=== PATIENT | female | born 1945 | race African-American/Black ===

== ENCOUNTER 2016-09-30 08:05 | Day surgery (SDC) | payer MEDICARE, OTHER ==
[~2016-09-30 08:05] MED LIST: DIPHENHYDRAMINE HCL 50 MG/ML VIAL ONE; EPINEPHRINE INJ 1 MG/10 ML DISP.SYRIN ONE; FENTANYL CITRATE INJ/PF 100 MCG/2 ML AMPUL ONE; FLUMAZENIL INJ 0.5 MG/5 ML VIAL IV ONE; GLUCAGON,HUMAN RECOMB 1 MG INJ ONE; NALOXONE HCL INJ/PF 0.4 MG/1 ML SDV ONE; ONDANSETRON HCL INJ/PF 4 MG/2 ML SDV ONE; PROMETHAZINE HCL INJ 25 MG/1 ML VIAL ONE
[2016-09-30] MEDS: MIDAZOLAM 2 MG/2 ML INJ ONE ×2 (09:25→09:29)
--- NOTE | 2016-09-30 10:08 | Operative Report ---
Operative Report DATE OF SURGERY: 09/30/16 Operative Report: The risks benefits and alternatives of the procedure explained to the patient in detail and informed consent is obtained that GIF Olympus video scope was inserted into the patient's mouth and hypopharynx the esophagus is identified intubated and insufflated the scope was then advanced through the esophagus stomach and duodenum retroflexion maneuver is done the esophagus stomach and first and second portions of the duodenum examined PREOPERATIVE DIAGNOSIS: Epigastric pain POSTOPERATIVE DIAGNOSIS: Gastritis. Hiatal hernia OPERATION: EGD with biopsy SURGEON: LOLA REYNA ANESTHESIA: Moderate Sedation - 3 mg of Versed, 50 g of fentanyl. TISSUE REMOVED OR ALTERED: Gastric specimens obtained rule out Helicobacter pylori COMPLICATIONS: None. ESTIMATED BLOOD LOSS: none. INTRAOPERATIVE FINDINGS: Normal esophagus. Inflammation of the stomach. First and second portions of the duodenum normal PROCEDURE: Patient tolerated the procedure well. No immediate postprocedure complications are noted. She is discharged in good condition. Date of discharge 09/30/2016. Discharge diet: Regular. Discharge activity: Regular. Patient is instructed to go to emergency room or call the office should there be any further problems or questions. 2-3 week follow-up to discuss findings. Wait on biopsies.
[2016-09-30 11:15] VITALS: BP 128/67
== END 2016-09-30 10:50 | disposition home or self-care (01) ==
LOC: END 08:05
PROVIDERS: ATTEND Internal Medicine Gastroenterology
PROC: 0DB68ZX Excision of Stomach, Via Natural or Artificial Opening Endoscopic, Diagnostic (ICD-10-PCS; principal; 2016-09-30 09:00)
DX: K29.50 Unspecified chronic gastritis without bleeding (principal); K44.9 Diaphragmatic hernia without obstruction or gangrene; J45.909 Unspecified asthma, uncomplicated; E78.5 Hyperlipidemia, unspecified; K21.9 Gastro-esophageal reflux disease without esophagitis; I25.10 Atherosclerotic heart disease of native coronary artery without angina pectoris; J44.9 Chronic obstructive pulmonary disease, unspecified; M19.90 Unspecified osteoarthritis, unspecified site; I12.9 Hypertensive chronic kidney disease with stage 1 through stage 4 chronic kidney disease, or unspecified chronic kidney disease; N18.9 Chronic kidney disease, unspecified; Z79.51 Long term (current) use of inhaled steroids; Z79.899 Other long term (current) drug therapy; Z79.82 Long term (current) use of aspirin; Z88.0 Allergy status to penicillin
CPT/HCPCS: 43239; 88342 ×2; 88305 ×2; J2250; J3010; J0171; J1200; J1610; J2310; J2405; J2550; J3490

== ENCOUNTER 2016-11-07 16:35 | Emergency (ER) | payer MEDICARE, OTHER ==
[2016-11-07] MEDS ORDERED: IPRATROPIUM/ALBUTEROL 0.5-2.5 MG/3 ML AMPUL NEB ONE (16:46)
[2016-11-07] MEDS ORDERED: PREDNISONE 20 MG TABLET PO ONE (16:46)
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
[2016-11-07] MEDS ORDERED: ALBUTEROL SULFATE 0.083% NEB 2.5 MG/3 ML AMPUL NEB ONE (21:07)
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
[2016-11-07] MEDS ORDERED: NAPROXEN 250 MG TABLET PO ONE (21:43)
[2016-11-07 22:01] VITALS: BP 146/72
== END 2016-11-07 22:01 | disposition home or self-care (01) ==
LOC: ER 16:35
DX: T59.811A Toxic effect of smoke, accidental (unintentional), initial encounter (principal); J70.5 Respiratory conditions due to smoke inhalation; R05 Cough; R06.02 Shortness of breath; Y92.009 Unspecified place in unspecified non-institutional (private) residence as the place of occurrence of the external cause; J44.9 Chronic obstructive pulmonary disease, unspecified; F17.210 Nicotine dependence, cigarettes, uncomplicated; I25.10 Atherosclerotic heart disease of native coronary artery without angina pectoris; I25.2 Old myocardial infarction; I10 Essential (primary) hypertension; Z87.01 Personal history of pneumonia (recurrent); Z98.61 Coronary angioplasty status; Z95.810 Presence of automatic (implantable) cardiac defibrillator; Z88.0 Allergy status to penicillin
CPT/HCPCS: 94640 ×2; 99284; 71020; A9270 ×4; J7512; J7620

== ENCOUNTER 2017-02-08 00:51 | Emergency (ER) | payer MEDICARE, OTHER ==
[2017-02-08] MEDS ORDERED: ACETAMINOPHEN 325 MG TABLET PO ONE (01:09)
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
[2017-02-08 04:32] VITALS: BP 194/84
== END 2017-02-08 03:57 | disposition home or self-care (01) ==
LOC: ER 00:51
DX: S09.90XA Unspecified injury of head, initial encounter (principal); M25.551 Pain in right hip; M54.2 Cervicalgia; M54.5 Low back pain; M54.9 Dorsalgia, unspecified; Y09 Assault by unspecified means
CPT/HCPCS: 99284; 73502; 72110; 70450; 72125; A9270

== ENCOUNTER → 2017-02-19 | Outpatient (CLI) | payer MEDICARE, OTHER ==
--- NOTE | 2017-02-19 11:13 | RADIOLOGY REPORT (SQ) ---
EXAM DESCRIPTION: LUMBAR SPINE COMPLETE COMPLETED DATE/TIME: 02/19/2017 10:40 am REASON FOR STUDY: DORSALGIA,UNSPECIFIED M54.9 DORSALGIA, UNSPECIFIED COMPARISON: LUMBAR SPINE FILMS 02/08/2017, 01/21/2015 NUMBER OF VIEWS: Five views including obliques. TECHNIQUE: AP, lateral, oblique, and sacral radiographic images acquired of the lumbar spine. LIMITATIONS: Artifact from electrode leads over the frontal film FINDINGS: MINERALIZATION: Osteopenic SEGMENTATION: Normal. No transitional anatomy. ALIGNMENT: Normal. VERTEBRAE: Maintained height. No fracture or worrisome bone lesion. DISCS: Preserved height. No significant osteophytes or end plate irregularity. POSTERIOR ELEMENTS: Very mild bilateral facet arthropathy at L5-S1 HARDWARE: None in the spine. PARASPINAL SOFT TISSUES: Very heavily calcified abdominal aorta without calcified aortic aneurysm PELVIS: Intact as visualized. No fractures or worrisome bone lesions. SI joints intact. OTHER: No other significant finding. IMPRESSION: Osteopenia. No acute fracture or malalignment Mild bilateral L5-S1 facet arthropathy TECHNICAL DOCUMENTATION: JOB ID: [id number]- All Rights Reserved
== END ==
LOC: OD 10:19
PROVIDERS: ATTEND Family Medicine
DX: M54.9 Dorsalgia, unspecified (principal)
CPT/HCPCS: 72110

== ENCOUNTER → 2017-04-24 | Outpatient (CLI) | payer MEDICARE, OTHER ==
--- NOTE | 2017-04-24 11:57 | RADIOLOGY REPORT (SQ) ---
EXAM DESCRIPTION: CHEST PA/LATERAL COMPLETED DATE/TIME: 04/24/2017 11:50 am REASON FOR STUDY: COUGH COMPARISON: 11/07/2016 EXAM PARAMETERS: NUMBER OF VIEWS: two views TECHNIQUE: Digital Frontal and Lateral radiographic views of the chest acquired. RADIATION DOSE: NA LIMITATIONS: none FINDINGS: LUNGS AND PLEURA: No opacities, masses or pneumothorax. No pleural effusion. MEDIASTINUM AND HILAR STRUCTURES: No masses or contour abnormalities. HEART AND VASCULAR STRUCTURES: Heart normal size. No evidence for failure. BONES: No acute findings. HARDWARE: Pacemaker/defibrillator. OTHER: No other significant finding. IMPRESSION: NO SIGNIFICANT RADIOGRAPHIC FINDING IN THE CHEST. TECHNICAL DOCUMENTATION: JOB ID: [id number] [email or web address]- All Rights Reserved
== END ==
LOC: OD 11:27
PROVIDERS: ATTEND Physician Assistant
DX: R05 Cough (principal)
CPT/HCPCS: 71020

== ENCOUNTER 2017-05-13 10:14 | Emergency (ER) | payer MEDICARE, OTHER ==
--- NOTE | 2017-05-13 10:54 | ER Document Report ---
ED Cardiac - General Stated Complaint: CHEST PAIN Time Seen by Provider: 05/13/17 10:40 Notes: Patient was at a local cat sitter (Dr. Abarca) office this morning undergoing a colonoscopy. She was sedated with etomidate and propofol. When she awakened from the procedure, she was complaining of pain in her upper left breast and shoulder, into her left neck. She says the doctor present gave her 2 sublingual nitroglycerin and they called EMS. She says the nitroglycerin helped some, although she still has some chest pain at this time. Patient also feels a little bit short of breath. Patient has a history of a heart attack in 1990 and received a pacemaker at that time. She still has the pacemaker, the most recently moved about 5 years ago. Denies any recent illness or chest pains. Denies any nausea or vomiting. Denies fever. PMH: Hypertension, coronary artery disease, hysterectomy, smoker. Patient of Dr. Fragoso. TRAVEL OUTSIDE OF THE [place] IN LAST 30 DAYS: No - Related Data Allergies/Adverse Reactions: amoxicillin [Amoxicillin] Allergy (Intermediate, Verified 11/07/16 16:46) Hallucinations Penicillins Allergy (Intermediate, Verified 11/07/16 16:46) Hallucinations Past Medical History - Social History Smoking Status: Current Every Day Smoker Family History: Reviewed & Not Pertinent, Hypertension - Past Medical History Cardiac Medical History: Reports: Hx Congestive Heart Failure, Hx Coronary Artery Disease, Hx Heart Attack - 1990, Hx Hypercholesterolemia, Hx Hypertension - medicated Pulmonary Medical History: Reports: Hx Bronchitis, Hx COPD, Hx Pneumonia Renal/ Medical History: Reports: Hx Renal Insufficiency Malignancy Medical History: Denies: Hx Leukemia, Hx Lung Cancer GI Medical History: Reports: Hx Crohn's Disease, Hx Diverticulitis, Hx Gastroesophageal Reflux Disease Musculoskeltal Medical History: Reports Hx Arthritis Psychiatric Medical History: Reports: Hx Depression Traumatic Medical History: Reports: Hx Fractures - right wrist, left foot Past Surgical History: Reports: Hx Appendectomy, Hx Cardiac Catheterization, Hx Cardiac Surgery - AICD, Hx Section - x4, Hx Coronary Stent, Hx Hysterectomy, Hx Orthopedic Surgery - bilateral knee surgery, Hx Pacemaker, Hx Tonsillectomy - Immunizations Immunizations up to date: Yes Hx Diphtheria, Pertussis, Tetanus Vaccination: Yes Hx Pneumococcal Vaccination: 09/21/09 Review of Systems - Review of Systems Notes: REVIEW OF SYSTEMS: CONSTITUTIONAL : Denies fever. EENT: Denies eye, ear, nose or mouth or throat pain or other symptoms. CARDIOVASCULAR: See HPI. RESPIRATORY: Denies cough, chest congestion, but did feel some shortness of breath. GASTROINTESTINAL: Denies abdominal pain or nausea, vomiting, or diarrhea ( except for the GI prep for the colonoscopy). GENITOURINARY: Denies difficulty or painful urinating, urinary frequency, blood in urine. MUSCULOSKELETAL: Denies back or neck pain. Denies joint pain or swelling. SKIN: Denies rash or skin lesions. NEUROLOGICAL: Denies LOC or altered mental status. Denies headache. Denies sensory loss or motor deficits. ALL OTHER SYSTEMS REVIEWED AND NEGATIVE. Physical Exam - Vital signs Vitals: Resp Pulse Ox 17 97 05/13/17 10:25 05/13/17 10:25 Interpretation: Normal, Hypertensive - 164/70 - Notes Notes: PHYSICAL EXAMINATION: GENERAL: Well-appearing, in no acute distress. Vital signs are normal except for the blood pressure 164/70. HEAD: Atraumatic, normocephalic. NECK: Normal range of motion, supple. LUNGS: Breath sounds clear and equal bilaterally. Pacemaker in upper left chest. Mild tenderness around the pacer. HEART: Regular rate and rhythm without murmurs. ABDOMEN: Soft, nontender. No guarding or rebound. BACK: No tenderness throughout entire back. EXTREMITIES: Normal range of motion without pain. NEUROLOGICAL: Normal speech, normal gait. Normal sensory, motor, and reflex exams. Awake, alert, and oriented x3. Cranial nerves normal. PSYCH: Normal mood, normal affect. SKIN: Warm, dry, no rashes. Course - Re-evaluation Re-evalutation: 05/13/17 13:30 Patient was given a 0.2 mg nitro patch and says it helped her pain and she is down to barely noticeable discomfort now. 05/13/17 13:[address] Fragoso, her primary care physician, and he says this patient has frequent chest pain, that always has a normal workup and no heart injury. He requests a second set of cardiac markers and dispo to follow up with him in the office unless there is a change in her second set of labs. Patient advised. Patient is hungry and we have gotten her lunch and she is eating it now. 05/13/17 17:34 Repeat labs show no change in the patient's CK-MB and troponin levels. She is asymptomatic at this time. I feel she is safe to be discharged home to follow- up with Dr. Fragoso. - Vital Signs Vital signs: Temp Pulse Resp BP Pulse Ox 14 164/70 H 98 05/13/17 11:00 05/13/17 10:26 05/13/17 11:00 - Laboratory Result Diagrams: 05/13/17 11:20 05/13/17 11:20 Laboratory results interpreted by me: 05/13/17 05/13/17 11:20 11:20 Hgb 11.8 L Hct 35.5 L RDW 15.1 H Chloride 108 H BUN 22 H Est GFR (Non-Af Amer) 58 L - Diagnostic Test Radiology results interpreted by me: 05/13/17 13:27 Chest x-ray shows a pacemaker. Otherwise, chest x-ray is essentially normal. - EKG Interpretation by Me EKG shows normal: Sinus rhythm Rate: Normal Rhythm: NSR Additional EKG results interpreted by me: 05/13/17 13:27 EKG shows an abnormal T-wave in what looks like QT prolongation. No acute changes, otherwise. Discharge - Discharge Clinical Impression: Chest pain Qualifiers: Chest pain type: unspecified Qualified Code(s): R07.9 - Chest pain, unspecified Condition: Stable Disposition: HOME, SELF-CARE Additional Instructions: CHEST PAIN OF UNCLEAR CAUSE: The exact cause of your chest pain isn't clear. Fortunately, there is no evidence of a dangerous medical condition. Further testing may be required to find the source of the pain. Most often, we find that this pain is coming from the chest wall -- the muscles or rib joints in the chest. But chest pain can come from the lung and lung lining, the esophagus, the heart valves or heart lining, and even the stomach or gallbladder. Rest. Eat lightly until the pain is gone. We may prescribe medicine for pain and inflammation. You should call the physician immediately if the pain radiates to the shoulder, jaw or arms; if you start to run a fever or develop a cough; or if you develop shortness of breath, or other new or alarming symptoms. NORMAL EXAM AND WORKUP: At this time, your examination and workup show no significant abnormality. No significant abnormal physical findings were noted. All laboratory, EKG, and imaging (x-ray, CT scans, ultrasound) studies that were ordered show no significant abnormality. Although your examination and all studies that were ordered showed no significant abnormal finding, there are no examinations and no studies that are 100% accurate. There is always the possibility that some abnormality could exist and not be detected with physical examination or within the limits and capabilities of laboratory and other studies. You should return or follow up as you were instructed on your visit today for further evaluation if your symptoms do not resolve. FOLLOW-UP CARE: If you have been referred to a physician for follow-up care, call the physician s office for an appointment as you were instructed or within the next two days. If you experience worsening or a significant change in your symptoms, notify the physician immediately or return to the Emergency Department at any time for re-evaluation. Follow-up with Dr. Fragoso in his office tomorrow. Referrals: RADHA FRAGOSO MD [Primary Care Provider] - Follow up as needed
--- NOTE | 2017-05-13 10:57 | RADIOLOGY REPORT (SQ) ---
EXAM DESCRIPTION: CHEST SINGLE VIEW COMPLETED DATE/TIME: 05/13/2017 10:39 am REASON FOR STUDY: bed 16 cp COMPARISON: Two-view chest 04/24/2017, 11/07/2016, 02/09/2016 EXAM PARAMETERS: NUMBER OF VIEWS: One view. TECHNIQUE: Single frontal radiographic view of the chest acquired. RADIATION DOSE: NA LIMITATIONS: Left mid lung obscured by the pacemaker/defibrillator battery pack FINDINGS: LUNGS AND PLEURA: No opacities, masses or pneumothorax. No pleural effusion. MEDIASTINUM AND HILAR STRUCTURES: No masses. Contour normal. HEART AND VASCULAR STRUCTURES: No gross cardiomegaly BONES: No acute findings. HARDWARE: Unchanged left-sided pacemaker/ defibrillator and abandoned leads. LAD coronary stent. OTHER: No other significant finding. IMPRESSION: No acute findings TECHNICAL DOCUMENTATION: JOB ID: [id number]
[2017-05-13] MEDS ORDERED: NITROGLYCERIN 5 MG (0.2 MG/HR) PATCH.TD24 TD ONE (10:58)
[2017-05-13 11:29] LABS: ABSOLUTE LYMPHOCYTES (AUTO) 1.1 10^3/uL (0.5-4.7); ABSOLUTE MONOCYTES (AUTO) 0.2 10^3/uL (0.1-1.4); ABSOLUTE NEUT (AUTO) 4.1 10^3/uL (1.7-8.2); BASOPHILS % (AUTO) 0.7 % (0-2); HEMATOCRIT 35.5 % (36.0-47.0); HEMOGLOBIN 11.8 g/dL (12.0-15.5); HGB HCT DIFFERENCE -0.1; LYMPHOCYTES % (AUTO) 20.3 % (13-45); MEAN CORPUSCULAR HEMOGLOBIN 30.8 pg (27.0-33.4); MEAN CORPUSCULAR HGB CONC 33.2 g/dL (32.0-36.0); MEAN CORPUSCULAR VOLUME 93 fl (80-97); MONOCYTES % (AUTO) 3.5 % (3-13); RED BLOOD COUNT 3.83 10^6/uL (3.72-5.28); RED CELL DISTRIBUTION WIDTH 15.1 % (11.5-14.0); SEGMENTED NEUTROPHILS % (AUTO) 75.5 % (42-78); WHITE BLOOD COUNT 5.5 10^3/uL (4.0-10.5)
[2017-05-13 11:58] LABS: ALANINE AMINOTRANSFERASE 22 U/L (9-52); ALBUMIN 3.8 g/dL (3.5-5.0); ALKALINE PHOSPHATASE 87 U/L (38-126); ANION GAP 10 (5-19); ASPARTATE AMINO TRANSFERASE 15 U/L (14-36); BILIRUBIN,DIRECT 0.3 mg/dL (0.0-0.4); BILIRUBIN,TOTAL 0.6 mg/dL (0.2-1.3); BLOOD UREA NITROGEN 22 mg/dL (7-20); CALCIUM 9.7 mg/dL (8.4-10.2); CARBON DIOXIDE 23 mmol/L (22-30); CHLORIDE 108 mmol/L (98-107); CREATINE KINASE 44 U/L (30-135); CREATININE RESULT 0.94 mg/dL (0.52-1.25); GLUCOSE 103 mg/dL (75-110); POTASSIUM 3.6 mmol/L (3.6-5.0); SODIUM 140.9 mmol/L (137-145); TOTAL PROTEIN 6.4 g/dL (6.3-8.2)
[2017-05-13 12:06] LABS: CREATINE KINASE MB 0.44 ng/mL (<4.55)
[2017-05-13 12:11] LABS: TROPONIN I < 0.012 ng/mL
[2017-05-13 17:07] LABS: CREATINE KINASE MB 0.42 ng/mL (<4.55); TROPONIN I < 0.012 ng/mL
[2017-05-13 17:45] VITALS: BP 136/67
--- NOTE | 2017-05-13 21:41 | EKG REPORT ---
SEVERITY:- ABNORMAL ECG - SINUS RHYTHM ABNORMAL T, CONSIDER ISCHEMIA, ANT-LAT LEADS : Confirmed by: Geni Olguin 13-May-2017 21:40:55
== END 2017-05-13 17:45 | disposition home or self-care (01) ==
LOC: ER 10:14
DX: R07.9 Chest pain, unspecified (principal); R94.31 Abnormal electrocardiogram [ECG] [EKG]; R06.02 Shortness of breath; I25.2 Old myocardial infarction; I25.10 Atherosclerotic heart disease of native coronary artery without angina pectoris; I10 Essential (primary) hypertension; J44.9 Chronic obstructive pulmonary disease, unspecified; F17.200 Nicotine dependence, unspecified, uncomplicated; Z98.890 Other specified postprocedural states; Z95.0 Presence of cardiac pacemaker; Z88.0 Allergy status to penicillin; Z87.01 Personal history of pneumonia (recurrent); Z98.61 Coronary angioplasty status
CPT/HCPCS: 93005; 99285; 36415; 82553; 82550; 85025; 80053; 84484; 71010; 93010; J3490

== ENCOUNTER 2017-06-28 23:55 | Inpatient (IN) | payer MEDICARE, OTHER ==
--- NOTE | 2017-06-29 00:34 | ER Document Report ---
ED GI Bleed / Rectal Pain - General Mode of Arrival: Ambulatory Information source: Patient TRAVEL OUTSIDE OF THE [place] IN LAST 30 DAYS: No - HPI Patient complains to provider of: Dark/tarry stools Onset: Just prior to arrival <RADHA STEVENS - Last Filed: 06/29/17 00:39> <WADE PARKER - Last Filed: 06/29/17 03:38> - General Chief Complaint: Rectal Bleeding Stated Complaint: RECTAL BLEEDING Time Seen by Provider: 06/29/17 00:16 Notes: Patient is a 72 year old female that presents to the emergency department today with complaints of a bloody bowel movement just prior to arrival. Patient states she had abdominal pain prior to this bowel movement today. Patient has a history of multiple GI bleeds and she has been sent to [facility] in the past. Patient states she recently had a colonoscopy by Dr. Norwood which "showed nothing". Patient has had multiple colonoscopies in the past and was seen here on April 28, 2014 with a GI bleed. Patient states the only blood thinning medication she takes is aspirin. Patient also complains of a slight headache. ( RADHA STEVENS) - Related Data Allergies/Adverse Reactions: amoxicillin [Amoxicillin] Allergy (Intermediate, Verified 11/07/16 16:46) Hallucinations Penicillins Allergy (Intermediate, Verified 11/07/16 16:46) Hallucinations Past Medical History - General Information source: Patient, [facility] Records - Social History Smoking Status: Current Every Day Smoker Cigarette use (# per day): Yes Frequency of alcohol use: None Drug Abuse: None Lives with: Family Family History: Reviewed & Not Pertinent, Hypertension - Past Medical History Cardiac Medical History: Reports: Hx Congestive Heart Failure, Hx Coronary Artery Disease, Hx Heart Attack - 1990, Hx Hypercholesterolemia, Hx Hypertension - medicated Pulmonary Medical History: Reports: Hx Bronchitis, Hx COPD, Hx Pneumonia Renal/ Medical History: Reports: Hx Renal Insufficiency GI Medical History: Reports: Hx Crohn's Disease, Hx Diverticulitis, Hx Gastroesophageal Reflux Disease Musculoskeltal Medical History: Reports Hx Arthritis Psychiatric Medical History: Reports: Hx Depression Traumatic Medical History: Reports: Hx Fractures - right wrist, left foot Past Surgical History: Reports: Hx Appendectomy, Hx Cardiac Catheterization, Hx Cardiac Surgery - AICD, Hx Section - x4, Hx Coronary Stent, Hx Hysterectomy, Hx Orthopedic Surgery - bilateral knee surgery, Hx Pacemaker, Hx Tonsillectomy - Immunizations Immunizations up to date: Yes Hx Diphtheria, Pertussis, Tetanus Vaccination: Yes Hx Pneumococcal Vaccination: 09/21/09 <RADHA STEVENS - Last Filed: 06/29/17 00:39> GI Medical History: Reports: Hx Crohn's Disease - Patient has either Crohn's disease or ulcerative colitis Past Surgical History: Reports: Hx Cardiac Surgery - AICD for ventricular fibrillation <WADE PARKER - Last Filed: 06/29/17 03:38> Review of Systems - Review of Systems Constitutional: No symptoms reported EENT: No symptoms reported Cardiovascular: No symptoms reported Respiratory: No symptoms reported Gastrointestinal: See HPI, Abdominal pain, Black stools Genitourinary: No symptoms reported Female Genitourinary: No symptoms reported Musculoskeletal: No symptoms reported Skin: No symptoms reported Hematologic/Lymphatic: No symptoms reported Neurological/Psychological: See HPI, Headaches -: Yes All other systems reviewed and negative <RADHA STEVENS - Last Filed: 06/29/17 00:39> Physical Exam <RADHA STEVENS - Last Filed: 06/29/17 00:39> <WADE PARKER - Last Filed: 06/29/17 03:38> - Vital signs Vitals: Resp Pulse Ox 18 99 06/29/17 00:33 06/29/17 00:33 - Notes Notes: Physical Exam: General: Alert, appears age appropriate. HEENT: Normocephalic. Atraumatic. PERRL. Extraocular movements intact. Oropharynx clear. Neck: Supple. Non-tender. Respiratory: No respiratory distress. Clear and equal breath sounds bilaterally. Cardiovascular: Regular rate and rhythm. Abdominal: Minimal tenderness with palpation over left suprapubic area. Large amount of black liquid stool in bedside toilet. No distension. Normal Bowel Sounds. Back: Non-tender. No deformity or step off. Extremities: Moves all four extremities. Upper extremities: Normal inspection. Normal ROM. Lower extremities: Normal inspection. No edema. Normal ROM. Neurological: Normal cognition. AAOx4. Normal speech. Psychological: Normal affect. Normal Mood. Skin: Warm. Dry. Normal color. (RADHA STEVENS) Course - Laboratory Result Diagrams: 06/29/17 00:10 06/29/17 00:10 - EKG Interpretation by De EKG shows normal: Sinus rhythm, [place], Intervals, QRS Complexes, ST-T Waves - Abnormal anterolateral ST wave Rate: Normal - 64 Rhythm: NSR When compared to previous EKG there are: Changes noted - Consults Dr. Horne Time consulted: 03:35 Consulted provider: will see as inpatient - Admit to telemetry, Dr. Mendoza's service <WADE PARKER - Last Filed: 06/29/17 03:38> - Vital Signs Vital signs: Temp Pulse Resp BP Pulse Ox 97.4 F 75 15 159/73 H 98 06/29/17 00:46 06/29/17 00:46 06/29/17 02:01 06/29/17 02:01 06/29/17 02:01 - Laboratory Laboratory results interpreted by me: 06/29/17 06/29/17 00:10 00:10 WBC 3.2 L Hgb 11.5 L Hct 35.0 L RDW 15.7 H Seg Neutrophils % 35.6 L Lymphocytes % 58.6 H Absolute Neutrophils 1.2 L Sodium 145.4 H Chloride 112 H BUN 21 H Est GFR (Non-Af Amer) 50 L Glucose 125 H AST 55 H Discharge <RADHA STEVENS - Last Filed: 06/29/17 00:39> - Discharge Admitting Provider: Reji - Dr. Horne is covering Unit Admitted: Telemetry <WADE PARKER - Last Filed: 06/29/17 03:38> - Discharge Clinical Impression: Rectal bleeding, AICD (automatic cardioverter/defibrillator) present High blood pressure Qualifiers: Hypertension type: essential hypertension Qualified Code(s): I10 - Essential ( primary) hypertension COPD (chronic obstructive pulmonary disease) Qualifiers: COPD type: unspecified COPD Qualified Code(s): J44.9 - Chronic obstructive pulmonary disease, unspecified Headache Qualifiers: Headache type: unspecified Headache chronicity pattern: unspecified pattern Intractability: not intractable Qualified Code(s): R51 - Headache Condition: Stable Disposition: ADMITTED INPATIENT Referrals: ANA MARIA MENDOZA MD [Primary Care Provider] - Follow up as needed Scribe Attestation: 06/29/17 00:51 I personally performed the services described in the documentation, reviewed and edited the documentation which was dictated to the scribe in my presence, and it accurately records my words and actions. (WADE PARKER) Scribe Documentation - Scribe Written by Casper:: Casper Gilliam, 06/29/2017 0043 acting as scribe for :: Geno <RADHA STEVENS - Last Filed: 06/29/17 00:39>
[2017-06-29] MEDS ORDERED: NORMAL SALINE 1000 ML 1,000 ML IV ONE (00:43)
[2017-06-29 01:14] LABS: ABSOLUTE LYMPHOCYTES (AUTO) 1.9 10^3/uL (0.5-4.7); ABSOLUTE MONOCYTES (AUTO) 0.1 10^3/uL (0.1-1.4); ABSOLUTE NEUT (AUTO) 1.2 10^3/uL (1.7-8.2); BASOPHILS % (AUTO) 0.5 % (0-2); EOSINOPHILS % (AUTO) 1.3 % (0-6); HEMOGLOBIN 11.5 g/dL (12.0-15.5); HGB HCT DIFFERENCE -0.5; LYMPHOCYTES % (AUTO) 58.6 % (13-45); MEAN CORPUSCULAR HEMOGLOBIN 30.8 pg (27.0-33.4); MEAN CORPUSCULAR HGB CONC 32.9 g/dL (32.0-36.0); MEAN CORPUSCULAR VOLUME 94 fl (80-97); RED BLOOD COUNT 3.73 10^6/uL (3.72-5.28); RED CELL DISTRIBUTION WIDTH 15.7 % (11.5-14.0); SEGMENTED NEUTROPHILS % (AUTO) 35.6 % (42-78); WHITE BLOOD COUNT 3.2 10^3/uL (4.0-10.5)
[2017-06-29 01:15] LABS: ALANINE AMINOTRANSFERASE 18 U/L (9-52); ALBUMIN 3.9 g/dL (3.5-5.0); ALKALINE PHOSPHATASE 93 U/L (38-126); ANION GAP 9 (5-19); ASPARTATE AMINO TRANSFERASE 55 U/L (14-36); BILIRUBIN,DIRECT 0.4 mg/dL (0.0-0.4); BILIRUBIN,TOTAL 0.6 mg/dL (0.2-1.3); BLOOD UREA NITROGEN 21 mg/dL (7-20); CALCIUM 9.4 mg/dL (8.4-10.2); CARBON DIOXIDE 24 mmol/L (22-30); CHLORIDE 112 mmol/L (98-107); CREATINE KINASE 83 U/L (30-135); CREATININE RESULT 1.08 mg/dL (0.52-1.25); GLUCOSE 125 mg/dL (75-110); POTASSIUM 3.8 mmol/L (3.6-5.0); SODIUM 145.4 mmol/L (137-145); TOTAL PROTEIN 6.6 g/dL (6.3-8.2)
[2017-06-29] MEDS ORDERED: FENTANYL CITRATE INJ/PF 100 MCG/2 ML AMPUL IV ONE (02:49)
--- NOTE | 2017-06-29 06:22 | EKG REPORT ---
SEVERITY:- ABNORMAL ECG - SINUS RHYTHM ABNORMAL T, CONSIDER ISCHEMIA, ANT-LAT LEADS : Confirmed by: Clarice Turk MD 29-Jun-2017 06:22:13
[2017-06-29] MEDS ORDERED: NORMAL SALINE 1000 ML 1,000 ML IV PRN (06:30)
[2017-06-29 08:25] LABS: PROTHROMBIN TIME 14.2 SEC (11.4-15.4)
[2017-06-29 08:26] LABS: PARTIAL THROMBOPLASTIN TIME 29.9 SEC (23.5-35.8)
[2017-06-29 08:28] LABS: HEMATOCRIT 27.1 % (36.0-47.0); HGB HCT DIFFERENCE -0.1; MEAN CORPUSCULAR HGB CONC 33.1 g/dL (32.0-36.0); MEAN CORPUSCULAR VOLUME 94 fl (80-97); RED BLOOD COUNT 2.89 10^6/uL (3.72-5.28); RED CELL DISTRIBUTION WIDTH 15.7 % (11.5-14.0)
[2017-06-29 08:48] LABS: APPEARANCE,URINE CLEAR; BILIRUBIN,URINE NEGATIVE (NEGATIVE); GLUCOSE, URINE NEGATIVE (NEGATIVE); KETONES,URINE NEGATIVE (NEGATIVE); LEUKOCYTE ESTERASE,URINE NEGATIVE (NEGATIVE); NITRITE,URINE NEGATIVE (NEGATIVE); PROTEIN,URINE NEGATIVE (NEGATIVE); URINE SPECIFIC GRAVITY 1.016; UROBILINOGEN,URINE NEGATIVE mg/dL (<2.0)
[2017-06-29] MEDS ORDERED: PEG 3350/NA SULF,BICARB,CL/KCL 4000 ML PO ONE (10:00)
--- NOTE | 2017-06-29 10:05 | PDOC CONSULTATION ---
Consultation Consult Date: 06/29/17 Consult reason:: Gastrointestinal bleeding History of Present Illness Admission Date/PCP: 06/29/17 07:08 ANA MARIA FRAGOSO MD History of Present Illness: JESSICA VEGA is a 72 year old female presents to the emergency department by ground rescue complaining of abdominal, gastrointestinal bleeding. She was admitted to the internal medicine service for further evaluation. She had no evidence of hemodynamic instability. Bowel movements are described as bloody some clot. Patient has a history of repeated gastrointestinal bleeding. According to records, she underwent upper and lower endoscopy by Dr. Harris 2012 where she was found to have duodenitis, ileocolitis and 2 polyps of the ascending colon. She underwent repeat upper endoscopy by Dr. Martino was found to have gastritis and duodenitis in 2013. Significant source of gastrointestinal bleeding was identified. Last month the patient states she underwent upper and lower endoscopy by Dr. bal, the results of which are unknown. According the patient the only blood thinner she takes his aspirin. Since being admitted to the floor, she has had no further gastrointestinal bleeding. She denies emesis. Past Medical History Cardiac Medical History: Reports: Congestive Heart Failure, Coronary Artery Disease, Myocardial Infarction - 1990, Hyperlipidema, Hypertension - medicated Denies: Atrial Fibrillation, Peripheral Vascular Disease, Pulmonary Embolism , Heart Murmur Pulmonary Medical History: Reports: Bronchitis, Chronic Obstructive Pulmonary Disease (COPD), Pneumonia Denies: Asthma, Respiratory Failure, Sleep Apnea, Tuberculosis Neurological Medical History: Denies: Seizures Endocrine Medical History: Denies: Diabetes Mellitus Type 1, Diabetes Mellitus Type 2 Renal/ Medical History: Denies: End Stage Renal Disease Malignancy Medical History: Denies: Leukemia, Lung Cancer GI Medical History: Reports: Crohn's Disease - Patient has either Crohn's disease or ulcerative colitis, Diverticulitis, Gastroesophageal Reflux Disease Denies: Hepatitis, Hiatal Hernia Musculoskeltal Medical History: Reports: Arthritis Denies: Fibromyalgia Psychiatric Medical History: Reports: Depression Denies: Bipolar Disorder, Post Traumatic Stress Disorder Hematology: Denies: Anemia, Hemophilia, Sickle Cell Disease Infectious Medical History: Denies: HIV Past Surgical History Past Surgical History: Reports: Appendectomy, Cardiac Catheterization, Section - x4, Coronary Stent, Hysterectomy, Orthopedic Surgery - bilateral knee surgery, Pacemaker, Tonsillectomy Denies: Amputation, Cholecystectomy, Colostomy, Coronary Artery Bypass Graft , Gastric Bypass Surgery, Herniorrhaphy, Mastectomy, Tubal Ligation Social History Lives with: Family Smoking Status: Current Some Day Smoker Frequency of Alcohol Use: None Hx Recreational Drug Use: No Hx Prescription Drug Abuse: No - Advance Directive Resuscitation Status: Full Code Family History Family History: Reviewed & Not Pertinent, Hypertension Parental Family History Reviewed: Yes Children Family History Reviewed: Yes Sibling(s) Family History Reviewed.: Yes Medication/Allergy Home Medications: Albuterol Sulfate [Albuterol Sulfate 2.5mg/3 mL] 1 vial IH Q4 PRN 11/17/15 Amlodipine Besylate 5 mg PO BID 11/17/15 Atorvastatin Calcium 40 mg PO DAILY 11/17/15 Carvedilol [Coreg] 25 mg PO BID 11/17/15 Hydralazine HCl 50 mg PO TID 11/17/15 Hydrochlorothiazide 12.5 mg PO DAILY 11/17/15 Trazodone HCl [Desyrel 50 mg Tablet] 50 mg PO QHS 11/17/15 Aspirin [Aspirin EC] 81 mg PO DAILY 09/30/16 Diclofenac Sodium [Voltaren] 100 gm TP QID 09/30/16 Docusate Sodium [Dok] 100 mg PO DAILY PRN 09/30/16 Esomeprazole Magnesium [Nexium 24Hr] 22.3 mg PO DAILY 09/30/16 Fluticasone Propionate 1 spray NS BID 09/30/16 Ibuprofen/Famotidine [Duexis 800-26.6 mg Tablet] 1 each PO DAILY PRN 09/30/16 Isosorbide Mononitrate [Isosorbide Mononitrate ER] 30 mg PO DAILY 09/30/16 Latanoprost [Xalatan 0.005% Oph Soln 2.5 ml] 1 drop OU QHS 09/30/16 Lubiprostone [Amitiza 8 Mcg Capsule] 1 cap PO DAILY 09/30/16 Nitroglycerin 0.4 mg SL ASDIR PRN 09/30/16 Polyethylene Glycol 3350 [Gavilax] 17 gm PO DAILY PRN 09/30/16 Ranitidine HCl [Acid Control] 75 mg PO BID 09/30/16 Docusate Sodium [Colace 100 mg Capsule] 100 mg PO DAILY #30 capsule 02/08/17 Oxycodone HCl/Acetaminophen [Percocet 5-325 mg Tablet] 0.5 - 1 tab PO Q4H PRN # 10 tablet 02/08/17 Allergies/Adverse Reactions: amoxicillin [Amoxicillin] Allergy (Intermediate, Verified 11/07/16 16:46) Hallucinations Penicillins Allergy (Intermediate, Verified 11/07/16 16:46) Hallucinations Physical Exam Vital Signs: Temp Pulse Resp BP Pulse Ox 97.4 F 62 14 151/70 H 97 06/29/17 00:46 06/29/17 05:59 06/29/17 05:59 06/29/17 05:59 06/29/17 05:59 General appearance: PRESENT: no acute distress Eye exam: PRESENT: EOMI Cardiovascular exam: PRESENT: other - And has a left subclavian defibrillator GI/Abdominal exam: PRESENT: other - All scars consistent with previous surgery including section, fibrillator placement and replacement Rectal exam: PRESENT: deferred Results Laboratory Results: 06/29/17 08:05 06/29/17 06/29/17 08:05 08:25 WBC 3.0 L RBC 2.89 L Hgb 9.0 L D Hct 27.1 L MCV 94 MCH 31.0 MCHC 33.1 RDW 15.7 H Plt Count 158 Urine Color YELLOW Urine Appearance CLEAR Urine pH 5.0 Ur Specific [place] 1.016 Urine Protein NEGATIVE Urine Glucose (UA) NEGATIVE Urine Ketones NEGATIVE Urine Blood SMALL H Urine Nitrite NEGATIVE Ur Leukocyte Esterase NEGATIVE Urine WBC (Auto) 1 Urine RBC (Auto) 0 Assessment & Plan - Diagnosis (1) Rectal bleeding Is this a current diagnosis for this admission?: Yes Plan: Current episodes, reviewing medical records, it is difficult to ascertain the etiology of her previous GI bleeds. Plan: We will set patient up for upper and lower endoscopy, 1 hour, [facility]; will initiate bowel prep this morning. Perform the procedure under conscious sedation.
[2017-06-29] MEDS: PANTOPRAZOLE SODIUM 40 MG VIAL IV SCH ×2 (10:16→23:09)
[2017-06-29] MEDS ORDERED: ALPRAZOLAM 0.5 MG TABLET PO PRN (12:08)
[2017-06-29] MEDS ORDERED: KETOROLAC TROMETHAMINE OS PRN (12:08)
[2017-06-29] MEDS ORDERED: GABAPENTIN 300 MG CAPSULE PO PRN (12:08)
[2017-06-29] MEDS ORDERED: NITROGLYCERIN 0.4 MG/TAB 25 TAB/BOTTLE SL PRN (12:08)
[2017-06-29] MEDS ORDERED: IPRATROPIUM/ALBUTEROL 0.5-2.5 MG/3 ML AMPUL NEB PRN (12:09)
[2017-06-29] MEDS ORDERED: ONDANSETRON HCL INJ/PF 4 MG/2 ML SDV IV PRN (12:40)
[2017-06-29] MEDS ORDERED: POTASSIUM CHLORIDE 10 MEQ TABLET.SA PO ONE (13:00)
[2017-06-29] MEDS ORDERED: POTASSIUM CHLORIDE 20 MEQ/50 ML RTU IV SCH (13:30)
[2017-06-29] MEDS: HYDRALAZINE HCL 25 MG TABLET PO SCH ×2 (13:37→23:08)
[2017-06-29] MEDS: BUSPIRONE HCL 10 MG TABLET PO SCH ×2 (13:44→23:08)
--- NOTE | 2017-06-29 14:10 | PDOC H&P ---
History of Present Illness Admission Date/PCP: 06/29/17 07:08 ANA MARIA FRAGOSO MD Patient complains of: Blood in the rectum History of Present Illness: JESSICA VEGA is a 72 year old female presents to the emergency department by ground rescue complaining of abdominal, gastrointestinal bleeding. She was admitted to the internal medicine service for further evaluation. She had no evidence of hemodynamic instability. Bowel movements are described as bloody some clot. Patient has a history of repeated gastrointestinal bleeding. According to records, she underwent upper and lower endoscopy by Dr. Harris 2012 where she was found to have duodenitis, ileocolitis and 2 polyps of the ascending colon. She underwent repeat upper endoscopy by Dr. Martino was found to have gastritis and duodenitis in 2013. Significant source of gastrointestinal bleeding was identified. Last month the patient states she underwent upper and lower endoscopy by Dr. bal, the results of which are unknown. According the patient the only blood thinner she takes his aspirin. Since being admitted to the floor, she has had no further gastrointestinal bleeding. She denies emesis. Patient also have a history of the coronary artery disease status post stent placement and a history of the ventricular tachycardia status post ICD placement and currently see a [facility] and currently all stable Patient's still have a blood in the stools pt was diagnosed one time of the Crohn's disease but the doctor kassandra rogel told the patient patient does not have any Crohn's disease Patient's son is on the bedside and discussed with the . Gareth Was going to perform the endoscopy and colonoscopy today Past Medical History Cardiac Medical History: Reports: Congestive Heart Failure, Coronary Artery Disease, Myocardial Infarction - 1990, Hyperlipidema, Hypertension - medicated Denies: Atrial Fibrillation, Peripheral Vascular Disease, Pulmonary Embolism , Heart Murmur Pulmonary Medical History: Reports: Bronchitis, Chronic Obstructive Pulmonary Disease (COPD), Pneumonia Denies: Asthma, Respiratory Failure, Sleep Apnea, Tuberculosis Neurological Medical History: Denies: Seizures Endocrine Medical History: Denies: Diabetes Mellitus Type 1, Diabetes Mellitus Type 2 Renal/ Medical History: Denies: End Stage Renal Disease Malignancy Medical History: Denies: Leukemia, Lung Cancer GI Medical History: Reports: Crohn's Disease - Patient has either Crohn's disease or ulcerative colitis, Diverticulitis, Gastroesophageal Reflux Disease Denies: Hepatitis, Hiatal Hernia Musculoskeltal Medical History: Reports: Arthritis Denies: Fibromyalgia Psychiatric Medical History: Reports: Depression Denies: Bipolar Disorder, Post Traumatic Stress Disorder Hematology: Denies: Anemia, Hemophilia, Sickle Cell Disease Infectious Medical History: Denies: HIV Past Surgical History Past Surgical History: Reports: Appendectomy, Cardiac Catheterization, Section - x4, Coronary Stent, Hysterectomy, Orthopedic Surgery - bilateral knee surgery, Pacemaker, Tonsillectomy Denies: Amputation, Cholecystectomy, Colostomy, Coronary Artery Bypass Graft , Gastric Bypass Surgery, Herniorrhaphy, Mastectomy, Tubal Ligation Social History Lives with: Family Smoking Status: Current Some Day Smoker Frequency of Alcohol Use: None Hx Recreational Drug Use: No Hx Prescription Drug Abuse: No - Advance Directive Resuscitation Status: Full Code Family History Family History: Reviewed & Not Pertinent, Hypertension Parental Family History Reviewed: Yes Children Family History Reviewed: Yes Sibling(s) Family History Reviewed.: Yes Medication/Allergy Home Medications: Albuterol Sulfate [Albuterol Sulfate 2.5mg/3 mL] 1 vial IH TID 06/29/17 Alprazolam [Xanax 0.5 mg Tablet] 0.5 mg PO BIDP PRN 06/29/17 Amlodipine Besylate [Norvasc 5 mg Tablet] 5 mg PO Q12 06/29/17 Aspirin [Aspirin EC] 81 mg PO DAILY 06/29/17 Atorvastatin Calcium [Lipitor 40 mg Tablet] 40 mg PO QHS 06/29/17 Budesonide/Formoterol Fumarate [Symbicort Hfa 160-4.5 Mcg Inhaler 6 gm] 2 puff IH Q12 06/29/17 Buspirone HCl [Buspar 10 mg Tablet] 10 mg PO Q8 06/29/17 Carvedilol [Coreg 25 mg Tablet] 1 tab PO Q12 06/29/17 Diclofenac Sodium [Voltaren] 100 gm TP QIDP PRN 06/29/17 Escitalopram Oxalate [Lexapro 10 mg Tablet] 10 mg PO DAILY 06/29/17 Fluticasone Propionate [Flonase Nasal [place] 50 Mcg/[place] 16 gm] 1 spray NASL BID 06/29/17 Gabapentin [Neurontin 300 mg Capsule] 300 mg PO BIDP PRN 06/29/17 Hydralazine HCl [Apresoline 25 mg Tablet] 50 mg PO Q8 06/29/17 Hydrochlorothiazide [Hydrodiuril 12.5 mg Capsule] 12.5 mg PO DAILY 10/09/17 Ketorolac Tromethamine [Acular Ls] 1 drop OS TIDP PRN 06/29/17 Latanoprost [Xalatan 0.005% Oph Soln 2.5 ml] 1 drop OD QHS 06/29/17 Nitroglycerin [Nitrostat 0.4 mg (1/150 Gr) Tabs 25/Bottle] 1 tab SL Q5MP PRN 06/07 Omeprazole 40 mg PO QAM 06/29/17 Ranitidine HCl [Zantac 150 mg Tablet] 75 mg PO BID 06/29/17 Ranolazine [Ranexa 500 mg Tab.sr] 500 mg PO Q12 06/29/17 Tiotropium [place] [Spiriva Respimat] 2 puff IH DAILY 06/29/17 Allergies/Adverse Reactions: amoxicillin [Amoxicillin] Allergy (Intermediate, Verified 11/07/16 16:46) Hallucinations Penicillins Allergy (Intermediate, Verified 11/07/16 16:46) Hallucinations Review of Systems Constitutional: ABSENT: chills, fever(s), headache(s), weight gain, weight loss Eyes: ABSENT: visual disturbances Ears: ABSENT: hearing changes Cardiovascular: ABSENT: chest pain, dyspnea on exertion, edema, orthropnea, palpitations Respiratory: ABSENT: cough, hemoptysis Gastrointestinal: PRESENT: bloating, hematochezia. ABSENT: abdominal pain, constipation, diarrhea, hematemesis, nausea, vomiting Genitourinary: ABSENT: dysuria, hematuria Musculoskeletal: ABSENT: joint swelling Integumentary: ABSENT: rash, wounds Neurological: ABSENT: abnormal gait, abnormal speech, confusion, dizziness, focal weakness, syncope Psychiatric: ABSENT: anxiety, depression, homidical ideation, suicidal ideation Endocrine: ABSENT: cold intolerance, heat intolerance, menstrual abnormalities, polydipsia, polyuria Hematologic/Lymphatic: ABSENT: easy bleeding, easy bruising, lymphadenopathy Physical Exam Vital Signs: Temp Pulse Resp BP Pulse Ox 97.4 F 74 17 192/82 H 97 06/29/17 11:00 06/29/17 13:31 06/29/17 11:00 06/29/17 13:31 06/29/17 13:31 General appearance: PRESENT: no acute distress, well-developed, well-nourished Head exam: PRESENT: atraumatic, normocephalic Eye exam: PRESENT: conjunctiva pink, EOMI, PERRLA. ABSENT: scleral icterus Ear exam: PRESENT: normal external ear exam Mouth exam: PRESENT: moist, tongue midline Neck exam: PRESENT: full ROM. ABSENT: carotid bruit, JVD, lymphadenopathy, thyromegaly Respiratory exam: PRESENT: clear to auscultation david Cardiovascular exam: PRESENT: RRR. ABSENT: diastolic murmur, rubs, systolic murmur Pulses: PRESENT: normal dorsalis pedis pul, +2 pedal pulses bilateral Vascular exam: PRESENT: normal capillary refill GI/Abdominal exam: PRESENT: normal bowel sounds, soft. ABSENT: distended, guarding, mass, organolmegaly, rebound, tenderness Rectal exam: PRESENT: deferred Extremities exam: PRESENT: full ROM. ABSENT: pedal edema Musculoskeletal exam: PRESENT: ambulatory Neurological exam: PRESENT: alert, awake, oriented to person, oriented to place , oriented to time, oriented to situation, CN II-XII grossly intact. ABSENT: motor sensory deficit Psychiatric exam: PRESENT: appropriate affect, normal mood. ABSENT: homicidal ideation, suicidal ideation Skin exam: PRESENT: dry, intact, warm. ABSENT: cyanosis, rash Results Laboratory Results: 06/29/17 08:05 06/29/17 06/29/17 08:05 08:25 WBC 3.0 L RBC 2.89 L Hgb 9.0 L D Hct 27.1 L MCV 94 MCH 31.0 MCHC 33.1 RDW 15.7 H Plt Count 158 Urine Color YELLOW Urine Appearance CLEAR Urine pH 5.0 Ur Specific [place] 1.016 Urine Protein NEGATIVE Urine Glucose (UA) NEGATIVE Urine Ketones NEGATIVE Urine Blood SMALL H Urine Nitrite NEGATIVE Ur Leukocyte Esterase NEGATIVE Urine WBC (Auto) 1 Urine RBC (Auto) 0 Assessment & Plan - Diagnosis (1) Rectal bleeding Is this a current diagnosis for this admission?: Yes Plan: Patient is going for the endoscopy and colonoscopy for the general surgery will continues IV fluid hold aspirin and continues to check the H&H every 6 hour (2) AICD (automatic cardioverter/defibrillator) present Is this a current diagnosis for this admission?: Yes Plan: Currently stable (3) COPD (chronic obstructive pulmonary disease) Qualifiers: COPD type: chronic bronchitis Qualified Code(s): J44.9 - Chronic obstructive pulmonary disease, unspecified Is this a current diagnosis for this admission?: Yes Plan: Continues DuoNeb nebulizer (4) HTN (hypertension) Qualifiers: Hypertension type: essential hypertension Qualified Code(s): I10 - Essential (primary) hypertension Is this a current diagnosis for this admission?: Yes Plan: Continues current medications (5) Coronary artery disease Qualifiers: Coronary Disease-Associated Artery/Lesion type: unspecified vessel or lesion type Associated angina: without angina Is this a current diagnosis for this admission?: Yes Plan: Patient usually see a [facility] and recently increased the Ranexa and suggest the medical management and if is persistent any issue with the heart Need to reevaluate the RCA Patient have a cardiac cath done in January 2017 was LAD was all stable with some lesion in the RAD and suggest the medical management (6) GERD (gastroesophageal reflux disease) Qualifiers: Esophagitis presence: without esophagitis Qualified Code(s): K21.9 - Gastro -esophageal reflux disease without esophagitis Is this a current diagnosis for this admission?: Yes Plan: Put the patient on the Protonix (7) HLD (hyperlipidemia) Qualifiers: Hyperlipidemia type: unspecified Qualified Code(s): E78.5 - Hyperlipidemia , unspecified Is this a current diagnosis for this admission?: Yes Plan: Continues to statin (8) Osteoarthritis Qualifiers: Osteoarthritis location: unspecified site Is this a current diagnosis for this admission?: Yes (9) Chronic pain syndrome Is this a current diagnosis for this admission?: Yes Plan: Patient usually see a pain management - Time Time Spent: 50 to 70 Minutes Medications reviewed and adjusted accordingly: Yes Anticipated discharge: Home Within: Other - Inpatient Certification Medical Necessity: Need Close Monitoring Due to Risk of Patient Decompensation, Need For IV Fluids 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 follow with the general surgery for endoscopy and colonoscopy check H&H every 6 hours and discussed with the patient and the son on the bedside and other coordinate care
[2017-06-29] MEDS ORDERED: NALOXONE HCL INJ/PF 0.4 MG/1 ML SDV ONE (16:36)
[2017-06-29] MEDS ORDERED: ONDANSETRON HCL INJ/PF 4 MG/2 ML SDV ONE (16:36)
[2017-06-29] MEDS ORDERED: GLYCOPYRROLATE INJ 0.4 MG/2 ML VIAL ONE (16:36)
[2017-06-29] MEDS ORDERED: GLUCAGON,HUMAN RECOMB 1 MG INJ ONE (16:37)
[2017-06-29] MEDS ORDERED: FLUMAZENIL INJ 0.5 MG/5 ML VIAL ONE (16:37)
[2017-06-29] MEDS ORDERED: EPINEPHRINE INJ 1 MG/10 ML DISP.SYRIN ONE (16:37)
[2017-06-29] MEDS ORDERED: HYDRALAZINE HCL INJ/PF 20 MG/1 ML SDV IV PRN (16:55)
[2017-06-29 17:08] LABS: HEMATOCRIT 24.1 % (36.0-47.0); HEMOGLOBIN 8.1 g/dL (12.0-15.5); HGB HCT DIFFERENCE 0.2; MEAN CORPUSCULAR HEMOGLOBIN 31.6 pg (27.0-33.4); MEAN CORPUSCULAR HGB CONC 33.6 g/dL (32.0-36.0); MEAN CORPUSCULAR VOLUME 94 fl (80-97); RED BLOOD COUNT 2.56 10^6/uL (3.72-5.28); RED CELL DISTRIBUTION WIDTH 15.5 % (11.5-14.0); WHITE BLOOD COUNT 3.7 10^3/uL (4.0-10.5)
[2017-06-29] MEDS: MIDAZOLAM 2 MG/2 ML INJ ONE ×3 (17:21→17:40)
[2017-06-29] MEDS: FENTANYL CITRATE INJ/PF 100 MCG/2 ML AMPUL ONE ×2 (17:23→17:30)
[2017-06-29] MEDS: FLUTICASONE NASAL SPRAY 50 MCG/SPRY 120 SPRAY/16 GM NASL SCH (19:09)
--- NOTE | 2017-06-29 19:12 | Operative Report ---
Operative Report DATE OF SURGERY: 06/29/17 PREOPERATIVE DIAGNOSIS: Acute gastrointestinal hemorrhage POSTOPERATIVE DIAGNOSIS: Same with cecal arteriovenous malformation OPERATION: 1. Esophagogastroduodenoscopy. 2. Total colonoscopy to cecum SURGEON: MT BENITEZ ANESTHESIA: Moderate Sedation TISSUE REMOVED OR ALTERED: None COMPLICATIONS: None ESTIMATED BLOOD LOSS: Minimal INTRAOPERATIVE FINDINGS: See below PROCEDURE: The patient was taken to the fifth floor endoscopy suite were monitoring devices were attached and the patient was placed in the semirecumbent left lateral position mouthpiece inserted an appropriate level of conscious sedation induced. The patient remained hemodynamically stable with good oxygenation. She was not actively bleeding during this procedure Surgical plan surgical timeout were conducted. The flexible adult upper endoscope was advanced to the hypopharynx through the esophagus into the stomach into the first and second portions of the duodenum. There was an excellent study. There was no evidence of gastrointestinal bleeding. The patient did have a moderate sized hiatal hernia. There is no evidence of ulcer or stricture or polyp. No biopsies were obtained. Scope was withdrawn to the patient's oropharynx. She taught procedure well Patient was repositioned instrumentation switched up and procedure for colonoscopy performed. A rectal exam was performed. The patient did evacuate some loose Jaskaran-Aid colored red E fluent. Rectal exam revealed no visible or palpable anorectal pathology The flexible adult colonoscope was advanced to the anorectal canal all the way to the cecum. This was a very good study well-prepped bowel. The only blood encountered was a collection of fresh blood, clot, and artery dilute blood in the cecum and ascending colon. All of this is successfully aspirated until the point of origination of the bleeding ascertained and in fact it was a very small spot AVM with clot on it in the cecum. Photographs were taken. We monitored this area carefully and there was no ongoing bleeding. We left a clot in situ. I attempted to cannulate the terminal ileum but was unsuccessful. We did not see any blood coming from the terminal ileum into the cecum. [place] confident that the source of bleeding was in fact the AVM. We discussed injecting the aurora-AVM tissue with epinephrine but since there was no bleeding we did not perform this procedure. The scope was withdrawn through the length of the colon check and the mucosa carefully ; No significant pathology identified. No further bleeding identified scope was withdrawn to the patient's anus. She tolerated procedure well. Per screening guidelines, should be an appropriate candidate for follow-up colonoscopy in 10 years, or sooner if symptoms develop.
[2017-06-29 19:32] LABS: HEMATOCRIT 24.6 % (36.0-47.0); HEMOGLOBIN 8.1 g/dL (12.0-15.5); HGB HCT DIFFERENCE -0.3; MEAN CORPUSCULAR HEMOGLOBIN 30.8 pg (27.0-33.4); MEAN CORPUSCULAR HGB CONC 32.9 g/dL (32.0-36.0); MEAN CORPUSCULAR VOLUME 94 fl (80-97); RED BLOOD COUNT 2.63 10^6/uL (3.72-5.28); RED CELL DISTRIBUTION WIDTH 15.7 % (11.5-14.0); WHITE BLOOD COUNT 3.6 10^3/uL (4.0-10.5)
[2017-06-29] MEDS ORDERED: FUROSEMIDE INJ/PF 20 MG/2 ML SDV IV PRN (19:47)
[2017-06-29] MEDS ORDERED: (PENDING PHARMACY ID) (Carvedilol [Coreg 25 Mg Tablet] 1 TAB) PO SCH (22:00)
[2017-06-29] MEDS: RANOLAZINE 500 MG TAB.SR.12H PO SCH (23:05)
[2017-06-29] MEDS: BUDESONIDE/FORMOTEROL 160-4.5 MCG 60 PUFF/6 GM MDI IH SCH (23:08)
[2017-06-29] MEDS: ATORVASTATIN CALCIUM 40 MG TABLET PO SCH (23:08)
[2017-06-29] MEDS: AMLODIPINE BESYLATE 5 MG TABLET PO SCH (23:09)
[2017-06-29] MEDS: CARVEDILOL 12.5 MG TABLET PO SCH (23:09)
[2017-06-29] MEDS: LATANOPROST 0.005% OPH SOLN 2.5 ML OD SCH (23:12)
[2017-06-30 01:17] LABS: HEMATOCRIT 21.8 % (36.0-47.0); HGB HCT DIFFERENCE 0.1; MEAN CORPUSCULAR HEMOGLOBIN 31.2 pg (27.0-33.4); MEAN CORPUSCULAR HGB CONC 33.5 g/dL (32.0-36.0); MEAN CORPUSCULAR VOLUME 93 fl (80-97); RED BLOOD COUNT 2.34 10^6/uL (3.72-5.28); RED CELL DISTRIBUTION WIDTH 15.4 % (11.5-14.0)
[2017-06-30 01:18] LABS: HEMOGLOBIN 7.3 g/dL (12.0-15.5)
[2017-06-30] MEDS ORDERED: FUROSEMIDE INJ/PF 20 MG/2 ML SDV IV PRN (03:57)
[2017-06-30] MEDS: BUSPIRONE HCL 10 MG TABLET PO SCH ×3 (07:02→22:02)
[2017-06-30] MEDS: FLUTICASONE NASAL SPRAY 50 MCG/SPRY 120 SPRAY/16 GM NASL SCH ×2 (07:03→18:46)
[2017-06-30] MEDS: HYDRALAZINE HCL 25 MG TABLET PO SCH ×3 (07:03→22:02)
[2017-06-30] MEDS ORDERED: (PENDING PHARMACY ID) (Tiotropium Bromide [Spiriva Respimat] 2 PUFF) IH SCH (10:00)
[2017-06-30] MEDS: RANOLAZINE 500 MG TAB.SR.12H PO SCH ×2 (13:19→22:02)
[2017-06-30] MEDS: CARVEDILOL 12.5 MG TABLET PO SCH (13:20)
[2017-06-30] MEDS: AMLODIPINE BESYLATE 5 MG TABLET PO SCH ×2 (13:21→22:02)
[2017-06-30] MEDS: ESCITALOPRAM OXALATE 10 MG TABLET PO SCH (13:22)
[2017-06-30] MEDS: BUDESONIDE/FORMOTEROL 160-4.5 MCG 60 PUFF/6 GM MDI IH SCH ×2 (13:22→22:02)
[2017-06-30] MEDS: PANTOPRAZOLE SODIUM 40 MG VIAL IV SCH ×2 (13:23→22:02)
--- NOTE | 2017-06-30 13:52 | PDOC PROGRESS REPORT ---
Subjective Progress Note for:: 06/30/17 Subjective:: Patient is currently doing much better patient underwent for the ablation of the AVM and currently denied any blood in the stool Patient is currently receiving the second unit of the blood Patient's denied any chest pain without any shortness of the breath Physical Exam Vital Signs: Temp Pulse Resp BP Pulse Ox 97.4 F 72 16 122/64 94 06/30/17 06:00 06/30/17 08:00 06/30/17 08:00 06/30/17 06:00 06/30/17 08:00 Intake & Output 06/29/17 06/30/17 07/01/17 06:59 06:59 06:59 Intake Total 3110 320 Output Total 2970 Balance 140 320 General appearance: PRESENT: no acute distress, well-developed, well-nourished Head exam: PRESENT: atraumatic, normocephalic Eye exam: PRESENT: conjunctiva pink, EOMI, PERRLA. ABSENT: scleral icterus Ear exam: PRESENT: normal external ear exam Mouth exam: PRESENT: moist, tongue midline Neck exam: PRESENT: full ROM. ABSENT: carotid bruit, JVD, lymphadenopathy, thyromegaly Respiratory exam: PRESENT: clear to auscultation david Cardiovascular exam: PRESENT: RRR. ABSENT: diastolic murmur, rubs, systolic murmur Pulses: PRESENT: normal dorsalis pedis pul, +2 pedal pulses bilateral Vascular exam: PRESENT: normal capillary refill GI/Abdominal exam: PRESENT: normal bowel sounds, soft. ABSENT: distended, guarding, mass, organolmegaly, rebound, tenderness Rectal exam: PRESENT: deferred Extremities exam: ABSENT: pedal edema Musculoskeletal exam: PRESENT: ambulatory Neurological exam: PRESENT: alert, awake, oriented to person, oriented to place , oriented to time, oriented to situation, CN II-XII grossly intact. ABSENT: motor sensory deficit Psychiatric exam: PRESENT: appropriate affect, normal mood. ABSENT: homicidal ideation, suicidal ideation Skin exam: PRESENT: dry, intact, warm. ABSENT: cyanosis, rash Results Laboratory Results: 06/30/17 01:01 06/29/17 06/29/17 06/29/17 15:20 17:00 19:08 WBC Cancelled 3.7 L 3.6 L RBC Cancelled 2.56 L 2.63 L Hgb Cancelled 8.1 L 8.1 L Hct Cancelled 24.1 L 24.6 L MCV Cancelled 94 94 MCH Cancelled 31.6 30.8 MCHC Cancelled 33.6 32.9 RDW Cancelled 15.5 H 15.7 H Plt Count Cancelled 148 L 151 06/30/17 01:01 WBC 3.0 L RBC 2.34 L Hgb 7.3 L Hct 21.8 L MCV 93 MCH 31.2 MCHC 33.5 RDW 15.4 H Plt Count 136 L Assessment & Plan - Diagnosis (1) Rectal bleeding Is this a current diagnosis for this admission?: Yes Plan: Due to the AVM status post ablation (2) AICD (automatic cardioverter/defibrillator) present Is this a current diagnosis for this admission?: Yes Plan: Currently stable (3) COPD (chronic obstructive pulmonary disease) Qualifiers: COPD type: chronic bronchitis Qualified Code(s): J44.9 - Chronic obstructive pulmonary disease, unspecified Is this a current diagnosis for this admission?: Yes Plan: Continues DuoNeb nebulizer (4) HTN (hypertension) Qualifiers: Hypertension type: essential hypertension Qualified Code(s): I10 - Essential (primary) hypertension Is this a current diagnosis for this admission?: Yes Plan: Continues current medications (5) Coronary artery disease Qualifiers: Coronary Disease-Associated Artery/Lesion type: unspecified vessel or lesion type Associated angina: without angina Is this a current diagnosis for this admission?: Yes Plan: Patient usually see a [place] [facility] cardiology and recently increased the Ranexa and suggest the medical management and if is persistent any issue with the heart Need to reevaluate the RCA Patient have a cardiac cath done in January 2017 was LAD was all stable with some lesion in the RAD and suggest the medical management (6) GERD (gastroesophageal reflux disease) Qualifiers: Esophagitis presence: without esophagitis Qualified Code(s): K21.9 - Gastro -esophageal reflux disease without esophagitis Is this a current diagnosis for this admission?: Yes Plan: Put the patient on the Protonix (7) HLD (hyperlipidemia) Qualifiers: Hyperlipidemia type: unspecified Qualified Code(s): E78.5 - Hyperlipidemia , unspecified Is this a current diagnosis for this admission?: Yes Plan: Continues to statin (8) Osteoarthritis Qualifiers: Osteoarthritis location: unspecified site Is this a current diagnosis for this admission?: Yes (9) Chronic pain syndrome Is this a current diagnosis for this admission?: Yes Plan: Patient usually see a pain management - Time Time Spent with patient: 15-24 minutes Medications reviewed and adjusted accordingly: Yes Anticipated discharge: Home Within: within 24 hours - Inpatient Certification Medical Necessity: Need Close Monitoring Due to Risk of Patient Decompensation 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
[2017-06-30 15:16] LABS: HEMATOCRIT 31.9 % (36.0-47.0); HGB HCT DIFFERENCE 0.8; MEAN CORPUSCULAR HEMOGLOBIN 31.2 pg (27.0-33.4); MEAN CORPUSCULAR VOLUME 92 fl (80-97); RED BLOOD COUNT 3.48 10^6/uL (3.72-5.28); RED CELL DISTRIBUTION WIDTH 15.5 % (11.5-14.0); WHITE BLOOD COUNT 4.5 10^3/uL (4.0-10.5)
[2017-06-30 15:22] LABS: HEMOGLOBIN 10.9 g/dL (12.0-15.5)
[2017-06-30 15:30] LABS: ANION GAP 9 (5-19); BLOOD UREA NITROGEN 15 mg/dL (7-20); CALCIUM 8.8 mg/dL (8.4-10.2); CARBON DIOXIDE 21 mmol/L (22-30); CHLORIDE 112 mmol/L (98-107); GLUCOSE 118 mg/dL (75-110); POTASSIUM 4.1 mmol/L (3.6-5.0); SODIUM 142.2 mmol/L (137-145)
[2017-06-30] MEDS ORDERED: ACETAMINOPHEN 325 MG TABLET PO PRN (18:39)
--- NOTE | 2017-06-30 20:03 | RADIOLOGY REPORT (SQ) ---
EXAM DESCRIPTION: CT HEAD WITHOUT COMPLETED DATE/TIME: 06/30/2017 7:16 pm REASON FOR STUDY: Headache COMPARISON: 02/08/2017 TECHNIQUE: Axial images acquired through the brain without intravenous contrast. Images reviewed wi th bone, brain and subdural windows. Images stored on PACS. All CT scanners at this facility use dose modulation, iterative reconstruction, and/or weight based d osing when appropriate to reduce radiation dose to as low as reasonably achievable (ALARA). [facility]: Dose Right [facility]: CareDose [facility]: Dose Right [facility]: Teradose 4D [facility]: [employer] RADIATION DOSE: Up-to-date CT equipment and radiation dose reduction techniques were employed. CTDIv ol: 64.6 mGy. DLP: 1163 mGy-cm. mGy. LIMITATIONS: None. FINDINGS: VENTRICLES: Age-appropriate. CEREBRUM: No masses. No hemorrhage. No midline shift. Few Areas of low density in the white matter most likely due to chronic micro-vascular ischemic change. No evidence for acute infarction. CEREBELLUM: No masses. No hemorrhage. Few Areas of low density in the white matter most likely due to chronic micro-vascular ischemic change.. No evidence for acute infarction. EXTRAAXIAL SPACES: Mild age-related involutional change. No fluid collections. No masses. ORBITS AND GLOBE: No intra- or extraconal masses. Normal contour of globe without masses. CALVARIUM: No fracture. PARANASAL SINUSES: No fluid or mucosal thickening. SOFT TISSUES: No mass or hematoma. OTHER: No other significant finding. IMPRESSION: No acute intracranial findings. EVIDENCE OF ACUTE STROKE: NO. TECHNICAL DOCUMENTATION: JOB ID: [id number] Quality ID # [id number]: Final reports with documentation of one or more dose reduction techniques (e.g., Au tomated exposure control, adjustment of the mA and/or kV according to patient size, use of iterative reconstruction technique) 2010 [employer]- All Rights Reserved
[2017-06-30] MEDS: ATORVASTATIN CALCIUM 40 MG TABLET PO SCH (22:02)
[2017-06-30] MEDS: LATANOPROST 0.005% OPH SOLN 2.5 ML OD SCH (22:02)
[2017-07-01] MEDS: CARVEDILOL 12.5 MG TABLET PO SCH ×2 (00:49→11:34)
[2017-07-01] MEDS: HYDRALAZINE HCL 25 MG TABLET PO SCH (06:31)
[2017-07-01] MEDS: BUSPIRONE HCL 10 MG TABLET PO SCH (06:31)
[2017-07-01] MEDS: FLUTICASONE NASAL SPRAY 50 MCG/SPRY 120 SPRAY/16 GM NASL SCH (06:31)
[2017-07-01 06:49] LABS: ANION GAP 9 (5-19); BLOOD UREA NITROGEN 19 mg/dL (7-20); CARBON DIOXIDE 23 mmol/L (22-30); CHLORIDE 110 mmol/L (98-107); CREATININE RESULT 1.38 mg/dL (0.52-1.25); GLUCOSE 90 mg/dL (75-110); SODIUM 141.9 mmol/L (137-145)
[2017-07-01 09:03] LABS: ABSOLUTE LYMPHOCYTES (AUTO) 1.5 10^3/uL (0.5-4.7); ABSOLUTE MONOCYTES (AUTO) 0.2 10^3/uL (0.1-1.4); ABSOLUTE NEUT (AUTO) 2.5 10^3/uL (1.7-8.2); BASOPHILS % (AUTO) 0.4 % (0-2); EOSINOPHILS % (AUTO) 0.3 % (0-6); HEMATOCRIT 29.5 % (36.0-47.0); HEMOGLOBIN 10.1 g/dL (12.0-15.5); HGB HCT DIFFERENCE 0.8; LYMPHOCYTES % (AUTO) 36.2 % (13-45); MEAN CORPUSCULAR HEMOGLOBIN 31.3 pg (27.0-33.4); MEAN CORPUSCULAR HGB CONC 34.2 g/dL (32.0-36.0); MEAN CORPUSCULAR VOLUME 91 fl (80-97); RED BLOOD COUNT 3.23 10^6/uL (3.72-5.28); RED CELL DISTRIBUTION WIDTH 15.2 % (11.5-14.0); SEGMENTED NEUTROPHILS % (AUTO) 59.1 % (42-78); WHITE BLOOD COUNT 4.3 10^3/uL (4.0-10.5)
[2017-07-01] MEDS: ESCITALOPRAM OXALATE 10 MG TABLET PO SCH (11:27)
[2017-07-01] MEDS: RANOLAZINE 500 MG TAB.SR.12H PO SCH (11:28)
[2017-07-01] MEDS: PANTOPRAZOLE SODIUM 40 MG VIAL IV SCH (11:29)
[2017-07-01] MEDS: BUDESONIDE/FORMOTEROL 160-4.5 MCG 60 PUFF/6 GM MDI IH SCH (11:31)
[2017-07-01] MEDS: AMLODIPINE BESYLATE 5 MG TABLET PO SCH (11:33)
--- NOTE | 2017-07-01 12:50 | PDOC DISCHARGE SUMMARY ---
General - Admit/Disc Date/PCP Admission Date/Primary Care Provider: 06/29/17 07:08 ANA MARIA FRAGOSO MD Discharge Date: 07/01/17 - Discharge Diagnosis (1) Rectal bleeding Is this a current diagnosis for this admission?: Yes Summary: Status post endoscopy and colonoscopy and ablation of the AVMStatus post blood transfusions last hemoglobin was 10.3 (2) AICD (automatic cardioverter/defibrillator) present Is this a current diagnosis for this admission?: Yes Summary: Currently all stableFollow with a [facility] (3) COPD (chronic obstructive pulmonary disease) Is this a current diagnosis for this admission?: Yes Summary: Discussed with the patient about smoking cessation (4) HTN (hypertension) Is this a current diagnosis for this admission?: Yes Summary: Continues current medication (5) Coronary artery disease Is this a current diagnosis for this admission?: Yes Summary: Patient is recently have all the workup done at [facility] currently all stable (6) GERD (gastroesophageal reflux disease) Is this a current diagnosis for this admission?: Yes Summary: Continues to omeprazole (7) HLD (hyperlipidemia) Is this a current diagnosis for this admission?: Yes Summary: Continues a statin (8) Osteoarthritis Is this a current diagnosis for this admission?: Yes (9) Chronic pain syndrome Is this a current diagnosis for this admission?: Yes Summary: Since follow-up outpatients pain management - Additional Information Resuscitation Status: Full Code Discharge Activity: Activity As Tolerated Home Medications: Albuterol Sulfate [Albuterol Sulfate 2.5mg/3 mL] 1 vial IH TID 06/29/17 Alprazolam [Xanax 0.5 mg Tablet] 0.5 mg PO BIDP PRN 06/29/17 Amlodipine Besylate [Norvasc 5 mg Tablet] 5 mg PO Q12 06/29/17 Atorvastatin Calcium [Lipitor 40 mg Tablet] 40 mg PO QHS 06/29/17 Budesonide/Formoterol Fumarate [Symbicort HFA 160-4.5 mcg Inhaler 6 gm] 2 puff IH Q12 06/29/17 Buspirone HCl [Buspar 10 mg Tablet] 10 mg PO Q8 06/29/17 Carvedilol [Coreg 25 mg Tablet] 1 tab PO Q12 06/29/17 Diclofenac Sodium [Voltaren] 100 gm TP QIDP PRN 06/29/17 Escitalopram Oxalate [Lexapro 10 mg Tablet] 10 mg PO DAILY 06/29/17 Fluticasone Propionate [Flonase Nasal [place] 50 Mcg/[place] 16 gm] 1 spray NASL BID 06/29/17 Gabapentin [Neurontin 300 mg Capsule] 300 mg PO BIDP PRN 06/29/17 Hydralazine HCl [Apresoline 25 mg Tablet] 50 mg PO Q8 06/29/17 Hydrochlorothiazide [Hydrodiuril 12.5 mg Capsule] 12.5 mg PO DAILY 06/29/17 Ketorolac Tromethamine [Acular Ls] 1 drop OS TIDP PRN 06/29/17 Latanoprost [Xalatan 0.005% Oph Soln 2.5 ml] 1 drop OD QHS 06/29/17 Nitroglycerin [Nitrostat 0.4 mg (1/150 Gr) Tabs 25/Bottle] 1 tab SL Q5MP PRN 06/07 Omeprazole 40 mg PO QAM 06/29/17 Ranolazine [Ranexa 500 mg Tab.sr] 500 mg PO Q12 06/29/17 Tiotropium [place] [Spiriva Respimat] 2 puff IH DAILY 06/29/17 Azithromycin [Zithromax] 250 mg PO DAILY #5 tablet 07/01/17 History of Present Illness History of Present Illness: JESSICA VEGA is a 72 year old female presents to the emergency department by ground rescue complaining of abdominal, gastrointestinal bleeding. She was admitted to the internal medicine service for further evaluation. She had no evidence of hemodynamic instability. Bowel movements are described as bloody some clot. Patient has a history of repeated gastrointestinal bleeding. According to records, she underwent upper and lower endoscopy by Dr. Harris 2012 where she was found to have duodenitis, ileocolitis and 2 polyps of the ascending colon. She underwent repeat upper endoscopy by Dr. Martino was found to have gastritis and duodenitis in 2013. Significant source of gastrointestinal bleeding was identified. Last month the patient states she underwent upper and lower endoscopy by Dr. bal, the results of which are unknown. According the patient the only blood thinner she takes his aspirin. Since being admitted to the floor, she has had no further gastrointestinal bleeding. She denies emesis. Patient also have a history of the coronary artery disease status post stent placement and a history of the ventricular tachycardia status post ICD placement and currently see a [place] [facility] and currently all stable Patient's still have a blood in the stools pt was diagnosed one time of the Crohn's disease but the doctor kassandra rogel told the patient patient does not have any Crohn's disease Patient's son is on the bedside and discussed with the Dr. Servin Was going to perform the endoscopy and colonoscopy today Hospital Course Hospital Course: This is a 72-year-old female she presented in the emergency department for the rectal bleeding and the patient was admitting in the hospitals patient underwent for the endoscopy and colonoscopy and found the AVM and ablation was doneAnd stopped all the bleedingPatient's otherwise transfuse her 2 L of the blood Patient hemoglobin stable for the last 48 hours and no episode of the any bleeding She was complaining some headache and a CT of the head was done was negative most likely related to the allergies Patient have a mild sore throat after the endoscopyAnd a strep culture was done [facility] otherwise remained stable patients walk in the hallway without any problem patient's other medical problem was also stable Patient is discharged home with the stable condition and following a one-week and currently hold aspirin and repeat the blood work again and if it remains stable restart the aspirin Physical Exam Vital Signs: Temp Pulse Resp BP Pulse Ox 99.1 F 64 16 128/51 H 96 07/01/17 07:23 07/01/17 11:50 07/01/17 11:50 07/01/17 07:23 07/01/17 12:02 Intake & Output 06/30/17 07/01/17 07/02/17 06:59 06:59 06:59 Intake Total 3110 1280 Output Total 2970 1000 Balance 140 280 General appearance: PRESENT: no acute distress, well-developed, well-nourished Head exam: PRESENT: atraumatic, normocephalic Eye exam: PRESENT: conjunctiva pink, EOMI, PERRLA. ABSENT: scleral icterus Ear exam: PRESENT: normal external ear exam Mouth exam: PRESENT: moist, tongue midline Neck exam: PRESENT: full ROM. ABSENT: carotid bruit, JVD, lymphadenopathy, thyromegaly Respiratory exam: PRESENT: clear to auscultation david Cardiovascular exam: PRESENT: RRR. ABSENT: diastolic murmur, rubs, systolic murmur Pulses: PRESENT: normal dorsalis pedis pul, +2 pedal pulses bilateral Vascular exam: PRESENT: normal capillary refill GI/Abdominal exam: PRESENT: normal bowel sounds, soft. ABSENT: distended, guarding, mass, organolmegaly, rebound, tenderness Rectal exam: PRESENT: deferred Extremities exam: ABSENT: pedal edema Musculoskeletal exam: PRESENT: ambulatory Neurological exam: PRESENT: alert, awake, oriented to person, oriented to place , oriented to time, oriented to situation, CN II-XII grossly intact. ABSENT: motor sensory deficit Psychiatric exam: PRESENT: appropriate affect, normal mood. ABSENT: homicidal ideation, suicidal ideation Skin exam: PRESENT: dry, intact, warm. ABSENT: cyanosis, rash Results Laboratory Results: 07/01/17 08:55 07/01/17 05:28 06/30/17 06/30/17 07/01/17 02:42 14:42 05:28 WBC 4.5 RBC 3.48 L Hgb 10.9 L D Hct 31.9 L MCV 92 MCH 31.2 MCHC 34.0 RDW 15.5 H Plt Count 137 L Seg Neutrophils % Lymphocytes % Monocytes % Eosinophils % Basophils % Absolute Neutrophils Absolute Lymphocytes Absolute Monocytes Absolute Eosinophils Absolute Basophils Sodium 142.2 141.9 Potassium 4.1 4.0 Chloride 112 H 110 H Carbon Dioxide 21 L 23 Anion Gap 9 9 BUN 15 19 Creatinine 1.20 1.38 H Est GFR ( Amer) 53 L 45 L Est GFR (Non-Af Amer) 44 L 37 L Glucose 118 H 90 Calcium 8.8 9.0 07/01/17 08:55 WBC 4.3 RBC 3.23 L Hgb 10.1 L Hct 29.5 L MCV 91 MCH 31.3 MCHC 34.2 RDW 15.2 H Plt Count 140 L Seg Neutrophils % 59.1 Lymphocytes % 36.2 Monocytes % 4.0 Eosinophils % 0.3 Basophils % 0.4 Absolute Neutrophils 2.5 Absolute Lymphocytes 1.5 Absolute Monocytes 0.2 Absolute Eosinophils 0.0 Absolute Basophils 0.0 Sodium Potassium Chloride Carbon Dioxide Anion Gap BUN Creatinine Est GFR ( Amer) Est GFR (Non-Af Amer) Glucose Calcium Impressions: Head CT 06/30/17 00:00 IMPRESSION: No acute intracranial findings. EVIDENCE OF ACUTE STROKE: NO. Plan Time Spent: Greater than 30 Minutes - Patient's discharge home with the stable conditions all blood work is stable. Patient's repeat the CBC and Chem-7 in 1 week and hold aspirin
[2017-07-01 15:05] VITALS: BP 128/50
[2017-07-02] MEDS ORDERED: LANSOPRAZOLE 30 MG TAB.RAP.DR PO SCH (08:00)
--- NOTE | 2017-07-23 13:06 | PDOC PROGRESS REPORT ---
Subjective Progress Note for:: 07/23/17 Physical Exam Vital Signs: Temp Pulse Resp BP Pulse Ox 99.1 F 64 16 128/50 H 96 07/01/17 15:02 07/01/17 15:02 07/01/17 15:02 07/01/17 15:02 07/01/17 15:02 Results Laboratory Results: 07/01/17 08:55 07/01/17 05:28 Impressions: Head CT 06/30/17 00:00 IMPRESSION: No acute intracranial findings. EVIDENCE OF ACUTE STROKE: NO. Assessment & Plan - Diagnosis (1) Rectal bleeding Is this a current diagnosis for this admission?: Yes (2) AICD (automatic cardioverter/defibrillator) present Is this a current diagnosis for this admission?: Yes (3) COPD (chronic obstructive pulmonary disease) Qualifiers: COPD type: chronic bronchitis Qualified Code(s): J44.9 - Chronic obstructive pulmonary disease, unspecified Is this a current diagnosis for this admission?: Yes (4) HTN (hypertension) Qualifiers: Hypertension type: essential hypertension Qualified Code(s): I10 - Essential (primary) hypertension Is this a current diagnosis for this admission?: Yes (5) Coronary artery disease Qualifiers: Coronary Disease-Associated Artery/Lesion type: unspecified vessel or lesion type Associated angina: without angina Is this a current diagnosis for this admission?: Yes (6) GERD (gastroesophageal reflux disease) Qualifiers: Esophagitis presence: without esophagitis Qualified Code(s): K21.9 - Gastro -esophageal reflux disease without esophagitis Is this a current diagnosis for this admission?: Yes (7) HLD (hyperlipidemia) Qualifiers: Hyperlipidemia type: unspecified Qualified Code(s): E78.5 - Hyperlipidemia , unspecified Is this a current diagnosis for this admission?: Yes (8) Osteoarthritis Qualifiers: Osteoarthritis location: unspecified site Is this a current diagnosis for this admission?: Yes (9) Chronic pain syndrome Is this a current diagnosis for this admission?: Yes - Plan Summary Plan Summary: In my discharge summary already discuss the diagnosis that the patient have an ablation of the AVM was done which means patient have a blood loss from the AVM
== END 2017-07-01 15:30 | disposition home or self-care (01) | DRG 378 ==
LOC: ER 23:55 → UNDOADMIN 06-29 03:59 → EH 06-29 03:59 → 4N 06-29 06:30 → EH 06-29 06:30 → 4N 06-29 07:08
PROVIDERS: ADMIT Family Medicine; ATTEND Family Medicine
PROC: 0DJ08ZZ Inspection of Upper Intestinal Tract, Via Natural or Artificial Opening Endoscopic (ICD-10-PCS; principal; 2017-06-29 14:00)
PROC: 0DJD8ZZ Inspection of Lower Intestinal Tract, Via Natural or Artificial Opening Endoscopic (ICD-10-PCS; 2017-06-29 14:00)
PROC: 30233N1 Transfusion of Nonautologous Red Blood Cells into Peripheral Vein, Percutaneous Approach (ICD-10-PCS; 2017-06-30)
DX: K55.21 Angiodysplasia of colon with hemorrhage (principal); D62 Acute posthemorrhagic anemia; I50.9 Heart failure, unspecified; I11.0 Hypertensive heart disease with heart failure; I25.10 Atherosclerotic heart disease of native coronary artery without angina pectoris; E78.5 Hyperlipidemia, unspecified; J44.9 Chronic obstructive pulmonary disease, unspecified; K21.9 Gastro-esophageal reflux disease without esophagitis; M19.90 Unspecified osteoarthritis, unspecified site; R51 Headache; G89.4 Chronic pain syndrome; F17.210 Nicotine dependence, cigarettes, uncomplicated; I25.2 Old myocardial infarction; Z79.82 Long term (current) use of aspirin; Z79.51 Long term (current) use of inhaled steroids; Z79.899 Other long term (current) drug therapy; Z95.810 Presence of automatic (implantable) cardiac defibrillator; Z88.1 Allergy status to other antibiotic agents; Z88.0 Allergy status to penicillin
CPT/HCPCS: 36415; 36430; 43235; 45378; 70450; 80048; 80053; 81001; 82550; 84484; 85025; 85027; 85610; 85730; 86850; 86900; 86901; 86920; 87070; 87880; 93005; 93010; 94640; 99285; J0171; J1610; J1940; J2250; J2310; J2405; J3010; J3490; J7030; J7620; P9016; S0164

== ENCOUNTER → 2017-07-30 | Outpatient (CLI) | payer MEDICARE, OTHER ==
--- NOTE | 2017-07-30 12:35 | RADIOLOGY REPORT (SQ) ---
EXAM DESCRIPTION: KUB COMPLETED DATE/TIME: 07/30/2017 11:38 am REASON FOR STUDY: CONSTIPATION, UNSPECIFIED K59.00 CONSTIPATION, UNSPECIFIED COMPARISON: None. NUMBER OF VIEWS: One view. TECHNIQUE: Supine radiographic image of the abdomen acquired. LIMITATIONS: None. FINDINGS: BOWEL GAS PATTERN: Normal bowel gas pattern. No dilated loops. CONSTIPATION: [id number] CALCIFICATIONS: No suspicious calcifications. SOFT TISSUES: No gross mass or suggestion of organomegaly. HARDWARE: None in the abdomen. BONES: No acute fracture. No worrisome bone lesions. OTHER: No other significant finding. IMPRESSION: NO RADIOGRAPHIC EVIDENCE FOR ACUTE ABDOMINAL DISEASE. Mild to moderate constipation. TECHNICAL DOCUMENTATION: JOB ID: [id number] [employer]- All Rights Reserved
== END ==
LOC: OD 11:13
PROVIDERS: ATTEND Physician Assistant
DX: K59.00 Constipation, unspecified (principal)
CPT/HCPCS: 74000

== ENCOUNTER → 2017-10-06 | Outpatient (CLI) | payer MEDICARE, OTHER ==
--- NOTE | 2017-10-07 14:38 | WOMENS IMAGING REPORT ---
EXAM DESCRIPTION: 3D SCREENING MAMMO BILAT COMPLETED DATE/TIME: 10/06/2017 12:00 pm REASON FOR STUDY: SCREENING MAMMO Z12.31 ENCNTR SCREEN MAMMOGRAM FOR MALIGNANT NEOPLASM OF JADIEL COMPARISON: 2009 to 2015 TECHNIQUE: Standard craniocaudal and mediolateral oblique views of each breast recorded using digita l acquisition and breast tomosynthesis. LIMITATIONS: Left pacemaker battery. FINDINGS: No masses, calcifications or architectural distortion. No areas of suspicion. Read with the assistance of CAD. .[facility] - R2 Cen[employer] Version 1.3 .[facility] - R2 Cenova Version 1.3 .[facility] - R2 Cenova Version 2.4 .[facility] - R2 Cenova Version 2.4 .[facility] - R2 [employer] Agent Version 9.2 IMPRESSION: NORMAL MAMMOGRAM. BIRADS 1. BREAST DENSITY: b. There are scattered areas of fibroglandular density. BIRAD: 1 NEGATIVE RECOMMENDATION: ROUTINE SCREENING COMMENT: The patient has been notified of the results by letter per SA requirements. Additional no tification policies are in place for contacting patient with suspicious or incomplete findings. Quality ID #[id number]: The [employer] recommends an annual screening mammogram for women aged 40 years or over. This facility utilizes a reminder system to ensure that all patients receive reminder letters, and/or direct phone calls for appointments. This includes reminders for routine scr eening mammograms, diagnostic mammograms, or other Breast Imaging Interventions when appropriate. Th is patient will be placed in the appropriate reminder system. The [employer] (ACR) has developed recommendations for screening MRI of the breast s in certain patient populations, to be used in conjunction with mammography. Breast MRI surveillanc e may be appropriate for women with more than 20% lifetime risk of developing breast cancer as deter mined by genetic testing, significant family history of the disease, or history of mantle radiation f or Hodgkins Disease. ACR Practice Guidelines 2008. DBT Technology DBT is a type of tomographic mammography. With conventional mammography, overlapping breast tissue ma y make lesions difficult to detect, even with good compression. DBT uses an x-ray tube that rotates a round the breast, taking images at different angles. These images are then combined to create thin sl ices of the breast that the radiologist can view as a 3D reconstruction. The [employer] unit can perform full-field digital mammograms (2D imaging); or DBT (3D imaging); or both, in a combination mode that quickly performs both the mammogram and the tomosynthesis scan while the breast is still compressed. PQRS 6045F: Fluoroscopic imaging is not utilized for breast tomosynthesis. TECHNICAL DOCUMENTATION: FINDING NUMBER: (1) ASSESSMENT: (1) JOB ID: [id number] [employer]- All Rights Reserved
== END ==
LOC: WI 10:48
PROVIDERS: ATTEND Physician Assistant
DX: Z12.31 Encounter for screening mammogram for malignant neoplasm of breast (principal)
CPT/HCPCS: 77063; 77067

== ENCOUNTER 2017-10-09 10:25 | Inpatient (IN) | payer MEDICARE, OTHER ==
--- NOTE | 2017-10-09 11:51 | RADIOLOGY REPORT (SQ) ---
EXAM DESCRIPTION: CHEST PA/LAT COMPLETED DATE/TIME: 10/09/2017 11:25 am REASON FOR STUDY: weakness COMPARISON: Two-view chest 11/07/2016, 04/24/2017 AP chest 05/13/2017 EXAM PARAMETERS: NUMBER OF VIEWS: two views TECHNIQUE: Digital Frontal and Lateral radiographic views of the chest acquired. RADIATION DOSE: NA LIMITATIONS: none FINDINGS: LUNGS AND PLEURA: No opacities, masses or pneumothorax. No pleural effusion. MEDIASTINUM AND HILAR STRUCTURES: No masses or contour abnormalities. HEART AND VASCULAR STRUCTURES: Stable moderate to marked cardiomegaly BONES: No acute findings. HARDWARE: Left-sided pacemaker/ defibrillator with abandoned leads, temporary pacemaker leads, radiop aque coronary stents OTHER: No other significant finding. IMPRESSION: No acute findings. Cardiomegaly with pacemaker and other cardiac support hardware TECHNICAL DOCUMENTATION: JOB ID: [id number] [employer]- All Rights Reserved
[2017-10-09 11:58] LABS: ABSOLUTE EOSINOPHILS # (AUTO) 0.1 10^3/uL (0.0-0.6); ABSOLUTE LYMPHOCYTES (AUTO) 1.3 10^3/uL (0.5-4.7); ABSOLUTE MONOCYTES (AUTO) 0.2 10^3/uL (0.1-1.4); ABSOLUTE NEUT (AUTO) 1.9 10^3/uL (1.7-8.2); BASOPHILS % (AUTO) 0.5 % (0-2); EOSINOPHILS % (AUTO) 1.5 % (0-6); HEMATOCRIT 34.3 % (36.0-47.0); HEMOGLOBIN 11.3 g/dL (12.0-15.5); LYMPHOCYTES % (AUTO) 37.8 % (13-45); MEAN CORPUSCULAR HEMOGLOBIN 30.1 pg (27.0-33.4); MEAN CORPUSCULAR HGB CONC 33.1 g/dL (32.0-36.0); MEAN CORPUSCULAR VOLUME 91 fl (80-97); MONOCYTES % (AUTO) 5.2 % (3-13); PLATELET COUNT 197 10^3/uL (150-450); RED BLOOD COUNT 3.76 10^6/uL (3.72-5.28); RED CELL DISTRIBUTION WIDTH 16.1 % (11.5-14.0); TOTAL CELLS COUNTED % (AUTO) 100 %; WHITE BLOOD COUNT 3.4 10^3/uL (4.0-10.5)
[2017-10-09 12:22] LABS: ALANINE AMINOTRANSFERASE 18 U/L (9-52); ALBUMIN 4.3 g/dL (3.5-5.0); ALKALINE PHOSPHATASE 83 U/L (38-126); ANION GAP 12 (5-19); ASPARTATE AMINO TRANSFERASE 17 U/L (14-36); BILIRUBIN,DIRECT 0.3 mg/dL (0.0-0.4); BILIRUBIN,TOTAL 0.4 mg/dL (0.2-1.3); BLOOD UREA NITROGEN 25 mg/dL (7-20); CALCIUM 9.7 mg/dL (8.4-10.2); CARBON DIOXIDE 25 mmol/L (22-30); CHLORIDE 109 mmol/L (98-107); GLUCOSE 102 mg/dL (75-110); POTASSIUM 4.2 mmol/L (3.6-5.0); SODIUM 146.3 mmol/L (137-145); TOTAL PROTEIN 6.7 g/dL (6.3-8.2)
[2017-10-09 12:48] LABS: APPEARANCE,URINE CLEAR; BILIRUBIN,URINE NEGATIVE (NEGATIVE); COLOR,URINE YELLOW; GLUCOSE, URINE NEGATIVE (NEGATIVE); KETONES,URINE NEGATIVE (NEGATIVE); LEUKOCYTE ESTERASE,URINE NEGATIVE (NEGATIVE); NITRITE,URINE NEGATIVE (NEGATIVE); PROTEIN,URINE NEGATIVE (NEGATIVE); URINE SPECIFIC GRAVITY 1.018; UROBILINOGEN,URINE NEGATIVE mg/dL (<2.0)
--- NOTE | 2017-10-09 12:59 | RADIOLOGY REPORT (SQ) ---
EXAM DESCRIPTION: CT HEAD WITHOUT COMPLETED DATE/TIME: 10/09/2017 12:37 pm REASON FOR STUDY: ataxia COMPARISON: [address] brain exams since 2006, most recently 06/30/2017 TECHNIQUE: Axial images acquired through the brain without intravenous contrast. Images reviewed wi th bone, brain and subdural windows. Images stored on PACS. All CT scanners at this facility use dose modulation, iterative reconstruction, and/or weight based d osing when appropriate to reduce radiation dose to as low as reasonably achievable (ALARA). [facility]: Dose Right [facility]: CareDose [facility]: Dose Right [facility]: Teradose 4D [facility]: Smart Anywhere.FM RADIATION DOSE: CT Rad equipment meets quality standard of care and radiation dose reduction techniq ues were employed. CTDIvol: 64.6 mGy. DLP: 1163 mGy-cm. mGy. LIMITATIONS: None. FINDINGS: VENTRICLES: Normal size and contour. CEREBRUM: No masses. No hemorrhage. No midline shift. No evidence for acute infarction. Normal gra y/white matter differentiation. No areas of low density in the white matter. Stable punctate calcifi cation right posterior frontal subcortical white matter of doubtful clinical significance, unchanged since 2006. CEREBELLUM: 5 mm focus of low attenuation right upper cerebellar hemisphere axial image 14, slightly smaller than on 02/08/2017 likely a small chronic lacunar infarct. No posterior fossa acute ischemic change, hemorrhage, or shift. Heavily calcified distal intracranial vertebral arteries right greater than left EXTRAAXIAL SPACES: No fluid collections. No masses. ORBITS AND GLOBE: No intra- or extraconal masses. Normal contour of globe without masses. Post bila teral cataract surgery CALVARIUM: No fracture. PARANASAL SINUSES: No fluid or mucosal thickening. SOFT TISSUES: No mass or hematoma. OTHER: No other significant finding. IMPRESSION: No acute findings. Punctate chronic lacunar infarct right cerebellar hemisphere EVIDENCE OF ACUTE STROKE: NO. COMMENT: Quality ID # [id number]: Final reports with documentation of one or more dose reduction techniques (e.g., Automated exposure control, adjustment of the mA and/or kV according to patient size, use of iterative reconstruction technique) TECHNICAL DOCUMENTATION: JOB ID: [id number] [employer]- All Rights Reserved
--- NOTE | 2017-10-09 13:04 | ER Document Report ---
ED General - General Chief Complaint: General Weakness Stated Complaint: WEAKNESS Time Seen by Provider: 10/09/17 10:53 Information source: Patient TRAVEL OUTSIDE OF THE [place] IN LAST 30 DAYS: No - HPI Patient complains to provider of: I am having difficulty walking Onset: Last week Onset/Duration: Gradual Quality of pain: No pain Associated symptoms: Chest pain Exacerbated by: Walking Relieved by: Denies Similar symptoms previously: No Recently seen / treated by doctor: No Notes: Patient states that lately when she ambulates she is dizzy and feels like she may fall backwards. She has fallen but denies hitting her head or loss of consciousness. She also complains of this centralized chest pressure that is intermittent in nature and not radiating. She denies aggravating or alleviating factors for her pain. She states that her recently had surgery and she has been helping him. - Related Data Allergies/Adverse Reactions: amoxicillin [Amoxicillin] Allergy (Intermediate, Verified 11/07/16 16:46) Hallucinations Penicillins Allergy (Intermediate, Verified 11/07/16 16:46) Hallucinations Past Medical History - General Information source: Patient - Social History Smoking Status: Current Every Day Smoker Chew tobacco use (# tins/day): No Frequency of alcohol use: None Drug Abuse: None Lives with: Family Family History: Reviewed & Not Pertinent, Hypertension Patient has suicidal ideation: No Patient has homicidal ideation: No - Past Medical History Cardiac Medical History: Reports: Hx Congestive Heart Failure, Hx Coronary Artery Disease, Hx Heart Attack - 1990, Hx Hypercholesterolemia, Hx Hypertension Denies: Hx Atrial Fibrillation, Hx Peripheral Vascular Disease, Hx Pulmonary Embolism, Hx Heart Murmur Pulmonary Medical History: Reports: Hx Bronchitis, Hx COPD, Hx Pneumonia Denies: Hx Asthma, Hx Respiratory Failure, Hx Sleep Apnea, Hx Tuberculosis Neurological Medical History: Reports: None. Denies: Hx Cerebrovascular Accident, Hx Seizures Endocrine Medical History: Denies: Hx Diabetes Mellitus Type 1, Hx Diabetes Mellitus Type 2 Renal/ Medical History: Reports: Hx Renal Insufficiency. Denies: Hx End Stage Renal Disease, Hx Kidney Stones, Hx Peritoneal Dialysis Malignancy Medical History: Denies: Hx Leukemia, Hx Lung Cancer GI Medical History: Reports: Hx Crohn's Disease - Patient has either Crohn's disease or ulcerative colitis, Hx Diverticulitis, Hx Gastroesophageal Reflux Disease. Denies: Hx Hepatitis, Hx Hiatal Hernia, Hx Irritable Bowel, Hx Liver Failure, Hx Pancreatitis, Hx Ulcer Musculoskeltal Medical History: Reports Hx Arthritis, Denies Hx Fibromyalgia, Denies Hx Muscular Dystrophy Psychiatric Medical History: Reports: Hx Depression Denies: Hx Bipolar Disorder, Hx Post Traumatic Stress Disorder, Hx Schizophrenia Traumatic Medical History: Reports: Hx Fractures - right wrist, left foot Infectious Medical History: Denies: Hx Hepatitis, Hx HIV Past Surgical History: Reports: Hx Appendectomy, Hx Cardiac Catheterization, Hx Cardiac Surgery - AICD for ventricular fibrillation, Hx Section - x4, Hx Coronary Stent, Hx Hysterectomy, Hx Orthopedic Surgery - bilateral knee surgery, Hx Pacemaker, Hx Tonsillectomy. Denies: Hx Bowel Surgery, Hx Cholecystectomy, Hx Colostomy, Hx Coronary Artery Bypass Graft, Hx Gastric Bypass Surgery, Hx Herniorrhaphy, Hx Mastectomy, Hx Open Heart Surgery, Hx Tubal Ligation - Immunizations Immunizations up to date: Yes Hx Diphtheria, Pertussis, Tetanus Vaccination: Yes Hx Pneumococcal Vaccination: 09/21/09 Review of Systems - Review of Systems Constitutional: No symptoms reported EENT: No symptoms reported Cardiovascular: See HPI, Chest pain Respiratory: No symptoms reported Gastrointestinal: No symptoms reported Genitourinary: No symptoms reported Female Genitourinary: No symptoms reported Musculoskeletal: No symptoms reported Skin: No symptoms reported Hematologic/Lymphatic: No symptoms reported Neurological/Psychological: Gait changes Physical Exam - Vital signs Vitals: Temp Pulse Resp BP Pulse Ox 97.8 F 57 L 18 149/70 H 97 10/09/17 10:43 10/09/17 10:43 10/09/17 10:43 10/09/17 10:43 10/09/17 10:43 - Notes Notes: PHYSICAL EXAMINATION: GENERAL: Well-appearing, well-nourished and in no acute distress. HEAD: Atraumatic, normocephalic. EYES: Pupils equal round and reactive to light, extraocular movements intact, conjunctiva are normal. No nystagmus. ENT: Nares patent, oropharynx clear without exudates. Moist mucous membranes. NECK: Normal range of motion, supple without lymphadenopathy LUNGS: Breath sounds clear to auscultation bilaterally and equal. No wheezes rales or rhonchi. HEART: Regular rate and rhythm without murmurs. AICD left anterior chest wall no signs or symptoms of infection ABDOMEN: Soft, nontender, nondistended abdomen. No guarding, no rebound. No masses appreciated. Female : deferred Musculoskeletal: Normal range of motion, no pitting or edema. No cyanosis. NEUROLOGICAL: Cranial nerves grossly intact. Normal speech. Upon standing the patient up in trying to ambulate her she does get off balance and feels like she is going to fall backwards. Finger to nose is mildly off in the left. She has no pronator drift. I was unable to test heel to sweeney due to her being off balance. Normal sensory, motor exams PSYCH: Normal mood, normal affect. SKIN: Warm, Dry, normal turgor, no rashes or lesions noted. Course - Re-evaluation Re-evalutation: 10/09/17 16:46 CTA head no acute old cerebellar infarct 10/09/17 16:52 10/09/17 17:12 [address] did talk to Dr[address] garrison. He stated to call Dr. Jimenez-I did and he accepted patient. - Vital Signs Vital signs: Temp Pulse Resp BP Pulse Ox 97.8 F 57 L 16 152/75 H 96 10/09/17 10:43 10/09/17 10:43 10/09/17 15:00 10/09/17 14:01 10/09/17 15:00 - Laboratory Result Diagrams: 10/09/17 11:37 10/09/17 11:37 Laboratory results interpreted by me: 10/09/17 10/09/17 11:37 11:37 WBC 3.4 L Hgb 11.3 L Hct 34.3 L RDW 16.1 H Sodium 146.3 H Chloride 109 H BUN 25 H Est GFR ( Amer) 54 L Est GFR (Non-Af Amer) 45 L - Diagnostic Test Radiology reviewed: Image reviewed, Reports reviewed Radiology results interpreted by me: 10/09/17 16:47 no acute on CXR - EKG Interpretation by Wi EKG shows normal: Sinus rhythm Rate: Bradycardia - 53 When compared to previous EKG there are: No significant change Additional EKG results interpreted by me: 10/09/17 13:05 Patient does have T-wave inversions anterior laterally there is no acute change when compared with EKG on 06/29/2007. Discharge - Discharge Clinical Impression: Ataxia, CVA (cerebral vascular accident) Condition: Good Disposition: ADMITTED INPATIENT Admitting Provider: [facility] Admitted: Telemetry Referrals: ANA MARIA FRAGOSO MD [Primary Care Provider] - Follow up as needed
--- NOTE | 2017-10-09 16:24 | RADIOLOGY REPORT (SQ) ---
EXAM DESCRIPTION: CT HEAD WITH COMPLETED DATE/TIME: 10/09/2017 4:13 pm REASON FOR STUDY: ataxia COMPARISON: CT brain without contrast earlier today CT brain 06/30/2017, 02/08/2017, 01/03/2016 TECHNIQUE: Axial images acquired through the brain with intravenous contrast. Images reviewed with b one, brain and subdural windows. Images stored on PACS. All CT scanners at this facility use dose modulation, iterative reconstruction, and/or weight based d osing when appropriate to reduce radiation dose to as low as reasonably achievable (ALARA). [facility]: Dose Right [facility]: CareDose [facility]: Dose Right [facility]: Teradose 4D [facility]: Koinify CONTRAST TYPE AND DOSE: contrast/concentration: Isovue 370.00 mg/ml; Total Contrast Delivered: 50.0 ml; Total Saline Delivered: 50.0 ml RENAL FUNCTION: Creatinine 1.2 RADIATION DOSE: CT Rad equipment meets quality standard of care and radiation dose reduction techniq ues were employed. CTDIvol: 64.6 mGy. DLP: 1163 mGy-cm.. LIMITATIONS: None. FINDINGS: VENTRICLES: Normal size and contour. CEREBRUM: No masses. No hemorrhage. No midline shift. Normal doyle/white matter differentiation. No ev idence for acute infarction. No enhancing lesions. CEREBELLUM: No masses. No hemorrhage. No evidence for acute infarction. No enhancing lesions. Old l acunar infarct in the right upper cerebellar hemisphere unchanged. EXTRA-AXIAL SPACES: No fluid collections. No enhancing lesions. ORBITS AND GLOBE: No intra- or extraconal masses. Normal contour of globe without masses. CALVARIUM: No fracture. PARANASAL SINUSES: No fluid or mucosal thickening. SOFT TISSUES: No mass or hematoma. OTHER: Heavily calcified [place] vessels. There is contrast enhancement in the vertebral arter ies and basilar artery IMPRESSION: No CT evidence of acute findings. Right superior cerebellar hemisphere lacunar infarct, chronic EVIDENCE OF ACUTE STROKE: NO. TECHNICAL DOCUMENTATION: JOB ID: [id number] Quality ID # [id number]: Final reports with documentation of one or more dose reduction techniques (e.g., Au tomated exposure control, adjustment of the mA and/or kV according to patient size, use of iterative reconstruction technique) 2010 [employer]- All Rights Reserved
--- NOTE | 2017-10-09 19:10 | PDOC H&P ---
History of Present Illness Admission Date/PCP: 10/09/17 17:42 ANGELICA FRAGOSO MD History of Present Illness: JESSICA VEGA is a 72 year old female patient of Dr Angelica Fragoso who presented to the ED with complain of generalized weakness and feeling like she was going to fall backward. Patient reported to me that since 09/16/2017 she has been more involved in caring for her due to his functional limitation. She claimed that she most have overworked herself and caused her weakness. She claimed that she was Dr. Fragoso about 2 months ago due to issue of loss of balance and she was prescribed a cane for ambulatory assistance. She reported associated dizziness, intermittent vertigo and recurrent falls without any trauma since 09/16/2017. She reported sternal region chest pressure like discomfort without radiation, associated palpitation, radiation, or diaphoresis. She denied any loss of consciousness, headache, nausea, vomiting, abdominal pain, or diarrhea. She admitted to history of hypertension but denied any history of stroke, seizure disorder, or focal weakness. She claimed compliance with her medication and medical care follow up with Dr. Fragoso. Upon arrival in the ED her initial evaluation was significant for slightly elevated blood pressure and physical examination suggestive of left sided drift, unsteadiness in balance and difficulty with ambulation. Her initial radiology evaluation with head CT scan was unrevealing of any significant acute pathologic process. She was not able to get brain MRI evaluation due to AICD implant device. Her morbidities include HTN, CAD s/p CABG, chronic CHF, old CA, Htyperlipidemia, COPD, GERD, and Depression. She was advised hospitalization for further evaluation and management. Past Medical History Cardiac Medical History: Reports: Congestive Heart Failure, Coronary Artery Disease, Myocardial Infarction - 1990, Hyperlipidema, Hypertension Denies: Atrial Fibrillation, Peripheral Vascular Disease, Pulmonary Embolism , Heart Murmur Pulmonary Medical History: Reports: Bronchitis, Chronic Obstructive Pulmonary Disease (COPD), Pneumonia Denies: Asthma, Respiratory Failure, Sleep Apnea, Tuberculosis Neurological Medical History: Reports: None Denies: Seizures Endocrine Medical History: Denies: Diabetes Mellitus Type 1, Diabetes Mellitus Type 2 Renal/ Medical History: Denies: End Stage Renal Disease Malignancy Medical History: Denies: Leukemia, Lung Cancer GI Medical History: Reports: Crohn's Disease - Patient has either Crohn's disease or ulcerative colitis, Diverticulitis, Gastroesophageal Reflux Disease Denies: Hepatitis, Hiatal Hernia Musculoskeltal Medical History: Reports: Arthritis Denies: Fibromyalgia Psychiatric Medical History: Reports: Depression Denies: Bipolar Disorder, Post Traumatic Stress Disorder Hematology: Denies: Anemia, Hemophilia, Sickle Cell Disease Infectious Medical History: Denies: HIV Past Surgical History Past Surgical History: Reports: Appendectomy, Cardiac Catheterization, Section - x4, Coronary Stent, Hysterectomy, Orthopedic Surgery - bilateral knee surgery, Pacemaker, Tonsillectomy Denies: Amputation, Cholecystectomy, Colostomy, Coronary Artery Bypass Graft , Gastric Bypass Surgery, Herniorrhaphy, Mastectomy, Tubal Ligation Social History Lives with: Family Smoking Status: Current Every Day Smoker Frequency of Alcohol Use: None Hx Recreational Drug Use: No Drugs: None Hx Prescription Drug Abuse: No Family History Family History: Reviewed & Not Pertinent, Hypertension Parental Family History Reviewed: Yes Children Family History Reviewed: Yes Sibling(s) Family History Reviewed.: Yes Medication/Allergy Allergies/Adverse Reactions: amoxicillin [Amoxicillin] Allergy (Intermediate, Verified 11/07/16 16:46) Hallucinations Penicillins Allergy (Intermediate, Verified 11/07/16 16:46) Hallucinations Review of Systems All systems: reviewed and no additional remarkable complaints except as stated Physical Exam Vital Signs: Temp Pulse Resp BP Pulse Ox 97.8 F 57 L 16 152/75 H 96 10/09/17 10:43 10/09/17 10:43 10/09/17 15:00 10/09/17 14:01 10/09/17 15:00 General appearance: PRESENT: no acute distress, well-developed, well-nourished Head exam: PRESENT: atraumatic, normocephalic Eye exam: PRESENT: conjunctiva pink, EOMI, PERRLA. ABSENT: scleral icterus Ear exam: PRESENT: normal external ear exam Mouth exam: PRESENT: moist, tongue midline Neck exam: PRESENT: full ROM. ABSENT: carotid bruit, JVD, lymphadenopathy, thyromegaly Respiratory exam: PRESENT: clear to auscultation david, other - AICD implant device subcutenously over left anterior chest wall. Cardiovascular exam: PRESENT: RRR. ABSENT: diastolic murmur, rubs, systolic murmur Pulses: PRESENT: normal dorsalis pedis pul, +2 pedal pulses bilateral Vascular exam: PRESENT: normal capillary refill. ABSENT: pallor GI/Abdominal exam: PRESENT: normal bowel sounds, soft. ABSENT: distended, guarding, mass, organolmegaly, rebound, tenderness Rectal exam: PRESENT: deferred Extremities exam: ABSENT: pedal edema Musculoskeletal exam: PRESENT: normal inspection. ABSENT: ambulatory - limited due to reported loss of balance with attempted effort at ambulating patient in the ED. Neurological exam: PRESENT: alert, awake, oriented to person, oriented to place , oriented to time, oriented to situation, CN II-XII grossly intact. ABSENT: motor sensory deficit Psychiatric exam: PRESENT: appropriate affect, normal mood. ABSENT: homicidal ideation, suicidal ideation Skin exam: PRESENT: dry, intact, warm. ABSENT: cyanosis, rash Results Laboratory Results: I reviewed her lab results on [place] and form significant part of my decision making on this case. Impressions: Chest X-Ray 10/09/17 10:54 IMPRESSION: No acute findings. Cardiomegaly with pacemaker and other cardiac support hardware Head CT 10/09/17 14:05 IMPRESSION: No CT evidence of acute findings. Right superior cerebellar hemisphere lacunar infarct, chronic EVIDENCE OF ACUTE STROKE: NO. Assessment & Plan - Diagnosis (1) Ataxia Is this a current diagnosis for this admission?: Yes Plan: Probably related to her old lacuna infarct. (2) Old lacunar stroke without late effect Is this a current diagnosis for this admission?: Yes Plan: See admitting attending orders. (3) HTN (hypertension) Qualifiers: Hypertension type: essential hypertension Qualified Code(s): I10 - Essential (primary) hypertension Is this a current diagnosis for this admission?: Yes Plan: See admitting attending orders. (4) Coronary artery disease Qualifiers: Coronary Disease-Associated Artery/Lesion type: unspecified vessel or lesion type Associated angina: without angina Is this a current diagnosis for this admission?: Yes Plan: See admitting attending orders. (5) Old CA (myocardial infarction) Is this a current diagnosis for this admission?: Yes Plan: See admitting attending orders. (6) AICD (automatic cardioverter/defibrillator) present Is this a current diagnosis for this admission?: Yes Plan: See admitting attending orders. (7) HLD (hyperlipidemia) Qualifiers: Hyperlipidemia type: unspecified Qualified Code(s): E78.5 - Hyperlipidemia , unspecified Is this a current diagnosis for this admission?: Yes Plan: See admitting attending orders. (8) COPD (chronic obstructive pulmonary disease) Qualifiers: COPD type: chronic bronchitis Qualified Code(s): J44.9 - Chronic obstructive pulmonary disease, unspecified Is this a current diagnosis for this admission?: Yes Plan: See admitting attending orders. (9) GERD (gastroesophageal reflux disease) Qualifiers: Esophagitis presence: without esophagitis Qualified Code(s): K21.9 - Gastro -esophageal reflux disease without esophagitis Is this a current diagnosis for this admission?: Yes Plan: See admitting attending orders. - Time Time Spent: 50 to 70 Minutes Medications reviewed and adjusted accordingly: Yes Anticipated discharge: Home with Homehealth Within: Other - Inpatient Certification Based on my medical assessment, after consideration of the patient's comorbidities, presenting symptoms, or acuity I expect that the services needed warrant INPATIENT care.: Yes I certify that my determination is in accordance with my understanding of Medicare's requirements for reasonable and necessary INPATIENT services [42 CFR 412.3e].: Yes Medical Necessity: Need Close Monitoring Due to Risk of Patient Decompensation, Need For Continuous Telemetry Monitoring, Risk of Complication if Not Cared For in Hospital 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
[2017-10-09] MEDS ORDERED: ENOXAPARIN SODIUM INJ 40 MG/0.4 ML DISP.SYRIN SUBCUT ONE (20:00)
[2017-10-09 21:26] LABS: INTERNATIONAL RATION (INR) 0.99; PROTHROMBIN TIME 13.8 SEC (11.4-15.4)
[2017-10-09 21:27] LABS: PARTIAL THROMBOPLASTIN TIME 28.4 SEC (23.5-35.8)
[2017-10-09 21:35] LABS: CREATINE KINASE MB 0.35 ng/mL (<4.55)
[2017-10-09 21:45] LABS: TROPONIN I < 0.012 ng/mL
[2017-10-09] MEDS ORDERED: RANITIDINE HCL 75 MG PO SCH (22:00)
[2017-10-09] MEDS ORDERED: HYDRALAZINE HCL 25 MG TABLET PO SCH (22:00)
[2017-10-09] MEDS ORDERED: (PENDING PHARMACY ID) (Ranolazine [Ranexa] 1,000 MG) PO SCH (22:00)
[2017-10-09] MEDS: RANOLAZINE 500 MG TAB.SR.12H PO SCH (22:55)
[2017-10-09] MEDS: AMLODIPINE BESYLATE 5 MG TABLET PO SCH (22:56)
[2017-10-09] MEDS: HYDRALAZINE HCL 50 MG TABLET PO SCH (22:56)
[2017-10-09] MEDS: FAMOTIDINE 20 MG TABLET PO SCH (22:56)
[2017-10-09] MEDS: CARVEDILOL 12.5 MG TABLET PO SCH (22:57)
[2017-10-09] MEDS: ATORVASTATIN CALCIUM 40 MG TABLET PO SCH (22:57)
[2017-10-10 03:12] LABS: CREATINE KINASE MB 0.3 ng/mL (<4.55); TROPONIN I 0.021 ng/mL
[2017-10-10] MEDS: LANSOPRAZOLE 30 MG TAB.RAP.DR PO SCH (06:14)
[2017-10-10] MEDS: HYDRALAZINE HCL 50 MG TABLET PO SCH ×3 (06:14→22:13)
[2017-10-10 07:56] LABS: ABSOLUTE LYMPHOCYTES (AUTO) 1.2 10^3/uL (0.5-4.7); ABSOLUTE MONOCYTES (AUTO) 0.2 10^3/uL (0.1-1.4); ABSOLUTE NEUT (AUTO) 1.7 10^3/uL (1.7-8.2); BASOPHILS % (AUTO) 0.1 % (0-2); HEMATOCRIT 33.5 % (36.0-47.0); HEMOGLOBIN 11.2 g/dL (12.0-15.5); LYMPHOCYTES % (AUTO) 37.7 % (13-45); MEAN CORPUSCULAR HEMOGLOBIN 30.4 pg (27.0-33.4); MEAN CORPUSCULAR HGB CONC 33.5 g/dL (32.0-36.0); MEAN CORPUSCULAR VOLUME 91 fl (80-97); MONOCYTES % (AUTO) 5.5 % (3-13); PLATELET COUNT 189 10^3/uL (150-450); RED BLOOD COUNT 3.68 10^6/uL (3.72-5.28); SEGMENTED NEUTROPHILS % (AUTO) 55.7 % (42-78); TOTAL CELLS COUNTED % (AUTO) 100 %; WHITE BLOOD COUNT 3.1 10^3/uL (4.0-10.5)
[2017-10-10] MEDS: ISOSORBIDE MONONITRATE 60 MG TAB.ER.24H PO SCH (08:09)
[2017-10-10 08:20] LABS: ALANINE AMINOTRANSFERASE 20 U/L (9-52); ALBUMIN 3.6 g/dL (3.5-5.0); ALKALINE PHOSPHATASE 68 U/L (38-126); ANION GAP 7 (5-19); ASPARTATE AMINO TRANSFERASE 14 U/L (14-36); BILIRUBIN,DIRECT 0.2 mg/dL (0.0-0.4); BILIRUBIN,TOTAL 0.5 mg/dL (0.2-1.3); BLOOD UREA NITROGEN 22 mg/dL (7-20); CALCIUM 9.8 mg/dL (8.4-10.2); CARBON DIOXIDE 28 mmol/L (22-30); CHLORIDE 106 mmol/L (98-107); CHOLESTEROL 133.31 mg/dL (0-200); GLUCOSE 80 mg/dL (75-110); SODIUM 141.4 mmol/L (137-145); TOTAL PROTEIN 5.8 g/dL (6.3-8.2); TRIGLYCERIDES 44 mg/dL (<150)
[2017-10-10 08:31] LABS: DIRECT LDL 65 mg/dL (<100)
[2017-10-10] MEDS: CARVEDILOL 12.5 MG TABLET PO SCH ×2 (09:15→22:14)
[2017-10-10] MEDS: FAMOTIDINE 20 MG TABLET PO SCH ×2 (09:15→22:04)
[2017-10-10] MEDS: RANOLAZINE 500 MG TAB.SR.12H PO SCH ×2 (09:16→22:03)
[2017-10-10] MEDS: AMLODIPINE BESYLATE 5 MG TABLET PO SCH ×2 (09:16→22:14)
[2017-10-10] MEDS: ASPIRIN 81 MG TABLET, ENT COATED PO SCH (09:16)
[2017-10-10] MEDS: ESCITALOPRAM OXALATE 10 MG TABLET PO SCH (09:16)
[2017-10-10] MEDS: ENOXAPARIN SODIUM INJ 40 MG/0.4 ML DISP.SYRIN SUBCUT SCH (09:17)
[2017-10-10] MEDS: HYDROCHLOROTHIAZIDE 12.5 MG CAPSULE PO SCH (09:17)
[2017-10-10] MEDS ORDERED: ASPIRIN 81 MG TABLET, ENT COATED PO SCH (10:00)
--- NOTE | 2017-10-10 10:17 | EKG REPORT ---
SEVERITY:- ABNORMAL ECG - SINUS RHYTHM NONSPECIFIC T ABNORMALITIES, ANT-LAT LEADS : Confirmed by: Geni Olguin 10-Oct-2017 10:17:07
[2017-10-10 10:38] LABS: TROPONIN I 0.013 ng/mL
[2017-10-10 10:41] LABS: CREATINE KINASE MB < 0.22 ng/mL (<4.55)
[2017-10-10] MEDS: ONDANSETRON HCL INJ/PF 4 MG/2 ML SDV IV PRN ×2 (14:10→22:03)
--- NOTE | 2017-10-10 17:57 | PDOC PROGRESS REPORT ---
Subjective Progress Note for:: 10/10/17 Subjective:: Patient reported persistent dizziness although participated in physical therapy session earlier today with walker assistance. There is nausea but no vomiting. Tolerating oral feeding. No chest pain or shortness of breath. Blood pressure is better controlled. Reason For Visit: ATAXIA;OLD LACUNA INFARCT;HYPERTENSION Physical Exam Vital Signs: Temp Pulse Resp BP Pulse Ox 97.6 F 67 18 116/55 L 94 10/10/17 16:21 10/10/17 16:21 10/10/17 16:21 10/10/17 16:21 10/10/17 16:21 Intake & Output 10/09/17 10/10/17 10/11/17 06:59 06:59 06:59 Intake Total 5 277 Output Total 250 Balance 5 27 Weight 60.4 kg General appearance: PRESENT: no acute distress, well-developed, well-nourished Head exam: PRESENT: atraumatic, normocephalic Mouth exam: PRESENT: moist Respiratory exam: PRESENT: clear to auscultation david Cardiovascular exam: PRESENT: RRR. ABSENT: diastolic murmur, rubs, systolic murmur Vascular exam: PRESENT: normal capillary refill. ABSENT: pallor GI/Abdominal exam: PRESENT: normal bowel sounds, soft. ABSENT: distended, guarding, mass, organolmegaly, rebound, tenderness Extremities exam: ABSENT: pedal edema Musculoskeletal exam: PRESENT: normal inspection Neurological exam: PRESENT: alert, awake, oriented to person, oriented to place , oriented to time, oriented to situation, CN II-XII grossly intact. ABSENT: motor sensory deficit Psychiatric exam: PRESENT: appropriate affect, normal mood. ABSENT: homicidal ideation, suicidal ideation Skin exam: PRESENT: dry, intact, warm. ABSENT: cyanosis, rash Results Laboratory Results: 10/10/17 07:20 10/10/17 07:20 10/10/17 10/10/17 07:20 07:20 WBC 3.1 L RBC 3.68 L Hgb 11.2 L Hct 33.5 L MCV 91 MCH 30.4 MCHC 33.5 RDW 16.0 H Plt Count 189 Seg Neutrophils % 55.7 Lymphocytes % 37.7 Monocytes % 5.5 Eosinophils % 1.0 Basophils % 0.1 Absolute Neutrophils 1.7 Absolute Lymphocytes 1.2 Absolute Monocytes 0.2 Absolute Eosinophils 0.0 Absolute Basophils 0.0 Sodium 141.4 Potassium 4.0 Chloride 106 Carbon Dioxide 28 Anion Gap 7 BUN 22 H Creatinine 1.42 H Est GFR ( Amer) 44 L Est GFR (Non-Af Amer) 36 L Glucose 80 Calcium 9.8 Total Bilirubin 0.5 AST 14 ALT 20 Alkaline Phosphatase 68 Total Protein 5.8 L Albumin 3.6 Triglycerides 44 Cholesterol 133.31 LDL Cholesterol Direct 65 VLDL Cholesterol 9.0 L HDL Cholesterol 51 10/09/17 10/09/17 10/10/17 20:49 20:49 02:30 Creatine Kinase 44 47 CK-MB (CK-2) 0.35 Troponin I < 0.012 10/10/17 10/10/17 10/10/17 02:30 09:32 09:32 Creatine Kinase 45 CK-MB (CK-2) 0.30 < 0.22 Troponin I 0.021 0.013 Impressions: Chest X-Ray 10/09/17 10:54 IMPRESSION: No acute findings. Cardiomegaly with pacemaker and other cardiac support hardware Head CT 10/09/17 14:05 IMPRESSION: No CT evidence of acute findings. Right superior cerebellar hemisphere lacunar infarct, chronic EVIDENCE OF ACUTE STROKE: NO. Assessment & Plan - Diagnosis (1) Ataxia Is this a current diagnosis for this admission?: Yes (2) Old lacunar stroke without late effect Is this a current diagnosis for this admission?: Yes (3) HTN (hypertension) Qualifiers: Hypertension type: essential hypertension Qualified Code(s): I10 - Essential (primary) hypertension Is this a current diagnosis for this admission?: Yes (4) Coronary artery disease Qualifiers: Coronary Disease-Associated Artery/Lesion type: unspecified vessel or lesion type Associated angina: without angina Is this a current diagnosis for this admission?: Yes (5) Old [place] (myocardial infarction) Is this a current diagnosis for this admission?: Yes (6) AICD (automatic cardioverter/defibrillator) present Is this a current diagnosis for this admission?: Yes (7) HLD (hyperlipidemia) Qualifiers: Hyperlipidemia type: unspecified Qualified Code(s): E78.5 - Hyperlipidemia , unspecified Is this a current diagnosis for this admission?: Yes (8) COPD (chronic obstructive pulmonary disease) Qualifiers: COPD type: chronic bronchitis Qualified Code(s): J44.9 - Chronic obstructive pulmonary disease, unspecified Is this a current diagnosis for this admission?: Yes (9) GERD (gastroesophageal reflux disease) Qualifiers: Esophagitis presence: without esophagitis Qualified Code(s): K21.9 - Gastro -esophageal reflux disease without esophagitis Is this a current diagnosis for this admission?: Yes - Time Time Spent with patient: 25-34 minutes Medications reviewed and adjusted accordingly: Yes Anticipated discharge: Home with Homehealth Within: Other - Inpatient Certification Based on my medical assessment, after consideration of the patient's comorbidities, presenting symptoms, or acuity I expect that the services needed warrant INPATIENT care.: Yes I certify that my determination is in accordance with my understanding of Medicare's requirements for reasonable and necessary INPATIENT services [42 CFR 412.3e].: Yes Medical Necessity: Need Close Monitoring Due to Risk of Patient Decompensation, Need For Continuous Telemetry Monitoring, Risk of Complication if Not Cared For in Hospital Post Hospital Care: D/C Financial Services Intern Documentation - Plan Summary Plan Summary: See attending physician orders.
[2017-10-10] MEDS: ATORVASTATIN CALCIUM 40 MG TABLET PO SCH (22:05)
[2017-10-11] MEDS: LANSOPRAZOLE 30 MG TAB.RAP.DR PO SCH (05:25)
[2017-10-11] MEDS: HYDRALAZINE HCL 50 MG TABLET PO SCH (05:25)
[2017-10-11 07:08] LABS: ANION GAP 9 (5-19); BLOOD UREA NITROGEN 33 mg/dL (7-20); CALCIUM 9.6 mg/dL (8.4-10.2); CARBON DIOXIDE 26 mmol/L (22-30); CHLORIDE 104 mmol/L (98-107); GLUCOSE 97 mg/dL (75-110); POTASSIUM 3.5 mmol/L (3.6-5.0); SODIUM 139.3 mmol/L (137-145)
[2017-10-11] MEDS: ENOXAPARIN SODIUM INJ 40 MG/0.4 ML DISP.SYRIN SUBCUT SCH (10:16)
[2017-10-11] MEDS: FAMOTIDINE 20 MG TABLET PO SCH ×2 (10:16→22:49)
[2017-10-11] MEDS: RANOLAZINE 500 MG TAB.SR.12H PO SCH ×2 (10:16→22:50)
[2017-10-11] MEDS: ESCITALOPRAM OXALATE 10 MG TABLET PO SCH (10:16)
[2017-10-11] MEDS: ASPIRIN 81 MG TABLET, ENT COATED PO SCH (10:16)
[2017-10-11] MEDS: ISOSORBIDE MONONITRATE 60 MG TAB.ER.24H PO SCH (12:34)
[2017-10-11] MEDS: CARVEDILOL 12.5 MG TABLET PO SCH ×2 (12:34→22:49)
[2017-10-11] MEDS: HYDROCHLOROTHIAZIDE 12.5 MG CAPSULE PO SCH (12:35)
[2017-10-11] MEDS: AMLODIPINE BESYLATE 5 MG TABLET PO SCH ×2 (12:35→22:49)
--- NOTE | 2017-10-11 13:37 | PDOC PROGRESS REPORT ---
Subjective Progress Note for:: 10/11/17 Subjective:: No chest pain or shortness of breath. Blood pressure is low so far today. Patient reported dizziness with postural change. There is nausea but no vomiting or abdominal pain. Tolerating oral feeding. Reason For Visit: ATAXIA;OLD LACUNA INFARCT;HYPERTENSION Physical Exam Vital Signs: Temp Pulse Resp BP Pulse Ox 98.7 F 55 L 18 115/56 L 94 10/11/17 11:13 10/11/17 11:13 10/11/17 11:13 10/11/17 11:13 10/11/17 11:13 Intake & Output 10/10/17 10/11/17 10/12/17 06:59 06:59 06:59 Intake Total 5 1599 472 Output Total 550 0 Balance 5 1049 472 Weight 60.4 kg 59.8 kg Physical Exam: General appearance: PRESENT: no acute distress, well-developed, well-nourished Head exam: PRESENT: atraumatic, normocephalic Mouth exam: PRESENT: moist Respiratory exam: PRESENT: clear to auscultation david Cardiovascular exam: PRESENT: RRR. ABSENT: diastolic murmur, rubs, systolic murmur Vascular exam: PRESENT: normal capillary refill. ABSENT: pallor GI/Abdominal exam: PRESENT: normal bowel sounds, soft. ABSENT: distended, guarding, mass, organomegaly, rebound, tenderness Extremities exam: ABSENT: pedal edema Musculoskeletal exam: PRESENT: normal inspection Neurological exam: PRESENT: alert, awake, oriented to person, oriented to place , oriented to time, oriented to situation, CN II-XII grossly intact. ABSENT: motor sensory deficit Psychiatric exam: PRESENT: appropriate affect, normal mood. ABSENT: homicidal ideation, suicidal ideation Skin exam: PRESENT: dry, intact, warm. ABSENT: cyanosis, rash Results Laboratory Results: 10/10/17 07:20 10/11/17 06:09 10/11/17 06:09 Sodium 139.3 Potassium 3.5 L Chloride 104 Carbon Dioxide 26 Anion Gap 9 BUN 33 H Creatinine 1.69 H Est GFR ( Amer) 36 L Est GFR (Non-Af Amer) 30 L Glucose 97 Calcium 9.6 10/09/17 10/09/17 10/10/17 20:49 20:49 02:30 Creatine Kinase 44 47 CK-MB (CK-2) 0.35 Troponin I < 0.012 10/10/17 10/10/17 10/10/17 02:30 09:32 09:32 Creatine Kinase 45 CK-MB (CK-2) 0.30 < 0.22 Troponin I 0.021 0.013 Impressions: Chest X-Ray 10/09/17 10:54 IMPRESSION: No acute findings. Cardiomegaly with pacemaker and other cardiac support hardware Head CT 10/09/17 14:05 IMPRESSION: No CT evidence of acute findings. Right superior cerebellar hemisphere lacunar infarct, chronic EVIDENCE OF ACUTE STROKE: NO. Assessment & Plan - Diagnosis (1) Ataxia Is this a current diagnosis for this admission?: Yes (2) Old lacunar stroke without late effect Is this a current diagnosis for this admission?: Yes (3) HTN (hypertension) Qualifiers: Hypertension type: essential hypertension Qualified Code(s): I10 - Essential (primary) hypertension Is this a current diagnosis for this admission?: Yes (4) Coronary artery disease Qualifiers: Coronary Disease-Associated Artery/Lesion type: unspecified vessel or lesion type Associated angina: without angina Is this a current diagnosis for this admission?: Yes (5) Old MS (myocardial infarction) Is this a current diagnosis for this admission?: Yes (6) AICD (automatic cardioverter/defibrillator) present Is this a current diagnosis for this admission?: Yes (7) HLD (hyperlipidemia) Qualifiers: Hyperlipidemia type: unspecified Qualified Code(s): E78.5 - Hyperlipidemia , unspecified Is this a current diagnosis for this admission?: Yes (8) COPD (chronic obstructive pulmonary disease) Qualifiers: COPD type: chronic bronchitis Qualified Code(s): J44.9 - Chronic obstructive pulmonary disease, unspecified Is this a current diagnosis for this admission?: Yes (9) GERD (gastroesophageal reflux disease) Qualifiers: Esophagitis presence: without esophagitis Qualified Code(s): K21.9 - Gastro -esophageal reflux disease without esophagitis Is this a current diagnosis for this admission?: Yes - Time Time Spent with patient: 25-34 minutes Medications reviewed and adjusted accordingly: Yes Anticipated discharge: Home with Homehealth Within: Other - Inpatient Certification Based on my medical assessment, after consideration of the patient's comorbidities, presenting symptoms, or acuity I expect that the services needed warrant INPATIENT care.: Yes I certify that my determination is in accordance with my understanding of Medicare's requirements for reasonable and necessary INPATIENT services [42 CFR 412.3e].: Yes Medical Necessity: Need Close Monitoring Due to Risk of Patient Decompensation, Need For Continuous Telemetry Monitoring, Risk of Complication if Not Cared For in Hospital Post Hospital Care: D/C Food Products Sales Representative Documentation - Plan Summary Plan Summary: See covering attending physician order
[2017-10-11] MEDS ORDERED: POTASSIUM CHLORIDE 10 MEQ TABLET.SA PO SCH (14:00)
[2017-10-11] MEDS: ATORVASTATIN CALCIUM 40 MG TABLET PO SCH (22:49)
[2017-10-12] MEDS: LANSOPRAZOLE 30 MG TAB.RAP.DR PO SCH (05:51)
[2017-10-12] MEDS: ISOSORBIDE MONONITRATE 60 MG TAB.ER.24H PO SCH (08:26)
[2017-10-12] MEDS: AMLODIPINE BESYLATE 5 MG TABLET PO SCH ×2 (09:34→21:07)
[2017-10-12] MEDS: ASPIRIN 81 MG TABLET, ENT COATED PO SCH (09:34)
[2017-10-12] MEDS: ESCITALOPRAM OXALATE 10 MG TABLET PO SCH (09:34)
[2017-10-12] MEDS: FAMOTIDINE 20 MG TABLET PO SCH ×2 (09:34→21:07)
[2017-10-12] MEDS: ENOXAPARIN SODIUM INJ 40 MG/0.4 ML DISP.SYRIN SUBCUT SCH (09:35)
[2017-10-12] MEDS: RANOLAZINE 500 MG TAB.SR.12H PO SCH ×2 (09:35→21:06)
[2017-10-12] MEDS: CARVEDILOL 12.5 MG TABLET PO SCH ×2 (09:35→21:07)
--- NOTE | 2017-10-12 11:00 | PDOC PROGRESS REPORT ---
Subjective Progress Note for:: 10/12/17 Subjective:: OOB in chair. Denied any chest pain or shortness of breath. Denied any significant dizziness so far today but less ambulatory. No abdominal pain, nausea, or vomiting or abdominal pain. Tolerating oral feeding. Reason For Visit: ATAXIA;OLD LACUNA INFARCT;HYPERTENSION Physical Exam Vital Signs: Temp Pulse Resp BP Pulse Ox 98.5 F 56 L 19 136/58 H 98 10/12/17 08:02 10/12/17 08:02 10/12/17 08:02 10/12/17 08:02 10/12/17 08:02 Intake & Output 10/11/17 10/12/17 10/13/17 06:59 06:59 06:59 Intake Total 1599 1213 Output Total 550 1 Balance 1049 1212 Weight 59.8 kg Physical Exam: General appearance: PRESENT: no acute distress, well-developed, well-nourished Head exam: PRESENT: atraumatic, normocephalic Mouth exam: PRESENT: moist Respiratory exam: PRESENT: clear to auscultation david Cardiovascular exam: PRESENT: RRR. ABSENT: diastolic murmur, rubs, systolic murmur Vascular exam: PRESENT: normal capillary refill. ABSENT: pallor GI/Abdominal exam: PRESENT: normal bowel sounds, soft. ABSENT: distended, guarding, mass, organomegaly, rebound, tenderness Extremities exam: ABSENT: pedal edema Musculoskeletal exam: PRESENT: normal inspection Neurological exam: PRESENT: alert, awake, oriented to person, oriented to place , oriented to time, oriented to situation, CN II-XII grossly intact. ABSENT: motor sensory deficit Psychiatric exam: PRESENT: appropriate affect, normal mood. ABSENT: homicidal ideation, suicidal ideation Skin exam: PRESENT: dry, intact, warm. ABSENT: cyanosis, rash Results Laboratory Results: 10/10/17 07:20 10/11/17 06:09 10/11/17 06:09 Magnesium 1.7 10/09/17 10/09/17 10/10/17 20:49 20:49 02:30 Creatine Kinase 44 47 CK-MB (CK-2) 0.35 Troponin I < 0.012 10/10/17 10/10/17 10/10/17 02:30 09:32 09:32 Creatine Kinase 45 CK-MB (CK-2) 0.30 < 0.22 Troponin I 0.021 0.013 Impressions: Chest X-Ray 10/09/17 10:54 IMPRESSION: No acute findings. Cardiomegaly with pacemaker and other cardiac support hardware Head CT 10/09/17 14:05 IMPRESSION: No CT evidence of acute findings. Right superior cerebellar hemisphere lacunar infarct, chronic EVIDENCE OF ACUTE STROKE: NO. Assessment & Plan - Diagnosis (1) Ataxia Is this a current diagnosis for this admission?: Yes (2) Old lacunar stroke without late effect Is this a current diagnosis for this admission?: Yes (3) HTN (hypertension) Qualifiers: Hypertension type: essential hypertension Qualified Code(s): I10 - Essential (primary) hypertension Is this a current diagnosis for this admission?: Yes (4) Coronary artery disease Qualifiers: Coronary Disease-Associated Artery/Lesion type: unspecified vessel or lesion type Associated angina: without angina Is this a current diagnosis for this admission?: Yes (5) Old [place] (myocardial infarction) Is this a current diagnosis for this admission?: Yes (6) AICD (automatic cardioverter/defibrillator) present Is this a current diagnosis for this admission?: Yes (7) HLD (hyperlipidemia) Qualifiers: Hyperlipidemia type: unspecified Qualified Code(s): E78.5 - Hyperlipidemia , unspecified Is this a current diagnosis for this admission?: Yes (8) COPD (chronic obstructive pulmonary disease) Qualifiers: COPD type: chronic bronchitis Qualified Code(s): J44.9 - Chronic obstructive pulmonary disease, unspecified Is this a current diagnosis for this admission?: Yes (9) GERD (gastroesophageal reflux disease) Qualifiers: Esophagitis presence: without esophagitis Qualified Code(s): K21.9 - Gastro -esophageal reflux disease without esophagitis Is this a current diagnosis for this admission?: Yes - Time Time Spent with patient: 25-34 minutes Medications reviewed and adjusted accordingly: Yes Anticipated discharge: Home with Homehealth Within: Other - Inpatient Certification Based on my medical assessment, after consideration of the patient's comorbidities, presenting symptoms, or acuity I expect that the services needed warrant INPATIENT care.: Yes I certify that my determination is in accordance with my understanding of Medicare's requirements for reasonable and necessary INPATIENT services [42 CFR 412.3e].: Yes Medical Necessity: Need Close Monitoring Due to Risk of Patient Decompensation, Need For Continuous Telemetry Monitoring, Risk of Complication if Not Cared For in Hospital Post Hospital Care: D/C Collet Maker Documentation - Plan Summary Plan Summary: Continue to hold Hydralazine and HCTZ from her anti HTN medication. Obtain BMP. If her renal indices improve and blood pressure remain satisfactory, she is agreeable to discharge tomorrow.
[2017-10-12 12:12] LABS: ANION GAP 10 (5-19); BLOOD UREA NITROGEN 28 mg/dL (7-20); CARBON DIOXIDE 24 mmol/L (22-30); CHLORIDE 105 mmol/L (98-107); GLUCOSE 133 mg/dL (75-110); POTASSIUM 4.5 mmol/L (3.6-5.0); SODIUM 138.5 mmol/L (137-145)
[2017-10-12] MEDS: ATORVASTATIN CALCIUM 40 MG TABLET PO SCH (21:06)
[2017-10-13] MEDS: LANSOPRAZOLE 30 MG TAB.RAP.DR PO SCH (05:06)
[2017-10-13] MEDS: ISOSORBIDE MONONITRATE 60 MG TAB.ER.24H PO SCH (08:32)
[2017-10-13] MEDS: ENOXAPARIN SODIUM INJ 40 MG/0.4 ML DISP.SYRIN SUBCUT SCH (10:23)
[2017-10-13] MEDS: RANOLAZINE 500 MG TAB.SR.12H PO SCH ×2 (10:23→22:07)
[2017-10-13] MEDS: FAMOTIDINE 20 MG TABLET PO SCH ×2 (10:25→22:07)
[2017-10-13] MEDS: AMLODIPINE BESYLATE 5 MG TABLET PO SCH ×2 (10:25→22:06)
[2017-10-13] MEDS: ESCITALOPRAM OXALATE 10 MG TABLET PO SCH (10:25)
[2017-10-13] MEDS: ASPIRIN 81 MG TABLET, ENT COATED PO SCH (10:25)
[2017-10-13] MEDS: CARVEDILOL 12.5 MG TABLET PO SCH ×2 (10:25→22:06)
--- NOTE | 2017-10-13 20:33 | PDOC PROGRESS REPORT ---
Subjective Progress Note for:: 10/13/17 Subjective:: No chest pain or shortness of breath. No abdominal pain, nausea, or vomiting or abdominal pain. Tolerating oral feeding. Ambulatory in her room today without any significant dizziness or vertigo. Her blood pressure remain in acceptable range. Reason For Visit: ATAXIA;OLD LACUNA INFARCT;HYPERTENSION Physical Exam Vital Signs: Temp Pulse Resp BP Pulse Ox 97.8 F 66 20 150/70 H 95 10/13/17 19:11 10/13/17 19:11 10/13/17 19:11 10/13/17 19:11 10/13/17 19:11 Intake & Output 10/12/17 10/13/17 10/14/17 06:59 06:59 06:59 Intake Total 1213 1281 877 Output Total 1 Balance 1212 1281 877 Physical Exam: General appearance: PRESENT: no acute distress, well-developed, well-nourished Head exam: PRESENT: atraumatic, normocephalic Mouth exam: PRESENT: moist Respiratory exam: PRESENT: clear to auscultation david Cardiovascular exam: PRESENT: RRR. ABSENT: diastolic murmur, rubs, systolic murmur Vascular exam: PRESENT: normal capillary refill. ABSENT: pallor GI/Abdominal exam: PRESENT: normal bowel sounds, soft. ABSENT: distended, guarding, mass, organomegaly, rebound, tenderness Extremities exam: ABSENT: pedal edema Musculoskeletal exam: PRESENT: normal inspection Neurological exam: PRESENT: alert, awake, oriented to person, oriented to place , oriented to time, oriented to situation, CN II-XII grossly intact. ABSENT: motor sensory deficit Psychiatric exam: PRESENT: appropriate affect, normal mood. ABSENT: homicidal ideation, suicidal ideation Skin exam: PRESENT: dry, intact, warm. ABSENT: cyanosis, rash Results Laboratory Results: 10/10/17 07:20 10/12/17 11:23 10/09/17 10/09/17 10/10/17 20:49 20:49 02:30 Creatine Kinase 44 47 CK-MB (CK-2) 0.35 Troponin I < 0.012 10/10/17 10/10/17 10/10/17 02:30 09:32 09:32 Creatine Kinase 45 CK-MB (CK-2) 0.30 < 0.22 Troponin I 0.021 0.013 Impressions: Chest X-Ray 10/09/17 10:54 IMPRESSION: No acute findings. Cardiomegaly with pacemaker and other cardiac support hardware Head CT 10/09/17 14:05 IMPRESSION: No CT evidence of acute findings. Right superior cerebellar hemisphere lacunar infarct, chronic EVIDENCE OF ACUTE STROKE: NO. Assessment & Plan - Diagnosis (1) Ataxia Is this a current diagnosis for this admission?: Yes (2) Old lacunar stroke without late effect Is this a current diagnosis for this admission?: Yes (3) HTN (hypertension) Qualifiers: Hypertension type: essential hypertension Qualified Code(s): I10 - Essential (primary) hypertension Is this a current diagnosis for this admission?: Yes (4) Coronary artery disease Qualifiers: Coronary Disease-Associated Artery/Lesion type: unspecified vessel or lesion type Associated angina: without angina Is this a current diagnosis for this admission?: Yes (5) Old [place] (myocardial infarction) Is this a current diagnosis for this admission?: Yes (6) AICD (automatic cardioverter/defibrillator) present Is this a current diagnosis for this admission?: Yes (7) HLD (hyperlipidemia) Qualifiers: Hyperlipidemia type: unspecified Qualified Code(s): E78.5 - Hyperlipidemia , unspecified Is this a current diagnosis for this admission?: Yes (8) COPD (chronic obstructive pulmonary disease) Qualifiers: COPD type: chronic bronchitis Qualified Code(s): J44.9 - Chronic obstructive pulmonary disease, unspecified Is this a current diagnosis for this admission?: Yes (9) GERD (gastroesophageal reflux disease) Qualifiers: Esophagitis presence: without esophagitis Qualified Code(s): K21.9 - Gastro -esophageal reflux disease without esophagitis Is this a current diagnosis for this admission?: Yes - Time Time Spent with patient: 25-34 minutes Medications reviewed and adjusted accordingly: Yes Anticipated discharge: Home Within: within 24 hours - Inpatient Certification Based on my medical assessment, after consideration of the patient's comorbidities, presenting symptoms, or acuity I expect that the services needed warrant INPATIENT care.: Yes I certify that my determination is in accordance with my understanding of Medicare's requirements for reasonable and necessary INPATIENT services [42 CFR 412.3e].: Yes Medical Necessity: Need Close Monitoring Due to Risk of Patient Decompensation, Need For Continuous Telemetry Monitoring, Risk of Complication if Not Cared For in Hospital Post Hospital Care: D/C Air Conditioning Manager Documentation - Plan Summary Plan Summary: Continue current medication management. Patient is agreeable to discharge home tomorrow. Her renal indices are imprving.
[2017-10-13] MEDS: ATORVASTATIN CALCIUM 40 MG TABLET PO SCH (22:07)
[2017-10-14] MEDS: LANSOPRAZOLE 30 MG TAB.RAP.DR PO SCH (05:34)
--- NOTE | 2017-10-14 07:06 | PDOC DISCHARGE SUMMARY ---
General - Admit/Disc Date/PCP Admission Date/Primary Care Provider: 10/09/17 17:42 ANGELICA FRAGOSO MD Discharge Date: 10/14/17 - Discharge Diagnosis (1) Ataxia Is this a current diagnosis for this admission?: Yes (2) Old lacunar stroke without late effect Is this a current diagnosis for this admission?: Yes (3) HTN (hypertension) Is this a current diagnosis for this admission?: Yes (4) Coronary artery disease Is this a current diagnosis for this admission?: Yes (5) Old AL (myocardial infarction) Is this a current diagnosis for this admission?: Yes (6) AICD (automatic cardioverter/defibrillator) present Is this a current diagnosis for this admission?: Yes (7) HLD (hyperlipidemia) Is this a current diagnosis for this admission?: Yes (8) COPD (chronic obstructive pulmonary disease) Is this a current diagnosis for this admission?: Yes (9) GERD (gastroesophageal reflux disease) Is this a current diagnosis for this admission?: Yes - Additional Information Discharge Activity: Activity As Tolerated Home Medications: Amlodipine Besylate [Norvasc 5 mg Tablet] 5 mg PO Q12 10/09/17 Aspirin [Aspirin EC] 81 mg PO DAILY 10/09/17 Atorvastatin Calcium [Lipitor 40 mg Tablet] 40 mg PO QHS 10/09/17 Carvedilol [Coreg 25 mg Tablet] 25 mg PO Q12 10/09/17 Escitalopram Oxalate [Lexapro 10 mg Tablet] 10 mg PO DAILY 10/09/17 Isosorbide Mononitrate [Imdur 60 mg Tablet.er] 60 mg PO QAM 10/09/17 Omeprazole 40 mg PO DAILY 10/09/17 Ranitidine HCl [Zantac 150 mg Tablet] 75 mg PO Q12 10/09/17 Ranolazine [Ranexa] 1,000 mg PO Q12 10/09/17 History of Present Illness History of Present Illness: JESSICA VEGA is a 72 year old female patient of Dr Angelica Fragoso who presented to the ED with complain of generalized weakness and feeling like she was going to fall backward. Patient reported to me that since 09/16/2017 she has been more involved in caring for her due to his functional limitation. She claimed that she most have overworked herself and caused her weakness. She claimed that she was Dr. Fragoso about 2 months ago due to issue of loss of balance and she was prescribed a cane for ambulatory assistance. She reported associated dizziness, intermittent vertigo and recurrent falls without any trauma since 09/16/2017. She reported sternal region chest pressure like discomfort without radiation, associated palpitation, radiation, or diaphoresis. She denied any loss of consciousness, headache, nausea, vomiting, abdominal pain, or diarrhea. She admitted to history of hypertension but denied any history of stroke, seizure disorder, or focal weakness. She claimed compliance with her medication and medical care follow up with Dr. Fragoso. Upon arrival in the ED her initial evaluation was significant for slightly elevated blood pressure and physical examination suggestive of left sided drift, unsteadiness in balance and difficulty with ambulation. Her initial radiology evaluation with head CT scan was unrevealing of any significant acute pathologic process. She was not able to get brain MRI evaluation due to AICD implant device. Her morbidities include HTN, CAD s/p CABG, chronic CHF, old AL, Hyperlipidemia, COPD, GERD, and Depression. She was advised hospitalization for further evaluation and management. Hospital Course Hospital Course: Patient did respond to treatment and eventual resolution of her presenting symptoms with adjustment in her medications. Her Gabapentin and Trazodone were discontinued due to possible contribution to her presenting symptom of Ataxia. Her Hydralazine and Hydrochlorothiazide were discontinued. Her blood pressure remain stable and symptoms of dizziness and vertigo resoled. She was able to ambulate without any problem. She will be discharged home today. She will follow up with Dr. Fragoso as instructed upon discharge. Physical Exam Vital Signs: Temp Pulse Resp BP Pulse Ox 99.4 F 61 16 128/62 H 94 10/14/17 03:08 10/14/17 03:08 10/14/17 03:08 10/14/17 03:08 10/14/17 03:08 Intake & Output 10/12/17 10/13/17 10/14/17 06:59 06:59 06:59 Intake Total 1213 1281 1697 Output Total 1 Balance 1212 1281 1697 Physical Exam: General appearance: PRESENT: no acute distress, well-developed, well-nourished Head exam: PRESENT: atraumatic, normocephalic Mouth exam: PRESENT: moist Respiratory exam: PRESENT: clear to auscultation david Cardiovascular exam: PRESENT: RRR. ABSENT: diastolic murmur, rubs, systolic murmur Vascular exam: PRESENT: normal capillary refill. ABSENT: pallor GI/Abdominal exam: PRESENT: normal bowel sounds, soft. ABSENT: distended, guarding, mass, organomegaly, rebound, tenderness Extremities exam: ABSENT: pedal edema Musculoskeletal exam: PRESENT: normal inspection Neurological exam: PRESENT: alert, awake, oriented to person, oriented to place , oriented to time, oriented to situation, CN II-XII grossly intact. ABSENT: motor sensory deficit Psychiatric exam: PRESENT: appropriate affect, normal mood. ABSENT: homicidal ideation, suicidal ideation Skin exam: PRESENT: dry, intact, warm. ABSENT: cyanosis, rash Results Laboratory Results: 10/10/17 07:20 10/12/17 11:23 10/09/17 10/09/17 10/10/17 20:49 20:49 02:30 Creatine Kinase 44 47 CK-MB (CK-2) 0.35 Troponin I < 0.012 10/10/17 10/10/17 10/10/17 02:30 09:32 09:32 Creatine Kinase 45 CK-MB (CK-2) 0.30 < 0.22 Troponin I 0.021 0.013 Impressions: Chest X-Ray 10/09/17 10:54 IMPRESSION: No acute findings. Cardiomegaly with pacemaker and other cardiac support hardware Head CT 10/09/17 14:05 IMPRESSION: No CT evidence of acute findings. Right superior cerebellar hemisphere lacunar infarct, chronic EVIDENCE OF ACUTE STROKE: NO. Qualifiers PATEINT BEING DISCHARGED WITH ANY OF THE FOLLOWING DIAGNOSIS?: No Plan Discharge Plan: Discharge home today. Follow up with Dr Fragoso as instructed upon discharge.
[2017-10-14] MEDS: ESCITALOPRAM OXALATE 10 MG TABLET PO SCH (08:49)
[2017-10-14] MEDS: ISOSORBIDE MONONITRATE 60 MG TAB.ER.24H PO SCH (08:50)
[2017-10-14] MEDS: AMLODIPINE BESYLATE 5 MG TABLET PO SCH (08:50)
[2017-10-14] MEDS: RANOLAZINE 500 MG TAB.SR.12H PO SCH (08:50)
[2017-10-14] MEDS: ASPIRIN 81 MG TABLET, ENT COATED PO SCH (08:51)
[2017-10-14] MEDS: CARVEDILOL 12.5 MG TABLET PO SCH (08:52)
[2017-10-14] MEDS: FAMOTIDINE 20 MG TABLET PO SCH (08:52)
[2017-10-14] MEDS: ENOXAPARIN SODIUM INJ 40 MG/0.4 ML DISP.SYRIN SUBCUT SCH (08:53)
[2017-10-14 09:27] VITALS: BP 141/67
== END 2017-10-14 09:16 | disposition home or self-care (01) | DRG 93 ==
LOC: ER 10:25 → EH 17:42 → 3W 10-10 00:27
PROVIDERS: ADMIT Internal Medicine Geriatric Medicine; ATTEND Internal Medicine Geriatric Medicine
DX: R27.0 Ataxia, unspecified (principal); I25.10 Atherosclerotic heart disease of native coronary artery without angina pectoris; E78.5 Hyperlipidemia, unspecified; K21.9 Gastro-esophageal reflux disease without esophagitis; R29.6 Repeated falls; T42.6X5A Adverse effect of other antiepileptic and sedative-hypnotic drugs, initial encounter; T43.215A Adverse effect of selective serotonin and norepinephrine reuptake inhibitors, initial encounter; T46.5X5A Adverse effect of other antihypertensive drugs, initial encounter; T50.2X5A Adverse effect of carbonic-anhydrase inhibitors, benzothiadiazides and other diuretics, initial encounter; R42 Dizziness and giddiness; I11.0 Hypertensive heart disease with heart failure; I50.9 Heart failure, unspecified; J44.9 Chronic obstructive pulmonary disease, unspecified; F32.9 Major depressive disorder, single episode, unspecified; Z86.73 Personal history of transient ischemic attack (TIA), and cerebral infarction without residual deficits; Z95.1 Presence of aortocoronary bypass graft; I25.2 Old myocardial infarction; Z95.810 Presence of automatic (implantable) cardiac defibrillator; Z90.49 Acquired absence of other specified parts of digestive tract; Z88.0 Allergy status to penicillin
CPT/HCPCS: 36415; 70450; 70460; 71046; 80048; 80053; 80061; 81001; 82550; 82553; 83735; 84484; 85025; 85610; 85730; 93005; 93010; 99285; G8978-GP; G8979-GP; J1650; J2405; J3490

== ENCOUNTER 2017-10-15 22:42 | Emergency (ER) | payer MEDICARE, OTHER ==
--- NOTE | 2017-10-16 01:54 | RADIOLOGY REPORT (SQ) ---
EXAM DESCRIPTION: CHEST SINGLE VIEW CLINICAL HISTORY: cp COMPARISON: 10/09/2017 FINDINGS: Single frontal view of the chest. Atherosclerotic calcification and tortuosity of thoracic aorta. Cardiomegaly. Left-sided pacemaker as well as other pacing leads identified and unchanged. Coronary artery stent identified. No consolidation, pneumothorax, or pleural effusion. No displaced rib fractures identified. Upper abdominal soft tissues are unremarkable. IMPRESSION: 1. No acute pulmonary process identified. Cardiomegaly.
[2017-10-16 02:19] LABS: RED CELL DISTRIBUTION WIDTH 15.8 % (11.5-14.0)
[2017-10-16 02:25] LABS: HEMATOCRIT 35.9 % (36.0-47.0); MEAN CORPUSCULAR HEMOGLOBIN 30.5 pg (27.0-33.4); MEAN CORPUSCULAR HGB CONC 33.5 g/dL (32.0-36.0); MEAN CORPUSCULAR VOLUME 91 fl (80-97); PLATELET COUNT 201 10^3/uL (150-450); RED BLOOD COUNT 3.95 10^6/uL (3.72-5.28)
[2017-10-16 02:41] LABS: ALANINE AMINOTRANSFERASE 34 U/L (9-52); ALBUMIN 4.5 g/dL (3.5-5.0); ALKALINE PHOSPHATASE 92 U/L (38-126); ANION GAP 11 (5-19); ASPARTATE AMINO TRANSFERASE 24 U/L (14-36); BILIRUBIN,DIRECT 0.2 mg/dL (0.0-0.4); BILIRUBIN,TOTAL 0.5 mg/dL (0.2-1.3); BLOOD UREA NITROGEN 34 mg/dL (7-20); CALCIUM 10.2 mg/dL (8.4-10.2); CARBON DIOXIDE 25 mmol/L (22-30); CHLORIDE 107 mmol/L (98-107); CREATINE KINASE 81 U/L (30-135); GLUCOSE 129 mg/dL (75-110); POTASSIUM 4.5 mmol/L (3.6-5.0); SODIUM 143.4 mmol/L (137-145); TOTAL PROTEIN 6.9 g/dL (6.3-8.2)
[2017-10-16 02:49] LABS: ABSOLUTE LYMPHOCYTES# (MANUAL) 3.4 10^3/uL (0.5-4.7); ABSOLUTE MONOCYTES # (MANUAL) 0.2 10^3/uL (0.1-1.4); ABSOLUTE NEUTROPHILS# (MANUAL) 5.4 10^3/uL (1.7-8.2); BASOPHILS % (MANUAL) 0 % (0-2); EOSINOPHILS % (MANUAL) 0 % (0-6); LYMPHOCYTES % (MANUAL) 38 % (13-45); MONOCYTES % (MANUAL) 2 % (3-13); SEGMENTED NEUTROPHILS % (MAN) 60 % (42-78); TOTAL CELLS COUNTED 100
[2017-10-16 02:53] LABS: CREATINE KINASE MB 0.37 ng/mL (<4.55); TROPONIN I 0.015 ng/mL
[2017-10-16] MEDS ORDERED: ACETAMINOPHEN 325 MG TABLET PO ONE (02:54)
[2017-10-16 02:55] LABS: ANISOCYTOSIS SLIGHT; BURR CELLS 2+; OVALOCYTES 1+; PLATELET COMMENT ADEQUATE; POIKILOCYTOSIS 1+; SCHISTOCYTES 2+; TEAR DROP CELLS 1+; TOXIC GRANULATION 1+
[2017-10-16 02:56] LABS: PLATELET LARGE PRESENT
[2017-10-16] MEDS ORDERED: NORMAL SALINE 500 ML IV ONE (04:01)
--- NOTE | 2017-10-16 05:25 | ER Document Report ---
ED General - General Chief Complaint: Dizziness Stated Complaint: CHEST PAINS Time Seen by Provider: 10/16/17 02:41 Notes: Patient is a 72-year-old female presents with complaint of dizziness that occur with some chest tightness. She says this happened several times in the past. She was actually seen admitted and had a strokelike workup for this. Workup was negative. She also had serial cardiac enzymes which remained stable. She does have history of cardiac disease. She does have a defibrillator. She denies being shocked by defibrillator in the last couple months. She denies any fevers. No infections. She says she currently is chest pain-free and feels well and has no further complaints at this time. She denies any syncopal episodes. TRAVEL OUTSIDE OF THE [place] IN LAST 30 DAYS: No - Related Data Allergies/Adverse Reactions: amoxicillin [Amoxicillin] Allergy (Intermediate, Verified 11/07/16 16:46) Hallucinations Penicillins Allergy (Intermediate, Verified 11/07/16 16:46) Hallucinations Past Medical History - Social History Smoking Status: Unknown if Ever Smoked Chew tobacco use (# tins/day): No Frequency of alcohol use: None Drug Abuse: None Family History: Reviewed & Not Pertinent, Hypertension Patient has suicidal ideation: No Patient has homicidal ideation: No - Past Medical History Cardiac Medical History: Reports: Hx Congestive Heart Failure, Hx Coronary Artery Disease, Hx Heart Attack - 1990, Hx Hypercholesterolemia, Hx Hypertension Denies: Hx Atrial Fibrillation, Hx Peripheral Vascular Disease, Hx Pulmonary Embolism, Hx Heart Murmur Pulmonary Medical History: Reports: Hx Bronchitis, Hx COPD, Hx Pneumonia Denies: Hx Asthma, Hx Respiratory Failure, Hx Sleep Apnea, Hx Tuberculosis Neurological Medical History: Denies: Hx Cerebrovascular Accident, Hx Seizures Endocrine Medical History: Denies: Hx Diabetes Mellitus Type 1, Hx Diabetes Mellitus Type 2 Renal/ Medical History: Reports: Hx Renal Insufficiency. Denies: Hx End Stage Renal Disease, Hx Kidney Stones, Hx Peritoneal Dialysis Malignancy Medical History: Denies: Hx Leukemia, Hx Lung Cancer GI Medical History: Reports: Hx Crohn's Disease - Patient has either Crohn's disease or ulcerative colitis, Hx Diverticulitis, Hx Gastroesophageal Reflux Disease. Denies: Hx Hepatitis, Hx Hiatal Hernia, Hx Irritable Bowel, Hx Liver Failure, Hx Pancreatitis, Hx Ulcer Musculoskeltal Medical History: Reports Hx Arthritis, Denies Hx Fibromyalgia, Denies Hx Muscular Dystrophy Psychiatric Medical History: Reports: Hx Depression Denies: Hx Bipolar Disorder, Hx Post Traumatic Stress Disorder, Hx Schizophrenia Traumatic Medical History: Reports: Hx Fractures - right wrist, left foot Infectious Medical History: Denies: Hx Hepatitis, Hx HIV Past Surgical History: Reports: Hx Appendectomy, Hx Cardiac Catheterization, Hx Cardiac Surgery - AICD for ventricular fibrillation, Hx Section - x4, Hx Coronary Stent, Hx Hysterectomy, Hx Orthopedic Surgery - bilateral knee surgery, Hx Pacemaker, Hx Tonsillectomy. Denies: Hx Bowel Surgery, Hx Cholecystectomy, Hx Colostomy, Hx Coronary Artery Bypass Graft, Hx Gastric Bypass Surgery, Hx Herniorrhaphy, Hx Mastectomy, Hx Open Heart Surgery, Hx Tubal Ligation - Immunizations Immunizations up to date: Yes Hx Diphtheria, Pertussis, Tetanus Vaccination: Yes Hx Pneumococcal Vaccination: 09/21/09 Review of Systems - Review of Systems Notes: My Normal Review Basic REVIEW OF SYSTEMS: CONSTITUTIONAL : Denies fever, chills, or sweats. Denies recent illness. EENT: Denies eye, ear, throat, or mouth pain or symptoms. Denies nasal or sinus congestion. CARDIOVASCULAR: Episode of chest tightness. RESPIRATORY: Denies cough, cold, or chest congestion. Denies shortness of breath, difficulty breathing, or wheezing. GASTROINTESTINAL: Denies abdominal pain. Denies nausea, vomiting, or diarrhea. GENITOURINARY: Denies difficulty urinating, painful urination, burning, frequency, or blood in urine. MUSCULOSKELETAL: Denies neck or back pain or joint pain or swelling. SKIN: Denies rash or skin lesions. NEUROLOGICAL: Denies altered mental status or loss of consciousness. Denies headache. Denies weakness or paralysis or loss of use of either side. Denies sensory or motor loss. ALL OTHER SYSTEMS REVIEWED AND NEGATIVE. Physical Exam - Notes Notes: General Appearance: Well nourished, alert, cooperative, no acute distress, no obvious discomfort. Well-appearing. Vitals: reviewed, See vital signs table. Head: no swelling or tenderness to the head Eyes: PERRL, EOMI, Conjuctiva clear Mouth: No decreasd moisture Lungs: No wheezing, No rales, No rhonci, No accessory muscle use, good air exchange bilaterally. Heart: Normal rate, Regular rythm, No murmur, no rub Abdomen: Normal BS, soft, No rigidity, No abdominal tenderness, No guarding, no rebound, no abdominal masses, no organomegaly Extremities: strength 5/5 in all extremities, good pulses in all extremities, no swelling or tenderness in the extremities, no edema. Skin: warm, dry, appropriate color, no rash Neuro: speech clear, oriented x 3, normal affect, responds appropriately to questions. Cranial nerves II through XII are intact. Distal sensation intact. Patient moves all extremities without difficulty. Course - Re-evaluation Re-evalutation: 10/16/17 05:24 We did review the patient's records. She had a stress test back in 2014. When she was admitted last week she had serial cardiac enzymes which remained the same. Her troponin today is 0.014 which is consistent with what her troponin chronically is. I did call and speak with Dr. Fragoso. I informed him that the dizziness seems more chronic and that she has some chest tightness associated with it when she has it. Informs me that this is chronic and says been ongoing for a long time. He says that he prefers to see the patient has office today as opposed to admitting her. Patient currently is chest pain-free and is actually requesting to go home. Feels therefore appropriate to discharge her since she does have close follow-up today with Dr. Fragoso. I informed her return to ER if she has recurrent chest pain or feels unwell. Patient agrees with plan and will be discharged home. Her EKG when she first arrived had a heart rate of 51. Her heart rate now is in the 60s. Reviewing her vital signs from her recent admission her heart rate usually does run in the 50s and 60s. Blood pressure has been normal. Dictation of this chart was performed using voice recognition software; therefore, there may be some unintended grammatical errors. 10/16/17 05:26 - Laboratory Result Diagrams: 10/16/17 02:00 10/16/17 02:00 Laboratory results interpreted by me: 10/16/17 10/16/17 02:00 02:00 Hct 35.9 L RDW 15.8 H Monocytes % (Manual) 2 L BUN 34 H Creatinine 1.40 H Est GFR ( Amer) 44 L Est GFR (Non-Af Amer) 37 L Glucose 129 H - EKG Interpretation by Me Additional EKG results interpreted by me: 10/16/17 05:23 EKG is reviewed and interpreted by me. EKG shows sinus pericardial with rate [address] segment elevation or depression. Her EKG does show some T-wave inversions in her lateral precordial leads and lateral leads which are unchanged comparison to her old EKG from October 09, 2017. NC interval slightly prolonged. QRS duration QTc intervals are within normal range. Discharge - Discharge Clinical Impression: Dizziness Chest pain Qualifiers: Chest pain type: unspecified Qualified Code(s): R07.9 - Chest pain, unspecified Condition: Good Disposition: HOME, SELF-CARE Additional Instructions: Please call Dr. Fragoso's office this morning for a close follow up appointment. He expects to see you today in his office. Please return to the ER immediately if you have recurrent chest pain, difficulty breathing, worsening dizziness, or feel unwell. Referrals: ANA MARIA FRAGOSO MD [Primary Care Provider] - 10/16/17
[2017-10-16 05:43] VITALS: BP 137/68
--- NOTE | 2017-10-16 07:38 | EKG REPORT ---
SEVERITY:- ABNORMAL ECG - SINUS RHYTHM ABNORMAL T, CONSIDER ISCHEMIA, LATERAL LEADS : Confirmed by: Clarice Turk MD 16-Oct-2017 07:37:34
--- NOTE | 2017-10-16 07:38 | EKG REPORT ---
SEVERITY:- ABNORMAL ECG - SINUS BRADYCARDIA ABNORMAL T, CONSIDER ISCHEMIA, LATERAL LEADS : Confirmed by: Clarice Turk MD 16-Oct-2017 07:37:39
== END 2017-10-16 05:51 | disposition home or self-care (01) ==
LOC: ER 22:42
DX: R07.9 Chest pain, unspecified (principal); R42 Dizziness and giddiness; I25.10 Atherosclerotic heart disease of native coronary artery without angina pectoris
CPT/HCPCS: 93005 ×2; 99285; 96360; 36415; 82553; 82550; 85025; 80053; 84484; 71045; 93010 ×2; A9270; J7040

== ENCOUNTER → 2017-11-23 | Outpatient (CLI) | payer MEDICARE, OTHER ==
--- NOTE | 2017-11-23 10:54 | WOMENS IMAGING REPORT ---
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 TECHNIQUE: Dual-Energy X-ray Absorptiometry (DEXA) of the AP left forearm and Hip. LIMITATIONS: None. FINDINGS: Left forearm: The bone mineral density (BMD) the of the left forearm in the AP projection correlates with a T-score of -4.6, which is osteoporosis as defined by the World Health Organization. HIP: The bone mineral density (BMD) measured in the left hip correlates with a T-score of -4.1, which is o steoporosis as defined by the World Health Organization. IMPRESSION: 1. Forearm: Osteoporosis 2. HIP: Osteoporosis COMMENT: The World Health Organization defines low BMD as follows: T-score: Normal: Greater than -1.0 Osteopenia: Between -1.0 and -2.5 Osteoporosis: Less than -2.5 without fractures Established osteoporosis: Less than -2.5 with fractures In general, you may wish to consider: Diagnosis Treatment Follow-up DEXA Normal BMD Prevention 2-3 years Osteopenia Prevention/Therapy 1-2 years Osteoporosis Therapy Yearly TECHNICAL DOCUMENTATION: JOB ID: [id number] [employer]- All Rights Reserved Reading location - IP/workstation name: [email or web address]
== END ==
LOC: WI 08:55
PROVIDERS: ATTEND Physician Assistant
DX: M81.0 Age-related osteoporosis without current pathological fracture (principal)
CPT/HCPCS: 77080

== ENCOUNTER → 2018-03-29 | Outpatient (CLI) | payer MEDICARE, OTHER ==
--- NOTE | 2018-03-29 16:05 | RADIOLOGY REPORT (SQ) ---
EXAM DESCRIPTION: CHEST PA/LATERAL COMPLETED DATE/TIME: 03/29/2018 3:51 pm REASON FOR STUDY: COPD COMPARISON: 10/16/2017 10/09/2017 EXAM PARAMETERS: NUMBER OF VIEWS: two views TECHNIQUE: Digital Frontal and Lateral radiographic views of the chest acquired. RADIATION DOSE: NA LIMITATIONS: none FINDINGS: LUNGS AND PLEURA: Slight chronic tenting left hemidiaphragm and left base scar are atelec tasis. No acute pulmonary findings. No pneumothorax or pleural effusion. MEDIASTINUM AND HILAR STRUCTURES: No masses or contour abnormalities. HEART AND VASCULAR STRUCTURES: Cardiomegaly, stable finding. Cardiac stent, unchanged finding. No e vidence for failure. BONES: No acute findings. HARDWARE: Cardiac pacemaker, unchanged finding. OTHER: No other significant finding. IMPRESSION: 1 No significant interval changes since the prior examinations dated 10/16/2017 and 2017. Cardiomegaly, stable fnding. TECHNICAL DOCUMENTATION: JOB ID: [id number]- All Rights Reserved Reading location - IP/workstation name: [email or web address]
== END ==
LOC: OD 15:37
PROVIDERS: ATTEND Family Medicine
DX: J44.9 Chronic obstructive pulmonary disease, unspecified (principal)
CPT/HCPCS: 71046

== ENCOUNTER 2018-04-09 18:32 | Emergency (ER) | payer MEDICARE, OTHER ==
--- NOTE | 2018-04-09 19:49 | ER Document Report ---
ED Medical Screen (RME) - General Chief Complaint: Rib Pain Stated Complaint: RIGHT ABDOMEN PAIN Time Seen by Provider: 04/09/18 19:37 Mode of Arrival: Ambulatory Information source: Patient Notes: 73-year-old female presented to ED for complaint of right side of ribs and abdominal pain since Thursday when she fell at home. She states the pain is getting worse every day and she has not been seen by a doctor since it occurred. She is extremely tender to the touch on the right ribs and abdomen. Patient has a history of high blood pressure COPD heart attack and implanted defibrillator cardiac stents and she is on aspirin. I have greeted and performed a rapid initial assessment of this patient. A comprehensive ED assessment and evaluation of the patient, analysis of test results and completion of medical decision making process will be conducted by an additional ED providers. TRAVEL OUTSIDE OF THE [place] IN LAST 30 DAYS: No - Related Data Allergies/Adverse Reactions: amoxicillin [Amoxicillin] Allergy (Intermediate, Verified 04/09/18 18:34) Hallucinations Penicillins Allergy (Intermediate, Verified 04/09/18 18:34) Hallucinations Past Medical History - Social History Chew tobacco use (# tins/day): No Frequency of alcohol use: None Drug Abuse: None - Past Medical History Cardiac Medical History: Reports: Hx Congestive Heart Failure, Hx Coronary Artery Disease, Hx Heart Attack - 1990, Hx Hypercholesterolemia, Hx Hypertension Denies: Hx Atrial Fibrillation, Hx Peripheral Vascular Disease, Hx Pulmonary Embolism, Hx Heart Murmur Pulmonary Medical History: Reports: Hx Bronchitis, Hx COPD, Hx Pneumonia Denies: Hx Asthma, Hx Respiratory Failure, Hx Sleep Apnea, Hx Tuberculosis Neurological Medical History: Denies: Hx Cerebrovascular Accident, Hx Seizures Endocrine Medical History: Denies: Hx Diabetes Mellitus Type 1, Hx Diabetes Mellitus Type 2 Renal/ Medical History: Reports: Hx Renal Insufficiency. Denies: Hx End Stage Renal Disease, Hx Kidney Stones, Hx Peritoneal Dialysis Malignancy Medical History: Denies: Hx Leukemia, Hx Lung Cancer GI Medical History: Reports: Hx Crohn's Disease - Patient has either Crohn's disease or ulcerative colitis, Hx Diverticulitis, Hx Gastroesophageal Reflux Disease. Denies: Hx Hepatitis, Hx Hiatal Hernia, Hx Irritable Bowel, Hx Liver Failure, Hx Pancreatitis, Hx Ulcer Musculoskeltal Medical History: Reports Hx Arthritis, Denies Hx Fibromyalgia, Denies Hx Muscular Dystrophy Psychiatric Medical History: Reports: Hx Depression Denies: Hx Bipolar Disorder, Hx Post Traumatic Stress Disorder, Hx Schizophrenia Traumatic Medical History: Reports: Hx Fractures - right wrist, left foot Infectious Medical History: Denies: Hx Hepatitis, Hx HIV Past Surgical History: Reports: Hx Appendectomy, Hx Cardiac Catheterization, Hx Cardiac Surgery - AICD for ventricular fibrillation, Hx Section - x4, Hx Coronary Stent, Hx Hysterectomy, Hx Orthopedic Surgery - bilateral knee surgery, Hx Pacemaker, Hx Tonsillectomy. Denies: Hx Bowel Surgery, Hx Cholecystectomy, Hx Colostomy, Hx Coronary Artery Bypass Graft, Hx Gastric Bypass Surgery, Hx Herniorrhaphy, Hx Mastectomy, Hx Open Heart Surgery, Hx Tubal Ligation - Immunizations Immunizations up to date: Yes Hx Diphtheria, Pertussis, Tetanus Vaccination: Yes History of Influenza Vaccine for 06/2017 - 11/2017 Season: Yes Influenza Administration Date for 06/2017 - 11/2017 Season: 07/22/17 Physical Exam - Vital signs Vitals: Temp Pulse Resp BP Pulse Ox 97.8 F 65 16 166/71 H 98 04/09/18 19:06 04/09/18 19:06 04/09/18 19:06 04/09/18 19:06 04/09/18 19:06 Course - Vital Signs Vital signs: Temp Pulse Resp BP Pulse Ox 97.8 F 65 16 166/71 H 98 04/09/18 19:06 04/09/18 19:06 04/09/18 19:06 04/09/18 19:06 04/09/18 19:06 Doctor's Discharge - Discharge Referrals: ANA MARIA FRAGOSO MD [Primary Care Provider] - Follow up as needed
[2018-04-09] MEDS ORDERED: MORPHINE SULFATE 10 MG/ML INJ IV ONE (20:36)
--- NOTE | 2018-04-09 20:37 | ER Document Report ---
ED General - General Chief Complaint: Rib Pain Stated Complaint: RIGHT ABDOMEN PAIN Time Seen by Provider: 04/09/18 19:37 Mode of Arrival: Ambulatory Notes: Patient is a 73-year-old female that comes emergency department for chief complaint of fall injury 2 days ago, she states that she lost her balance when her leg gave out and she fell first onto a chair and then onto the floor, she did not hit her head, she states she has hurt since then but it seems worse today. She reports painful breathing but denies difficulty breathing. She denies dizziness or passing out. She is on aspirin but no other anticoagulation. Past medical history includes HI, hypertension, COPD, AICD. TRAVEL OUTSIDE OF THE [place] IN LAST 30 DAYS: No - Related Data Allergies/Adverse Reactions: amoxicillin [Amoxicillin] Allergy (Intermediate, Verified 04/09/18 18:34) Hallucinations Penicillins Allergy (Intermediate, Verified 04/09/18 18:34) Hallucinations Past Medical History - General Information source: Patient - Social History Smoking Status: Current Every Day Smoker Chew tobacco use (# tins/day): No Frequency of alcohol use: None Drug Abuse: None Lives with: Family Family History: Reviewed & Not Pertinent, Hypertension Patient has suicidal ideation: No Patient has homicidal ideation: No - Past Medical History Cardiac Medical History: Reports: Hx Congestive Heart Failure, Hx Coronary Artery Disease, Hx Heart Attack - 1990, Hx Hypercholesterolemia, Hx Hypertension Denies: Hx Atrial Fibrillation, Hx Peripheral Vascular Disease, Hx Pulmonary Embolism, Hx Heart Murmur Pulmonary Medical History: Reports: Hx Bronchitis, Hx COPD, Hx Pneumonia Denies: Hx Asthma, Hx Respiratory Failure, Hx Sleep Apnea, Hx Tuberculosis Neurological Medical History: Denies: Hx Cerebrovascular Accident, Hx Seizures Endocrine Medical History: Denies: Hx Diabetes Mellitus Type 1, Hx Diabetes Mellitus Type 2 Renal/ Medical History: Reports: Hx Renal Insufficiency. Denies: Hx End Stage Renal Disease, Hx Kidney Stones, Hx Peritoneal Dialysis Malignancy Medical History: Denies: Hx Leukemia, Hx Lung Cancer GI Medical History: Reports: Hx Crohn's Disease - Patient has either Crohn's disease or ulcerative colitis, Hx Diverticulitis, Hx Gastroesophageal Reflux Disease. Denies: Hx Hepatitis, Hx Hiatal Hernia, Hx Irritable Bowel, Hx Liver Failure, Hx Pancreatitis, Hx Ulcer Musculoskeletal Medical History: Reports Hx Arthritis, Denies Hx Fibromyalgia, Denies Hx Muscular Dystrophy Psychiatric Medical History: Reports: Hx Depression Denies: Hx Bipolar Disorder, Hx Post Traumatic Stress Disorder, Hx Schizophrenia Traumatic Medical History: Reports: Hx Fractures - right wrist, left foot Infectious Medical History: Denies: Hx Hepatitis, Hx HIV Past Surgical History: Reports: Hx Appendectomy, Hx Cardiac Catheterization, Hx Cardiac Surgery - AICD for ventricular fibrillation, Hx Section - x4, Hx Coronary Stent, Hx Hysterectomy, Hx Orthopedic Surgery - bilateral knee surgery, Hx Pacemaker, Hx Tonsillectomy. Denies: Hx Bowel Surgery, Hx Cholecystectomy, Hx Colostomy, Hx Coronary Artery Bypass Graft, Hx Gastric Bypass Surgery, Hx Herniorrhaphy, Hx Mastectomy, Hx Open Heart Surgery, Hx Tubal Ligation - Immunizations Immunizations up to date: Yes Hx Diphtheria, Pertussis, Tetanus Vaccination: Yes Hx Pneumococcal Vaccination: 09/21/09 Review of Systems - Review of Systems Constitutional: No symptoms reported EENT: No symptoms reported Cardiovascular: No symptoms reported Respiratory: See HPI Gastrointestinal: See HPI Genitourinary: No symptoms reported Female Genitourinary: No symptoms reported Musculoskeletal: See HPI Skin: No symptoms reported Hematologic/Lymphatic: No symptoms reported Neurological/Psychological: No symptoms reported Physical Exam - Vital signs Vitals: Temp Pulse Resp BP Pulse Ox 97.8 F 65 16 166/71 H 98 04/09/18 19:06 04/09/18 19:06 04/09/18 19:06 04/09/18 19:06 04/09/18 19:06 - Notes Notes: GENERAL: Alert, interacts well. No acute distress. HEAD: Normocephalic, atraumatic. EYES: Pupils equal, round, and reactive to light. Extraocular movements intact. ENT: Oral mucosa moist, tongue midline. NECK: Full range of motion. Supple. Trachea midline. LUNGS: Decreased breath sounds bilaterally with a few scant wheezes, no tachypnea, no signs of distress. Tender over the right ribs generally, no ecchymosis, swelling, or crepitus noted. HEART: Regular rate and rhythm. No murmur ABDOMEN: Pain in the right side and right upper quadrant of the abdomen, no ecchymosis noted, otherwise unremarkable abdominal exam. EXTREMITIES: Moves all 4 extremities spontaneously. No edema, normal radial and dorsalis pedis pulses bilaterally. No cyanosis. BACK: no cervical, thoracic, lumbar midline tenderness. No saddle anesthesia, normal distal neurovascular exam. NEUROLOGICAL: Alert and oriented x3. Normal speech. [cranial nerves II through XII grossly intact]. PSYCH: Normal affect, normal mood. SKIN: Warm, dry, normal turgor. No rashes or lesions noted. Course - Re-evaluation Re-evalutation: Patient is well-appearing, however she is very tender over the right ribs and right upper quadrant of the abdomen. No ecchymosis, swelling, or other signs of trauma. She is hypertensive, no tachycardia, unremarkable vital signs otherwise. Is alert, interactive, has normal neurological exam, denies head injury. CBC, chemistry, urinalysis generally unremarkable. CAT scan of the chest and abdomen performed because of patient's pain on exam, advanced age, and reported fall, the show incidental findings of left lung nodule, left nephrolithiasis, but no acute traumatic findings. Discussed these results with patient, provided with copy, she states she will follow-up with her provider for additional evaluation and management, provided with a few pain medication to go home with tonight which she will use only if absolutely needed, otherwise she is to take Tylenol. Discussed return precautions with patient, she states understanding and agreement. - Vital Signs Vital signs: Temp Pulse Resp BP Pulse Ox 97.7 F 66 16 185/82 H 98 04/10/18 01:14 04/10/18 01:14 04/10/18 01:14 04/10/18 01:14 04/10/18 01:14 - Laboratory Result Diagrams: 04/09/18 20:59 04/09/18 22:32 Laboratory results interpreted by me: 04/09/18 04/09/18 04/09/18 20:59 21:56 22:32 WBC 3.9 L RBC 3.62 L Hgb 11.5 L Hct 34.0 L RDW 16.2 H Lymphocytes % 46.6 H Sodium 145.5 H Chloride 110 H Urine Urobilinogen 4.0 H Discharge - Discharge Clinical Impression: Rib pain Fall Qualifiers: Encounter type: initial encounter Qualified Code(s): W19.XXXA - Unspecified fall, initial encounter Abdominal pain Qualifiers: Abdominal location: right upper quadrant Qualified Code(s): R10.11 - Right upper quadrant pain Condition: Stable Disposition: HOME, SELF-CARE Additional Instructions: Your CAT scan does not show any abnormalities from the fall, it shows a nodule in your left lung and a stone in your left kidney. Please follow-up with your provider and give him a copy of the report for additional monitoring and management of the nodule in the lung. This needs to be performed because this could develop into cancer which would be missed if you do not follow-up. You have been provided with small amount of pain medication for your pain after the fall, only take if needed, take [id number] stool softener if needed for constipation because of the medication, take Tylenol instead if this is enough. You should generally improve with time. Return if you worsen including passing out, vomiting, difficulty breathing, fever, or any other concerning symptoms. Forms: Elevated Blood Pressure Referrals: ANA MARIA FRAGOSO MD [Primary Care Provider] - Follow up in 3-5 days
[2018-04-09 21:14] LABS: ABSOLUTE EOSINOPHILS # (AUTO) 0.1 10^3/uL (0.0-0.6); ABSOLUTE LYMPHOCYTES (AUTO) 1.8 10^3/uL (0.5-4.7); ABSOLUTE MONOCYTES (AUTO) 0.2 10^3/uL (0.1-1.4); ABSOLUTE NEUT (AUTO) 1.8 10^3/uL (1.7-8.2); BASOPHILS % (AUTO) 1.3 % (0-2); EOSINOPHILS % (AUTO) 1.7 % (0-6); HEMOGLOBIN 11.5 g/dL (12.0-15.5); LYMPHOCYTES % (AUTO) 46.6 % (13-45); MEAN CORPUSCULAR HEMOGLOBIN 31.8 pg (27.0-33.4); MEAN CORPUSCULAR HGB CONC 33.8 g/dL (32.0-36.0); MEAN CORPUSCULAR VOLUME 94 fl (80-97); MONOCYTES % (AUTO) 4.7 % (3-13); PLATELET COUNT 207 10^3/uL (150-450); RED BLOOD COUNT 3.62 10^6/uL (3.72-5.28); RED CELL DISTRIBUTION WIDTH 16.2 % (11.5-14.0); SEGMENTED NEUTROPHILS % (AUTO) 45.7 % (42-78); TOTAL CELLS COUNTED % (AUTO) 100 %; WHITE BLOOD COUNT 3.9 10^3/uL (4.0-10.5)
[2018-04-09 22:29] LABS: APPEARANCE,URINE SLIGHTLY-CLOUDY; BILIRUBIN,URINE NEGATIVE (NEGATIVE); CALCIUM OXALATE CRYSTALS,URINE MANY /HPF; COLOR,URINE YELLOW; GLUCOSE, URINE NEGATIVE (NEGATIVE); KETONES,URINE NEGATIVE (NEGATIVE); LEUKOCYTE ESTERASE,URINE NEGATIVE (NEGATIVE); NITRITE,URINE NEGATIVE (NEGATIVE); PROTEIN,URINE NEGATIVE (NEGATIVE); URINE SPECIFIC GRAVITY 1.023
[2018-04-09 23:33] LABS: ALANINE AMINOTRANSFERASE 22 U/L (9-52); ALBUMIN 3.8 g/dL (3.5-5.0); ALKALINE PHOSPHATASE 95 U/L (38-126); ANION GAP 9 (5-19); ASPARTATE AMINO TRANSFERASE 19 U/L (14-36); BILIRUBIN,DIRECT 0.3 mg/dL (0.0-0.4); BILIRUBIN,TOTAL 0.5 mg/dL (0.2-1.3); BLOOD UREA NITROGEN 12 mg/dL (7-20); CALCIUM 9.1 mg/dL (8.4-10.2); CARBON DIOXIDE 27 mmol/L (22-30); CHLORIDE 110 mmol/L (98-107); GLUCOSE 92 mg/dL (75-110); POTASSIUM 4.1 mmol/L (3.6-5.0); SODIUM 145.5 mmol/L (137-145); TOTAL PROTEIN 6.4 g/dL (6.3-8.2)
--- NOTE | 2018-04-10 00:26 | RADIOLOGY REPORT (SQ) ---
CLINICAL HISTORY: fall, right chest and abd pain , EXAM: CT Chest, Abdomen and Pelvis with contrast 04/10/2018 12:00 AM CDT COMPARISON: None. TECHNIQUE: Following the administration of intravenous contrast, Volumetric CT acquisition was performed through the chest, abdomen, and pelvis. Images in the axial, coronal, and sagittal planes were presented for interpretation. Delayed excretory phase images were also obtained. This exam was performed according to our departmental dose-optimization program, which includes automated exposure control, adjustment of the mA and/or kV according to patient size and/or use of iterative reconstruction technique. Radiation dose/contrast: DLP-633.08 FINDINGS: Chest: There are no rib fracture or pneumothorax. There is no acute aortic traumatic injury or mediastinal hematoma. There is no pulmonary parenchymal contusion or hemorrhage. There is no fracture or dislocation of the thoracic spine or visualized shoulders. There is a left upper lobe soft tissue density nodule on axial image 21 measuring 1.1 cm in diameter. There is an adjacent 3 mm left upper lobe nodule on axial image 22. The lungs are otherwise clear without focal consolidation or pleural effusion. The heart is mildly enlarged with pacer leads in place. There are surgical changes with epicardial pacing leads and radiodense material in the distribution of the pericardium. The thoracic aorta and its primary branches . The main pulmonary artery and visualized proximal tracheobronchial tree are within normal limits. There are are no pathologically enlarged mediastinal, hilar, supraclavicular, or axillary lymph nodes. The visualized portions of the liver, spleen, pancreas, adrenal glands, gallbladder, and kidneys are normal. The soft tissue structures of the chest wall are normal. The visualized osseous structures are within normal limits for the patient's age. Abdomen/Pelvis: There is no free air, blood, or fluid within the abdomen/pelvis. There is no acute solid organ injury to the liver, spleen, or kidneys. There is no fracture or dislocation of the lumbar spine, bony pelvis, or visualized ribs. Within the upper abdomen, the liver and spleen are normal in size and morphology. The gallbladder is normal in appearance. There is no intra or extrahepatic biliary ductal dilation. The pancreas and adrenal glands are normal in appearance. The right kidney is normal in size. The right ureter is normal in caliber. There is a 3.3 cm cortical cyst along the upper pole the right kidney as well as a 5.9 cm mid right renal cortical cyst.. There are no right renal calculi or distal obstructing stones. There is no evidence of hydronephrosis/hydroureter. The left kidney is normal in size. The left ureter is normal in course and caliber. There is a 4 mm nonobstructing stone in the lower pole left renal collecting system on axial image 65. There are no distal obstructing stones or evidence of hydronephrosis/hydroureter. The stomach and small intestines are within normal limits for this exam performed without enteric contrast. The appendix is well-visualized and normal, best seen on axial image 91 posterior to the cecum. The colon is stool filled and otherwise unremarkable. There are scattered descending and sigmoid colonic diverticula without associated wall thickening or inflammatory changes. Within the pelvis, the bladder and rectum are normal. The uterus is surgically absent. The ovaries are not well visualized.. There are no pathologically enlarged inguinal, retroperitoneal, portacaval, or mesenteric lymph nodes. The soft tissue structures of the abdominal wall are normal in appearance. The visualized osseous structures within normal limits for the patient's age. There are extensive vascular calcifications throughout the abdominal aorta and iliac arteries which are otherwise normal in course and caliber. IMPRESSION: Chest: 1. No acute intrathoracic traumatic injury. 2. No acute fracture or dislocation. 3. Left upper lobe lung nodules, given the patient's age and the appearance of the nodules correlation with history of malignancy is recommended. Further evaluation with tissue sampling or PET/CT may be warranted. 4. Cardiomegaly with surgical changes. Abdomen/Pelvis: 1. No acute intra-abdominal traumatic injury. 2. Status post hysterectomy. 3. Nonobstructing left renal calculus.
[2018-04-10] MEDS ORDERED: HYDROCODONE/ACETAMINOPHEN 5-325 MG (6 TAB/ER DISP) PO PRN (00:42)
[2018-04-10 01:58] VITALS: BP 185/82
== END 2018-04-10 01:58 | disposition home or self-care (01) ==
LOC: ER 18:32
DX: R07.81 Pleurodynia (principal); R10.11 Right upper quadrant pain; W19.XXXA Unspecified fall, initial encounter; N20.0 Calculus of kidney; R91.8 Other nonspecific abnormal finding of lung field; I10 Essential (primary) hypertension; I25.10 Atherosclerotic heart disease of native coronary artery without angina pectoris; I25.2 Old myocardial infarction; J44.9 Chronic obstructive pulmonary disease, unspecified; F17.200 Nicotine dependence, unspecified, uncomplicated; I49.01 Ventricular fibrillation; Z95.810 Presence of automatic (implantable) cardiac defibrillator; Z95.5 Presence of coronary angioplasty implant and graft; Z88.0 Allergy status to penicillin
CPT/HCPCS: 99284; 36415; 85025; 80053; 81001; 71260; 74177; J2270; A9270

== ENCOUNTER 2018-08-12 13:23 | Emergency (ER) | payer MEDICARE, OTHER ==
--- NOTE | 2018-08-12 13:58 | ER Document Report ---
ED Medical Screen (RME) - General Chief Complaint: Dizziness Stated Complaint: DIZZY Time Seen by Provider: 08/12/18 13:53 Notes: 73 years old female with a history of hypertension coronary artery disease smoking had [place] before presents today with dizziness lightheadedness and also had multiple falls. She is on multiple medications. Which include isosorbide dinitrate, carvedilol, amlodipine. TRAVEL OUTSIDE OF THE [place] IN LAST 30 DAYS: No - Related Data Allergies/Adverse Reactions: No Known Allergies Allergy (Verified 08/12/18 13:24) Past Medical History - Past Medical History Cardiac Medical History: Reports: Hx Congestive Heart Failure, Hx Coronary Artery Disease, Hx Heart Attack - 1990, Hx Hypercholesterolemia, Hx Hypertension Denies: Hx Atrial Fibrillation, Hx Peripheral Vascular Disease, Hx Pulmonary Embolism, Hx Heart Murmur Pulmonary Medical History: Reports: Hx Bronchitis, Hx COPD, Hx Pneumonia Denies: Hx Asthma, Hx Respiratory Failure, Hx Sleep Apnea, Hx Tuberculosis Neurological Medical History: Denies: Hx Cerebrovascular Accident, Hx Seizures Endocrine Medical History: Denies: Hx Diabetes Mellitus Type 1, Hx Diabetes Mellitus Type 2 Renal/ Medical History: Reports: Hx Renal Insufficiency. Denies: Hx End Stage Renal Disease, Hx Kidney Stones, Hx Peritoneal Dialysis Malignancy Medical History: Denies: Hx Leukemia, Hx Lung Cancer GI Medical History: Reports: Hx Crohn's Disease - Patient has either Crohn's disease or ulcerative colitis, Hx Diverticulitis, Hx Gastroesophageal Reflux Disease. Denies: Hx Hepatitis, Hx Hiatal Hernia, Hx Irritable Bowel, Hx Liver Failure, Hx Pancreatitis, Hx Ulcer Musculoskeltal Medical History: Reports Hx Arthritis, Denies Hx Fibromyalgia, Denies Hx Muscular Dystrophy Psychiatric Medical History: Reports: Hx Depression Denies: Hx Bipolar Disorder, Hx Post Traumatic Stress Disorder, Hx Schizophrenia Traumatic Medical History: Reports: Hx Fractures - right wrist, left foot Infectious Medical History: Denies: Hx Hepatitis, Hx HIV Past Surgical History: Reports: Hx Appendectomy, Hx Cardiac Catheterization, Hx Cardiac Surgery - AICD for ventricular fibrillation, Hx Section - x4, Hx Coronary Stent, Hx Hysterectomy, Hx Orthopedic Surgery - bilateral knee surgery, Hx Pacemaker, Hx Tonsillectomy. Denies: Hx Bowel Surgery, Hx Cholecystectomy, Hx Colostomy, Hx Coronary Artery Bypass Graft, Hx Gastric Bypass Surgery, Hx Herniorrhaphy, Hx Mastectomy, Hx Open Heart Surgery, Hx Tubal Ligation - Immunizations Immunizations up to date: Yes Hx Diphtheria, Pertussis, Tetanus Vaccination: Yes History of Influenza Vaccine for 06/2017 - 11/2017 Season: Yes Influenza Administration Date for 06/2017 - 11/2017 Season: 07/22/17 Physical Exam - Vital signs Vitals: Temp Pulse Resp BP Pulse Ox 97.9 F 59 L 18 165/74 H 97 08/12/18 13:39 08/12/18 13:39 08/12/18 13:39 08/12/18 13:39 08/12/18 13:39 Course - Vital Signs Vital signs: Temp Pulse Resp BP Pulse Ox 97.9 F 59 L 18 165/74 H 97 08/12/18 13:39 08/12/18 13:39 08/12/18 13:39 08/12/18 13:39 08/12/18 13:39 Doctor's Discharge - Discharge Referrals: ANA MARIA FRAGOSO MD [Primary Care Provider] - Follow up as needed
--- NOTE | 2018-08-12 14:51 | RADIOLOGY REPORT (SQ) ---
EXAM DESCRIPTION: CT HEAD WITHOUT COMPLETED DATE/TIME: 08/12/2018 2:20 pm REASON FOR STUDY: Dizziness COMPARISON: CT brain 10/22/2012, 06/30/2017, 10/09/2017 TECHNIQUE: Axial images acquired through the brain without intravenous contrast. Images reviewed wi th bone, brain and subdural windows. Additional sagittal and coronal reconstructions were generated. Images stored on PACS. All CT scanners at this facility use dose modulation, iterative reconstruction, and/or weight based d osing when appropriate to reduce radiation dose to as low as reasonably achievable (ALARA). [facility]: Dose Right [facility]: CareDose [facility]: Dose Right [facility]: Teradose 4D [facility]: Smart HOMETRAX RADIATION DOSE: CT Rad equipment meets quality standard of care and radiation dose reduction techniq ues were employed. CTDIvol: 53.2 mGy. DLP: 1044 mGy-cm. mGy. LIMITATIONS: None. FINDINGS: VENTRICLES: Normal size and contour. CEREBRUM: No masses. No hemorrhage. No midline shift. No evidence for acute infarction. Normal gra y/white matter differentiation. No areas of low density in the white matter. CEREBELLUM: No masses. No hemorrhage. 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 No evidence for acute infarction. EXTRAAXIAL SPACES: No fluid collections. No masses. ORBITS AND GLOBE: No intra- or extraconal masses. Normal contour of globe without masses. CALVARIUM: No fracture. PARANASAL SINUSES: No fluid or mucosal thickening. SOFT TISSUES: No mass or hematoma. OTHER: No other significant finding. IMPRESSION: No acute findings EVIDENCE OF ACUTE STROKE: NO. COMMENT: Quality ID # [id number]: Final reports with documentation of one or more dose reduction techniques (e.g., Automated exposure control, adjustment of the mA and/or kV according to patient size, use of iterative reconstruction technique) TECHNICAL DOCUMENTATION: JOB ID: [id number] [employer]- All Rights Reserved Reading location - IP/workstation name: [email or web address]
[2018-08-12 15:23] LABS: ABSOLUTE LYMPHOCYTES (AUTO) 1.5 10^3/uL (0.5-4.7); ABSOLUTE MONOCYTES (AUTO) 0.2 10^3/uL (0.1-1.4); ABSOLUTE NEUT (AUTO) 1.8 10^3/uL (1.7-8.2); BASOPHILS % (AUTO) 0.1 % (0-2); EOSINOPHILS % (AUTO) 0.8 % (0-6); HEMATOCRIT 35.7 % (36.0-47.0); HEMOGLOBIN 11.9 g/dL (12.0-15.5); LYMPHOCYTES % (AUTO) 42.9 % (13-45); MEAN CORPUSCULAR HEMOGLOBIN 31.4 pg (27.0-33.4); MEAN CORPUSCULAR HGB CONC 33.5 g/dL (32.0-36.0); MEAN CORPUSCULAR VOLUME 94 fl (80-97); MONOCYTES % (AUTO) 4.9 % (3-13); PLATELET COUNT 217 10^3/uL (150-450); RED BLOOD COUNT 3.81 10^6/uL (3.72-5.28); RED CELL DISTRIBUTION WIDTH 15.8 % (11.5-14.0); SEGMENTED NEUTROPHILS % (AUTO) 51.3 % (42-78); TOTAL CELLS COUNTED % (AUTO) 100 %; WHITE BLOOD COUNT 3.6 10^3/uL (4.0-10.5)
[2018-08-12 15:38] LABS: ALANINE AMINOTRANSFERASE 17 U/L (9-52); ALBUMIN 4.2 g/dL (3.5-5.0); ALKALINE PHOSPHATASE 118 U/L (38-126); ANION GAP 9 (5-19); ASPARTATE AMINO TRANSFERASE 19 U/L (14-36); BILIRUBIN,DIRECT 0.2 mg/dL (0.0-0.4); BILIRUBIN,TOTAL 0.6 mg/dL (0.2-1.3); BLOOD UREA NITROGEN 27 mg/dL (7-20); CALCIUM 9.6 mg/dL (8.4-10.2); CARBON DIOXIDE 30 mmol/L (22-30); CHLORIDE 104 mmol/L (98-107); CREATINE KINASE 59 U/L (30-135); GLUCOSE 80 mg/dL (75-110); POTASSIUM 4.2 mmol/L (3.6-5.0); SODIUM 142.8 mmol/L (137-145); TOTAL PROTEIN 6.9 g/dL (6.3-8.2)
[2018-08-12 15:49] LABS: CREATINE KINASE MB 0.31 ng/mL (<4.55)
[2018-08-12 15:50] LABS: TROPONIN I < 0.012 ng/mL
[2018-08-12 16:44] LABS: APPEARANCE,URINE CLEAR; BILIRUBIN,URINE NEGATIVE (NEGATIVE); COLOR,URINE COLORLESS; GLUCOSE, URINE NEGATIVE (NEGATIVE); KETONES,URINE NEGATIVE (NEGATIVE); LEUKOCYTE ESTERASE,URINE NEGATIVE (NEGATIVE); NITRITE,URINE NEGATIVE (NEGATIVE); PROTEIN,URINE NEGATIVE (NEGATIVE); URINE SPECIFIC GRAVITY 1.005; UROBILINOGEN,URINE NEGATIVE mg/dL (<2.0)
--- NOTE | 2018-08-12 17:55 | ER Document Report ---
ED Dizziness/Weakness - General Chief Complaint: Dizziness Stated Complaint: DIZZY Time Seen by Provider: 08/12/18 13:53 Mode of Arrival: Ambulatory Information source: Patient Notes: Patient is a 73-year-old female comes emergency room complaining of dizziness and falling down often over the past month. Patient states that she has weak lower extremities and it when she goes to get in the car she has to use her right leg to lift her left leg up. She has no energy or no strength in the gives out on her some. She had a complaint of being dizzy but when he talked her about dizzy in the room does not spin and patient describes more as lightheaded every once in a while. She has had falls using her cane. Her primary care provider has written her prescription to get a cane she often drops that and falls. She is told this to her daughters and her sons and today they called her and told her to quit cooking and go get it checked out in the ER. She denies any loss of consciousness she denies chest pain or shortness of breath she denies having a poor diet. TRAVEL OUTSIDE OF THE [place] IN LAST 30 DAYS: No - HPI Patient complains to provider of: Dizziness, Weakness Onset: Other - 1 month Onset/Duration: Gradual, Persistent, Worse Quality of pain: Achy, Pressure, Throbbing Severity: Moderate Pain Level: 5 Associated symptoms: None Exacerbated by: denies: Change in position, Movement of head Baseline gait: Walks w/o assistance, Uses a cane - Related Data Allergies/Adverse Reactions: No Known Allergies Allergy (Verified 08/12/18 13:24) Past Medical History - General Information source: Patient - Social History Smoking Status: Current Every Day Smoker Cigarette use (# per day): Yes - 5-8 cigarettes a day Chew tobacco use (# tins/day): No Smoking Education Provided: Yes Frequency of alcohol use: None Drug Abuse: None Family History: Reviewed & Not Pertinent, Hypertension Patient has suicidal ideation: No Patient has homicidal ideation: No - Past Medical History Cardiac Medical History: Reports: Hx Congestive Heart Failure, Hx Coronary Artery Disease, Hx Heart Attack - 1990, Hx Hypercholesterolemia, Hx Hypertension Denies: Hx Atrial Fibrillation, Hx Peripheral Vascular Disease, Hx Pulmonary Embolism, Hx Heart Murmur Pulmonary Medical History: Reports: Hx Bronchitis, Hx COPD, Hx Pneumonia Denies: Hx Asthma, Hx Respiratory Failure, Hx Sleep Apnea, Hx Tuberculosis Neurological Medical History: Denies: Hx Cerebrovascular Accident, Hx Seizures Endocrine Medical History: Denies: Hx Diabetes Mellitus Type 1, Hx Diabetes Mellitus Type 2 Renal/ Medical History: Reports: Hx Renal Insufficiency. Denies: Hx End Stage Renal Disease, Hx Kidney Stones, Hx Peritoneal Dialysis Malignancy Medical History: Denies: Hx Leukemia, Hx Lung Cancer GI Medical History: Reports: Hx Crohn's Disease - Patient has either Crohn's disease or ulcerative colitis, Hx Diverticulitis, Hx Gastroesophageal Reflux Disease. Denies: Hx Hepatitis, Hx Hiatal Hernia, Hx Irritable Bowel, Hx Liver Failure, Hx Pancreatitis, Hx Ulcer Musculoskeletal Medical History: Reports Hx Arthritis, Denies Hx Fibromyalgia, Denies Hx Muscular Dystrophy Psychiatric Medical History: Reports: Hx Depression Denies: Hx Bipolar Disorder, Hx Post Traumatic Stress Disorder, Hx Schizophrenia Traumatic Medical History: Reports: Hx Fractures - right wrist, left foot Infectious Medical History: Denies: Hx Hepatitis, Hx HIV Past Surgical History: Reports: Hx Appendectomy, Hx Cardiac Catheterization, Hx Cardiac Surgery - AICD for ventricular fibrillation, Hx Section - x4, Hx Coronary Stent, Hx Hysterectomy, Hx Orthopedic Surgery - bilateral knee surgery, Hx Pacemaker, Hx Tonsillectomy. Denies: Hx Bowel Surgery, Hx Cholecystectomy, Hx Colostomy, Hx Coronary Artery Bypass Graft, Hx Gastric Bypass Surgery, Hx Herniorrhaphy, Hx Mastectomy, Hx Open Heart Surgery, Hx Tubal Ligation - Immunizations Immunizations up to date: Yes Hx Diphtheria, Pertussis, Tetanus Vaccination: Yes Hx Pneumococcal Vaccination: 09/21/09 Review of Systems - Review of Systems Constitutional: No symptoms reported EENT: No symptoms reported Cardiovascular: No symptoms reported, Dizziness - Is, Lightheaded Respiratory: No symptoms reported Gastrointestinal: No symptoms reported Genitourinary: No symptoms reported Female Genitourinary: No symptoms reported Musculoskeletal: See HPI, Joint pain, Muscle pain - Surgery Skin: No symptoms reported Hematologic/Lymphatic: No symptoms reported Neurological/Psychological: No symptoms reported -: Yes All other systems reviewed and negative Physical Exam - Vital signs Vitals: Temp Pulse Resp BP Pulse Ox 97.9 F 59 L 18 165/74 H 97 08/12/18 13:39 08/12/18 13:39 08/12/18 13:39 08/12/18 13:39 08/12/18 13:39 Interpretation: Hypertensive - Notes Notes: PHYSICAL EXAMINATION: GENERAL: Patient is a well-nourished well-developed 73-year-old female who is in no apparent distress on examination. HEAD: Atraumatic, normocephalic. EYES: Pupils equal round and reactive to light, extraocular movements intact, conjunctiva are normal. ENT: Nares patent, oropharynx clear without exudates. Moist mucous membranes. NECK: Normal range of motion, supple without lymphadenopathy LUNGS: Breath sounds clear to auscultation bilaterally and equal. No wheezes rales or rhonchi. HEART: Regular rate and rhythm without murmurs ABDOMEN: Soft, nontender, nondistended abdomen. No guarding, no rebound. No masses appreciated. Female : deferred Musculoskeletal: Normal range of motion, no pitting or edema. No cyanosis. NEUROLOGICAL Normal speech, normal gait. Normal sensory, motor exams PSYCH: Normal mood, normal affect. SKIN: Warm, Dry, normal turgor, no rashes or lesions noted. Course - Re-evaluation Re-evalutation: 08/12/18 19:12 Patient basically came in with a complaint of having falls more frequently. We tested her with the NIH scale which she had a 0 we tested her with walking around the building with a pulse ox on which she was 97 and we did strength testing in the room with the lower extremities and when she went to get up off the bed it was like her right knee her hip gave out a little bit. We did EKGs that show that she has basically a sinus rhythm there is no change since September of this year and the rate in September was 51 and today it was 57. So that this is an arrhythmia she may be a little bradycardic but when she is up and ambulatory it comes up a little bit better. Given the history of falls I had a sent her over for x-rays of her hip and knee those turned out to be negative as well. I know this does not give us a hint of the ligaments but she does not appear to have ligament damage. She has no movement or laxity in the right knee at all. No crepitus in the hip with passive range of motion. At this point I am going to recommend the patient go see her primary care doctor and possibly possibly get her into physical therapy and see how that goes. The other thing I did do was I tested her for vertigo by later down and rotated her head right left and up she had no horizontal nystagmus she sat up she had no signs of dizziness. We also were static turgor and those were perfectly normal so she was not dehydrated. Currently I find her safe to leave the hospital. I do not believe she said any type of a CVA she has the perfect NIH and she is got great personality and strength in her lower extremities. But this point time am going to refer her back to her primary care provider for further evaluation and physical therapy. - Vital Signs Vital signs: Temp Pulse Resp BP Pulse Ox 97.9 F 59 L 19 173/77 H 96 08/12/18 13:39 08/12/18 15:00 08/12/18 15:00 08/12/18 15:00 08/12/18 15:00 - Laboratory Result Diagrams: 08/12/18 15:10 08/12/18 15:10 Laboratory results interpreted by me: 08/12/18 08/12/18 15:10 15:10 WBC 3.6 L Hgb 11.9 L Hct 35.7 L RDW 15.8 H BUN 27 H Est GFR (Non-Af Amer) 50 L Discharge - Discharge Clinical Impression: Falls frequently Accident due to mechanical fall without injury Qualifiers: Encounter type: initial encounter Qualified Code(s): W19.XXXA - Unspecified fall, initial encounter Condition: Stable Disposition: HOME, SELF-CARE Instructions: Dizziness ([facility]), Weakness ([facility]) Additional Instructions: At this point I have done everything I can think of to check you out and see why you may be falling. My assumption at this point is that you need some physical therapy. I highly suggest you go back to your primary doctor in and see if he can get you some physical therapy to work on your balance and your strengthening of your lower extremities. There is nothing fine neurologically wrong with you you are not dehydrated you do not have vertigo you brain shows to be normal for your age and there are no other abnormal findings on your hip x -ray or your knee x-ray. This does not occlude the fact that you may have some ligament damage in this may be something that needs to be examined however, you should continue to use your cane for support if not the cane and then a walker. We have tested you for dehydration for arrhythmias for blood work problems for a stroke. We can find the cause of you having falls so you need further evaluation by a physical therapist to see if it is something related to your balance or your strength. Meantime be careful think before you walk and make sure you walking with support. Forms: Elevated Blood Pressure Referrals: ANA MARIA FRAGOSO MD [Primary Care Provider] - Follow up as needed
--- NOTE | 2018-08-12 18:11 | RADIOLOGY REPORT (SQ) ---
EXAM DESCRIPTION: KNEE RIGHT 3 VIEWS; HIP BILATERAL COMPLETED DATE/TIME: 08/12/2018 5:58 pm REASON FOR STUDY: pain COMPARISON: None. FINDINGS: Bilateral hips: Two views including AP pelvis with hips positioned AP and frog-lateral. Osteopenic. Mild hip degenerative spurring. No fracture or bone lesion. Limited assessment of the sacrum given overlying vascular calcification and osteopenia. Three views right knee: AP, lateral and patellofemoral. Lateral facet joint space narrowing in the patellofemoral articulation. Osteopenic. No fracture. IMPRESSION: No hip or right knee fracture identified. Osteopenic. TECHNICAL DOCUMENTATION: JOB ID: [id number] Reading location - IP/workstation name: [email or web address]
--- NOTE | 2018-08-12 18:11 | RADIOLOGY REPORT (SQ) ---
EXAM DESCRIPTION: KNEE RIGHT 3 VIEWS; HIP BILATERAL COMPLETED DATE/TIME: 08/12/2018 5:58 pm REASON FOR STUDY: pain COMPARISON: None. FINDINGS: Bilateral hips: Two views including AP pelvis with hips positioned AP and frog-lateral. Osteopenic. Mild hip degenerative spurring. No fracture or bone lesion. Limited assessment of the sacrum given overlying vascular calcification and osteopenia. Three views right knee: AP, lateral and patellofemoral. Lateral facet joint space narrowing in the patellofemoral articulation. Osteopenic. No fracture. IMPRESSION: No hip or right knee fracture identified. Osteopenic. TECHNICAL DOCUMENTATION: JOB ID: [id number] Reading location - IP/workstation name: [email or web address]
[2018-08-12 19:36] VITALS: BP 183/77
--- NOTE | 2018-08-12 19:53 | EKG REPORT ---
SEVERITY:- ABNORMAL ECG - SINUS RHYTHM ABNORMAL T, CONSIDER ISCHEMIA, LATERAL LEADS : Confirmed by: Clarice Turk MD 12-Aug-2018 19:53:30
== END 2018-08-12 19:42 | disposition home or self-care (01) ==
LOC: ER 13:23
DX: R29.6 Repeated falls (principal); R42 Dizziness and giddiness; M25.50 Pain in unspecified joint; M79.10 Myalgia, unspecified site; R53.1 Weakness; F17.210 Nicotine dependence, cigarettes, uncomplicated; I25.10 Atherosclerotic heart disease of native coronary artery without angina pectoris; I10 Essential (primary) hypertension; I25.2 Old myocardial infarction; J44.9 Chronic obstructive pulmonary disease, unspecified; Z95.5 Presence of coronary angioplasty implant and graft
CPT/HCPCS: 36415; 70450; 73522; 80053; 81001; 82550; 82553; 84484; 85025; 93005; 93010; 99285

== ENCOUNTER 2018-08-30 09:25 | Emergency (ER) | payer MEDICARE, OTHER ==
[2018-08-30] MEDS ORDERED: ASPIRIN 81 MG TABLET, CHEWABLE PO ONE (09:47)
--- NOTE | 2018-08-30 09:48 | ER Document Report ---
ED Medical Screen (RME) - General Chief Complaint: Chest Pain Stated Complaint: DEFIBLIRATOR MAY HAVE GONE OFF Time Seen by Provider: 08/30/18 09:47 TRAVEL OUTSIDE OF THE [place] IN LAST 30 DAYS: No - HPI Notes: 08/30/18 09:48 6 approximately 15 this morning her defibrillator fired. Patient called her PCP later this Fragoso told to come to the ER travel registered nurse oncology Dr. Rick - Related Data Allergies/Adverse Reactions: No Known Allergies Allergy (Verified 08/12/18 13:24) Past Medical History - Past Medical History Cardiac Medical History: Reports: Hx Congestive Heart Failure, Hx Coronary Artery Disease, Hx Heart Attack - 1990, Hx Hypercholesterolemia, Hx Hypertension Denies: Hx Atrial Fibrillation, Hx Peripheral Vascular Disease, Hx Pulmonary Embolism, Hx Heart Murmur Pulmonary Medical History: Reports: Hx Bronchitis, Hx COPD, Hx Pneumonia Denies: Hx Asthma, Hx Respiratory Failure, Hx Sleep Apnea, Hx Tuberculosis Neurological Medical History: Denies: Hx Cerebrovascular Accident, Hx Seizures Endocrine Medical History: Denies: Hx Diabetes Mellitus Type 1, Hx Diabetes Mellitus Type 2 Renal/ Medical History: Reports: Hx Renal Insufficiency. Denies: Hx End Stage Renal Disease, Hx Kidney Stones, Hx Peritoneal Dialysis Malignancy Medical History: Denies: Hx Leukemia, Hx Lung Cancer GI Medical History: Reports: Hx Crohn's Disease - Patient has either Crohn's disease or ulcerative colitis, Hx Diverticulitis, Hx Gastroesophageal Reflux Disease. Denies: Hx Hepatitis, Hx Hiatal Hernia, Hx Irritable Bowel, Hx Liver Failure, Hx Pancreatitis, Hx Ulcer Musculoskeltal Medical History: Reports Hx Arthritis, Denies Hx Fibromyalgia, Denies Hx Muscular Dystrophy Psychiatric Medical History: Reports: Hx Depression Denies: Hx Bipolar Disorder, Hx Post Traumatic Stress Disorder, Hx Schizophrenia Traumatic Medical History: Reports: Hx Fractures - right wrist, left foot Infectious Medical History: Denies: Hx Hepatitis, Hx HIV Past Surgical History: Reports: Hx Appendectomy, Hx Cardiac Catheterization, Hx Cardiac Surgery - AICD for ventricular fibrillation, Hx Section - x4, Hx Coronary Stent, Hx Hysterectomy, Hx Orthopedic Surgery - bilateral knee surgery, Hx Pacemaker, Hx Tonsillectomy. Denies: Hx Bowel Surgery, Hx Cholecystectomy, Hx Colostomy, Hx Coronary Artery Bypass Graft, Hx Gastric Bypass Surgery, Hx Herniorrhaphy, Hx Mastectomy, Hx Open Heart Surgery, Hx Tubal Ligation - Immunizations Immunizations up to date: Yes Hx Diphtheria, Pertussis, Tetanus Vaccination: Yes History of Influenza Vaccine for 06/2017 - 11/2017 Season: Yes Influenza Administration Date for 06/2017 - 11/2017 Season: 07/22/17 Review of Systems - Review of Systems Cardiovascular: Other - AICD firing Physical Exam - Vital signs Vitals: Temp Pulse Resp BP Pulse Ox 97.8 F 63 14 159/78 H 97 08/30/18 09:38 08/30/18 09:38 08/30/18 09:38 08/30/18 09:38 08/30/18 09:38 - Respiratory Respiratory status: No respiratory distress Chest status: Nontender Breath sounds: Normal Chest palpation: Normal - Cardiovascular Rhythm: Regular Heart sounds: Normal auscultation Course - Vital Signs Vital signs: Temp Pulse Resp BP Pulse Ox 97.8 F 63 14 159/78 H 97 08/30/18 09:38 08/30/18 09:38 08/30/18 09:38 08/30/18 09:38 08/30/18 09:38 Doctor's Discharge - Discharge Referrals: ANA MARIA FRAGOSO MD [Primary Care Provider] - Follow up as needed
--- NOTE | 2018-08-30 10:10 | ER Document Report ---
ED General - General Chief Complaint: Chest Pain Stated Complaint: HOWARD MAY HAVE GONE OFF Time Seen by Provider: 08/30/18 09:47 Mode of Arrival: Ambulatory Information source: Patient TRAVEL OUTSIDE OF THE [place] IN LAST 30 DAYS: No - HPI Patient complains to provider of: Shoulder pain Onset: Other - 73-year-old female presents for evaluation of pain in her left shoulder. She notes that her heart monitor did light up suggesting that she be evaluated for it, she called her primary physician who encouraged her to come to the emergency room. She denies any chest pain palpitations shocks shortness of breath or other symptoms. She notes that she has been having multiple falls related to some unsteadiness on her feet and is having pain in her left shoulder thereafter. Denies any fevers or chills, denies any abdominal pain diarrhea constipation dysuria or rashes. - Related Data Allergies/Adverse Reactions: No Known Allergies Allergy (Verified 08/30/18 10:14) Past Medical History - General Information source: Patient - Social History Smoking Status: Former Smoker Frequency of alcohol use: None Drug Abuse: None Lives with: Alone Family History: Reviewed & Not Pertinent, Hypertension - Past Medical History Cardiac Medical History: Reports: Hx Congestive Heart Failure, Hx Coronary Artery Disease, Hx Heart Attack - 1990, Hx Hypercholesterolemia, Hx Hypertension Denies: Hx Atrial Fibrillation, Hx Peripheral Vascular Disease, Hx Pulmonary Embolism, Hx Heart Murmur Pulmonary Medical History: Reports: Hx Bronchitis, Hx COPD, Hx Pneumonia Denies: Hx Asthma, Hx Respiratory Failure, Hx Sleep Apnea, Hx Tuberculosis Neurological Medical History: Denies: Hx Cerebrovascular Accident, Hx Seizures Endocrine Medical History: Denies: Hx Diabetes Mellitus Type 1, Hx Diabetes Mellitus Type 2 Renal/ Medical History: Reports: Hx Renal Insufficiency. Denies: Hx End Stage Renal Disease, Hx Kidney Stones, Hx Peritoneal Dialysis Malignancy Medical History: Denies: Hx Leukemia, Hx Lung Cancer GI Medical History: Reports: Hx Crohn's Disease - Patient has either Crohn's disease or ulcerative colitis, Hx Diverticulitis, Hx Gastroesophageal Reflux Disease. Denies: Hx Hepatitis, Hx Hiatal Hernia, Hx Irritable Bowel, Hx Liver Failure, Hx Pancreatitis, Hx Ulcer Musculoskeletal Medical History: Reports Hx Arthritis, Denies Hx Fibromyalgia, Denies Hx Muscular Dystrophy Psychiatric Medical History: Reports: Hx Depression Denies: Hx Bipolar Disorder, Hx Post Traumatic Stress Disorder, Hx Schizophrenia Traumatic Medical History: Reports: Hx Fractures - right wrist, left foot Infectious Medical History: Denies: Hx Hepatitis, Hx HIV Past Surgical History: Reports: Hx Appendectomy, Hx Cardiac Catheterization, Hx Cardiac Surgery - AICD for ventricular fibrillation, Hx Section - x4, Hx Coronary Stent, Hx Hysterectomy, Hx Orthopedic Surgery - bilateral knee surgery, Hx Pacemaker, Hx Tonsillectomy. Denies: Hx Bowel Surgery, Hx Cholecystectomy, Hx Colostomy, Hx Coronary Artery Bypass Graft, Hx Gastric Bypass Surgery, Hx Herniorrhaphy, Hx Mastectomy, Hx Open Heart Surgery, Hx Tubal Ligation - Immunizations Immunizations up to date: Yes Hx Diphtheria, Pertussis, Tetanus Vaccination: Yes Hx Pneumococcal Vaccination: 09/21/09 Review of Systems - Review of Systems -: Yes All other systems reviewed and negative Physical Exam - Vital signs Vitals: Temp Pulse Resp BP Pulse Ox 97.8 F 63 14 159/78 H 97 08/30/18 09:38 08/30/18 09:38 08/30/18 09:38 08/30/18 09:38 08/30/18 09:38 - General General appearance: Appears well, Alert - HEENT Head: Normocephalic, Atraumatic Eyes: Normal Pupils: PERRL - Respiratory Respiratory status: No respiratory distress Chest status: Nontender Breath sounds: Normal Chest palpation: Normal - Cardiovascular Rhythm: Regular Heart sounds: Normal auscultation Murmur: No - Abdominal Inspection: Normal Distension: No distension Bowel sounds: Normal Tenderness: Nontender Organomegaly: No organomegaly - Back Back: Normal, Nontender - Extremities General upper extremity: Other - Tenderness along the left trapezius, tenderness along the left SCM, normal range of motion in the head, neck, shoulder, deltoid as well as biceps General lower extremity: Normal inspection, Nontender, Normal color, Normal ROM , Normal temperature, Normal weight bearing. No: Avni's sign - Neurological Neuro grossly intact: Yes Cognition: Normal Orientation: AAOx4 Alysia Coma Scale Eye Opening: Spontaneous [place] Coma Scale Verbal: Oriented Alysia Coma Scale Motor: Obeys Commands [place] Coma Scale Total: 15 Speech: Normal Motor strength normal: LUE, RUE, LLE, RLE Sensory: Normal - Psychological Associated symptoms: Normal affect, Normal mood Course - Re-evaluation Re-evalutation: 08/30/18 15:45 73-year-old female who presents for evaluation of concern of AICD firing. Through triage she had labs ordered including cardiac markers chest x-ray proBNP and interrogation of pacemaker. Patient's initial lab workup was unrevealing, negative troponin, on examination she has marked tenderness along the left trapezius. Likely she has a muscle spasm as result of fall. Pacemaker interrogation demonstrates no obvious shocks, no arrhythmias. Patient with 2- troponins emergency department, unremarkable cardiac monitoring , unremarkable chest x-ray. Administer Lidoderm patch as well as Tylenol to help with her muscle spasm. We will administer Flexeril and low-dose to help with muscle spasm. She was given return precautions and encouraged follow-up with her primary director part this week as she is already scheduled. I did call Dr. randa Fragoso to inform him that the patient be going home he says that this seems reasonable at this time. - Vital Signs Vital signs: Temp Pulse Resp BP Pulse Ox 97.8 F 63 16 163/78 H 98 08/30/18 09:38 08/30/18 09:38 08/30/18 14:01 08/30/18 14:01 08/30/18 14:01 - Laboratory Result Diagrams: 08/30/18 10:09 08/30/18 10:09 Laboratory results interpreted by me: 08/30/18 08/30/18 10:09 10:09 WBC 3.3 L RDW 16.3 H Sodium 145.7 H Chloride 109 H Est GFR (Non-Af Amer) 49 L Discharge - Discharge Clinical Impression: AICD (automatic cardioverter/defibrillator) present Trapezius muscle strain Qualifiers: Encounter type: initial encounter Laterality: left Qualified Code(s): S46.812A - Strain of other muscles, fascia and tendons at shoulder and upper arm level, left arm, initial encounter Condition: Good Disposition: HOME, SELF-CARE Instructions: Muscle Relaxers ([facility]), Muscle Strain ([facility]) Additional Instructions: You were seen today in the emergency department for the pain in your left shoulder as well as concerned that you had an issue with your pacemaker. You had an evaluation including a physical exam as well as blood work and an x- ray. I believe that your pacemaker did not fire, and appears to be functioning normally. Your marker for damage to the heart was normal. Your physical examination demonstrated what appears to be a muscle strain in the left shoulder. Use the medication prescribed to you as needed for the pain in your shoulder. Keep your appointment with your director part. Return for worsening fevers, chills or other symptoms. Prescriptions: Cyclobenzaprine HCl [Flexeril 5 mg Tablet] 5 mg PO TID PRN #15 tablet PRN Reason: For Pain Scale 4-5 Lidocaine HCl [Xylocaine 5% Ointment 35.44 gm] 35.44 applic TP DAILY 7 Days #1 tube Referrals: ANA MARIA FRAGOSO MD [Primary Care Provider] - Follow up as needed
[2018-08-30 10:32] LABS: ABSOLUTE LYMPHOCYTES (AUTO) 1.3 10^3/uL (0.5-4.7); ABSOLUTE MONOCYTES (AUTO) 0.2 10^3/uL (0.1-1.4); ABSOLUTE NEUT (AUTO) 1.8 10^3/uL (1.7-8.2); BASOPHILS % (AUTO) 0.3 % (0-2); EOSINOPHILS % (AUTO) 0.8 % (0-6); HEMATOCRIT 37.4 % (36.0-47.0); HEMOGLOBIN 12.4 g/dL (12.0-15.5); LYMPHOCYTES % (AUTO) 40.3 % (13-45); MEAN CORPUSCULAR HEMOGLOBIN 31.2 pg (27.0-33.4); MEAN CORPUSCULAR HGB CONC 33.1 g/dL (32.0-36.0); MEAN CORPUSCULAR VOLUME 94 fl (80-97); MONOCYTES % (AUTO) 5.6 % (3-13); PLATELET COUNT 209 10^3/uL (150-450); RED BLOOD COUNT 3.97 10^6/uL (3.72-5.28); RED CELL DISTRIBUTION WIDTH 16.3 % (11.5-14.0); TOTAL CELLS COUNTED % (AUTO) 100 %; WHITE BLOOD COUNT 3.3 10^3/uL (4.0-10.5)
--- NOTE | 2018-08-30 10:37 | RADIOLOGY REPORT (SQ) ---
EXAM DESCRIPTION: CHEST SINGLE VIEW COMPLETED DATE/TIME: 08/30/2018 10:26 am REASON FOR STUDY: cp COMPARISON: 10/09/2017 EXAM PARAMETERS: NUMBER OF VIEWS: One view. TECHNIQUE: Single frontal radiographic view of the chest acquired. RADIATION DOSE: NA LIMITATIONS: None. FINDINGS: LUNGS AND PLEURA: No opacities, masses or pneumothorax. No pleural effusion. MEDIASTINUM AND HILAR STRUCTURES: No masses. Contour normal. HEART AND VASCULAR STRUCTURES: Cardiomegaly with left chest multi lead pacer defibrillator and epicar dial pacing leads. There are multiple sets of abandoned/fractured pacer leads about the left chest. BONES: No acute findings. HARDWARE: None in the chest. OTHER: No other significant finding. IMPRESSION: Cardiomegaly without acute abnormality of the lungs in frontal projection. TECHNICAL DOCUMENTATION: JOB ID: [id number] [employer]- All Rights Reserved Reading location - IP/workstation name: [email or web address]
[2018-08-30 10:39] LABS: INTERNATIONAL RATION (INR) 0.95; PROTHROMBIN TIME 13.2 SEC (11.4-15.4)
[2018-08-30 10:40] LABS: PARTIAL THROMBOPLASTIN TIME 27.6 SEC (23.5-35.8)
[2018-08-30 10:51] LABS: BLOOD UREA NITROGEN 18 mg/dL (7-20); CALCIUM 9.4 mg/dL (8.4-10.2); GLUCOSE 90 mg/dL (75-110)
[2018-08-30 10:52] LABS: ALANINE AMINOTRANSFERASE 16 U/L (9-52); ALBUMIN 4.2 g/dL (3.5-5.0); ALKALINE PHOSPHATASE 103 U/L (38-126); ANION GAP 11 (5-19); ASPARTATE AMINO TRANSFERASE 23 U/L (14-36); BILIRUBIN,DIRECT 0.4 mg/dL (0.0-0.4); BILIRUBIN,TOTAL 0.9 mg/dL (0.2-1.3); CARBON DIOXIDE 26 mmol/L (22-30); CHLORIDE 109 mmol/L (98-107); CREATINE KINASE 53 U/L (30-135); POTASSIUM 4.6 mmol/L (3.6-5.0); SODIUM 145.7 mmol/L (137-145); TOTAL PROTEIN 7.2 g/dL (6.3-8.2)
[2018-08-30 11:04] LABS: CREATINE KINASE MB 0.36 ng/mL (<4.55)
[2018-08-30 11:08] LABS: TROPONIN I < 0.012 ng/mL
[2018-08-30 11:24] LABS: NT PRO BNP 297 pg/mL (<450)
--- NOTE | 2018-08-30 11:31 | EKG REPORT ---
SEVERITY:- ABNORMAL ECG - SINUS RHYTHM ABNORMAL T, CONSIDER ISCHEMIA, LATERAL LEADS : Confirmed by: Clarice Turk MD 30-Aug-2018 11:31:09
[2018-08-30] MEDS ORDERED: LIDOCAINE 5% (700 MG) TRANSDERMAL ADH..PATCH TP ONE (13:27)
[2018-08-30] MEDS ORDERED: CYCLOBENZAPRINE HCL 10 MG TABLET PO ONE (13:28)
[2018-08-30] MEDS ORDERED: ACETAMINOPHEN 325 MG TABLET PO ONE (13:28)
[2018-08-30 15:08] VITALS: BP 163/78
== END 2018-08-30 14:40 | disposition home or self-care (01) ==
LOC: ER 09:25
DX: S46.812A Strain of other muscles, fascia and tendons at shoulder and upper arm level, left arm, initial encounter (principal); Z95.810 Presence of automatic (implantable) cardiac defibrillator; R07.9 Chest pain, unspecified; M25.512 Pain in left shoulder; W19.XXXA Unspecified fall, initial encounter; Z91.81 History of falling; Z87.891 Personal history of nicotine dependence; I50.9 Heart failure, unspecified; I25.10 Atherosclerotic heart disease of native coronary artery without angina pectoris; I11.0 Hypertensive heart disease with heart failure; J44.9 Chronic obstructive pulmonary disease, unspecified
CPT/HCPCS: 93005; 99285; 36415; 82553; 82550; 85025; 85610; 85730; 80053; 84484; 83880; 71045; 93010; A9270 ×3

== ENCOUNTER 2018-09-13 16:06 | Emergency (ER) | payer MEDICARE, OTHER ==
[2018-09-13 16:36] VITALS: BP 116/61
[2018-09-13] MEDS ORDERED: IPRATROPIUM/ALBUTEROL 0.5-2.5 MG/3 ML AMPUL NEB ONE ×2 (16:45→19:01)
--- NOTE | 2018-09-13 16:57 | ER Document Report ---
ED Medical Screen (RME) - General Chief Complaint: Fever Stated Complaint: COLD SYMPTOMS Time Seen by Provider: 09/13/18 16:39 TRAVEL OUTSIDE OF THE [place] IN LAST 30 DAYS: No - Related Data Allergies/Adverse Reactions: Penicillins Allergy (Verified 09/13/18 16:36) Past Medical History - Social History Chew tobacco use (# tins/day): No - Past Medical History Cardiac Medical History: Reports: Hx Congestive Heart Failure, Hx Coronary Artery Disease, Hx Heart Attack - 1990, Hx Hypercholesterolemia, Hx Hypertension Denies: Hx Atrial Fibrillation, Hx Peripheral Vascular Disease, Hx Pulmonary Embolism, Hx Heart Murmur Pulmonary Medical History: Reports: Hx Bronchitis, Hx COPD, Hx Pneumonia Denies: Hx Asthma, Hx Respiratory Failure, Hx Sleep Apnea, Hx Tuberculosis Neurological Medical History: Denies: Hx Cerebrovascular Accident, Hx Seizures Endocrine Medical History: Denies: Hx Diabetes Mellitus Type 1, Hx Diabetes Mellitus Type 2 Renal/ Medical History: Reports: Hx Renal Insufficiency. Denies: Hx End Stage Renal Disease, Hx Kidney Stones, Hx Peritoneal Dialysis Malignancy Medical History: Denies: Hx Leukemia, Hx Lung Cancer GI Medical History: Reports: Hx Crohn's Disease - Patient has either Crohn's disease or ulcerative colitis, Hx Diverticulitis, Hx Gastroesophageal Reflux Disease. Denies: Hx Hepatitis, Hx Hiatal Hernia, Hx Irritable Bowel, Hx Liver Failure, Hx Pancreatitis, Hx Ulcer Musculoskeltal Medical History: Reports Hx Arthritis, Denies Hx Fibromyalgia, Denies Hx Muscular Dystrophy Psychiatric Medical History: Reports: Hx Depression Denies: Hx Bipolar Disorder, Hx Post Traumatic Stress Disorder, Hx Schizophrenia Traumatic Medical History: Reports: Hx Fractures - right wrist, left foot Infectious Medical History: Denies: Hx Hepatitis, Hx HIV Past Surgical History: Reports: Hx Appendectomy, Hx Cardiac Catheterization, Hx Cardiac Surgery - AICD for ventricular fibrillation, Hx Section - x4, Hx Coronary Stent, Hx Hysterectomy, Hx Orthopedic Surgery - bilateral knee surge ry, Hx Pacemaker, Hx Tonsillectomy. Denies: Hx Bowel Surgery, Hx Cholecystectomy, Hx Colostomy, Hx Coronary Artery Bypass Graft, Hx Gastric Bypass Surgery, Hx Herniorrhaphy, Hx Mastectomy, Hx Open Heart Surgery, Hx Tubal Ligation - Immunizations Immunizations up to date: Yes Hx Diphtheria, Pertussis, Tetanus Vaccination: Yes History of Influenza Vaccine for 06/2017 - 11/2017 Season: Yes Influenza Administration Date for 06/2017 - 11/2017 Season: 07/22/17 Physical Exam - Vital signs Vitals: Temp Pulse BP Pulse Ox 97.9 F 80 116/61 94 09/13/18 16:17 09/13/18 16:17 09/13/18 16:17 09/13/18 16:17 Course - Re-evaluation Re-evalutation: 09/13/18 16:57 73-year-old female with a history of COPD that presents for evaluation of cough and shortness of breath as well as some tightness in the chest. We will initiate workup for this patient and administer neb I will plan for this patient undergo further investigation evaluation by secondary provider, the the appropriate diagnostics, disposition and workup will be deferred to that provider. I have performed a rapid screening examination and they will require further evaluation. - Vital Signs Vital signs: Temp Pulse Resp BP Pulse Ox 97.9 F 80 116/61 94 09/13/18 16:17 09/13/18 16:17 09/13/18 16:17 09/13/18 16:17 Doctor's Discharge - Discharge Referrals: ANA MARIA FRAGOSO MD [Primary Care Provider] - Follow up as needed
--- NOTE | 2018-09-13 17:26 | RADIOLOGY REPORT (SQ) ---
EXAM DESCRIPTION: CHEST 2 VIEWS COMPLETED DATE/TIME: 09/13/2018 5:17 pm REASON FOR STUDY: short of breath productive sputum COMPARISON: 08/30/2018 EXAM PARAMETERS: NUMBER OF VIEWS: two views TECHNIQUE: Digital Frontal and Lateral radiographic views of the chest acquired. RADIATION DOSE: NA LIMITATIONS: none FINDINGS: LUNGS AND PLEURA: No opacities, masses or pneumothorax. No pleural effusion. MEDIASTINUM AND HILAR STRUCTURES: No masses or contour abnormalities. HEART AND VASCULAR STRUCTURES: Cardiomegaly without central vascular congestion. BONES: No acute findings. HARDWARE: Stable AICD with previously noted abandoned/fractured leads. OTHER: No other significant finding. IMPRESSION: Stable radiographic appearance of the chest demonstrating cardiomegaly without central v ascular congestion. TECHNICAL DOCUMENTATION: JOB ID: [id number] [employer]- All Rights Reserved Reading location - IP/workstation name: [email or web address]
[2018-09-13 18:05] LABS: HEMATOCRIT 37.9 % (36.0-47.0); HEMOGLOBIN 12.9 g/dL (12.0-15.5); MEAN CORPUSCULAR HEMOGLOBIN 31.7 pg (27.0-33.4); MEAN CORPUSCULAR HGB CONC 33.9 g/dL (32.0-36.0); MEAN CORPUSCULAR VOLUME 94 fl (80-97); PLATELET COUNT 227 10^3/uL (150-450); RED BLOOD COUNT 4.06 10^6/uL (3.72-5.28); RED CELL DISTRIBUTION WIDTH 15.6 % (11.5-14.0); WHITE BLOOD COUNT 5.6 10^3/uL (4.0-10.5)
[2018-09-13 18:16] LABS: ALANINE AMINOTRANSFERASE 14 U/L (9-52); ALBUMIN 4.4 g/dL (3.5-5.0); ALKALINE PHOSPHATASE 92 U/L (38-126); ANION GAP 11 (5-19); ASPARTATE AMINO TRANSFERASE 50 U/L (14-36); BILIRUBIN,DIRECT 0.4 mg/dL (0.0-0.4); BILIRUBIN,TOTAL 0.8 mg/dL (0.2-1.3); BLOOD UREA NITROGEN 27 mg/dL (7-20); CALCIUM 9.4 mg/dL (8.4-10.2); CARBON DIOXIDE 25 mmol/L (22-30); CHLORIDE 101 mmol/L (98-107); GLUCOSE 113 mg/dL (75-110); LIPASE 39.7 U/L (23-300); POTASSIUM 4.1 mmol/L (3.6-5.0); SODIUM 137.1 mmol/L (137-145); TOTAL PROTEIN 7.6 g/dL (6.3-8.2)
[2018-09-13 18:18] LABS: A TYPE INFLUENZA AG NEGATIVE (NEGATIVE); B INFLUENZA AG NEGATIVE (NEGATIVE)
[2018-09-13 18:29] LABS: ABSOLUTE LYMPHOCYTES# (MANUAL) 0.9 10^3/uL (0.5-4.7); ABSOLUTE MONOCYTES # (MANUAL) 0.2 10^3/uL (0.1-1.4); ABSOLUTE NEUTROPHILS# (MANUAL) 4.4 10^3/uL (1.7-8.2); BASOPHILS % (MANUAL) 1 % (0-2); EOSINOPHILS % (MANUAL) 0 % (0-6); LYMPHOCYTES % (MANUAL) 16 % (13-45); MONOCYTES % (MANUAL) 4 % (3-13); SEGMENTED NEUTROPHILS % (MAN) 79 % (42-78); TOTAL CELLS COUNTED 100
[2018-09-13 18:31] LABS: ANISOCYTOSIS SLIGHT; OVALOCYTES SLIGHT; POIKILOCYTOSIS 1+; TEAR DROP CELLS SLIGHT
[2018-09-13 18:32] LABS: PLATELET CLUMPS PRESENT; PLATELET COMMENT ADEQUATE
[2018-09-13] MEDS ORDERED: NORMAL SALINE 500 ML IV ONE (19:01)
[2018-09-13] MEDS ORDERED: METHYLPREDNISOLONE INJ 125 MG/2 ML SDV IV ONE ×2 (19:01→22:00)
[2018-09-13] MEDS ORDERED: MAGNESIUM SULFATE/D5W 1 GM/100 ML RTUPB IV ONE (19:01)
--- NOTE | 2018-09-13 19:46 | ER Document Report ---
ED General - General Chief Complaint: Fever Stated Complaint: COLD SYMPTOMS Time Seen by Provider: 09/13/18 16:39 TRAVEL OUTSIDE OF THE [place] IN LAST 30 DAYS: No - HPI Patient complains to provider of: Cough shortness of breath Notes: Patient coming in for the above-stated symptoms feeling unwell ongoing for the last 2-3 days. Patient states has been compliant with her medications have a history of asthma COPD. Patient states scant sputum production whenever she is coughing. Denies any recent travel or sick contacts. Patient is unaware of her fluid status at this time. Patient states she is feeling slight tightness in her chest but states no improvement in her inhalers at home. Upon my evaluation patient is resting comfortably - Related Data Allergies/Adverse Reactions: Penicillins Allergy (Verified 09/13/18 16:36) Past Medical History - Social History Smoking Status: Current Every Day Smoker Chew tobacco use (# tins/day): No Family History: Reviewed & Not Pertinent, Hypertension Patient has suicidal ideation: No Patient has homicidal ideation: No - Past Medical History Cardiac Medical History: Reports: Hx Congestive Heart Failure, Hx Coronary Artery Disease, Hx Heart Attack - 1990, Hx Hypercholesterolemia, Hx Hypertension Denies: Hx Atrial Fibrillation, Hx Peripheral Vascular Disease, Hx Pulmonary Embolism, Hx Heart Murmur Pulmonary Medical History: Reports: Hx Bronchitis, Hx COPD, Hx Pneumonia Denies: Hx Asthma, Hx Respiratory Failure, Hx Sleep Apnea, Hx Tuberculosis Neurological Medical History: Denies: Hx Cerebrovascular Accident, Hx Seizures Endocrine Medical History: Denies: Hx Diabetes Mellitus Type 1, Hx Diabetes Mellitus Type 2 Renal/ Medical History: Reports: Hx Renal Insufficiency. Denies: Hx End Stage Renal Disease, Hx Kidney Stones, Hx Peritoneal Dialysis Malignancy Medical History: Denies: Hx Leukemia, Hx Lung Cancer GI Medical History: Reports: Hx Crohn's Disease - Patient has either Crohn's disease or ulcerative colitis, Hx Diverticulitis, Hx Gastroesophageal Reflux Disease. Denies: Hx Hepatitis, Hx Hiatal Hernia, Hx Irritable Bowel, Hx Liver Failure, Hx Pancreatitis, Hx Ulcer Musculoskeletal Medical History: Reports Hx Arthritis, Denies Hx Fibromyalgia, Denies Hx Muscular Dystrophy Psychiatric Medical History: Reports: Hx Depression Denies: Hx Bipolar Disorder, Hx Post Traumatic Stress Disorder, Hx Schizophrenia Traumatic Medical History: Reports: Hx Fractures - right wrist, left foot Infectious Medical History: Denies: Hx Hepatitis, Hx HIV Past Surgical History: Reports: Hx Appendectomy, Hx Cardiac Catheterization, Hx Cardiac Surgery - AICD for ventricular fibrillation, Hx Section - x4, Hx Coronary Stent, Hx Hysterectomy, Hx Orthopedic Surgery - bilateral knee surge ry, Hx Pacemaker, Hx Tonsillectomy. Denies: Hx Bowel Surgery, Hx Cholecystectomy, Hx Colostomy, Hx Coronary Artery Bypass Graft, Hx Gastric Bypass Surgery, Hx Herniorrhaphy, Hx Mastectomy, Hx Open Heart Surgery, Hx Tubal Ligation - Immunizations Immunizations up to date: Yes Hx Diphtheria, Pertussis, Tetanus Vaccination: Yes Hx Pneumococcal Vaccination: 09/21/09 Review of Systems - Review of Systems Constitutional: No symptoms reported EENT: No symptoms reported Cardiovascular: No symptoms reported Respiratory: Short of breath, Wheezing Gastrointestinal: No symptoms reported Genitourinary: No symptoms reported Female Genitourinary: No symptoms reported Musculoskeletal: No symptoms reported Skin: No symptoms reported Hematologic/Lymphatic: No symptoms reported Neurological/Psychological: No symptoms reported -: Yes All other systems reviewed and negative Physical Exam - Vital signs Vitals: Temp Pulse BP Pulse Ox 97.9 F 80 116/61 94 09/13/18 16:17 09/13/18 16:17 09/13/18 16:17 09/13/18 16:17 Interpretation: Normal - General General appearance: Appears well, Alert - HEENT Head: Normocephalic, Atraumatic Eyes: Normal Pupils: PERRL - Respiratory Respiratory status: No respiratory distress Chest status: Nontender Breath sounds: Wheezing Chest palpation: Normal - Cardiovascular Rhythm: Regular Heart sounds: Normal auscultation Murmur: No - Abdominal Inspection: Normal Distension: No distension Bowel sounds: Normal Tenderness: Nontender Organomegaly: No organomegaly - Back Back: Normal, Nontender - Extremities General upper extremity: Normal inspection, Nontender, Normal color, Normal ROM, Normal temperature General lower extremity: Normal inspection, Nontender, Normal color, Normal ROM, Normal temperature, Normal weight bearing. No: Avni's sign - Neurological Neuro grossly intact: Yes Cognition: Normal Orientation: AAOx4 Russell Coma Scale Eye Opening: Spontaneous Russell Coma Scale Verbal: Oriented Russell Coma Scale Motor: Obeys Commands Russell Coma Scale Total: 15 Speech: Normal Motor strength normal: LUE, RUE, LLE, RLE Sensory: Normal - Psychological Associated symptoms: Normal affect, Normal mood - Skin Skin Temperature: Warm Skin Moisture: Dry Skin Color: Normal Course - Re-evaluation Re-evalutation: 09/13/18 19:45 Laboratory studies showed a slight increase in the patient's creatinine will give the patient 500 cc bolus. Patient also has coarse wheezing on examination will give another breathing treatment magnesium and start steroids. EKG was reviewed showing diffuse T wave inversions which are present and previous EKG we will continue to monitor the patient. 09/14/18 01:40 Troponins negative x2 patient was given multiple breathing treatments with improvement of her wheezing here in the ER. Patient states feeling much better wished to go home patient was able to ambulate around the nurses station with no signs of difficulty even after ambulation patient agrees that she is feeling better and wishes the patient has underlying bronchitis viral versus environmental. Patient will be given prednisone for the next few days recommend follow-up with her PCP. Patient states understanding - Vital Signs Vital signs: Temp Pulse Resp BP Pulse Ox 97.9 F 80 19 116/61 94 09/13/18 16:17 09/13/18 16:17 09/14/18 00:00 09/13/18 16:17 09/14/18 00:00 - Laboratory Result Diagrams: 09/13/18 17:50 09/13/18 17:50 Laboratory results interpreted by me: 09/13/18 09/13/18 17:50 17:50 RDW 15.6 H Seg Neuts % (Manual) 79 H BUN 27 H Creatinine 1.54 H Est GFR ( Amer) 40 L Est GFR (Non-Af Amer) 33 L Glucose 113 H AST 50 H Discharge - Discharge Clinical Impression: Bronchitis Condition: Good Disposition: HOME, SELF-CARE Instructions: Bronchitis With Bronchospasm (Wheezing) ([facility]) Additional Instructions: Your evaluation does not reveal any signs of pneumonia or other infectious etiology your cardiac enzymes are negative I do believe you have a viral bronchitis are highly recommend that she use your inhalers especially your albuterol inhaler 2 puffs every 4 hours for the next for 5 days I would recommend taking the steroids as prescribed follow-up with Dr. Fragoso in the next 24-48 hours return to ER symptoms worsen. Prescriptions: Prednisone [Deltasone 20 mg Tablet] 2 tab PO DAILY 2 Days tablet Referrals: ANA MARIA FRAGOSO MD [Primary Care Provider] - Follow up as needed
[2018-09-13] MEDS ORDERED: METHYLPREDNISOLONE INJ 125 MG/2 ML SDV ONE (21:50)
[2018-09-13] MEDS ORDERED: ALBUTEROL SULFATE 0.083% NEB 2.5 MG/3 ML AMPUL NEB ONE (21:53)
--- NOTE | 2018-09-13 23:22 | EKG REPORT ---
SEVERITY:- ABNORMAL ECG - SINUS RHYTHM REPOL ABNRM SUGGESTS ISCHEMIA, ANT-LAT LEADS vs LVH : Confirmed by: Geni Olguin 13-Sep-2018 23:21:28
[2018-09-13] MEDS ORDERED: PREDNISONE 20 MG TABLET PO ONE (23:49)
[2018-09-13] MEDS ORDERED: ALBUTEROL SULFATE HFA (90 MCG/PUFF) 8 GM MDI (1 MDI/ER DISP) IH ONE (23:51)
== END 2018-09-14 00:22 | disposition home or self-care (01) ==
LOC: ER 16:06
DX: J40 Bronchitis, not specified as acute or chronic (principal); J44.9 Chronic obstructive pulmonary disease, unspecified; F17.200 Nicotine dependence, unspecified, uncomplicated; Z88.0 Allergy status to penicillin; I50.9 Heart failure, unspecified; I25.10 Atherosclerotic heart disease of native coronary artery without angina pectoris; I11.0 Hypertensive heart disease with heart failure; I25.2 Old myocardial infarction; Z95.810 Presence of automatic (implantable) cardiac defibrillator; Z95.5 Presence of coronary angioplasty implant and graft
CPT/HCPCS: 93005; 94640 ×2; 99284; 96375; 96365; 36415; 83690; 83735; 85025; 80053; 84484; 87804; 71046; 93010; J2930; J3475; A9270 ×3; J7040; J3490; J7512; J7620

== ENCOUNTER 2018-09-17 12:53 | Emergency (ER) | payer MEDICARE, OTHER ==
--- NOTE | 2018-09-17 13:18 | ER Document Report ---
ED Medical Screen (RME) - General Chief Complaint: Finger Injury Stated Complaint: FALL/HAND INJURY Time Seen by Provider: 09/17/18 13:16 Notes: Fell and jammed left hand. Obvious deformity with dislocation of the fifth finger at the MP joint. TRAVEL OUTSIDE OF THE [place] IN LAST 30 DAYS: No - Related Data Allergies/Adverse Reactions: Penicillins Allergy (Verified 09/17/18 12:56) Past Medical History - Past Medical History Cardiac Medical History: Reports: Hx Congestive Heart Failure, Hx Coronary Luz ry Disease, Hx Heart Attack - 1990, Hx Hypercholesterolemia, Hx Hypertension Denies: Hx Atrial Fibrillation, Hx Peripheral Vascular Disease, Hx Pulmonary Embolism, Hx Heart Murmur Pulmonary Medical History: Reports: Hx Bronchitis, Hx COPD, Hx Pneumonia Denies: Hx Asthma, Hx Respiratory Failure, Hx Sleep Apnea, Hx Tuberculosis Neurological Medical History: Denies: Hx Cerebrovascular Accident, Hx Seizures Endocrine Medical History: Denies: Hx Diabetes Mellitus Type 1, Hx Diabetes Mellitus Type 2 Renal/ Medical History: Reports: Hx Renal Insufficiency. Denies: Hx End Stage Renal Disease, Hx Kidney Stones, Hx Peritoneal Dialysis Malignancy Medical History: Denies: Hx Leukemia, Hx Lung Cancer GI Medical History: Reports: Hx Crohn's Disease - Patient has either Crohn's disease or ulcerative colitis, Hx Diverticulitis, Hx Gastroesophageal Reflux Disease. Denies: Hx Hepatitis, Hx Hiatal Hernia, Hx Irritable Bowel, Hx Liver Failure, Hx Pancreatitis, Hx Ulcer Musculoskeltal Medical History: Reports Hx Arthritis, Denies Hx Fibromyalgia, Denies Hx Muscular Dystrophy Psychiatric Medical History: Reports: Hx Depression Denies: Hx Bipolar Disorder, Hx Post Traumatic Stress Disorder, Hx Stacy izophrenia Traumatic Medical History: Reports: Hx Fractures - right wrist, left foot Infectious Medical History: Denies: Hx Hepatitis, Hx HIV Past Surgical History: Reports: Hx Appendectomy, Hx Cardiac Catheterization, Hx Cardiac Surgery - AICD for ventricular fibrillation, Hx Section - x4, Hx Coronary Stent, Hx Hysterectomy, Hx Orthopedic Surgery - bilateral knee surgery, Hx Pacemaker, Hx Tonsillectomy. Denies: Hx Bowel Surgery, Hx Cholecystectomy, Hx Colostomy, Hx Coronary Artery Bypass Graft, Hx Gastric Byp ass Surgery, Hx Herniorrhaphy, Hx Mastectomy, Hx Open Heart Surgery, Hx Tubal Ligation - Immunizations Immunizations up to date: Yes Hx Diphtheria, Pertussis, Tetanus Vaccination: Yes History of Influenza Vaccine for 06/2017 - 11/2017 Season: Yes Influenza Administration Date for 06/2017 - 11/2017 Season: 07/22/17 Physical Exam - Vital signs Vitals: Temp Pulse Resp BP Pulse Ox 97.8 F 65 16 120/62 94 09/17/18 13:01 09/17/18 13:01 09/17/18 13:01 09/17/18 13:01 09/17/18 13:01 Course - Vital Signs Vital signs: Temp Pulse Resp BP Pulse Ox 97.8 F 65 16 120/62 94 09/17/18 13:01 09/17/18 13:01 09/17/18 13:01 09/17/18 13:01 09/17/18 13:01 Doctor's Discharge - Discharge Referrals: ANA MARIA FRAGOSO MD [Primary Care Provider] - Follow up as needed
[2018-09-17] MEDS ORDERED: LIDOCAINE 1% INJ (10 MG/ML) 10 ML MDV INJ ONE (13:51)
--- NOTE | 2018-09-17 14:08 | ER Document Report ---
ED Hand/Wrist Injury - General Chief Complaint: Finger Injury Stated Complaint: FALL/HAND INJURY Time Seen by Provider: 09/17/18 13:16 Information source: Patient Notes: Patient is a 73-year-old female with an accidental fall walking up the steps injuring her left pinky. Patient denies any lightheadedness, dizziness, or chest pain causing the fall. She states she has pain only to her left pinky finger. She denies hitting her head and denies any neck, lower back, pelvis pain at this time. TRAVEL OUTSIDE OF THE [place] IN LAST 30 DAYS: No - HPI Injury to: Small finger Onset: Just prior to arrival Where: Home Timing: Constant Quality of pain: Achy Severity: Mild Pain Level: Denies Context: Other - See above - Related Data Allergies/Adverse Reactions: Penicillins Allergy (Verified 09/17/18 12:56) Past Medical History - Social History Smoking Status: Former Smoker Frequency of alcohol use: None Drug Abuse: None Family History: Reviewed & Not Pertinent, Hypertension Patient has suicidal ideation: No Patient has homicidal ideation: No - Past Medical History Cardiac Medical History: Reports: Hx Congestive Heart Failure, Hx Coronary Artery Disease, Hx Heart Attack - 1990, Hx Hypercholesterolemia, Hx Hypertension Denies: Hx Atrial Fibrillation, Hx Peripheral Vascular Disease, Hx Pulmonary Embolism, Hx Heart Murmur Pulmonary Medical History: Reports: Hx Bronchitis, Hx COPD, Hx Pneumonia Denies: Hx Asthma, Hx Respiratory Failure, Hx Sleep Apnea, Hx Tuberculosis Neurological Medical History: Denies: Hx Cerebrovascular Accident, Hx Seizures Endocrine Medical History: Denies: Hx Diabetes Mellitus Type 1, Hx Diabetes Mellitus Type 2 Renal/ Medical History: Reports: Hx Renal Insufficiency. Denies: Hx End Stage Renal Disease, Hx Kidney Stones, Hx Peritoneal Dialysis Malignancy Medical History: Denies: Hx Leukemia, Hx Lung Cancer GI Medical History: Reports: Hx Crohn's Disease - Patient has either Crohn's disease or ulcerative colitis, Hx Diverticulitis, Hx Gastroesophageal Reflux Disease. Denies: Hx Hepatitis, Hx Hiatal Hernia, Hx Irritable Bowel, Hx Liver Failure, Hx Pancreatitis, Hx Ulcer Musculoskeletal Medical History: Reports Hx Arthritis, Denies Hx Fibromyalgia, Denies Hx Muscular Dystrophy Psychiatric Medical History: Reports: Hx Depression Denies: Hx Bipolar Disorder, Hx Post Traumatic Stress Disorder, Hx Schizophrenia Traumatic Medical History: Reports: Hx Fractures - right wrist, left foot Infectious Medical History: Denies: Hx Hepatitis, Hx HIV Past Surgical History: Reports: Hx Appendectomy, Hx Cardiac Catheterization, Hx Cardiac Surgery - AICD for ventricular fibrillation, Hx Section - x4, Hx Coronary Stent, Hx Hysterectomy, Hx Orthopedic Surgery - bilateral knee surgery, Hx Pacemaker, Hx Tonsillectomy. Denies: Hx Bowel Surgery, Hx Cholecystectomy, Hx Colostomy, Hx Coronary Artery Bypass Graft, Hx Gastric Bypass Surgery, Hx Herniorrhaphy, Hx Mastectomy, Hx Open Heart Surgery, Hx Tubal Ligation - Immunizations Immunizations up to date: Yes Hx Diphtheria, Pertussis, Tetanus Vaccination: Yes Hx Pneumococcal Vaccination: 09/21/09 Review of Systems - Review of Systems Constitutional: denies: Fever EENT: denies: Eye discharge, Nose discharge Cardiovascular: denies: Chest pain, Palpitations Respiratory: denies: Short of breath Gastrointestinal: denies: Abdominal pain, Vomiting Musculoskeletal: denies: Leg swelling Skin: denies: Rash Neurological/Psychological: Other - no slurred speech -: Yes All other systems reviewed and negative Physical Exam - Vital signs Vitals: Temp Pulse Resp BP Pulse Ox 97.8 F 65 16 120/62 94 09/17/18 13:01 09/17/18 13:01 09/17/18 13:01 09/17/18 13:01 09/17/18 13:01 Interpretation: Normal Notes: Reviewed vital signs and nursing note as charted by RN. CONSTITUTIONAL: Alert and oriented and responds appropriately to questions. Well-appearing; well-nourished HEAD: Normocephalic; atraumatic EYES: PERRL ENT: Normal nose; no rhinorrhea; moist mucous membranes; pharynx without lesions noted NECK: Supple without meningismus; non-tender; no cervical lymphadenopathy, no masses CARD: Regular rate and rhythm; no murmurs; symmetric distal pulses RESP: Normal chest excursion without splinting or tachypnea; breath sounds clear and equal bilaterally; no tenderness to the anterior posterior ribs ABD/GI: Normal bowel sounds; non-distended; soft, non-tender BACK: The back appears normal and is non-tender to palpation EXT: Patient has an obvious deformity to the left pinky finger with some swelling to the proximal right pinky digit. Patient has some lateral abduction of the pinky finger consistent with a fracture and/or dislocation SKIN: No acute lesions noted NEURO: Patient has full range of motion of all 4 extremities with excellent strength. Neurovascularly intact to the distal pinky tip with capillary refill and sensation intact to light touch PSYCH: The patient's mood and manner are appropriate. Grooming and personal hygiene are appropriate. Course - Re-evaluation Re-evalutation: We will perform an x-ray of the left hand. I do not believe any other imaging or laboratory work is necessary at this moment. 09/17/18 14:08 Given the above x-ray as well as the examination findings, I will perform a digital block and then perform a fracture dislocation reduction and have the tech perform the splinting. 09/17/18 14:53 Portable x-ray shows good alignment and reduction of the fracture dislocation. We will place the patient in a splint and provide final imaging and most likely discharge the patient home with strict return precautions and follow-up with the orthopedic surgeon. 09/17/18 16:27 Finger relocation looks good. Patient will be discharged home with orthopedic follow-up. - Vital Signs Vital signs: Temp Pulse Resp BP Pulse Ox 97.8 F 65 16 120/62 94 09/17/18 13:01 09/17/18 13:01 09/17/18 13:01 09/17/18 13:01 09/17/18 13:01 Procedures - Joint Reduction/Fracture Care Left 5th digit Consent obtained: Yes Conscious sedation: No Pre-procedure NV exam: Yes Fracture: Closed Manipulation comment: Traction with countertraction at the base of the fracture site Post-procedure NV exam: Yes Post-reduction x-ray: Joint reduced Reduction attempts: 1 Complications: No Discharge - Discharge Clinical Impression: Closed fracture of distal phalanx of left little finger Qualifiers: Encounter type: initial encounter Fracture alignment: displaced Qualified Code(s): S62.637A - Displaced fracture of distal phalanx of left little finger, initial encounter for closed fracture Condition: Good Disposition: HOME, SELF-CARE Additional Instructions: Come back immediately for any increased pain, weakness or discoloration to the fingertip, or any other acute problems. Please make sure that you follow-up with orthopedics as we have discussed. Prescriptions: Hydrocodone/Acetaminophen [Hodgen 5-325 mg Tablet] 1 tab PO Q6H #12 tablet Referrals: ANA MARIA FRAGOSO MD [Primary Care Provider] - Follow up as needed KALIE LEAVITT MD [ACTIVE STAFF] - Follow up as needed
--- NOTE | 2018-09-17 14:18 | RADIOLOGY REPORT (SQ) ---
EXAM DESCRIPTION: HAND LEFT 3 VIEWS COMPLETED DATE/TIME: 09/17/2018 2:04 pm REASON FOR STUDY: Fell and jammed his finger COMPARISON: None. EXAM PARAMETERS: NUMBER OF VIEWS: Three views. TECHNIQUE: AP, lateral and oblique radiographic images acquired of the left hand. LIMITATIONS: None. FINDINGS: MINERALIZATION: Osteopenia. BONES: Transverse fracture of the proximal 5th phalanx proximal shaft with about 45 radial angulatio n. No other fracture identified. JOINTS: No effusions. SOFT TISSUES: No foreign body. OTHER: No other significant finding. IMPRESSION: Fracture proximal 5th phalanx. TECHNICAL DOCUMENTATION: JOB ID: [id number] [employer]- All Rights Reserved Reading location - IP/workstation name: [email or web address]
--- NOTE | 2018-09-17 15:05 | RADIOLOGY REPORT (SQ) ---
EXAM DESCRIPTION: FINGER LEFT COMPLETED DATE/TIME: 09/17/2018 2:54 pm REASON FOR STUDY: 6; s/p reduction COMPARISON: Earlier same day. NUMBER OF VIEWS: Three views. TECHNIQUE: AP, lateral, and oblique images acquired of the left fifth finger. LIMITATIONS: None. FINDINGS: Near anatomic alignment of fracture proximal shaft proximal 5th phalanx. IMPRESSION: Successful closed reduction. TECHNICAL DOCUMENTATION: JOB ID: [id number] [employer]- All Rights Reserved Reading location - IP/workstation name: [email or web address][email or web address]
--- NOTE | 2018-09-17 16:40 | RADIOLOGY REPORT (SQ) ---
EXAM DESCRIPTION: FINGER LEFT COMPLETED DATE/TIME: 09/17/2018 4:31 pm REASON FOR STUDY: 6; s/p splinting COMPARISON: Same day radiographs NUMBER OF VIEWS: Three views. TECHNIQUE: AP, lateral, and oblique images acquired of the left 5th digit LIMITATIONS: None. FINDINGS: MINERALIZATION: Normal. BONES: Interval placement of spica type splint about the left hand. Near anatomic alignment of previ ously seen transverse fracture of the proximal left 5th phalanx. SOFT TISSUES: No soft tissue swelling. No foreign body. OTHER: No other significant finding. IMPRESSION: Interval placement of spica type splint about the left hand. Near anatomic alignment of previously seen transverse fracture of the proximal left 5th phalanx. TECHNICAL DOCUMENTATION: JOB ID: [id number] [employer]- All Rights Reserved Reading location - IP/workstation name: [email or web address]
[2018-09-17 17:12] VITALS: BP 118/66
== END 2018-09-17 17:12 | disposition home or self-care (01) ==
LOC: ER 12:53
DX: S62.637A Displaced fracture of distal phalanx of left little finger, initial encounter for closed fracture (principal); W10.9XXA Fall (on) (from) unspecified stairs and steps, initial encounter; Y92.009 Unspecified place in unspecified non-institutional (private) residence as the place of occurrence of the external cause; I50.9 Heart failure, unspecified; I25.10 Atherosclerotic heart disease of native coronary artery without angina pectoris; E78.00 Pure hypercholesterolemia, unspecified; I11.0 Hypertensive heart disease with heart failure; J44.9 Chronic obstructive pulmonary disease, unspecified; Z95.810 Presence of automatic (implantable) cardiac defibrillator; Z88.0 Allergy status to penicillin; Z90.710 Acquired absence of both cervix and uterus; I25.2 Old myocardial infarction
CPT/HCPCS: 99283

== ENCOUNTER → 2018-09-28 | Outpatient (CLI) | payer MEDICARE, OTHER ==
--- NOTE | 2018-09-28 16:31 | RADIOLOGY REPORT (SQ) ---
EXAM DESCRIPTION: HIP RIGHT AP/LATERAL COMPLETED DATE/TIME: 09/28/2018 4:11 pm REASON FOR STUDY: PAIN IN RT HIP R05 COUGH M25.551 PAIN IN RIGHT HIP COMPARISON: None. NUMBER OF VIEWS: Two views. TECHNIQUE: AP pelvis and additional frog-leg view of the right hip. LIMITATIONS: None. FINDINGS: MINERALIZATION: Normal. PRIMARY HIP: No fracture or dislocation. No worrisome bone lesions. OPPOSITE HIP: No fracture or dislocation. No worrisome bone lesions. PUBIS AND ISCHIUM: No fracture. PELVIS: No fracture. SACRUM: No fracture or dislocation. No worrisome bone lesions. LOWER LUMBAR SPINE: No fracture or dislocation. No worrisome bone lesions. No significant disc disea se. SOFT TISSUES: No findings. OTHER: No other significant finding. IMPRESSION: NEGATIVE STUDY OF THE RIGHT HIP AND PELVIS. NO ACUTE POST-TRAUMATIC CHANGES. NO EXPLANAT ION FOR PAIN. TECHNICAL DOCUMENTATION: JOB ID: [id number] [employer]- All Rights Reserved Reading location - IP/workstation name: [email or web address][email or web address]
[2018-09-28 16:41] LABS: ABSOLUTE LYMPHOCYTES (AUTO) 0.6 10^3/uL (0.5-4.7); ABSOLUTE MONOCYTES (AUTO) 0.1 10^3/uL (0.1-1.4); ABSOLUTE NEUT (AUTO) 3.5 10^3/uL (1.7-8.2); BASOPHILS % (AUTO) 0.1 % (0-2); HEMATOCRIT 33.4 % (36.0-47.0); HEMOGLOBIN 11.2 g/dL (12.0-15.5); LYMPHOCYTES % (AUTO) 15.1 % (13-45); MEAN CORPUSCULAR HEMOGLOBIN 31.3 pg (27.0-33.4); MEAN CORPUSCULAR HGB CONC 33.6 g/dL (32.0-36.0); MEAN CORPUSCULAR VOLUME 93 fl (80-97); MONOCYTES % (AUTO) 3.2 % (3-13); PLATELET COUNT 263 10^3/uL (150-450); RED BLOOD COUNT 3.59 10^6/uL (3.72-5.28); RED CELL DISTRIBUTION WIDTH 14.9 % (11.5-14.0); SEGMENTED NEUTROPHILS % (AUTO) 81.6 % (42-78); TOTAL CELLS COUNTED % (AUTO) 100 %; WHITE BLOOD COUNT 4.3 10^3/uL (4.0-10.5)
[2018-09-28 17:02] LABS: ALANINE AMINOTRANSFERASE 23 U/L (9-52); ALKALINE PHOSPHATASE 99 U/L (38-126); ANION GAP 11 (5-19); ASPARTATE AMINO TRANSFERASE 16 U/L (14-36); BILIRUBIN,DIRECT 0.3 mg/dL (0.0-0.4); BILIRUBIN,TOTAL 0.9 mg/dL (0.2-1.3); BLOOD UREA NITROGEN 23 mg/dL (7-20); CALCIUM 9.6 mg/dL (8.4-10.2); CARBON DIOXIDE 22 mmol/L (22-30); CHLORIDE 106 mmol/L (98-107); GLUCOSE 106 mg/dL (75-110); POTASSIUM 4.3 mmol/L (3.6-5.0); SODIUM 139.4 mmol/L (137-145); TOTAL PROTEIN 6.6 g/dL (6.3-8.2)
== END ==
LOC: OD 15:43
PROVIDERS: ATTEND Physician Assistant
DX: M25.551 Pain in right hip (principal); R05 Cough
CPT/HCPCS: 36415; 80053; 85025

== ENCOUNTER 2018-10-22 09:44 | Day surgery (SDC) | payer MEDICARE, OTHER ==
[2018-10-21 11:09] LABS: APPEARANCE,URINE CLEAR; BILIRUBIN,URINE NEGATIVE (NEGATIVE); COLOR,URINE YELLOW; GLUCOSE, URINE NEGATIVE (NEGATIVE); KETONES,URINE NEGATIVE (NEGATIVE); LEUKOCYTE ESTERASE,URINE NEGATIVE (NEGATIVE); NITRITE,URINE NEGATIVE (NEGATIVE); PROTEIN,URINE NEGATIVE (NEGATIVE); URINE SPECIFIC GRAVITY 1.015; UROBILINOGEN,URINE NEGATIVE mg/dL (<2.0)
--- NOTE | 2018-10-21 11:43 | RADIOLOGY REPORT (SQ) ---
EXAM DESCRIPTION: CHEST PA/LATERAL COMPLETED DATE/TIME: 10/21/2018 10:44 am REASON FOR STUDY: PRE-OP COMPARISON: 09/13/2018 two-view chest CT chest 04/09/2018 EXAM PARAMETERS: NUMBER OF VIEWS: two views TECHNIQUE: Digital Frontal and Lateral radiographic views of the chest acquired. RADIATION DOSE: NA LIMITATIONS: none FINDINGS: LUNGS AND PLEURA: 1.5 cm nodule in the left upper lobe marked with a nez perce. This is larg er than on chest CT 04/09/2018. Remainder of the lungs are grossly clear. No pleural effusion. No pneumothorax. MEDIASTINUM AND HILAR STRUCTURES: No masses or contour abnormalities. HEART AND VASCULAR STRUCTURES: Moderate cardiomegaly with old pacemaker/defibrillator BONES: No acute findings. HARDWARE: None in the chest. OTHER: No other significant finding. IMPRESSION: 1.5 cm left upper lobe lung parenchymal nodule TECHNICAL DOCUMENTATION: JOB ID: [id number] [employer]- All Rights Reserved Reading location - IP/workstation name: [email or web address]
--- NOTE | 2018-10-21 13:15 | EKG REPORT ---
SEVERITY:- ABNORMAL ECG - SINUS RHYTHM ABNORMAL T, CONSIDER ISCHEMIA, ANT-LAT LEADS : Confirmed by: John Duncan MD 21-Oct-2018 13:14:56
[~2018-10-22 09:44] MED LIST changes: +BUPIVACAINE HCL 0.5 % INJ/PF 30 ML SDV ONE; +CLINDAMYCIN 600 MG/D5W RTU 600 MG/50 ML RTUPB IV PRN; -DIPHENHYDRAMINE HCL 50 MG/ML VIAL ONE; -EPINEPHRINE INJ 1 MG/10 ML DISP.SYRIN ONE; -FENTANYL CITRATE INJ/PF 100 MCG/2 ML AMPUL ONE; -FLUMAZENIL INJ 0.5 MG/5 ML VIAL IV ONE; -GLUCAGON,HUMAN RECOMB 1 MG INJ ONE; +LACTATED RINGERS 1000 ML IV PRN; +LIDOCAINE 0.5% INJ-PF (5 MG/ML) 50 ML SDV SUBCUT PRN; -NALOXONE HCL INJ/PF 0.4 MG/1 ML SDV ONE; -ONDANSETRON HCL INJ/PF 4 MG/2 ML SDV ONE; -PROMETHAZINE HCL INJ 25 MG/1 ML VIAL ONE
[2018-10-22] MEDS ORDERED: ALBUTEROL SULFATE 0.083% NEB 2.5 MG/3 ML AMPUL NEB ONE (09:58)
[2018-10-22] MEDS ORDERED: CLINDAMYCIN 600 MG/D5W RTU 600 MG/50 ML RTUPB IV ONE (10:44)
[2018-10-22 11:22] LABS: INTERNATIONAL RATION (INR) 0.94; PROTHROMBIN TIME 13.1 SEC (11.4-15.4)
[2018-10-22 11:23] LABS: PARTIAL THROMBOPLASTIN TIME 28.6 SEC (23.5-35.8)
[2018-10-22] MEDS ORDERED: FENTANYL CITRATE INJ/PF 100 MCG/2 ML AMPUL ONE (11:48)
[2018-10-22] MEDS ORDERED: MIDAZOLAM 2 MG/2 ML INJ ONE (11:48)
[2018-10-22] MEDS ORDERED: PROPOFOL INJ 200 MG/20 ML VIAL IV ONE (11:49)
[2018-10-22] MEDS ORDERED: ACETAMINOPHEN 1,000 MG/100 ML RTUPB IV ONE (11:49)
[2018-10-22] MEDS ORDERED: LIDOCAINE 1% INJ-PF (10 MG/ML) 30 ML SDV ONE (12:15)
[2018-10-22] MEDS ORDERED: ONDANSETRON HCL INJ/PF 4 MG/2 ML SDV IV PRN ×2 (12:52→13:14)
[2018-10-22] MEDS ORDERED: PROMETHAZINE HCL INJ 25 MG/1 ML VIAL IV PRN (12:52)
[2018-10-22] MEDS ORDERED: DIPHENHYDRAMINE HCL 50 MG/ML VIAL IV PRN (12:52)
[2018-10-22] MEDS ORDERED: FENTANYL CITRATE INJ/PF 100 MCG/2 ML AMPUL IV PRN ×3 (12:52)
[2018-10-22] MEDS ORDERED: MEPERIDINE HCL/PF INJ 25 MG/1 ML DISP.SYRIN IV PRN (12:52)
[2018-10-22] MEDS ORDERED: MORPHINE SULFATE 10 MG/ML INJ IV PRN (12:52)
[2018-10-22] MEDS ORDERED: HYDROCODONE/ACETAMINOPHEN 5-325 MG TABLET PO PRN (13:14)
--- NOTE | 2018-10-22 13:14 | Discharge Summary ---
Discharge Summary (SDC) - Discharge Final Diagnosis: Left small finger proximal phalanx fracture Date of Surgery: 10/22/18 Discharge Date: 10/22/18 Condition: Good Forms: ASU Anesthesia D/C Instruction, Discharge POC-Surgical Service Treatment or Instructions: Schedule Follow Up w/ Dr. Carlos Batista @ [facility] for Surgery to be seen in 10-14 days or as scheduled [place]: [place]: [place]: Ice and elevate Keep splint clean/dry/intact. If your fingers become numb please unwrap the Polo wrap but leave the splint in place, if the sensation does not return within 30 minutes please return to the emergency department. May begin finger range of motion attempting to make full fist. Please use ibuprofen (Motrin or Advil) 600-800 mg every 8 hours as needed for pain or fever DO NOT TAKE w/ TORADOL may use once TORADOL complete. You may also use acetaminophen (Tylenol) 1000 mg every 4-6 hours as needed for pain or fever. Please be aware that many medications contain acetaminophen, do not exceed a total of 1000 mg of acetaminophen every 6 hours. If ibuprofen and acetaminophen are not sufficient for your pain you may take the Percocet/Havre. Please be aware that the Percocet/Havre does contain Tylenol. Stool softener of choice when on pain medication. USE OF [id number] IBUPROFEN: Ibuprofen (Advil, Nuprin, Medipren, Motrin IB) is a medication for fever and pain control. In addition, it has anti- inflammatory effects which may be beneficial, especially in the treatment of injuries. It's best to take ibuprofen with food. Persons with ulcer disease or allergy to aspirin should notify their physician of this before taking ibuprofen. Ibuprofen can be given every four to six hours, for a total of four doses daily. Age Pain or fever dose Antiinflammatory dose 6-8 yr 200 mg (1 tab) 200 mg (1 tab) 9-11 yr 200 mg (1 tab) 200-400 mg (1-2 tab) 11-14 yr 200-400 mg (1-2 tab) 400 mg (2 tab) 15-adult 400 mg (2 tab) 600 mg (3 tab) ORAL NARCOTIC MEDICATION: You have been given a prescription for pain control. This medication is a narcotic. It's best taken with food, as nausea can result if taken on an empty stomach. Don't operate machinery or drive within six hours of taking this medication. Do not combine this medicine with alcohol, or with any medication which can cause sedation (such as cold tablets or sleeping pills) unless you get permission from the physician. Narcotics tend to cause constipation. If possible, drink plenty of fluids and eat a diet high in fiber and fruits. Please be aware that prescription narcotics also have the potential for abuse. People become addicted to these medications because of the general sense of wellbeing that they induce. This feeling along with a significant reduction in tension, anxiety, and aggression provides a stimulating seductive quality to these drugs. Once your pain is under control, we encourage you to discard your unused narcotics. Prescriptions: Hydrocodone/Acetaminophen [Havre 5-325 mg Tablet] 1 tab PO Q6 PRN #25 tablet PRN Reason: Referrals: CARLOS BATISTA DO [ACTIVE STAFF] - Discharge Diet: As Tolerated Respiratory Treatments at Home: Deep Breathing/Coughing Discharge Activity: No Lifting Over 10 Pounds, No Lifting/Push/Pulling Report the Following to Your Physician Immediately: Unusual Bleeding, Redness, Swelling, Warmth, Increased Soreness
--- NOTE | 2018-10-22 13:17 | Operative Report ---
Operative Report DATE OF SURGERY: 10/22/18 PREOPERATIVE DIAGNOSIS: Left small finger proximal phalanx fracture POSTOPERATIVE DIAGNOSIS: Same OPERATION: Closed reduction percutaneous pinning extra-articular left small finger proximal phalanx fracture SURGEON: JOSE R BATISTA ANESTHESIA: LMAC COMPLICATIONS: None ESTIMATED BLOOD LOSS: Minimal PROCEDURE: Indication for above procedure: 73-year-old female who sustained a fall injuring her left small finger. She had notable fracture of the proximal phalanx with angulation she was then closed re duced at my office she was placed in a ulnar gutter splint which did adequately reduce the fracture. However after 2-week follow-up x-rays demonstrate increased dorsal angulation. At that point we discussed treatment options including operative versus nonoperative intervention given the amount of hyperextension and limited motion decision was made to proceed with operative treatment including open reduction versus closed reduction percutaneous pinning/internal fixation left small finger. Procedure In Detail: Patient was seen and evaluated in the preoperative holding area. The LEFT upper extremity was initialized and marked. Patient received 600 mg of clindamycinIV for bacterial prophylaxis. Patient was taken back to the operative room where transferred to the operative table. Once they were adequately anesthetized a nonsterile tourniquet was placed on the upper extremity. A surgical team debriefing was performed ensuring all instrumentation was available, the surgical procedure was discussed with possible concerns reviewed. A digital block was performed utilizing 10 mL of 1% lidocaine without epinephrine. The upper extremity was prepped with chlorhexidine and alcohol and draped in a sterile fashion. A timeout was done identifying correct patient, procedure and extremity everyone in attendance agree with this and verbalized no concerns. The extremity was exsanguinated the tourniquet was inflated to 250 mmHg. Closed reduction was performed to the proximal phalanx placing the finger in a hyperflexed intrinsic plus position correcting malrotation. A 0.045 K wire was then placed from the base of the proximal phalanx radially obtaining fixation into the far cortex. A second 0.045 K wire was then placed from the base of the proximal phalanx along the ulnar aspect obtaining fixation from the far cortex. C-arm fluoroscopy was then obtained which demonstrated orthodox of alignment minimal angulation on AP and lateral view no evidence of shortening or di splacement. No evidence of malrotation with forearm squeeze or tenodesis. Live fluoroscopy was performed confirming stability of the fracture. K wire was then cut and left outside the skin and Xeroform placed. Patient was placed in a ulnar gutter splint maintaining the intrinsic plus position. Tourniquet was deflated patient had good peripheral perfusion. Sponge counts, instrument counts, needle counts counts were correct. Patient was then awoken from anesthesia. Transferred from the operating room table to the operating room stretcher. There was no intraoperative complications patient tolerated procedure well stable to PACU. Postoperative plan: Patient will follow-up as scheduled for wound check. We will obtain x-rays and set the patient up for occupational therapy to be fitted for a thermoplastic ulnar gutter splint.
[2018-10-22] MEDS ORDERED: HYDROCODONE/ACETAMINOPHEN 5-325 MG TABLET ONE (14:28)
[2018-10-22 15:47] VITALS: BP 138/72
--- NOTE | 2018-10-22 16:17 | RADIOLOGY REPORT (SQ) ---
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 FLUOROSCOPY TIME: 32 seconds. 4 images saved to PACS. TECHNIQUE: Intra-operative images acquired during surgical procedure to evaluate progress. NUMBER OF IMAGES: 4 images. LIMITATIONS: None. FINDINGS: Images of the proximal phalanx with hardware placement. IMPRESSION: IMAGE(S) OBTAINED DURING PROCEDURE. COMMENT: Quality ID [id number]: Final reports for procedures using fluoroscopy that document radiation exp osure indices, or exposure time and number of fluorographic images (if radiation exposure indices are not available) Please consult full operative report of the attending physician for description of the procedure. TECHNICAL DOCUMENTATION: JOB ID: [id number] [employer]- All Rights Reserved Reading location - IP/workstation name: [email or web address]
--- NOTE | 2018-10-22 16:17 | RADIOLOGY REPORT (SQ) ---
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 FLUOROSCOPY TIME: 32 seconds. 4 images saved to PACS. TECHNIQUE: Intra-operative images acquired during surgical procedure to evaluate progress. NUMBER OF IMAGES: 4 images. LIMITATIONS: None. FINDINGS: Images of the proximal phalanx with hardware placement. IMPRESSION: IMAGE(S) OBTAINED DURING PROCEDURE. COMMENT: Quality ID [id number]: Final reports for procedures using fluoroscopy that document radiation exp osure indices, or exposure time and number of fluorographic images (if radiation exposure indices are not available) Please consult full operative report of the attending physician for description of the procedure. TECHNICAL DOCUMENTATION: JOB ID: [id number] [employer]- All Rights Reserved Reading location - IP/workstation name: [email or web address]
== END 2018-10-22 15:30 | disposition home or self-care (01) ==
LOC: OROUT 09:44
PROVIDERS: ATTEND Orthopaedic Surgery
DX: S62.616D Displaced fracture of proximal phalanx of right little finger, subsequent encounter for fracture with routine healing (principal); S69.92XD Unspecified injury of left wrist, hand and finger(s), subsequent encounter; W19.XXXD Unspecified fall, subsequent encounter; R26.81 Unsteadiness on feet; I10 Essential (primary) hypertension; E78.5 Hyperlipidemia, unspecified; J44.9 Chronic obstructive pulmonary disease, unspecified; I25.10 Atherosclerotic heart disease of native coronary artery without angina pectoris; I25.2 Old myocardial infarction; I73.9 Peripheral vascular disease, unspecified; F17.210 Nicotine dependence, cigarettes, uncomplicated; K21.9 Gastro-esophageal reflux disease without esophagitis; R06.02 Shortness of breath; Z88.0 Allergy status to penicillin; Z01.818 Encounter for other preprocedural examination; Z79.51 Long term (current) use of inhaled steroids; Z79.899 Other long term (current) drug therapy; Z91.81 History of falling; Z95.0 Presence of cardiac pacemaker
CPT/HCPCS: 93005; 36415; 85610; 85730; 81001; 71046; 73140; 93010; 94640; 26727; C1713; J2250; J3490 ×2; J3010; J2704; A9270 ×2; J0131; 01820

== ENCOUNTER 2018-11-15 21:21 | Emergency (ER) | payer MEDICARE, OTHER ==
[2018-11-15 21:50] VITALS: BP 170/73
[2018-11-15] MEDS ORDERED: HYDROCODONE/ACETAMINOPHEN 5-325 MG (6 TAB/ER DISP) PO PRN (23:47)
--- NOTE | 2018-11-15 23:47 | ER Document Report ---
Addendum entered and electronically signed by BENNY JOHNS PA-C 11/15/18 23:48: Discharge - Discharge Clinical Impression: Neck pain Fall Qualifiers: Encounter type: initial encounter Qualified Code(s): W19.XXXA - Unspecified fall, initial encounter Headache Qualifiers: Headache type: unspecified Headache chronicity pattern: acute headache Intractability: not intractable Qualified Code(s): R51 - Headache Condition: Good Disposition: HOME, SELF-CARE Additional Instructions: You have been seen in the Emergency Department (ED) today following a fall. Your workup today did not reveal any injuries that require you to stay in the hospital. You can expect, though, to be stiff and sore for the next several days. You can take Tylenol 1000 mg every 6 hours as needed for pain. You can apply a hot pack or electric heating pad to the sore areas. You can also use topical "Aspercreme with lidocaine" to sore areas as needed. Please follow up with your primary care doctor as soon as possible regarding today's ED visit and your recent fall. Call your doctor or return to the ED if you develop a sudden or severe headache, confusion, slurred speech, facial droop, weakness or numbness in any arm or leg, extreme fatigue, vomiting more than two times, severe abdominal pain, or other symptoms that concern you. Referrals: FLORINA BLANCO PA [Primary Care Provider] - Follow up as needed Original Note: ED Fall - General Chief Complaint: Fall Injury Stated Complaint: FALL Time Seen by Provider: 11/15/18 23:40 Primary Care Provider: FLORINA BLANCO PA [Primary Care Provider] - Follow up as needed Notes: 73 female presents for a fall she said she missed stepped and fell on her right side. She is complaining of headache and some neck pain. Has an existing fracture that is currently splinted. Denies hitting her head, loss of consciousness, dizziness, lightheadedness, palpitations, any syncopal episode. She denies any shoulder or elbow pain on her right side. Patient states she is just has a headache and a little bit of paraspinal neck pain with no other symptoms. No other complaints. TRAVEL OUTSIDE OF THE [place] IN LAST 30 DAYS: No - Related data Allergies/Adverse Reactions: amoxicillin Allergy (Verified 10/21/18 11:17) Penicillins Allergy (Verified 10/21/18 10:54) Past Medical History - Social History Smoking Status: Former Smoker Family History: Reviewed & Not Pertinent, Hypertension - Past Medical History Cardiac Medical History: Reports: Hx Congestive Heart Failure, Hx Coronary Artery Disease, Hx Heart Attack - 1990, Hx Hypercholesterolemia, Hx Hypertension - ON MEDS Denies: Hx Atrial Fibrillation, Hx Peripheral Vascular Disease, Hx Pulmonary Embolism, Hx Heart Murmur Pulmonary Medical History: Reports: Hx Bronchitis, Hx COPD, Hx Pneumonia - YRS AGO Denies: Hx Asthma, Hx Respiratory Failure, Hx Sleep Apnea, Hx Tuberculosis Neurological Medical History: Denies: Hx Cerebrovascular Accident, Hx Seizures Endocrine Medical History: Denies: Hx Diabetes Mellitus Type 1, Hx Diabetes Mellitus Type 2 Renal/ Medical History: Reports: Hx Renal Insufficiency. Denies: Hx End Stage Renal Disease, Hx Kidney Stones, Hx Peritoneal Dialysis Malignancy Medical History: Denies: Hx Leukemia, Hx Lung Cancer GI Medical History: Reports: Hx Crohn's Disease - Patient has either Crohn's disease or ulcerative colitis, Hx Diverticulitis, Hx Gastroesophageal Reflux Disease. Denies: Hx Hepatitis, Hx Hiatal Hernia, Hx Irritable Bowel, Hx Liver Failure, Hx Pancreatitis, Hx Ulcer Musculoskeletal Medical History: Reports Hx Arthritis, Denies Hx Fibromyalgia, Denies Hx Muscular Dystrophy Psychiatric Medical History: Reports: Hx Depression Denies: Hx Bipolar Disorder, Hx Post Traumatic Stress Disorder, Hx Schizophrenia Traumatic Medical History: Reports: Hx Fractures - right wrist, left foot Infectious Medical History: Denies: Hx Hepatitis, Hx HIV Past Surgical History: Reports: Hx Appendectomy, Hx Cardiac Catheterization, Hx Cardiac Surgery - AICD for ventricular fibrillation, Hx Section - x4, Hx Coronary Stent, Hx Hysterectomy, Hx Orthopedic Surgery - bilateral knee surgery, Hx Pacemaker, Hx Tonsillectomy. Denies: Hx Bowel Surgery, Hx Cholecystectomy, Hx Colostomy, Hx Coronary Artery Bypass Graft, Hx Gastric Bypass Surgery, Hx Herniorrhaphy, Hx Mastectomy, Hx Open Heart Surgery, Hx Tubal Ligation - Immunizations Immunizations up to date: Yes Hx Diphtheria, Pertussis, Tetanus Vaccination: Yes Hx Pneumococcal Vaccination: 09/21/17 Physical Exam - Vital signs Vitals: Temp Pulse Resp BP Pulse Ox 98.3 F 57 L 20 170/73 H 96 11/15/18 21:49 11/15/18 21:49 11/15/18 21:49 11/15/18 21:49 11/15/18 21:49 - Notes Notes: PHYSICAL EXAMINATION: Reviewed vital signs and charting by RN GENERAL: Alert, interacts well. No acute distress. HEAD: Normocephalic, atraumatic. EYES: Pupils equal, round. Extraocular movements intact. NECK: Full range of motion. Supple. Trachea midline. Tenderness to palpation right upper trapezius muscle, normal range of motion in neck EXTREMITIES: Moves all 4 extremities spontaneously. No edema, No cyanosis. BACK: no cervical, thoracic, lumbar midline tenderness. No saddle anesthesia, normal distal neurovascular exam. NEUROLOGICAL: Alert. Normal speech. PSYCH: Normal affect, normal mood. SKIN: Warm, dry, normal turgor. No rashes or lesions noted. Course - Re-evaluation Re-evalutation: 11/15/18 23:44 Patient complaint of acute pain. normal neuro exam. No loss of consciousness did not hit her head. Patient appears in mild distress. We will give her a [place] dose pack. I explained she needs follow-up with a primary doctor. - Vital Signs Vital signs: Temp Pulse Resp BP Pulse Ox 98.3 F 57 L 20 170/73 H 96 11/15/18 21:49 11/15/18 21:49 11/15/18 21:49 11/15/18 21:49 11/15/18 21:49 Discharge - Discharge Clinical Impression: Neck pain Fall Qualifiers: Encounter type: initial encounter Qualified Code(s): W19.XXXA - Unspecified fall, initial encounter Headache Qualifiers: Headache type: unspecified Headache chronicity pattern: acute headache Intractability: not intractable Qualified Code(s): R51 - Headache Referrals: FLORINA BLANCO PA [Primary Care Provider] - Follow up as needed
== END 2018-11-15 23:55 | disposition home or self-care (01) ==
LOC: ER 21:21
DX: M54.2 Cervicalgia (principal); R51 Headache; W19.XXXA Unspecified fall, initial encounter; Z87.891 Personal history of nicotine dependence; I50.9 Heart failure, unspecified; I25.10 Atherosclerotic heart disease of native coronary artery without angina pectoris; I10 Essential (primary) hypertension; Z79.899 Other long term (current) drug therapy; J44.9 Chronic obstructive pulmonary disease, unspecified
CPT/HCPCS: 99283

== ENCOUNTER 2018-12-04 12:02 | Emergency (ER) | payer MEDICARE, OTHER ==
[2018-12-04 12:08] VITALS: BP 174/81
[2018-12-04] MEDS ORDERED: NAPROXEN 250 MG TABLET PO ONE (12:40)
--- NOTE | 2018-12-04 12:46 | ER Document Report ---
ED General - General Chief Complaint: Arm Pain Stated Complaint: SHOULDER PAIN Time Seen by Provider: 12/04/18 12:34 Primary Care Provider: FLORINA BLANCO PA [Primary Care Provider] - Follow up as needed Notes: 73-year-old female here with complaints of left arm pain that starts at the fingertips and radiates up to the left shoulder and left neck. She fell down September 04, 2019 and ever since then, she has had daily pain in these areas. The pain is worse with movement. The pain is improved with minimizing movement. She has tried taking oxycodone for the pain however she has run out of the oxycodone. She denies any chest pain shortness of breath. She has been following with her doctor outpatient for this. TRAVEL OUTSIDE OF THE [place] IN LAST 30 DAYS: No - Related Data Allergies/Adverse Reactions: amoxicillin Allergy (Verified 12/04/18 12:03) Penicillins Allergy (Verified 12/04/18 12:03) Past Medical History - Social History Smoking Status: Current Every Day Smoker Family History: Reviewed & Not Pertinent, Hypertension Patient has suicidal ideation: No Patient has homicidal ideation: No - Past Medical History Cardiac Medical History: Reports: Hx Congestive Heart Failure, Hx Coronary Artery Disease, Hx Heart Attack - 1990, Hx Hypercholesterolemia, Hx Hypertension - ON MEDS Denies: Hx Atrial Fibrillation, Hx Peripheral Vascular Disease, Hx Pulmonary Embolism, Hx Heart Murmur Pulmonary Medical History: Reports: Hx Bronchitis, Hx COPD, Hx Pneumonia - YRS AGO Denies: Hx Asthma, Hx Respiratory Failure, Hx Sleep Apnea, Hx Tuberculosis Neurological Medical History: Denies: Hx Cerebrovascular Accident, Hx Seizures Endocrine Medical History: Denies: Hx Diabetes Mellitus Type 1, Hx Diabetes Mellitus Type 2 Renal/ Medical History: Reports: Hx Renal Insufficiency. Denies: Hx End Stage Renal Disease, Hx Kidney Stones, Hx Peritoneal Dialysis Malignancy Medical History: Denies: Hx Leukemia, Hx Lung Cancer GI Medical History: Reports: Hx Crohn's Disease - Patient has either Crohn's disease or ulcerative colitis, Hx Diverticulitis, Hx Gastroesophageal Reflux Disease. Denies: Hx Hepatitis, Hx Hiatal Hernia, Hx Irritable Bowel, Hx Liver Failure, Hx Pancreatitis, Hx Ulcer Musculoskeletal Medical History: Reports Hx Arthritis, Denies Hx Fibromyalgia, Denies Hx Muscular Dystrophy Psychiatric Medical History: Reports: Hx Depression Denies: Hx Bipolar Disorder, Hx Post Traumatic Stress Disorder, Hx Schizophrenia Traumatic Medical History: Reports: Hx Fractures - right wrist, left foot Infectious Medical History: Denies: Hx Hepatitis, Hx HIV Past Surgical History: Reports: Hx Appendectomy, Hx Cardiac Catheterization, Hx Cardiac Surgery - AICD for ventricular fibrillation, Hx Section - x4, Hx Coronary Stent, Hx Hysterectomy, Hx Orthopedic Surgery - bilateral knee surgery, Hx Pacemaker, Hx Tonsillectomy. Denies: Hx Bowel Surgery, Hx Cholecystectomy, Hx Colostomy, Hx Coronary Artery Bypass Graft, Hx Gastric Bypass Surgery, Hx Herniorrhaphy, Hx Mastectomy, Hx Open Heart Surgery, Hx Tubal Ligation - Immunizations Immunizations up to date: Yes Hx Diphtheria, Pertussis, Tetanus Vaccination: Yes Hx Pneumococcal Vaccination: 09/21/17 Review of Systems - Review of Systems Notes: See history of present illness for pertinent positive review of systems; otherwise all review of systems have been reviewed and are negative Physical Exam - Vital signs Vitals: Temp Pulse Resp BP Pulse Ox 97.7 F 64 18 174/81 H 98 12/04/18 12:07 12/04/18 12:07 12/04/18 12:07 12/04/18 12:07 12/04/18 12:07 - Notes Notes: PHYSICAL EXAMINATION: GENERAL: Well-appearing and in no acute distress. HEAD: Atraumatic, normocephalic. EYES: Pupils equal round and reactive to light, extraocular movements intact, sclera anicteric, conjunctiva are normal. ENT: nares patent, oropharynx clear without exudates. Moist mucous membranes. NECK: Normal range of motion, supple without lymphadenopathy LUNGS: CTAB and equal. No wheezes rales or rhonchi. HEART: Regular rate and rhythm without murmurs ABDOMEN: Soft, no tenderness. No facial grimacing/wincing upon palpation. No guarding, no rebound. EXTREMITIES: Normal range of motion, no pitting edema. No cyanosis. Exquisite tenderness to palpation of the left hand forearm arm shoulder and left superior trapezius musculature but no midline cervical spine TTP NEUROLOGICAL: Cranial nerves grossly intact. Normal sensory/motor exams. PSYCH: Normal mood, normal affect. SKIN: Warm, Dry, normal turgor, no rashes or lesions noted Course - Re-evaluation Re-evalutation: 12/04/18 12:45 MEDICAL DECISION MAKING: Concern for musculoskeletal strain The fall occurred 3 months ago At this point in time, I do not feel radiographs needed Will give a dose of pain medication here and prescription Mobic soma Instructed follow-up PCP next day or few Patient understands and agrees to the plan of care - Vital Signs Vital signs: Temp Pulse Resp BP Pulse Ox 97.7 F 64 18 174/81 H 98 12/04/18 12:07 12/04/18 12:07 12/04/18 12:07 12/04/18 12:07 12/04/18 12:07 Discharge - Discharge Clinical Impression: Left arm pain Condition: Good Disposition: HOME, SELF-CARE Additional Instructions: Use the MOBIC for pain. Use the SOMA for muscle relaxation however please be aware that this muscle relaxer will make you sleepy. You were seen in the emergency department at [facility]. If you were given any sedating medications, be sure not to operate heavy machinery (example - driving) and be sure you are not too sedated to walk appropriately. Please followup with your primary physician in the next few days for further management/evaluation. Please return to the emergency department for worsening of symptoms or any symptom that you deem to be concerning or life-threatening. Thank you for allowing us to be part of your care. Prescriptions: Carisoprodol [Soma 350 Mg Tablet] 350 mg PO BIDP PRN #10 tablet PRN Reason: Meloxicam [Mobic] 7.5 mg PO DAILYP PRN #7 tablet PRN Reason: Referrals: FLORINA BLANCO PA [Primary Care Provider] - Follow up in 3-5 days
== END 2018-12-04 12:48 | disposition home or self-care (01) ==
LOC: ER 12:02
DX: M79.602 Pain in left arm (principal); W19.XXXA Unspecified fall, initial encounter; I25.10 Atherosclerotic heart disease of native coronary artery without angina pectoris; I10 Essential (primary) hypertension; J44.9 Chronic obstructive pulmonary disease, unspecified; F17.200 Nicotine dependence, unspecified, uncomplicated; Z88.0 Allergy status to penicillin
CPT/HCPCS: 99283; A9270

== ENCOUNTER → 2019-03-15 | Outpatient (CLI) | payer MEDICARE, OTHER ==
--- NOTE | 2019-03-15 10:19 | RADIOLOGY REPORT (SQ) ---
EXAM DESCRIPTION: CT HEAD WITHOUT COMPLETED DATE/TIME: 03/15/2019 9:05 am REASON FOR STUDY: R42 DIZZINESS AND GIDDINESS R42 DIZZINESS AND GIDDINESS COMPARISON: [address] brain exams, most recently 08/12/2018 TECHNIQUE: Axial images acquired through the brain without intravenous contrast. Images reviewed wi th bone, brain and subdural windows. Additional sagittal and coronal reconstructions were generated. Images stored on PACS. All CT scanners at this facility use dose modulation, iterative reconstruction, and/or weight based d osing when appropriate to reduce radiation dose to as low as reasonably achievable (ALARA). [facility]: Dose Right [facility]: CareDose [facility]: Dose Right [facility]: Teradose 4D [facility]: [employer] RADIATION DOSE: CT Rad equipment meets quality standard of care and radiation dose reduction techniq ues were employed. CTDIvol: 48.7 mGy. DLP: 1004 mGy-cm. mGy. LIMITATIONS: None. FINDINGS: VENTRICLES: Normal size and contour. CEREBRUM: No CT evidence of acute ischemic change, acute intracranial hemorrhage mass effect or midli ne shift. Calcification in the posterior right frontal deep periventricular white matter is unchanged from studies dating back to 2007. No significant white matter disease by CT. CEREBELLUM: Old lacunar infarct right cerebellar hemisphere axial image 16. No CT evidence of acute ischemic change, or posterior fossa hemorrhage mass effect or shift. EXTRAAXIAL SPACES: No fluid collections. No masses. ORBITS AND GLOBE: No intra- or extraconal masses. Normal contour of globe without masses. CALVARIUM: No fracture. PARANASAL SINUSES: No fluid or mucosal thickening. SOFT TISSUES: No mass or hematoma. OTHER: Heavily calcified [place] vessels. IMPRESSION: No acute findings EVIDENCE OF ACUTE STROKE: NO. COMMENT: Quality ID # [id number]: Final reports with documentation of one or more dose reduction techniques (e.g., Automated exposure control, adjustment of the mA and/or kV according to patient size, use of iterative reconstruction technique) TECHNICAL DOCUMENTATION: JOB ID: [id number] [employer]- All Rights Reserved Reading location - IP/workstation name: [email or web address]-
== END ==
LOC: RAD 08:48
PROVIDERS: ATTEND Family Medicine
DX: R42 Dizziness and giddiness (principal)
CPT/HCPCS: 70450

== ENCOUNTER → 2019-05-04 | Outpatient (CLI) | payer MEDICARE, OTHER ==
--- NOTE | 2019-05-04 13:45 | RADIOLOGY REPORT (SQ) ---
EXAM DESCRIPTION: CHEST PA/LATERAL COMPLETED DATE/TIME: 05/04/2019 11:46 am REASON FOR STUDY: PLEURODYNIA COMPARISON: 10/21/2018 EXAM PARAMETERS: NUMBER OF VIEWS: two views TECHNIQUE: Digital Frontal and Lateral radiographic views of the chest acquired. RADIATION DOSE: NA LIMITATIONS: none FINDINGS: LUNGS AND PLEURA: Persistent 2 cm mass left perihilar. Right lung is clear. MEDIASTINUM AND HILAR STRUCTURES: No masses or contour abnormalities. HEART AND VASCULAR STRUCTURES: Heart normal size. No evidence for failure. BONES: No acute findings. HARDWARE: Cardiac hardware unchanged. OTHER: No other significant finding. IMPRESSION: Persistent left perihilar mass lesion measuring 2 cm. Malignancy suspected. COMMENT: The findings were sent to the Radiology Results Communication Center at 13:39 on 05/04/2019 to be communicated to a licensed caregiver. TECHNICAL DOCUMENTATION: JOB ID: [id number] [employer]- All Rights Reserved Reading location - IP/workstation name: [email or web address]
== END ==
LOC: OD 11:29
PROVIDERS: ATTEND Physician Assistant
DX: R07.81 Pleurodynia (principal); R91.8 Other nonspecific abnormal finding of lung field
CPT/HCPCS: 71046

== ENCOUNTER → 2019-05-09 | Outpatient (CLI) | payer MEDICARE, OTHER ==
--- NOTE | 2019-05-09 14:10 | RADIOLOGY REPORT (SQ) ---
EXAM DESCRIPTION: CT CHEST WITHOUT COMPLETED DATE/TIME: 05/09/2019 1:28 pm REASON FOR STUDY: R91.8 OTHER NONSPECIFIC ABNORMAL FINDING OF LUNG FIELD R91.8 OTHER NONSPECIFIC AB NORMAL FINDING OF LUNG FIELD COMPARISON: 04/09/2018 TECHNIQUE: CT scan performed of the chest without intravenous contrast. Images reviewed with lung, soft tissue and bone windows. Reconstructed coronal and sagittal MPR images reviewed. All images st ored on PACS. All CT scanners at this facility use dose modulation, iterative reconstruction, and/or weight based d osing when appropriate to reduce radiation dose to as low as reasonably achievable (ALARA). [facility]: Dose Right [facility]: CareDose [facility]: Dose Right [facility]: Teradose 4D [facility]: [employer] RADIATION DOSE: CT Rad equipment meets quality standard of care and radiation dose reduction techniq ues were employed. CTDIvol: 4.7 mGy. DLP: 180 mGy-cm. mGy. LIMITATIONS: No technical limitations. FINDINGS: LUNGS AND PLEURA: There is a 16 x 24 mm suprahilar mass on the left with stranding to the hilum and with slight nodularity extending anterolaterally. This mass is significantly larger than o n the prior study. HILAR AND MEDIASTINAL STRUCTURES: No identified masses or abnormal nodes. No obvious aneurysm. HEART AND VASCULAR STRUCTURES: Cardiomegaly. UPPER ABDOMEN: No significant findings. Limited exam. THYROID AND OTHER SOFT TISSUES: No masses. No adenopathy. BONES: No significant finding. HARDWARE: Pacemaker/defibrillator. There appears to be a 2nd device overlying the abdomen with impla nted pericardial electrodes. OTHER: No other significant findings. IMPRESSION: Left upper lobe lung mass has increased in size since the prior study. There is cardiom egaly. TECHNICAL DOCUMENTATION: JOB ID: [id number] Quality ID # [id number]: Final reports with documentation of one or more dose reduction techniques (e.g., Au tomated exposure control, adjustment of the mA and/or kV according to patient size, use of iterative reconstruction technique) 2010 [employer]- All Rights Reserved Reading location - IP/workstation name: [email or web address]
== END ==
LOC: RAD 12:22
PROVIDERS: ATTEND Family Medicine
DX: R91.1 Solitary pulmonary nodule (principal); R91.8 Other nonspecific abnormal finding of lung field; Z72.0 Tobacco use; I51.7 Cardiomegaly
CPT/HCPCS: 71250

== ENCOUNTER 2019-05-14 09:42 | Emergency (ER) | payer MEDICARE, OTHER ==
--- NOTE | 2019-05-14 10:16 | ER Document Report ---
HPI - HPI Patient complains to provider of: R knee and L wrist pain s/p fall Time Seen by Provider: 05/14/19 09:58 Pain Level: 3 Context: Very pleasant 74-year-old female presents to the emergency department with chief complaint of right knee and left wrist pain after a fall this past Thursday. She was getting out of her car and just fell. She states that she has been having frequent falls and is seeing her primary, Dr. Fragoso, who is in the process of working her up. Patient denies hitting her head, denies loss of consciousness, denies heart palpitations, denies any other inciting incident. Patient is able to bear weight on her right leg and ambulated into the emergency department without assistance. Patient denies any unilateral leg swelling, posterior tenderness of the right calf, acute shortness of breath or chest pain, prolonged immobilization, cancer, or any long distance travel. - CONSTITUTIONAL Constitutional: DENIES: Fever, Chills - REPRODUCTIVE Reproductive: DENIES: : - MUSCULOSKELETAL Musculoskeletal: REPORTS: Extremity pain - see note Past Medical History - Social History Smoking Status: Current Every Day Smoker Frequency of alcohol use: None Drug Abuse: None Family History: Reviewed & Not Pertinent, Hypertension Patient has suicidal ideation: No Patient has homicidal ideation: No - Past Medical History Cardiac Medical History: Reports: Hx Congestive Heart Failure, Hx Coronary Artery Disease, Hx Heart Attack - 1990, Hx Hypercholesterolemia, Hx Hypertension - ON MEDS Denies: Hx Atrial Fibrillation, Hx Peripheral Vascular Disease, Hx Pulmonary Embolism, Hx Heart Murmur Pulmonary Medical History: Reports: Hx Bronchitis, Hx COPD, Hx Pneumonia - YRS AGO Denies: Hx Asthma, Hx Respiratory Failure, Hx Sleep Apnea, Hx Tuberculosis Neurological Medical History: Denies: Hx Cerebrovascular Accident, Hx Seizures Endocrine Medical History: Denies: Hx Diabetes Mellitus Type 1, Hx Diabetes Mellitus Type 2 Renal/ Medical History: Reports: Hx Renal Insufficiency. Denies: Hx End Stage Renal Disease, Hx Kidney Stones, Hx Peritoneal Dialysis Malignancy Medical History: Denies: Hx Leukemia, Hx Lung Cancer GI Medical History: Reports: Hx Crohn's Disease - Patient has either Crohn's disease or ulcerative colitis, Hx Diverticulitis, Hx Gastroesophageal Reflux Disease. Denies: Hx Hepatitis, Hx Hiatal Hernia, Hx Irritable Bowel, Hx Liver Failure, Hx Pancreatitis, Hx Ulcer Musculoskeletal Medical History: Reports Hx Arthritis, Denies Hx Fibromyalgia, Denies Hx Muscular Dystrophy Psychiatric Medical History: Reports: Hx Depression Denies: Hx Bipolar Disorder, Hx Post Traumatic Stress Disorder, Hx Schizophrenia Traumatic Medical History: Reports: Hx Fractures - right wrist, left foot Infectious Medical History: Denies: Hx Hepatitis, Hx HIV Past Surgical History: Reports: Hx Appendectomy, Hx Cardiac Catheterization, Hx Cardiac Surgery - AICD for ventricular fibrillation, Hx Section - x4, Hx Coronary Stent, Hx Hysterectomy, Hx Orthopedic Surgery - bilateral knee surgery, Hx Pacemaker, Hx Tonsillectomy. Denies: Hx Bowel Surgery, Hx Cholecystectomy, Hx Colostomy, Hx Coronary Artery Bypass Graft, Hx Gastric Bypass Surgery, Hx Herniorrhaphy, Hx Mastectomy, Hx Open Heart Surgery, Hx Tubal Ligation - Immunizations Immunizations up to date: Yes Hx Diphtheria, Pertussis, Tetanus Vaccination: Yes Hx Pneumococcal Vaccination: 09/21/17 Vertical Provider Document - CONSTITUTIONAL Notes: PHYSICAL EXAMINATION: Reviewed vital signs and charting by RN GENERAL: Alert, interacts well. No acute distress. HEAD: Normocephalic, atraumatic. EYES: Pupils equal and round. Extraocular movements intact. ENT: Oral mucosa moist, tongue midline. NECK: Full range of motion. Trachea midline. LUNGS: Clear to auscultation bilaterally, no wheezes, rales, or rhonchi. No respiratory distress. HEART: Regular rate and rhythm. No murmur ABDOMEN: soft, non-tender. No distention. Bowel sounds present EXTREMITIES: Moves all 4 extremities spontaneously. No edema, No cyanosis. Tenderness to palpation over the dorsal aspect of the distal radius and ulna bones and tenderness to palpation over the soft tissue, no snuffbox tenderness. Patient with tenderness to palpation over the medial and lateral aspects of the right knee, no tenderness over the patellar ligament, normal distal neurovascular exam PSYCH: Normal affect, normal mood. SKIN: Warm, dry, normal turgor. No rashes or lesions noted. - INFECTION CONTROL TRAVEL OUTSIDE OF THE [place] IN LAST 30 DAYS: No Course - Re-evaluation Re-evalutation: 05/14/19 10:16 Plan is to obtain a right knee x-ray and a left wrist x-ray splint or provide compression appropriately pending results. 05/14/19 11:00 X-rays were negative for any acute fractures or dislocations. Because the injury happened last [place] and patient has good range of motion and strength I have low concern for any potential significant injury. At this time patient be given strict return precautions, discharge instructions and is stable for discharge. - Vital Signs Vital signs: Temp Pulse Resp BP Pulse Ox 98.0 F 69 18 136/70 H 97 05/14/19 09:46 05/14/19 09:46 05/14/19 09:46 05/14/19 09:46 05/14/19 09:46 Discharge - Discharge Clinical Impression: Right knee pain Qualifiers: Chronicity: acute Qualified Code(s): M25.561 - Pain in right knee Left wrist injury Qualifiers: Encounter type: initial encounter Qualified Code(s): S69.92XA - Unspecified injury of left wrist, hand and finger(s), initial encounter Condition: Good Disposition: HOME, SELF-CARE Additional Instructions: You were seen in the emergency department this morning for a fall causing right knee and left wrist pain. X-rays did not show any acute fractures or dislocations. As such, we have placed [place] wraps on your right knee and on your left wrist for comfort. Please follow-up with Dr. Fragoso regarding today's visit in the next week. If you develop acute weakness in your knee or wrist, loss of sensation, paralysis, or any other concerning symptoms please immediately return to the emergency department for reevaluation. Referrals: ANA MARIA FRAGOSO MD [Primary Care Provider] - Follow up as needed
--- NOTE | 2019-05-14 10:55 | RADIOLOGY REPORT (SQ) ---
EXAM DESCRIPTION: WRIST LEFT 3 VIEWS COMPLETED DATE/TIME: 05/14/2019 10:18 am REASON FOR STUDY: fall COMPARISON: None. NUMBER OF VIEWS: Three views. TECHNIQUE: AP, lateral, and oblique radiographic images acquired of the left wrist. LIMITATIONS: None. FINDINGS: MINERALIZATION: Osteopenia. BONES: No acute fracture or dislocation. No worrisome bone lesions. Normal alignment. SOFT TISSUES: No soft tissue swelling. No foreign body. OTHER: No other significant finding. IMPRESSION: NO RADIOGRAPHIC EVIDENCE OF ACUTE INJURY. TECHNICAL DOCUMENTATION: JOB ID: [id number] [employer]- All Rights Reserved Reading location - IP/workstation name: [email or web address]
--- NOTE | 2019-05-14 10:57 | RADIOLOGY REPORT (SQ) ---
EXAM DESCRIPTION: KNEE RIGHT 4 VIEWS COMPLETED DATE/TIME: 05/14/2019 10:18 am REASON FOR STUDY: fall COMPARISON: 08/12/2018 NUMBER OF VIEWS: Four views. TECHNIQUE: AP, lateral, and both oblique radiographic images acquired of the right knee. LIMITATIONS: None. FINDINGS: MINERALIZATION: Osteopenia. BONES: No acute fracture or dislocation. No worrisome bone lesions. JOINT: No effusion. SOFT TISSUES: No soft tissue swelling. No radio-opaque foreign body. OTHER: No other significant finding. IMPRESSION: NO RADIOGRAPHIC EVIDENCE OF ACUTE INJURY. TECHNICAL DOCUMENTATION: JOB ID: [id number] [employer]- All Rights Reserved Reading location - IP/workstation name: [email or web address]
[2019-05-14] MEDS ORDERED: ACETAMINOPHEN 325 MG TABLET PO ONE (10:59)
[2019-05-14 11:19] VITALS: BP 139/65
== END 2019-05-14 11:22 | disposition home or self-care (01) ==
LOC: ER 09:42
DX: S69.92XA Unspecified injury of left wrist, hand and finger(s), initial encounter (principal); M25.561 Pain in right knee; V48.4XXA Person boarding or alighting a car injured in noncollision transport accident, initial encounter; F17.200 Nicotine dependence, unspecified, uncomplicated; I50.9 Heart failure, unspecified; I25.10 Atherosclerotic heart disease of native coronary artery without angina pectoris; E78.00 Pure hypercholesterolemia, unspecified; I11.0 Hypertensive heart disease with heart failure; I25.2 Old myocardial infarction; Z95.810 Presence of automatic (implantable) cardiac defibrillator; Z90.710 Acquired absence of both cervix and uterus
CPT/HCPCS: 99283

== ENCOUNTER → 2019-06-27 | Outpatient (CLI) | payer MEDICARE, OTHER ==
--- NOTE | 2019-06-27 18:15 | RADIOLOGY REPORT (SQ) ---
EXAM DESCRIPTION: CT HEAD COMBO COMPLETED DATE/TIME: 06/27/2019 3:55 pm REASON FOR STUDY: C34.12 MALIGNANT NEOPLASM OF UPPER LOBE, LEFT BRONCHUS OR LUNG C34.12 MALIGNANT N EOPLASM OF UPPER LOBE, LEFT BRONCHUS OR ALEX COMPARISON: CT brain 03/15/2019, 10/09/2017, 07/03/2015 TECHNIQUE: Axial images acquired through the brain without and with intravenous contrast. Images re viewed with bone, brain and subdural windows. Additional sagittal and coronal reconstructions were g enerated. Images stored on PACS. All CT scanners at this facility use dose modulation, iterative reconstruction, and/or weight based d osing when appropriate to reduce radiation dose to as low as reasonably achievable (ALARA). [facility]: Dose Right [facility]: CareDose [facility]: Dose Right [facility]: Teradose 4D [facility]: DEM[employer] CONTRAST TYPE AND DOSE: contrast/concentration: Isovue 350.00 mg/ml; Total Contrast Delivered: 50.0 ml; Total Saline Delivered: 55.0 ml RENAL FUNCTION: Creatinine 1.3 RADIATION DOSE: CT Rad equipment meets quality standard of care and radiation dose reduction techniq ues were employed. CTDIvol: 48.5 - 48.5 mGy. DLP: 1709 mGy-cm.. LIMITATIONS: None. FINDINGS: VENTRICLES: Normal size and contour. CEREBRUM: No masses. No hemorrhage. No midline shift. Normal doyle/white matter differentiation. No ev idence for acute infarction. No enhancing lesions. Benign punctate calcification right posterior fro ntal deep periventricular white matter. CEREBELLUM: No masses. No hemorrhage. Old lacunar infarct right cerebellar hemisphere. No evidence for acute infarction. No enhancing lesions. EXTRA-AXIAL SPACES: No fluid collections. No enhancing lesions. ORBITS AND GLOBE: No intra- or extraconal masses. Post bilateral cataract surgery. CALVARIUM: No fracture. PARANASAL SINUSES: No fluid or mucosal thickening. SOFT TISSUES: No mass or hematoma. OTHER: Heavily calcified distal intracranial vertebral arteries and parasellar carotid arteries. IMPRESSION: No CT evidence of brain parenchymal metastatic disease given history of lung cancer. Old right cerebellar hemisphere lacunar infarct. EVIDENCE OF ACUTE STROKE: NO. TECHNICAL DOCUMENTATION: JOB ID: [id number] Quality ID # [id number]: Final reports with documentation of one or more dose reduction techniques (e.g., Au tomated exposure control, adjustment of the mA and/or kV according to patient size, use of iterative reconstruction technique) 2010 [employer]- All Rights Reserved Reading location - IP/workstation name: [email or web address]
== END ==
LOC: RAD 14:57
PROVIDERS: ATTEND Internal Medicine
DX: C34.12 Malignant neoplasm of upper lobe, left bronchus or lung (principal)
CPT/HCPCS: 70470; 82565

== ENCOUNTER → 2019-07-03 | Outpatient (CLI) | payer MEDICARE, OTHER ==
--- NOTE | 2019-07-04 08:56 | RADIOLOGY REPORT (SQ) ---
EXAM DESCRIPTION: PET CT SKULL/THIGH COMPLETED DATE/TIME: 07/04/2019 8:18 am REASON FOR STUDY: (C34.12)MALIGNANT NEOPLASM OF UPPER LOBE, LEFT BRONCHUS OR LUNG C34.12 MALIGNANT NEOPLASM OF UPPER LOBE, LEFT BRONCHUS OR ALEX COMPARISON: None. RADIONUCLIDE AND DOSE: 9.25 mCi F18 FDG The route of agent administration: Intravenous FASTING BLOOD SUGAR: 78 mg/dl CONTRAST TYPE AND DOSE: No CT contrast given. TECHNIQUE: Blood glucose level was verified. Above dose of FDG was injected intravenously. 2-D seg mented attenuation correction images were obtained from the base of the skull to the midthighs. Nonc ontrast CT images were obtained for attenuation correction and fusion with emission images. CT image s were performed without oral or intravenous contrast and are not sensitive for parenchymal lesions. A series of overlapping emission PET images were obtained. Images reviewed and manipulated at [facility] work station by the radiologist. Images stored on PACS. LIMITATIONS: None. FINDINGS: HEAD AND NECK: No areas of abnormal metabolic activity in the soft tissues of the head and neck. CHEST: Left upper lobe hypermetabolic nodule 8.8 SUV, 2.4 x 1.8 cm AP by transverse diameter. ABDOMEN AND PELVIS: No areas of abnormal metabolic activity in the abdomen or pelvis. Expected physi ologic activity is present in the genitourinary system and bowel. PROXIMAL LOWER EXTREMITIES: No areas of abnormal metabolic activity in the soft tissues of the lower extremities. BONES: No abnormal metabolic activity in the visualized skeleton. ADDITIONAL CT FINDINGS: Subcentimeter calcified granulomas. Cardiomegaly. Pacemaker and external pa cing leads. Small hiatal hernia. Large right renal cysts. Nonobstructing 4 mm calculus lower pole left kidney. Anterior abdominal wall granuloma. OTHER: No other significant findings. IMPRESSION: Hypermetabolic nodule left upper lobe. No evidence of metastatic disease. TECHNICAL DOCUMENTATION: JOB ID: [id number] [employer]- All Rights Reserved Reading location - IP/workstation name: [email or web address]
== END ==
LOC: RAD 14:37
PROVIDERS: ATTEND Internal Medicine
DX: C34.12 Malignant neoplasm of upper lobe, left bronchus or lung (principal)
CPT/HCPCS: 78815; A9552

== ENCOUNTER 2019-07-07 07:28 | Emergency (ER) | payer MEDICARE, OTHER ==
--- NOTE | 2019-07-07 08:20 | ER Document Report ---
ED General - General Chief Complaint: Fall Injury Stated Complaint: FALL Time Seen by Provider: 07/07/19 08:19 Primary Care Provider: FRANSICO PEMBERTON MD [ACTIVE PROVISIONAL STAFF] - Follow up as needed ANA MARIA FRAGOSO MD [Primary Care Provider] - Follow up as needed TRAVEL OUTSIDE OF THE [place] IN LAST 30 DAYS: No - HPI Notes: 74-year-old female presents to the ED for evaluation of lower back pain and hip pain from a fall she sustained approximately 2 hours ago. Denies head trauma or change in loc. Patient states she fell backwards, her left side hit the sofa, denies hitting her head. Has not tried any vgck-xet-aigugcd medications, pain is 4-10, throbbing achy. Denies fevers, chills, chest pain,palpitations, shortness of breath, dyspnea, nausea, vomiting, diarrhea, abdominal pain, hematuria,blurred vision, double vision, loss of vision, speech changes, LH, dizziness, syncope, headaches, wheezing, ST, URI, neck pain, weakness, bowel or bladder dysfunction, saddle anesthesia, numbness or tingling in bilateral upper or lower extremities equally, muscle paralysis, weakness in bilateral upper or lower extremities equally or rash. - Related Data Allergies/Adverse Reactions: amoxicillin Allergy (Verified 07/07/19 07:48) Penicillins Allergy (Verified 07/07/19 07:48) Past Medical History - General Information source: Patient - Social History Smoking Status: Former Smoker Chew tobacco use (# tins/day): No Frequency of alcohol use: None Drug Abuse: None Family History: Reviewed & Not Pertinent, Hypertension Patient has suicidal ideation: No Patient has homicidal ideation: No - Past Medical History Cardiac Medical History: Reports: Hx Congestive Heart Failure, Hx Coronary Artery Disease, Hx Heart Attack - 1990, Hx Hypercholesterolemia, Hx Hypertension - ON MEDS Denies: Hx Atrial Fibrillation, Hx Peripheral Vascular Disease, Hx Pulmonary Embolism, Hx Heart Murmur Pulmonary Medical History: Reports: Hx Bronchitis, Hx COPD, Hx Pneumonia - YRS AGO Denies: Hx Asthma, Hx Respiratory Failure, Hx Sleep Apnea, Hx Tuberculosis Neurological Medical History: Denies: Hx Cerebrovascular Accident, Hx Seizures Endocrine Medical History: Denies: Hx Diabetes Mellitus Type 1, Hx Diabetes Mellitus Type 2 Renal/ Medical History: Reports: Hx Renal Insufficiency. Denies: Hx End Stage Renal Disease, Hx Kidney Stones, Hx Peritoneal Dialysis Malignancy Medical History: Denies: Hx Leukemia, Hx Lung Cancer GI Medical History: Reports: Hx Crohn's Disease - Patient has either Crohn's disease or ulcerative colitis, Hx Diverticulitis, Hx Gastroesophageal Reflux Disease. Denies: Hx Hepatitis, Hx Hiatal Hernia, Hx Irritable Bowel, Hx Liver Failure, Hx Pancreatitis, Hx Ulcer Musculoskeletal Medical History: Reports Hx Arthritis, Denies Hx Fibromyalgia, Denies Hx Muscular Dystrophy Psychiatric Medical History: Reports: Hx Depression Denies: Hx Bipolar Disorder, Hx Post Traumatic Stress Disorder, Hx Schizophrenia Traumatic Medical History: Reports: Hx Fractures - right wrist, left foot Infectious Medical History: Denies: Hx Hepatitis, Hx HIV Past Surgical History: Reports: Hx Appendectomy, Hx Cardiac Catheterization, Hx Cardiac Surgery - AICD for ventricular fibrillation, Hx Section - x4, Hx Coronary Stent, Hx Hysterectomy, Hx Orthopedic Surgery - bilateral knee surgery, Hx Pacemaker, Hx Tonsillectomy. Denies: Hx Bowel Surgery, Hx Cholecystectomy, Hx Colostomy, Hx Coronary Artery Bypass Graft, Hx Gastric Bypass Surgery, Hx Herniorrhaphy, Hx Mastectomy, Hx Open Heart Surgery, Hx Tubal Ligation - Immunizations Immunizations up to date: Yes Hx Diphtheria, Pertussis, Tetanus Vaccination: Yes Hx Pneumococcal Vaccination: 09/21/17 Review of Systems - Review of Systems Constitutional: No symptoms reported EENT: No symptoms reported Cardiovascular: No symptoms reported Respiratory: No symptoms reported Gastrointestinal: No symptoms reported Genitourinary: No symptoms reported Female Genitourinary: No symptoms reported Musculoskeletal: See HPI Skin: No symptoms reported Hematologic/Lymphatic: No symptoms reported Neurological/Psychological: No symptoms reported Physical Exam - Vital signs Vitals: Temp Pulse Resp BP Pulse Ox 97.5 F 64 18 154/80 H 100 07/07/19 07:37 07/07/19 07:37 07/07/19 07:37 07/07/19 07:37 07/07/19 07:37 - Notes Notes: PHYSICAL EXAMINATION: reviewed vital signs by RN GENERAL: Well-appearing, well-nourished and in no acute distress. HEAD: Atraumatic, normocephalic. EYES: Pupils equal round and reactive to light, extraocular movements intact, conjunctiva are normal. ENT: Nares patent, oropharynx clear without exudates. Moist mucous membranes. NECK: Normal range of motion, supple without lymphadenopathy LUNGS: Breath sounds clear to auscultation bilaterally and equal. No wheezes rales or rhonchi. HEART: Regular rate and rhythm without murmurs ABDOMEN: Soft, nontender, nondistended abdomen. No guarding, no rebound. No masses appreciated. Female : deferred Musculoskeletal: Normal range of motion, no pitting or edema. No cyanosis. Te nderness to lumbar spine at L to L3 with noted paraspinal tenderness. Positive straight leg test on left left hip noted pain with abduction and extension of lumbar back at 40 degrees. dtr + 2 bilaterally and equally in BLE. full motor and sensory function. normal gait. cap refill < 3 seconds. distal pulses + 2 in BLE. lower back examination wnl. No erythema, warmth to touch, deformity, crepitus or obvious asymmetry of the affected leg compared to other of hips equally. muscle strength 5 out of 5 bilateral lower extremities equally. NEUROLOGICAL: Cranial nerves grossly intact. Normal speech, normal gait. Normal sensory, motor exams PSYCH: Normal mood, normal affect. SKIN: Warm, Dry, normal turgor, no rashes or lesions noted. Course - Re-evaluation Re-evalutation: 07/07/19 14:29 74-year-old female afebrile vital stable no distress. CT lumbar spine and CT pelvis negative for acute fracture dislocation or bone mass or lesions. Patient given prescription for Mobic, take daily, do not take with any other NSAIDs and take with food. Advised to follow-up with Dr. Fragoso, patient states she did not hit her head or change in level consciousness. Advised to follow-up with Dr. Fragoso as well as nurse orthopedic, apply heat 20 minutes on several times a day, take Tylenol as needed for pain. After performing a Medical Screening Examination, I estimate there is LOW risk for EXPANDING OR RUPTURED ABDOMINAL AORTIC ANEURYSM, CAUDA EQUINA SYNDROME, EPIDURAL MASS ABSCESS OR LESION(S), OSTEOMYELITIS,PERSONAL HISTORY OF CANCER, IMMUNOSUPPERSSSION, HISTORY OF IV DRUG USE, FRACTURE, CORD COMPERSSION, CANCER, RETROPERITONEAL BLEED, SPINAL EPIDURAL HEMATOMA, or HERNIATED DISK CAUSING SEVERE SPINAL STENOSIS, thus I consider the discharge disposition reasonable. I have reevaluated this patient multiple times and no significant life threatening changes are noted. The patient and I have discussed the diagnosis and risks, and we agree with discharging home and close follow-up. We also discussed returning to the Emergency Department immediately if new or worsening symptoms occur with the understanding that s ymptoms and presentations can change. We have discussed the symptoms which are most concerning (e.g., saddle anesthesia, urinary or bowel incontinence or retention, changing or worsening pain) that necessitate immediate return. - Vital Signs Vital signs: Temp Pulse Resp BP Pulse Ox 97.5 F 67 18 154/82 H 94 07/07/19 13:05 07/07/19 13:05 07/07/19 13:05 07/07/19 13:05 07/07/19 13:05 Discharge - Discharge Clinical Impression: Fall, Left hip pain, Lower back pain Condition: Stable Disposition: HOME, SELF-CARE Instructions: Ice & Elevation ([facility]), Low Back Pain ([facility]), Stretching Exercises for the Back ([facility]) Additional Instructions: You had fallen today and you were worked up to see if there is any bone fractures or dislocations as well as a UTI. your CTs were normal as well as urinalysis. Apply heat 20 minutes on 20 minutes off several times a day. Take Mobic as directed do not take any other NSAIDs. Follow-up with your primary care provider within the next 24 to 48 hours. Return immediately for any new or worsening symptoms. Follow up with primary care provider, call tomorrow to make followup appointment. Prescriptions: Meloxicam [Mobic] 7.5 mg PO DAILY #7 tablet Referrals: ANA MARIA FRAGOSO MD [Primary Care Provider] - Follow up as needed FRANSICO PEMBERTON MD [ACTIVE PROVISIONAL STAFF] - Follow up as needed
[2019-07-07 11:46] LABS: APPEARANCE,URINE CLEAR; BILIRUBIN,URINE NEGATIVE (NEGATIVE); COLOR,URINE STRAW; GLUCOSE, URINE NEGATIVE (NEGATIVE); KETONES,URINE NEGATIVE (NEGATIVE); LEUKOCYTE ESTERASE,URINE NEGATIVE (NEGATIVE); NITRITE,URINE NEGATIVE (NEGATIVE); PROTEIN,URINE NEGATIVE (NEGATIVE); URINE SPECIFIC GRAVITY 1.005; UROBILINOGEN,URINE NEGATIVE mg/dL (<2.0)
--- NOTE | 2019-07-07 12:02 | RADIOLOGY REPORT (SQ) ---
EXAM DESCRIPTION: CT LUMBAR SPINE WITHOUT COMPLETED DATE/TIME: 07/07/2019 11:34 am REASON FOR STUDY: Fall, L hip/pelvic and lbp. unwitnessed COMPARISON: None. TECHNIQUE: Axial images acquired through the lumbar spine without intravenous contrast. Images revi ewed with lung, soft tissue and bone windows. Reconstructed coronal and sagittal MPR images reviewed . All images stored on PACS. All CT scanners at this facility use dose modulation, iterative reconstruction, and/or weight based d osing when appropriate to reduce radiation dose to as low as reasonably achievable (ALARA). [facility]: Dose Right [facility]: CareDose [facility]: Dose Right [facility]: Teradose 4D [facility]: [employer] RADIATION DOSE: mGy. LIMITATIONS: None. FINDINGS: SEGMENTATION: Normal. No transitional anatomy. ALIGNMENT: Normal. VERTEBRAL BODIES: No fractures. No dislocation. No acute findings. DISCS: No significant protrusions. Study limited by lack of intrathecal contrast. PEDICLES, TRANSVERSE PROCESSES: No fractures. No dislocation. No acute findings. FACETS, POSTERIOR ELEMENTS: No fractures. No dislocation. No spinal stenosis. HARDWARE: None in the spine. VISUALIZED RIBS: No fractures. SOFT TISSUES: Left lower calyceal calculus. OTHER: No other significant finding. IMPRESSION: No acute findings in the lumbar spine. There is a nonobstructing intrarenal calculus on the left. TECHNICAL DOCUMENTATION: JOB ID: [id number] Quality ID # [id number]: Final reports with documentation of one or more dose reduction techniques (e.g., Au tomated exposure control, adjustment of the mA and/or kV according to patient size, use of iterative reconstruction technique) 2010 [employer]- All Rights Reserved Reading location - IP/workstation name: [email or web address]
[2019-07-07] MEDS ORDERED: HYDROCODONE/ACETAMINOPHEN 5-325 MG TABLET PO ONE (12:06)
--- NOTE | 2019-07-07 12:08 | RADIOLOGY REPORT (SQ) ---
EXAM DESCRIPTION: CT PELVIS WITHOUT COMPLETED DATE/TIME: 07/07/2019 11:34 am REASON FOR STUDY: Fall, L hip/pelvic and lbp. unwitnessed COMPARISON: None. TECHNIQUE: CT scan of the pelvis performed without intravenous or oral contrast. Images reviewed wi th soft tissue and bone windows. Reconstructed coronal and sagittal MPR images reviewed. All images stored on PACS. All CT scanners at this facility use dose modulation, iterative reconstruction, and/or weight based d osing when appropriate to reduce radiation dose to as low as reasonably achievable (ALARA). [facility]: Dose Right [facility]: CareDose [facility]: Dose Right [facility]: Teradose 4D [facility]: [employer] RADIATION DOSE: CT Rad equipment meets quality standard of care and radiation dose reduction techniq ues were employed. CTDIvol: 11.2 mGy. DLP: 335 mGy-cm. mGy. LIMITATIONS: None. FINDINGS: PELVIC BONES: No acute fracture. No worrisome bone lesions. VISUALIZED SPINE: No acute findings. HIP(S): No acute fracture or dislocation. No worrisome bone lesions. PELVIC SOFT TISSUES: There is large right renal cyst in the lower abdomen. EXTRAPELVIC SOFT TISSUES: No significant findings. OTHER: No other significant finding. IMPRESSION: NO ACUTE OR SIGNIFICANT FINDINGS. TECHNICAL DOCUMENTATION: JOB ID: [id number] Quality ID # [id number]: Final reports with documentation of one or more dose reduction techniques (e.g., Au tomated exposure control, adjustment of the mA and/or kV according to patient size, use of iterative reconstruction technique) 2010 [employer]- All Rights Reserved Reading location - IP/workstation name: [email or web address]
[2019-07-07 13:11] VITALS: BP 154/82
== END 2019-07-07 13:05 | disposition home or self-care (01) ==
LOC: ER 07:28
DX: M54.5 Low back pain (principal); M25.552 Pain in left hip; W19.XXXA Unspecified fall, initial encounter; W22.03XA Walked into furniture, initial encounter; I25.10 Atherosclerotic heart disease of native coronary artery without angina pectoris; I10 Essential (primary) hypertension; J44.9 Chronic obstructive pulmonary disease, unspecified; Z88.0 Allergy status to penicillin; Z87.891 Personal history of nicotine dependence
CPT/HCPCS: 81001; 72131; 72192; A9270; 99284

== ENCOUNTER → 2019-07-11 | Outpatient (CLI) | payer MEDICARE, OTHER ==
[~2019-07-11] MED LIST changes: +ALBUTEROL SULFATE 0.083% NEB 2.5 MG/3 ML AMPUL NEB ONE; -BUPIVACAINE HCL 0.5 % INJ/PF 30 ML SDV ONE; -CLINDAMYCIN 600 MG/D5W RTU 600 MG/50 ML RTUPB IV PRN; -LACTATED RINGERS 1000 ML IV PRN; -LIDOCAINE 0.5% INJ-PF (5 MG/ML) 50 ML SDV SUBCUT PRN
--- NOTE | 2019-07-12 10:12 | Pulmonary Function Test ---
Pulmonary Function Test Date of Procedure:: 07/11/19 INDICATION:: Dyspnea (lung cancer) Referring Provider: Dr. Kailash Andersen Chief Design Engineer: Zaira Lowe ROPEMAN, LAWN [employer] PROFESSIONAL - Report Spirometry: Spirometry: pre-FVC:[1.66 L 72%] post-FVC: 1.62 L 70% pre-FEV:1 1.07 L 59% post-FEV1: 1.04 L 57% pre-FEV1/FVC %: 64 post-FEV1/FVC%: 64 predicted: 82 [id number]%: 0.49 L 29% [id number]%: 0.43 L 25% Lung Volume: Total lung capacity: 2.70 L 68% Vital capacity: 1.66 L 72% Inspiratory capacity: 1.39 L FRC N2: 1.31 L 57% ERV: [] RV: 1.03 L 62% RV/TLC %:: 38 predicted 42 Diffusion Capactity: DLCO: 7.6 47% DLCO/VA: 3.09 89% Impression: Moderate obstructive ventilatory defect. Confirmed by the decrease flow in FEF 25-75%. No significant response to bronchodilator therapy. This does not preclude a clinical trial of bronchodilator therapy. Mild restrictive ventilatory defect. (Restrictive defect may mask the degree of obstruction.) No hyperinflation ;no air trapping. Severe decrease in diffusion capacity.
== END ==
LOC: RT 08:55
PROVIDERS: ATTEND Internal Medicine
DX: C34.12 Malignant neoplasm of upper lobe, left bronchus or lung (principal)
CPT/HCPCS: 94729; 94727; 94060; 94760; A9270

== ENCOUNTER 2019-07-17 11:27 | Emergency (ER) | payer MEDICARE, OTHER ==
--- NOTE | 2019-07-17 11:36 | ER Document Report ---
ED Medical Screen (RME) - General Chief Complaint: Back Injury Stated Complaint: FALL/BACK PAIN Time Seen by Provider: 07/17/19 11:34 Primary Care Provider: MAURIZIO BENOIT MD [Primary Care Provider] - Follow up as needed Mode of Arrival: Wheelchair Information source: Patient Notes: Patient states that she has been falling frequently. Patient states she last fell 2 weeks ago and landed on her side. Patient reports persistent left flank lateral side and left abdominal pain since the fall. Patient also complains of nausea. Patient denies any urinary symptoms. Patient saw her primary doctor and did have x-rays that did not show any fracture. Patient states that pain seems to be worsening. I have greeted and performed a rapid initial assessment of this patient. A comprehensive ED assessment and evaluation of the patient, analysis of test results and completion of the medical decision making process will be conducted by additional ED providers. TRAVEL OUTSIDE OF THE [place] IN LAST 30 DAYS: No - Related Data Allergies/Adverse Reactions: amoxicillin Allergy (Verified 07/17/19 11:32) Penicillins Allergy (Verified 07/17/19 11:32) Past Medical History - Past Medical History Cardiac Medical History: Reports: Hx Congestive Heart Failure, Hx Coronary Artery Disease, Hx Heart Attack - 1990, Hx Hypercholesterolemia, Hx Hypertension - ON MEDS Denies: Hx Atrial Fibrillation, Hx Peripheral Vascular Disease, Hx Pulmonary Embolism, Hx Heart Murmur Pulmonary Medical History: Reports: Hx Bronchitis, Hx COPD, Hx Pneumonia - YRS AGO Denies: Hx Asthma, Hx Respiratory Failure, Hx Sleep Apnea, Hx Tuberculosis Neurological Medical History: Denies: Hx Cerebrovascular Accident, Hx Seizures Endocrine Medical History: Denies: Hx Diabetes Mellitus Type 1, Hx Diabetes Mellitus Type 2 Renal/ Medical History: Reports: Hx Renal Insufficiency. Denies: Hx End Stage Renal Disease, Hx Kidney Stones, Hx Peritoneal Dialysis Malignancy Medical History: Denies: Hx Leukemia, Hx Lung Cancer GI Medical History: Reports: Hx Crohn's Disease - Patient has either Crohn's disease or ulcerative colitis, Hx Diverticulitis, Hx Gastroesophageal Reflux Disease. Denies: Hx Hepatitis, Hx Hiatal Hernia, Hx Irritable Bowel, Hx Liver Failure, Hx Pancreatitis, Hx Ulcer Musculoskeltal Medical History: Reports Hx Arthritis, Denies Hx Fibromyalgia, Denies Hx Muscular Dystrophy Psychiatric Medical History: Reports: Hx Depression Denies: Hx Bipolar Disorder, Hx Post Traumatic Stress Disorder, Hx Schizophrenia Traumatic Medical History: Reports: Hx Fractures - right wrist, left foot Infectious Medical History: Denies: Hx Hepatitis, Hx HIV Past Surgical History: Reports: Hx Appendectomy, Hx Cardiac Catheterization, Hx Cardiac Surgery - AICD for ventricular fibrillation, Hx Section - x4, Hx Coronary Stent, Hx Hysterectomy, Hx Orthopedic Surgery - bilateral knee surgery, Hx Pacemaker, Hx Tonsillectomy. Denies: Hx Bowel Surgery, Hx Cholecystectomy, Hx Colostomy, Hx Coronary Artery Bypass Graft, Hx Gastric Bypass Surgery, Hx Herniorrhaphy, Hx Mastectomy, Hx Open Heart Surgery, Hx Tubal Ligation - Immunizations Immunizations up to date: Yes Hx Diphtheria, Pertussis, Tetanus Vaccination: Yes Physical Exam - Vital signs Vitals: Temp Pulse Resp BP Pulse Ox 98.0 F 88 16 150/62 H 96 07/17/19 11:30 07/17/19 11:30 07/17/19 11:30 07/17/19 11:30 07/17/19 11:30 - General General appearance: Alert Notes: Left lateral side, left side abdominal tenderness Course - Vital Signs Vital signs: Temp Pulse Resp BP Pulse Ox 98.0 F 88 16 150/62 H 96 07/17/19 11:30 07/17/19 11:30 07/17/19 11:30 07/17/19 11:30 07/17/19 11:30 Doctor's Discharge - Discharge Referrals: MAURIZIO BENOIT MD [Primary Care Provider] - Follow up as needed
--- NOTE | 2019-07-17 12:15 | ER Document Report ---
ED General - General Chief Complaint: Low Back Pain Stated Complaint: FALL/BACK PAIN Time Seen by Provider: 07/17/19 11:34 Primary Care Provider: MAURIZIO BENOIT MD [ACTIVE STAFF] - Follow up as needed Mode of Arrival: Wheelchair Notes: HPI: ROS: See HPI All other review of systems reviewed and otherwise negative Reviewed vital signs and nursing note as charted by RN. PHYSICAL EXAM: CONSTITUTIONAL: Alert and oriented and responds appropriately to questions. Well-appearing; well-nourished HEAD: Normocephalic; atraumatic EYES: PERRL; Conjunctivae clear, sclerae non-icteric ENT: Normal nose; no rhinorrhea; moist mucous membranes; pharynx without lesions noted NECK: Supple without meningismus; non-tender; no cervical lymphadenopathy, no masses CARD: Regular rate and rhythm; no murmurs; symmetric distal pulses RESP: Normal chest excursion without splinting or tachypnea; breath sounds clear and equal bilaterally; no wheezes, no rhonchi, no rales ABD/GI: Normal bowel sounds; non-distended; soft, non-tender; no palpable organomegaly or masses BACK: The back appears normal and is non-tender to palpation EXT: Normal ROM in all joints; non-tender to palpation; no edema SKIN: No acute lesions noted NEURO: CN 2-12 intact; 5/5 bilateral upper and lower extremity strength with sensation intact to light touch PSYCH: The patient's mood and manner are appropriate. Grooming and personal hygiene are appropriate. TRAVEL OUTSIDE OF THE [place] IN LAST 30 DAYS: No - Related Data Allergies/Adverse Reactions: amoxicillin Allergy (Verified 07/17/19 11:32) Penicillins Allergy (Verified 07/17/19 11:32) Past Medical History - General Information source: Patient - Social History Smoking Status: Former Smoker Family History: Reviewed & Not Pertinent, Hypertension Patient has suicidal ideation: No Patient has homicidal ideation: No - Past Medical History Cardiac Medical History: Reports: Hx Congestive Heart Failure, Hx Coronary Artery Disease, Hx Heart Attack - 1990, Hx Hypercholesterolemia, Hx Hypertension - ON MEDS Denies: Hx Atrial Fibrillation, Hx Peripheral Vascular Disease, Hx Pulmonary Embolism, Hx Heart Murmur Pulmonary Medical History: Reports: Hx Bronchitis, Hx COPD, Hx Pneumonia - YRS AGO Denies: Hx Asthma, Hx Respiratory Failure, Hx Sleep Apnea, Hx Tuberculosis Neurological Medical History: Denies: Hx Cerebrovascular Accident, Hx Seizures Endocrine Medical History: Denies: Hx Diabetes Mellitus Type 1, Hx Diabetes Mellitus Type 2 Renal/ Medical History: Reports: Hx Renal Insufficiency. Denies: Hx End Stage Renal Disease, Hx Kidney Stones, Hx Peritoneal Dialysis Malignancy Medical History: Denies: Hx Leukemia, Hx Lung Cancer GI Medical History: Reports: Hx Crohn's Disease - Patient has either Crohn's disease or ulcerative colitis, Hx Diverticulitis, Hx Gastroesophageal Reflux Disease. Denies: Hx Hepatitis, Hx Hiatal Hernia, Hx Irritable Bowel, Hx Liver Failure, Hx Pancreatitis, Hx Ulcer Musculoskeletal Medical History: Reports Hx Arthritis, Denies Hx Fibromyalgia, Denies Hx Muscular Dystrophy Psychiatric Medical History: Reports: Hx Depression Denies: Hx Bipolar Disorder, Hx Post Traumatic Stress Disorder, Hx Schizophrenia Traumatic Medical History: Reports: Hx Fractures - right wrist, left foot Infectious Medical History: Denies: Hx Hepatitis, Hx HIV Past Surgical History: Reports: Hx Appendectomy, Hx Cardiac Catheterization, Hx Cardiac Surgery - AICD for ventricular fibrillation, Hx Section - x4, Hx Coronary Stent, Hx Hysterectomy, Hx Orthopedic Surgery - bilateral knee surgery, Hx Pacemaker, Hx Tonsillectomy. Denies: Hx Bowel Surgery, Hx Cho lecystectomy, Hx Colostomy, Hx Coronary Artery Bypass Graft, Hx Gastric Bypass Surgery, Hx Herniorrhaphy, Hx Mastectomy, Hx Open Heart Surgery, Hx Tubal Ligation - Immunizations Immunizations up to date: Yes Hx Diphtheria, Pertussis, Tetanus Vaccination: Yes Hx Pneumococcal Vaccination: 09/21/17 Physical Exam - Vital signs Vitals: Temp Pulse Resp BP Pulse Ox 98.0 F 88 16 150/62 H 96 07/17/19 11:30 07/17/19 11:30 07/17/19 11:30 07/17/19 11:30 07/17/19 11:30 Course - Re-evaluation Re-evalutation: 07/17/19 12:14 EKG shows a heart of 62, normal sinus rhythm, inverted T waves with some mild depression in leads I, aVL, V4 through V6. Inverted T waves in V3. Compared to the previous EKG in September, no appreciable change. - Vital Signs Vital signs: Temp Pulse Resp BP Pulse Ox 98.0 F 88 16 150/62 H 96 07/17/19 11:30 07/17/19 11:30 07/17/19 11:30 07/17/19 11:30 07/17/19 11:30 Discharge - Discharge Referrals: MAURIZIO BENOIT MD [ACTIVE STAFF] - Follow up as needed
--- NOTE | 2019-07-17 12:39 | ER Document Report ---
ED General - General Chief Complaint: Low Back Pain Stated Complaint: FALL/BACK PAIN Time Seen by Provider: 07/17/19 11:34 Primary Care Provider: MAURIZIO BENOIT MD [ACTIVE STAFF] - Follow up as needed Mode of Arrival: Wheelchair Notes: HPI: 74-year-old female who states 1 week ago she fell while attempting to let her dog out. She states she had no lightheadedness, dizziness, chest pain, palpitations, weakness or numbness because of the fall. She landed on the left side. She states she has had some chronic increasing pain to the left lower lateral ribs as well as the left lower quadrant of her abdomen. She denies any pelvis pain. She states she did not hit her head. She denies any vomiting, fevers, weakness or numbness. ROS: See HPI All other review of systems reviewed and otherwise negative Reviewed vital signs and nursing note as charted by RN. PHYSICAL EXAM: CONSTITUTIONAL: Alert and oriented and responds appropriately to questions. Well-appearing; well-nourished HEAD: Normocephalic; atraumatic EYES: PERRL; Conjunctivae clear, sclerae non-icteric ENT: Normal nose; no rhinorrhea; moist mucous membranes; pharynx without lesions noted NECK: Supple without meningismus; non-tender CARD: Regular rate and rhythm; no murmurs; symmetric distal pulses RESP: Normal chest excursion without splinting or tachypnea; breath sounds clear and equal bilaterally; tenderness to palpation of the left lower posterior ribs without any obvious swelling, erythema, or crepitus ABD/GI: Normal bowel sounds; non-distended; soft, mild tenderness to palpation of the left lower quadrant without rebound or guarding. Patient does have an old surgical scar consistent with an intra-abdominal pacemaker that has recently been moved to the left chest BACK: The back appears normal and is non-tender to palpation EXT: Normal ROM in all joints; non-tender to palpation; no edema SKIN: No acute lesions noted NEURO: CN 2-12 intact; 5/5 bilateral upper and lower extremity strength with sensation intact to light touch PSYCH: The patient's mood and manner are appropriate. Grooming and personal hygiene are appropriate. TRAVEL OUTSIDE OF THE [place] IN LAST 30 DAYS: No - Related Data Allergies/Adverse Reactions: amoxicillin Allergy (Verified 07/17/19 11:32) Penicillins Allergy (Verified 07/17/19 11:32) Past Medical History - General Information source: Patient - Social History Smoking Status: Former Smoker Family History: Reviewed & Not Pertinent, Hypertension Patient has suicidal ideation: No Patient has homicidal ideation: No - Past Medical History Cardiac Medical History: Reports: Hx Congestive Heart Failure, Hx Coronary Artery Disease, Hx Heart Attack - 1990, Hx Hypercholesterolemia, Hx Hypertension - ON MEDS Denies: Hx Atrial Fibrillation, Hx Peripheral Vascular Disease, Hx Pulmonary Embolism, Hx Heart Murmur Pulmonary Medical History: Reports: Hx Bronchitis, Hx COPD, Hx Pneumonia - YRS AGO Denies: Hx Asthma, Hx Respiratory Failure, Hx Sleep Apnea, Hx Tuberculosis Neurological Medical History: Denies: Hx Cerebrovascular Accident, Hx Seizures Endocrine Medical History: Denies: Hx Diabetes Mellitus Type 1, Hx Diabetes Mellitus Type 2 Renal/ Medical History: Reports: Hx Renal Insufficiency. Denies: Hx End Stage Renal Disease, Hx Kidney Stones, Hx Peritoneal Dialysis Malignancy Medical History: Denies: Hx Leukemia, Hx Lung Cancer GI Medical History: Reports: Hx Crohn's Disease - Patient has either Crohn's disease or ulcerative colitis, Hx Diverticulitis, Hx Gastroesophageal Reflux Disease. Denies: Hx Hepatitis, Hx Hiatal Hernia, Hx Irritable Bowel, Hx Liver Failure, Hx Pancreatitis, Hx Ulcer Musculoskeletal Medical History: Reports Hx Arthritis, Denies Hx Fibromyalgia, Denies Hx Muscular Dystrophy Psychiatric Medical History: Reports: Hx Depression Denies: Hx Bipolar Disorder, Hx Post Traumatic Stress Disorder, Hx Schizophrenia Traumatic Medical History: Reports: Hx Fractures - right wrist, left foot Infectious Medical History: Denies: Hx Hepatitis, Hx HIV Past Surgical History: Reports: Hx Appendectomy, Hx Cardiac Catheterization, Hx Cardiac Surgery - AICD for ventricular fibrillation, Hx Section - x4, Hx Coronary Stent, Hx Hysterectomy, Hx Orthopedic Surgery - bilateral knee surgery, Hx Pacemaker, Hx Tonsillectomy. Denies: Hx Bowel Surgery, Hx Chol ecystectomy, Hx Colostomy, Hx Coronary Artery Bypass Graft, Hx Gastric Bypass Surgery, Hx Herniorrhaphy, Hx Mastectomy, Hx Open Heart Surgery, Hx Tubal Ligation - Immunizations Immunizations up to date: Yes Hx Diphtheria, Pertussis, Tetanus Vaccination: Yes Hx Pneumococcal Vaccination: 09/21/17 Physical Exam - Vital signs Vitals: Temp Pulse Resp BP Pulse Ox 98.0 F 88 16 150/62 H 96 07/17/19 11:30 07/17/19 11:30 07/17/19 11:30 07/17/19 11:30 07/17/19 11:30 Course - Re-evaluation Re-evalutation: 07/17/19 12:38 Given the above history and physical examination I will order basic labs, EKG, CT scan of the chest abdomen and pelvis without contrast to evaluate the possibility of multiple fractures in this 74-year-old female as well as a retroperitoneal bleed or intra-abdominal pathology. 07/17/19 14:12 CT scan of the abdomen and pelvis as recorded. X-ray of the chest shows no obvious rib fractures. Vital signs are stable. White blood cell count is low slightly below baseline. Patient is afebrile and not neutropenic. Cancer history as recorded. Given the above history and physical, patient will be discharged home with strict return precautions and a short course of pain medications. - Vital Signs Vital signs: Temp Pulse Resp BP Pulse Ox 98.0 F 88 16 150/62 H 96 07/17/19 11:30 07/17/19 11:30 07/17/19 11:30 07/17/19 11:30 07/17/19 11:30 - Laboratory Result Diagrams: 07/17/19 12:48 07/17/19 12:48 Laboratory results interpreted by me: 07/17/19 07/17/19 12:48 12:48 WBC 2.7 L RBC 3.64 L Hgb 11.3 L Hct 34.3 L RDW 15.6 H Absolute Neuts (auto) 1.5 L Chloride 110 H Est GFR (MDRD) Non-Af 52 L Discharge - Discharge Clinical Impression: Accidental fall Qualifiers: Encounter type: initial encounter Qualified Code(s): W19.XXXA - Unspecified fall, initial encounter Abdominal contusion Qualifiers: Encounter type: initial encounter Qualified Code(s): S30.1XXA - Contusion of abdominal wall, initial encounter Contusion of rib on left side Qualifiers: Encounter type: initial encounter Qualified Code(s): S20.212A - Contusion of left front wall of thorax, initial encounter Condition: Good Disposition: HOME, SELF-CARE Additional Instructions: Come back immediately for any increased pain, weakness or numbness, shortness of breath, fevers or vomiting, or any other acute problems. Please follow-up with your primary care physician and specialist as discussed. Prescriptions: Hydrocodone/Acetaminophen [[place] 5-325 mg Tablet] 1 tab PO Q8 #12 tablet Referrals: MAURIZIO BENOIT MD [ACTIVE STAFF] - Follow up as needed
[2019-07-17 13:01] LABS: ABSOLUTE MONOCYTES (AUTO) 0.2 10^3/uL (0.1-1.4); ABSOLUTE NEUT (AUTO) 1.5 10^3/uL (1.7-8.2); BASOPHILS % (AUTO) 0.3 % (0-2); EOSINOPHILS % (AUTO) 0.8 % (0-6); HEMATOCRIT 34.3 % (36.0-47.0); HEMOGLOBIN 11.3 g/dL (12.0-15.5); LYMPHOCYTES % (AUTO) 36.4 % (13-45); MEAN CORPUSCULAR VOLUME 94 fl (80-97); MONOCYTES % (AUTO) 5.6 % (3-13); PLATELET COUNT 203 10^3/uL (150-450); RED BLOOD COUNT 3.64 10^6/uL (3.72-5.28); RED CELL DISTRIBUTION WIDTH 15.6 % (11.5-14.0); SEGMENTED NEUTROPHILS % (AUTO) 56.9 % (42-78); TOTAL CELLS COUNTED % (AUTO) 100 %; WHITE BLOOD COUNT 2.7 10^3/uL (4.0-10.5)
[2019-07-17 13:13] LABS: ALBUMIN 3.9 g/dL (3.5-5.0); ALKALINE PHOSPHATASE 99 U/L (38-126); ANION GAP 9 (5-19); ASPARTATE AMINO TRANSFERASE 19 U/L (14-36); BILIRUBIN,DIRECT 0.1 mg/dL (0.0-0.4); BILIRUBIN,TOTAL 0.7 mg/dL (0.2-1.3); BLOOD UREA NITROGEN 17 mg/dL (7-20); CALCIUM 9.3 mg/dL (8.4-10.2); CARBON DIOXIDE 26 mmol/L (22-30); CHLORIDE 110 mmol/L (98-107); GLUCOSE 81 mg/dL (75-110); POTASSIUM 4.2 mmol/L (3.6-5.0); TOTAL PROTEIN 6.6 g/dL (6.3-8.2)
--- NOTE | 2019-07-17 13:39 | RADIOLOGY REPORT (SQ) ---
EXAM DESCRIPTION: CT CHEST WITHOUT; CT ABD/PELVIS NO ORAL OR IV COMPLETED DATE/TIME: 07/17/2019 1:23 pm REASON FOR STUDY: 13; left lower lateral rib pain; 13; fall left lower abd COMPARISON: CT chest, 05/09/2019, CT pelvis, 07/07/2019, PET-CT, 07/03/2019 TECHNIQUE: CT scan of the chest performed without intravenous contrast using helical scanning techni que. Images reviewed with lung, soft tissue and bone windows. Reconstructed coronal and sagittal MPR images reviewed. All images stored on PACS. CT scan of the abdomen and pelvis performed without intravenous contrast and withoutoral contrast usi ng helical scanning technique with dynamic intravenous contrast injection. Images reviewed with lung , soft tissue and bone windows. Reconstructed coronal and sagittal MPR images reviewed. All images stored on PACS. All CT scanners at this facility use dose modulation, iterative reconstruction, and/or weight based d osing when appropriate to reduce radiation dose to as low as reasonably achievable (ALARA). [facility]: Dose Right [facility]: CareDose [facility]: Dose Right [facility]: Teradose 4D [facility]: Quotefish RADIATION DOSE: 354 mGy cm LIMITATIONS: No technical limitations. FINDINGS: CHEST: AXILLAE: No adenopathy. CHEST WALL: No masses. No subcutaneous air. LUNGS: Emphysema. Redemonstrated 2.6 cm nodule of the left upper lobe with adjacent fiducial markers . PLEURA: No effusions. No calcifications. THYROID: No masses or significant asymmetry. HILAR AND MEDIASTINAL STRUCTURES: No identified masses or abnormal nodes. AORTA AND GREAT VESSELS: No aneurysm. Calcific atherosclerosis. HEART: No pericardial effusion. Cardiomegaly with extensive 3 vessel coronary artery calcifications and/or stents with left chest multi lead pacer defibrillator. HARDWARE AND LIFELINES: None. BONES: No significant finding. OTHER: No other significant finding. ABDOMEN AND PELVIS: LIVER: Normal size. No masses. No dilated ducts. SPLEEN: Normal size. No focal lesions. PANCREAS: No masses. No significant calcifications. No adjacent inflammation or peripancreatic flui d collections. Pancreatic duct not dilated. GALLBLADDER: No identified stones by CT criteria. No inflammatory changes to suggest cholecystitis. ADRENAL GLANDS: No significant masses or asymmetry. RIGHT KIDNEY AND URETER: No solid masses. Large exophytic inferior pole cyst. Assessment limited by lack of IV contrast. No significant calcification. No hydronephrosis or hydroureter. LEFT KIDNEY AND URETER: No solid masses. Assessment limited by lack of IV contrast. Nonobstructive i nferior pole calculus. No hydronephrosis or hydroureter. AORTA AND VESSELS: No aneurysm. Calcific atherosclerosis. RETROPERITONEUM: No retroperitoneal adenopathy, hemorrhage or masses. APPENDIX: Normal. LARGE AND SMALL BOWEL: No dilatation. No masses. No wall thickening. ABDOMINAL WALL: Abandoned anterior abdominal pacer pocket with abandoned epicardial leads. PERITONEAL CAVITY: No free air. No free fluid. No peritoneal implants or masses. PELVIS: No mass or free fluid. Status posthysterectomy. Normal bladder. BONES: No significant or acute findings. OTHER: No other significant finding. IMPRESSION: 1. No noncontrast CT evidence of acute traumatic injury to the chest, abdomen, or pelvi s. No displaced fractures. Please note that lack of intravenous contrast significantly limits evalu ation for solid organ injury and in general, intravenous contrast is strongly indicated in the settin g of trauma. 2. Redemonstrated left upper lobe nodule, in keeping with findings of prior PET-CT. 3. Additional chronic findings as detailed above. TECHNICAL DOCUMENTATION: JOB ID: [id number] Quality ID # [id number]: Final reports with documentation of one or more dose reduction techniques (e.g., Au tomated exposure control, adjustment of the mA and/or kV according to patient size, use of iterative reconstruction technique) 2010 [employer]- All Rights Reserved Reading location - IP/workstation name: [email or web address]
[2019-07-17] MEDS ORDERED: HYDROCODONE/ACETAMINOPHEN 5-325 MG TABLET PO ONE (14:16)
--- NOTE | 2019-07-17 14:40 | EKG REPORT ---
SEVERITY:- ABNORMAL ECG - SINUS RHYTHM ABNORMAL T, CONSIDER ISCHEMIA, LATERAL LEADS : Confirmed by: Clarice Turk MD 17-Jul-2019 14:39:29
[2019-07-17 15:03] VITALS: BP 146/79
== END 2019-07-17 15:03 | disposition home or self-care (01) ==
LOC: ER 11:27
DX: S30.1XXA Contusion of abdominal wall, initial encounter (principal); S20.212A Contusion of left front wall of thorax, initial encounter; M54.9 Dorsalgia, unspecified; R10.32 Left lower quadrant pain; W19.XXXA Unspecified fall, initial encounter; Z91.81 History of falling; I50.9 Heart failure, unspecified; I25.10 Atherosclerotic heart disease of native coronary artery without angina pectoris; I11.0 Hypertensive heart disease with heart failure; Z88.0 Allergy status to penicillin; I25.2 Old myocardial infarction; Z95.810 Presence of automatic (implantable) cardiac defibrillator
CPT/HCPCS: 93005; 99284; 36415; 85025; 80053; 71250; 74176; 93010; A9270

== ENCOUNTER → 2019-07-18 | Outpatient (CLI) | payer MEDICARE, OTHER ==
--- NOTE | 2019-07-18 12:32 | RADIOLOGY REPORT (SQ) ---
EXAM DESCRIPTION: NM LUNG VENT/PERF SCAN COMPLETED DATE/TIME: 07/18/2019 11:31 am REASON FOR STUDY: (C34.12) LUNG CA, LUNG RESECTION , QUANT LUNG PER DR. BENOIT C34.12 MALIGNANT NE OPLASM OF UPPER LOBE, LEFT BRONCHUS OR ALEX R91.1 SOLITARY PULMONARY NODULE COMPARISON: None. RADIONUCLIDE AND DOSE: 5 millicuries TC-99m MAA Intravenous 30 millicuries TC-99m DTPA Inhaled aerosol TECHNIQUE: Eight views of the lungs acquired post ventilation of DTPA aerosol. Eight matching views of the lungs acquired following injection of MAA. LIMITATIONS: None. FINDINGS: VENTILATION: There is some clumping of activity with suboptimal distribution. PERFUSION: Perfusion images with normal homogenous activity and no wedge-shaped or segmental defects. No ventilation-perfusion mismatches. OTHER: Ventilation and perfusion analysis was performed for quantification purposes. Perfusion shows mean perfusion on the left of 29.3% 9 on the right of 70.7%. Ventilation shows mean activity on the left of 40% hand on the right of 60%. IMPRESSION: There is no evidence of pulmonary emboli. Ventilation and perfusion analysis as describ ed. There is sub optimal distribution of activity on the ventilation scan. TECHNICAL DOCUMENTATION: JOB ID: [id number] [employer]- All Rights Reserved Reading location - IP/workstation name: [email or web address]
--- NOTE | 2019-07-18 12:37 | RADIOLOGY REPORT (SQ) ---
EXAM DESCRIPTION: CHEST 2 VIEWS COMPLETED DATE/TIME: 07/18/2019 10:30 am REASON FOR STUDY: (C34.12)MALIGNANT NEOPLASM OF LOWER LOBE, RIGHT BRONCHUS OR LUNG COMPARISON: None. EXAM PARAMETERS: NUMBER OF VIEWS: two views TECHNIQUE: Digital Frontal and Lateral radiographic views of the chest acquired. RADIATION DOSE: NA LIMITATIONS: none FINDINGS: LUNGS AND PLEURA: No opacities, masses or pneumothorax. No pleural effusion. MEDIASTINUM AND HILAR STRUCTURES: No masses or contour abnormalities. HEART AND VASCULAR STRUCTURES: Heart normal size. No evidence for failure. BONES: No acute findings. HARDWARE: Pacemaker/defibrillator. OTHER: No other significant finding. IMPRESSION: NO ACUTE RADIOGRAPHIC FINDING IN THE CHEST. TECHNICAL DOCUMENTATION: JOB ID: [id number] [employer]- All Rights Reserved Reading location - IP/workstation name: [email or web address]
== END ==
LOC: RAD 09:44
PROVIDERS: ATTEND Internal Medicine
DX: C34.12 Malignant neoplasm of upper lobe, left bronchus or lung (principal); R91.1 Solitary pulmonary nodule
CPT/HCPCS: 71046; 78582; A9540; A9567; Q9969

== ENCOUNTER → 2019-12-16 | Outpatient (CLI) | payer MEDICARE, OTHER ==
[2019-12-16 13:52] LABS: ABSOLUTE LYMPHOCYTES (AUTO) 0.8 10^3/uL (0.5-4.7); ABSOLUTE MONOCYTES (AUTO) 0.1 10^3/uL (0.1-1.4); ABSOLUTE NEUT (AUTO) 1.3 10^3/uL (1.7-8.2); BASOPHILS % (AUTO) 0.1 % (0-2); EOSINOPHILS % (AUTO) 1.8 % (0-6); HEMATOCRIT 33.8 % (36.0-47.0); HEMOGLOBIN 11.6 g/dL (12.0-15.5); LYMPHOCYTES % (AUTO) 34.8 % (13-45); MEAN CORPUSCULAR HEMOGLOBIN 31.7 pg (27.0-33.4); MEAN CORPUSCULAR HGB CONC 34.3 g/dL (32.0-36.0); MEAN CORPUSCULAR VOLUME 92 fl (80-97); MONOCYTES % (AUTO) 5.9 % (3-13); PLATELET COUNT 231 10^3/uL (150-450); RED BLOOD COUNT 3.66 10^6/uL (3.72-5.28); RED CELL DISTRIBUTION WIDTH 15.2 % (11.5-14.0); SEGMENTED NEUTROPHILS % (AUTO) 57.4 % (42-78); TOTAL CELLS COUNTED % (AUTO) 100 %; WHITE BLOOD COUNT 2.3 10^3/uL (4.0-10.5)
[2019-12-16 13:58] LABS: ANION GAP 8 (5-19); BLOOD UREA NITROGEN 15 mg/dL (7-20); CALCIUM 9.6 mg/dL (8.4-10.2); CARBON DIOXIDE 22 mmol/L (22-30); CHLORIDE 106 mmol/L (98-107); CREATINE KINASE 47 U/L (30-135); GLUCOSE 102 mg/dL (75-110); POTASSIUM 4.5 mmol/L (3.6-5.0)
--- NOTE | 2019-12-16 15:03 | RADIOLOGY REPORT (SQ) ---
EXAM DESCRIPTION: CHEST PA/LATERAL IMAGES COMPLETED DATE/TIME: 12/16/2019 2:54 pm REASON FOR STUDY: CHEST PAIN COMPARISON: 07/18/2019 EXAM PARAMETERS: NUMBER OF VIEWS: two views TECHNIQUE: Digital Frontal and Lateral radiographic views of the chest acquired. RADIATION DOSE: NA LIMITATIONS: none FINDINGS: LUNGS AND PLEURA: The left perihilar nodule is smaller in size. There is linear opacifica tion now on this area which could represent scar or atelectasis. Lung troy are otherwise clear. N o pneumothorax. MEDIASTINUM AND HILAR STRUCTURES: No masses or contour abnormalities. HEART AND VASCULAR STRUCTURES: Heart normal size. No evidence for failure. BONES: No acute findings. HARDWARE: Battery pack and leads remain in place. OTHER: No other significant finding. IMPRESSION: The left perihilar mass is significantly smaller in size. Linear opacification is fair could represent scar or atelectasis. TECHNICAL DOCUMENTATION: JOB ID: [id number] 2010 [employer]- All Rights Reserved Reading location - IP/workstation name: [email or web address]
--- NOTE | 2019-12-16 19:21 | EKG REPORT ---
SEVERITY:- ABNORMAL ECG - SINUS RHYTHM ABNORMAL T, CONSIDER ISCHEMIA, ANT-LAT LEADS : Confirmed by: John Duncan MD 16-Dec-2019 19:19:58
== END ==
LOC: OD 12:28
PROVIDERS: ATTEND Family Medicine
DX: R07.9 Chest pain, unspecified (principal); I25.10 Atherosclerotic heart disease of native coronary artery without angina pectoris
CPT/HCPCS: 36415; 71046; 80048; 82550; 84484; 85025; 93005; 93010

== ENCOUNTER → 2020-01-09 | Outpatient (CLI) | payer MEDICARE, OTHER ==
--- NOTE | 2020-01-09 13:48 | RADIOLOGY REPORT (SQ) ---
EXAM DESCRIPTION: ANKLE RIGHT COMPLETE IMAGES COMPLETED DATE/TIME: 01/09/2020 1:28 pm REASON FOR STUDY: PAIN IN RIGHT ANKLE AND JOINTS OF RIGHT FOOT M25.571 PAIN IN RIGHT ANKLE AND JOIN TS OF RIGHT FOOT COMPARISON: None. NUMBER OF VIEWS: Three views. TECHNIQUE: AP, lateral, and oblique radiographic images acquired of the right ankle. LIMITATIONS: Patient positioning. FINDINGS: MINERALIZATION: Decreased. BONES: No definite acute bony abnormality. Degenerative changes about the ankle and inferior to the medial and lateral malleolus. JOINTS: No dislocation. talar dome intact. SOFT TISSUES: Vascular calcifications. Lower extremity edema. OTHER: No other significant finding. IMPRESSION: 1. Limited evaluation secondary to patient positioning. 2. Degenerative changes about the hindfoot without definite acute bony abnormality. TECHNICAL DOCUMENTATION: JOB ID: [id number] 2010 [employer]- All Rights Reserved Reading location - IP/workstation name: [email or web address]
== END ==
LOC: OD 13:11
PROVIDERS: ATTEND Family Medicine
DX: M25.571 Pain in right ankle and joints of right foot (principal)

== ENCOUNTER → 2020-01-25 | Outpatient (CLI) | payer MEDICARE, OTHER ==
[2020-01-25 12:01] VITALS: BP 138/65
--- NOTE | 2020-01-25 12:01 | ER RDC ASSESSMENT REPORT ---
Intake - In the Last 14 days Have you traveled outside [place]?: No Have you been in close contact with someone CONFIRMED: No Worked in Healthcare?: No - Symptoms Subjective Fever([place] feverish): Yes Chills: Yes Muscule Aches: Yes Runny Nose: Yes Sore Throat: Yes Cough (New or worsening chronic cough): Yes Shortness of breath: Yes Nausea or Vomiting: Yes Headache: Yes Abdominal Pain: No Diarrhea(3 or more loose stools in last 24 hours): No - Do you have any of the following Chronic lung disease: Asthma or emphysema or COPD: Yes Chronic Lung Disease Comment: History of COPD Cystic Fibrosis: No Diabetes: No High Blood Pressure: Yes Cardiovascular Disease: Yes Chronic Kidney Disease: No Chronic Liver Disease: No Chronic blood disorder like Sickle Cell Disease: No Weak immune system due to disease or medication: No Neurologic condition that limits movement: No Developmental delay - Moderate to Severe: No Recent (within past 2 weeks) or current : No Morbid Obesity (>100 pounds over ideal weight): No Obesity Comment: Height 5 feet 0 inches weight 140 pounds - Objective Temperature: 97.8 F Pulse Rate: 80 Respiratory Rate: 20 Blood Pressure: 138/65 O2 Sat by Pulse Oximetry: 96 Objective: Given above, testing performed: If Testing Performed: Test Specimen Type Sent to General - General Information source: Patient Notes: Patient at [facility] for Covid testing today. reports has been feeing sick with cough SOB body aches for several days. Patient reports buring in upper chest worse today. Known patient of Dr. Diony Mendoza reports spoke with him yesterday and had picked up a prescription. - Related Data Allergies/Adverse Reactions: amoxicillin Allergy (Verified 07/17/19 11:32) Penicillins Allergy (Verified 07/17/19 11:32) Past Medical History - Social History Smoking Status: Never Smoker Family History: Reviewed & Not Pertinent, Hypertension - Past Medical History Cardiac Medical History: Reports: Hx Congestive Heart Failure, Hx Coronary Artery Disease, Hx Heart Attack - 1990, Hx Hypercholesterolemia, Hx Hypertension - ON MEDS Denies: Hx Atrial Fibrillation, Hx Peripheral Vascular Disease, Hx Pulmonary Embolism, Hx Heart Murmur Pulmonary Medical History: Reports: Hx Bronchitis, Hx COPD, Hx Pneumonia - YRS AGO Denies: Hx Asthma, Hx Respiratory Failure, Hx Sleep Apnea, Hx Tuberculosis Neurological Medical History: Denies: Hx Cerebrovascular Accident, Hx Seizures Endocrine Medical History: Denies: Hx Diabetes Mellitus Type 1, Hx Diabetes Mellitus Type 2 Renal/ Medical History: Reports: Hx Renal Insufficiency. Denies: Hx End Stage Renal Disease, Hx Kidney Stones, Hx Peritoneal Dialysis Malignancy Medical History: Denies: Hx Leukemia, Hx Lung Cancer GI Medical History: Reports: Hx Crohn's Disease - Patient has either Crohn's disease or ulcerative colitis, Hx Diverticulitis, Hx Gastroesophageal Reflux Disease. Denies: Hx Hepatitis, Hx Hiatal Hernia, Hx Irritable Bowel, Hx Liver Failure, Hx Pancreatitis, Hx Ulcer Musculoskeletal Medical History: Reports Hx Arthritis, Denies Hx Fibromyalgia, Denies Hx Muscular Dystrophy Psychiatric Medical History: Reports: Hx Depression Denies: Hx Bipolar Disorder, Hx Post Traumatic Stress Disorder, Hx Schizophrenia Traumatic Medical History: Reports: Hx Fractures - right wrist, left foot Infectious Medical History: Denies: Hx Hepatitis, Hx HIV Past Surgical History: Reports: Hx Appendectomy, Hx Cardiac Catheterization, Hx Cardiac Surgery - AICD for ventricular fibrillation, Hx Section - x4, Hx Coronary Stent, Hx Hysterectomy, Hx Orthopedic Surgery - bilateral knee surgery, Hx Pacemaker, Hx Tonsillectomy. Denies: Hx Bowel Surgery, Hx Cholecystectomy, Hx Colostomy, Hx Coronary Artery Bypass Graft, Hx Gastric Bypass Surgery, Hx Herniorrhaphy, Hx Mastectomy, Hx Open Heart Surgery, Hx Tubal Ligation Physical Exam - General General appearance: Appears well, Alert In distress: None Notes: PHYSICAL EXAMINATION: GENERAL: Well-appearing and in no acute distress. HEAD: Atraumatic, normocephalic. EYES: sclera anicteric, conjunctiva are normal. ENT: nares patent. Moist mucous membranes. NECK: Normal range of motion, supple without lymphadenopathy LUNGS: CTAB and equal. No wheezes rales or rhonchi. Resp even and unlabored. HEART: Regular rate and rhythm without murmurs ABDOMEN: Soft, nontender, normal bowel sounds, no guarding. EXTREMITIES: . No cyanosis. NEUROLOGICAL: Normal speech. PSYCH: Normal mood, normal affect. SKIN: Warm, Dry, normal turgor, - Respiratory Breath sounds: Decreased air movement - notable to left posterior., Nonproductive cough - Dry cough occasioanlly noted Diagnostic Results Laboratory Results: Patient informed of negative rapid strep and negative rapid flu results. Pending strep culture; pending COVID testing results. Patient provided instructions regarding COVID to include: As a person under investigation for Covid 19, the [place] department of Health and Human Services, division of public health advises you to adhere to the following guidance until your test results are reported to you. If your test result is positive, you will receive additional information from your provider and your local health department at that time. Remain at home until you are cleared by the health provider or public health authorities. Keep a log of visitors to your home, notify any visitors to your home of your isolation status. If you plan to move to a new address or leave the county, notify the local health department in your County. Call your doctor or seek care if you have an urgent medical need. Before seeking medical care, call ahead to get instructions from the provider before arriving at the medical office clinic or hospital. Notify them that you are being tested for the virus that causes Covid 19 so that arrangements can be made, as necessary, to prevent transmission to others in the healthcare setting. Next, notify the local health department in your county. If a medical emergency arises and you need to call 911, inform the first responders that you are being tested for the virus that causes Covid 19. Next, notify the local health department in your county. Patient Education/Counseling Counseling/Education: Patient presents with upper respiratory symptoms worrisome for possible Covid 19. Patient does not have emergency worring symptoms such as difficulty breathing, shortness of breath, chest pain, pressure, confusion or cyanosis. Patient appears suitable for discharge. Spoke with Dr. Mendoza via phone with patient complaints/status. Instructed to go to [facility] for additional testing. Patient to call Dr. Mendoza later today. To ED for persistent or worsening symptoms. Patient's vital signs are stable and patient is nontoxic in appearance. Good return precautions have been discussed with patient, patient verbalized understanding and is agreeable with discharge plan of care at this time. C Discharge - Discharge Clinical Impression: COVID - 19 SCREENING Condition: Stable Disposition: Home; Selfcare
[2020-01-25 14:06] LABS: A TYPE INFLUENZA AG NEGATIVE (NEGATIVE); B INFLUENZA AG NEGATIVE (NEGATIVE)
== END ==
LOC: RDC 10:51
PROVIDERS: ATTEND Nurse Practitioner Family
DX: Z20.828 Contact with and (suspected) exposure to other viral communicable diseases (principal); R50.9 Fever, unspecified; R05 Cough; R06.02 Shortness of breath; J02.9 Acute pharyngitis, unspecified; R09.89 Other specified symptoms and signs involving the circulatory and respiratory systems; M79.10 Myalgia, unspecified site; R51 Headache; J44.9 Chronic obstructive pulmonary disease, unspecified; I10 Essential (primary) hypertension; R07.89 Other chest pain; Z88.0 Allergy status to penicillin; Z88.1 Allergy status to other antibiotic agents; Z86.79 Personal history of other diseases of the circulatory system; I25.2 Old myocardial infarction; E78.00 Pure hypercholesterolemia, unspecified; N28.9 Disorder of kidney and ureter, unspecified; K21.9 Gastro-esophageal reflux disease without esophagitis
CPT/HCPCS: 87070; 87880; 87804; U0003; 87635; 99211

== ENCOUNTER → 2020-01-25 | Outpatient (CLI) | payer MEDICARE, OTHER ==
[2020-01-25 13:08] LABS: ANION GAP 7 (5-19); BLOOD UREA NITROGEN 19 mg/dL (7-20); CALCIUM 9.4 mg/dL (8.4-10.2); CARBON DIOXIDE 24 mmol/L (22-30); CHLORIDE 109 mmol/L (98-107); GLUCOSE 96 mg/dL (75-110); POTASSIUM 4.4 mmol/L (3.6-5.0)
[2020-01-25 13:40] LABS: HEMATOCRIT 34.7 % (36.0-47.0); HEMOGLOBIN 11.8 g/dL (12.0-15.5); MEAN CORPUSCULAR HEMOGLOBIN 32.1 pg (27.0-33.4); MEAN CORPUSCULAR HGB CONC 34.1 g/dL (32.0-36.0); MEAN CORPUSCULAR VOLUME 94 fl (80-97); RED BLOOD COUNT 3.68 10^6/uL (3.72-5.28); WHITE BLOOD COUNT 3.4 10^3/uL (4.0-10.5)
--- NOTE | 2020-01-25 13:48 | RADIOLOGY REPORT (SQ) ---
EXAM DESCRIPTION: CHEST PA/LATERAL IMAGES COMPLETED DATE/TIME: 01/25/2020 1:12 pm REASON FOR STUDY: COUGH COMPARISON: 12/16/2019 EXAM PARAMETERS: NUMBER OF VIEWS: two views TECHNIQUE: Digital Frontal and Lateral radiographic views of the chest acquired. RADIATION DOSE: NA LIMITATIONS: none FINDINGS: LUNGS AND PLEURA: Left perihilar opacities largely obscured by the cardiac pacer. Fiducia l markers in place. No definite superimposed airspace disease. No pleural effusion or pneumothorax. MEDIASTINUM AND HILAR STRUCTURES: Stable. HEART AND VASCULAR STRUCTURES: Enlarged, stable. Vascular calcifications. BONES: No acute findings. HARDWARE: Left subclavian base cardiac pacer/defibrillator with leads overlying right ventricle. Unc hanged fracture of 1 of the defibrillator leads. OTHER: No other significant finding. IMPRESSION: Stable large cardiac silhouette without other evidence of acute intrathoracic process. Left-sided cardiac pacer/ defibrillator with unchanged fracture of one of the defibrillator leads. TECHNICAL DOCUMENTATION: JOB ID: [id number] 2010 [employer]- All Rights Reserved Reading location - IP/workstation name: [email or web address]
[2020-01-25 14:03] LABS: PLATELET COUNT 170 10^3/uL (150-450)
[2020-01-25 14:04] LABS: ABSOLUTE LYMPHOCYTES# (MANUAL) 1.2 10^3/uL (0.5-4.7); ABSOLUTE MONOCYTES # (MANUAL) 0.3 10^3/uL (0.1-1.4); ANISOCYTOSIS 1+; BASOPHILS % (MANUAL) 0 % (0-2); BURR CELLS SLIGHT; EOSINOPHILS % (MANUAL) 0 % (0-6); LYMPHOCYTES % (MANUAL) 35 % (13-45); MONOCYTES % (MANUAL) 8 % (3-13); OVALOCYTES SLIGHT; SEGMENTED NEUTROPHILS % (MAN) 57 % (42-78); TEAR DROP CELLS SLIGHT; TOTAL CELLS COUNTED 100; TOXIC VACUOLATION PRESENT
[2020-01-25 14:06] LABS: PLATELET CLUMPS PRESENT; PLATELET COMMENT ADEQUATE
== END ==
LOC: OD 11:41
PROVIDERS: ATTEND Family Medicine
DX: R05 Cough (principal); I51.7 Cardiomegaly
CPT/HCPCS: 36415; 71046; 80048; 85025

== ENCOUNTER → 2020-04-10 | Outpatient (CLI) | payer MEDICARE, OTHER ==
--- NOTE | 2020-04-10 11:21 | RADIOLOGY REPORT (SQ) ---
EXAM DESCRIPTION: CAROTID DOPPLER IMAGES COMPLETED DATE/TIME: 04/10/2020 11:03 am REASON FOR STUDY: PVD I73.9 PERIPHERAL VASCULAR DISEASE, UNSPECIFIED R42 DIZZINESS AND GIDDINESS COMPARISON: 04/23/2016. TECHNIQUE: Grayscale ultrasound, Doppler velocity and spectra, and color Doppler images acquired of the extra-cranial carotid and vertebral arteries. Images stored on PACS. LIMITATIONS: None. FINDINGS: RIGHT CAROTID CCA Velocities: Within normal limits. ICA Velocities Peak systolic 0.93 m/s. End diastolic 0.34 m/s. Proximal ICA/CCA peak systolic ratio 1.95. Scattered plaque. LEFT CAROTID CCA Velocities: Within normal limits. ICA Velocities Peak systolic 0.78 m/s. End diastolic 0.31 m/s. Proximal ICA/CCA peak systolic ratio 1.06. Scattered plaque. VERTEBRAL ARTERIES: Antegrade flow. Normal waveforms. SUBCLAVIAN ARTERIES: No finding. OTHER: No other significant finding. IMPRESSION: NO HEMODYNAMICALLY SIGNIFICANT STENOSIS. COMMENT: Quality ID #[id number]: Velocity criteria are extrapolated from the diameter data as defined by t he Society of Radiologists in Ultrasound Consensus Conference. Radiology 2003: 229; 340-346. TECHNICAL DOCUMENTATION: JOB ID: [id number] 2010 [employer]- All Rights Reserved Reading location - IP/workstation name: [email or web address]
--- NOTE | 2020-04-10 15:52 | RADIOLOGY REPORT (SQ) ---
EXAM DESCRIPTION: ARTERIAL LOWER EXTREM BILAT IMAGES COMPLETED DATE/TIME: 04/10/2020 11:03 am REASON FOR STUDY: PVD I73.9 PERIPHERAL VASCULAR DISEASE, UNSPECIFIED R42 DIZZINESS AND GIDDINESS COMPARISON: None. TECHNIQUE: Dynamic and static doyle scale and color images acquired of the lower extremity arteries. Additional selected spectral images recorded. LIMITATIONS: None. FINDINGS: RIGHT LEG: INFLOW ARTERIES: Normal, no obstruction evident. FEMORAL ARTERIES:Atherosclerosis.. Focal areas of stenosis in the proximal and mid superficial femora l artery with biphasic to monophasic waveform. POPLITEAL ARTERY:Biphasic waveforms. Normal, no velocity elevation to suggest focal stenosis. Normal color Doppler evaluation. No aneurysm. PATENT TIBIOPERONEAL TRUNK AND 3 VESSEL RUNOFF: Dampened flow with monophasic waveforms. No flow in the mid and distal anterior tibial artery. Retrograde flow in the dorsalis pedis artery. OTHER: No other significant finding. LEFT LEG: INFLOW ARTERIES: Normal, no obstruction evident. FEMORAL ARTERIES:Atherosclerosis.. Focal areas of stenosis in the proximal profunda femoral artery an d proximal superficial femoral artery. Biphasic waveforms. POPLITEAL ARTERY:Biphasic waveforms. Normal, no velocity elevation to suggest focal stenosis. Normal color Doppler evaluation. No aneurysm. PATENT TIBIOPERONEAL TRUNK AND 3 VESSEL RUNOFF: Dampened flow with monophasic waveforms. No flow in the mid and distal anterior tibial artery. OTHER: No other significant finding. IMPRESSION: ATHEROSCLEROSIS WITH FOCAL AREAS OF STENOSIS IN THE RIGHT SUPERFICIAL FEMORAL ARTERY AND IN THE LEFT PROFUNDA FEMORAL AND SUPERFICIAL FEMORAL ARTERIES. DISTAL SMALL VESSEL DISEASE. TECHNICAL DOCUMENTATION: JOB ID: [id number] 2010 [employer]- All Rights Reserved Reading location - IP/workstation name: [email or web address]
== END ==
LOC: SP 08:40
PROVIDERS: ATTEND Family Medicine
DX: I73.9 Peripheral vascular disease, unspecified (principal); R42 Dizziness and giddiness
CPT/HCPCS: 93880; 93925

== ENCOUNTER → 2020-04-13 | Outpatient (CLI) | payer MEDICARE, OTHER ==
--- NOTE | 2020-04-13 13:34 | RADIOLOGY REPORT (SQ) ---
EXAM DESCRIPTION: CT CHEST WITHOUT IMAGES COMPLETED DATE/TIME: 04/13/2020 10:09 am REASON FOR STUDY: C34.12 MALIGNANT NEOPLASM OF UPPER LOBE, LEFT BRONCHUS OR LUNG C34.12 MALIGNANT N EOPLASM OF UPPER LOBE, LEFT BRONCHUS OR ALEX COMPARISON: CT 07/17/2019 PET-CT 12/27/2019 TECHNIQUE: CT scan performed of the chest without intravenous contrast. Images reviewed with lung, soft tissue and bone windows. Reconstructed coronal and sagittal MPR images reviewed. All images st ored on PACS. All CT scanners at this facility use dose modulation, iterative reconstruction, and/or weight based d osing when appropriate to reduce radiation dose to as low as reasonably achievable (ALARA). [facility]: Dose Right [facility]: CareDose [facility]: Dose Right [facility]: Teradose 4D [facility]: [employer] RADIATION DOSE: CT Rad equipment meets quality standard of care and radiation dose reduction techniq ues were employed. CTDIvol: 4.9 mGy. DLP: 189 mGy-cm. mGy. LIMITATIONS: No technical limitations. FINDINGS: LUNGS AND PLEURA: 15.9 x 10.4 mm scar in the left upper lobe is stable since the PET-CT of 12/27/2019. Mild radiation changes. No new nodules or masses. No infiltrate or effusion. HILAR AND MEDIASTINAL STRUCTURES: No identified masses or abnormal nodes. No obvious aneurysm. HEART AND VASCULAR STRUCTURES: No aneurysm. No pericardial effusion. UPPER ABDOMEN: No significant findings. Limited exam. THYROID AND OTHER SOFT TISSUES: No masses. No adenopathy. BONES: No significant finding. HARDWARE: Cardiac pacemaker/ defibrillator. OTHER: No other significant findings. IMPRESSION: Stable findings in the chest with 15.9 x 10.4 mm scar in the left upper lobe. TECHNICAL DOCUMENTATION: JOB ID: [id number] Quality ID # [id number]: Final reports with documentation of one or more dose reduction techniques (e.g., Au tomated exposure control, adjustment of the mA and/or kV according to patient size, use of iterative reconstruction technique) 2010 [employer]- All Rights Reserved Reading location - IP/workstation name: [email or web address]
== END ==
LOC: RAD 09:52
PROVIDERS: ATTEND Physician Assistant Medical
DX: C34.12 Malignant neoplasm of upper lobe, left bronchus or lung (principal)
CPT/HCPCS: 71250

== ENCOUNTER 2020-04-28 21:52 | Emergency (ER) | payer MEDICARE, OTHER ==
--- NOTE | 2020-04-28 22:05 | ER Document Report ---
ED Medical Screen (RME) - General Chief Complaint: Fall Injury Stated Complaint: FALL/HEAD INJURY/PAIN Time Seen by Provider: 04/28/20 21:59 Primary Care Provider: ANA MARIA FRAGOSO MD [Primary Care Provider] - Follow up as needed Notes: Patient is a 75-year-old female who presents to the emergency department after a fall. Patient was in the grocery store and she turned and fell back and hit her head and hurt her left knee. Patient does not remember anything after falling. She does not know how long she lost consciousness. Patient is currently on aspirin. Exam: Delayed response to questions. Tenderness noted to left knee. I have greeted and performed a rapid initial assessment of this patient. A comprehensive ED assessment and evaluation of the patient, analysis of test results and completion of medical decision making process will be conducted by an additional ED providers. TRAVEL OUTSIDE OF THE [place] IN LAST 30 DAYS: No - Related Data Allergies/Adverse Reactions: amoxicillin Allergy (Verified 07/17/19 11:32) Penicillins Allergy (Verified 07/17/19 11:32) Past Medical History - Past Medical History Cardiac Medical History: Reports: Hx Congestive Heart Failure, Hx Coronary Artery Disease, Hx Heart Attack - 1990, Hx Hypercholesterolemia, Hx Hypertension - ON MEDS Denies: Hx Atrial Fibrillation, Hx Peripheral Vascular Disease, Hx Pulmonary Embolism, Hx Heart Murmur Pulmonary Medical History: Reports: Hx Bronchitis, Hx COPD, Hx Pneumonia - YRS AGO Denies: Hx Asthma, Hx Respiratory Failure, Hx Sleep Apnea, Hx Tuberculosis Neurological Medical History: Denies: Hx Cerebrovascular Accident, Hx Seizures Endocrine Medical History: Denies: Hx Diabetes Mellitus Type 1, Hx Diabetes Mellitus Type 2 Renal/ Medical History: Reports: Hx Renal Insufficiency. Denies: Hx End Stage Renal Disease, Hx Kidney Stones, Hx Peritoneal Dialysis Malignancy Medical History: Denies: Hx Leukemia, Hx Lung Cancer GI Medical History: Reports: Hx Crohn's Disease - Patient has either Crohn's disease or ulcerative colitis, Hx Diverticulitis, Hx Gastroesophageal Reflux Disease. Denies: Hx Hepatitis, Hx Hiatal Hernia, Hx Irritable Bowel, Hx Liver Failure, Hx Pancreatitis, Hx Ulcer Musculoskeltal Medical History: Reports Hx Arthritis, Denies Hx Fibromyalgia, Denies Hx Muscular Dystrophy Psychiatric Medical History: Reports: Hx Depression Denies: Hx Bipolar Disorder, Hx Post Traumatic Stress Disorder, Hx Schizophrenia Traumatic Medical History: Reports: Hx Fractures - right wrist, left foot Infectious Medical History: Denies: Hx Hepatitis, Hx HIV Past Surgical History: Reports: Hx Appendectomy, Hx Cardiac Catheterization, Hx Cardiac Surgery - AICD for ventricular fibrillation, Hx Section - x4, Hx Coronary Stent, Hx Hysterectomy, Hx Orthopedic Surgery - bilateral knee surgery, Hx Pacemaker, Hx Tonsillectomy. Denies: Hx Bowel Surgery, Hx Cholecystectomy, Hx Colostomy, Hx Coronary Artery Bypass Graft, Hx Gastric Bypass Surgery, Hx Herniorrhaphy, Hx Mastectomy, Hx Open Heart Surgery, Hx Tubal Ligation - Immunizations Immunizations up to date: Yes Hx Diphtheria, Pertussis, Tetanus Vaccination: Yes Doctor's Discharge - Discharge Referrals: ANA MARIA FRAGOSO MD [Primary Care Provider] - Follow up as needed
--- NOTE | 2020-04-28 22:37 | ER Document Report ---
ED General - General Chief Complaint: Fall Injury Stated Complaint: FALL/HEAD INJURY/PAIN Time Seen by Provider: 04/28/20 21:59 Primary Care Provider: ANA MARIA FRAGOSO MD [Primary Care Provider] - Follow up as needed Mode of Arrival: Ambulatory Information source: Patient Notes: ED Medical Screen (RME) - General Chief Complaint: Fall Injury Stated Complaint: FALL/HEAD INJURY/PAIN Time Seen by Provider: 04/28/20 21:59 Primary Care Provider: ANA MARIA FRAGOSO MD [Primary Care Provider] - Follow up as needed Notes: Patient is a 75-year-old female who presents to the emergency department after a fall. Patient was in the grocery store and she turned and fell back and hit her head and hurt her left knee. Patient does not remember anything after falling. She does not know how long she lost consciousness. Patient is currently on aspirin. Exam: Delayed response to questions. Tenderness noted to left knee. MY NOTES 70-year-old female arrives with chief complaint of injury to head and left knee injury after falling while in gas station; patient reports she turned around and struck her head on some metallic object knocking her to the floor injuring her left patella knee. She denies any pain above the kneecap or below the kneecap but very tender on palpation. She also struck her right lateral orbit pointing to this area. She denies any chest pain back pain neck pain abdominal injury. She denies any blurry vision or fever chills cough or cold. She reports she has fallen before but never injured her face or her left knee. I was in room with nursing staff while pants were removed for knee exam. I then exited the room so EKG may be done. The fall occurred tonight around 9 PM. Her brought her by private vehicle directly from the gas station where the injury occurred. A woman helped her up and escorted her to her car. She denies any LOC. TRAVEL OUTSIDE OF THE [place] IN LAST 30 DAYS: No - HPI Onset: Just prior to arrival Onset/Duration: Sudden Quality of pain: Achy Severity: Mild Pain Level: 1 Associated symptoms: None Exacerbated by: Movement Relieved by: Remaining still Similar symptoms previously: No Recently seen / treated by doctor: No - Related Data Allergies/Adverse Reactions: amoxicillin Allergy (Verified 07/17/19 11:32) Penicillins Allergy (Verified 07/17/19 11:32) Past Medical History - General Information source: Patient - Social History Smoking Status: Never Smoker Cigarette use (# per day): No Chew tobacco use (# tins/day): No Smoking Education Provided: No Frequency of alcohol use: None Drug Abuse: None Lives with: Family Family History: Reviewed & Not Pertinent, Hypertension Patient has suicidal ideation: No Patient has homicidal ideation: No - Past Medical History Cardiac Medical History: Reports: Hx Congestive Heart Failure, Hx Coronary Artery Disease, Hx Heart Attack - 1990, Hx Hypercholesterolemia, Hx Hypertension - ON MEDS Denies: Hx Atrial Fibrillation, Hx Peripheral Vascular Disease, Hx Pulmonary Embolism, Hx Heart Murmur Pulmonary Medical History: Reports: Hx Bronchitis, Hx COPD, Hx Pneumonia - YRS AGO Denies: Hx Asthma, Hx Respiratory Failure, Hx Sleep Apnea, Hx Tuberculosis Neurological Medical History: Denies: Hx Cerebrovascular Accident, Hx Seizures Endocrine Medical History: Denies: Hx Diabetes Mellitus Type 1, Hx Diabetes Mellitus Type 2 Renal/ Medical History: Reports: Hx Renal Insufficiency. Denies: Hx End Stage Renal Disease, Hx Kidney Stones, Hx Peritoneal Dialysis Malignancy Medical History: Denies: Hx Leukemia, Hx Lung Cancer GI Medical History: Reports: Hx Crohn's Disease - Patient has either Crohn's disease or ulcerative colitis, Hx Diverticulitis, Hx Gastroesophageal Reflux Disease. Denies: Hx Hepatitis, Hx Hiatal Hernia, Hx Irritable Bowel, Hx Liver Failure, Hx Pancreatitis, Hx Ulcer Musculoskeletal Medical History: Reports Hx Arthritis, Denies Hx Fibromyalgia, Denies Hx Muscular Dystrophy Psychiatric Medical History: Reports: Hx Depression Denies: Hx Bipolar Disorder, Hx Post Traumatic Stress Disorder, Hx Schizophrenia Traumatic Medical History: Reports: Hx Fractures - right wrist, left foot Infectious Medical History: Denies: Hx Hepatitis, Hx HIV Past Surgical History: Reports: Hx Appendectomy, Hx Cardiac Catheterization, Hx Cardiac Surgery - AICD for ventricular fibrillation, Hx Section - x4, Hx Coronary Stent, Hx Hysterectomy, Hx Orthopedic Surgery - bilateral knee surgery, Hx Pacemaker, Hx Tonsillectomy. Denies: Hx Bowel Surgery, Hx Cholecystectomy, Hx Colostomy, Hx Coronary Artery Bypass Graft, Hx Gastric Bypass Surgery, Hx Herniorrhaphy, Hx Mastectomy, Hx Open Heart Surgery, Hx Tubal Ligation - Immunizations Immunizations up to date: Yes Hx Diphtheria, Pertussis, Tetanus Vaccination: Yes Hx Pneumococcal Vaccination: 09/21/17 Review of Systems - Review of Systems Constitutional: No symptoms reported EENT: No symptoms reported, See HPI, Eye pain - on right orbit Cardiovascular: No symptoms reported Respiratory: No symptoms reported Gastrointestinal: No symptoms reported Genitourinary: No symptoms reported Female Genitourinary: No symptoms reported Musculoskeletal: No symptoms reported, See HPI, Joint pain Skin: No symptoms reported Hematologic/Lymphatic: No symptoms reported Neurological/Psychological: No symptoms reported Physical Exam - Vital signs Vitals: Pulse Ox 94 04/28/20 22:44 Interpretation: Normal - General General appearance: Alert - HEENT Head: Normocephalic, Atraumatic, Other - Superior and lateral right orbital pain and swelling on palpation. Patient has full range of motion of extraocular eye muscles and able to move eyebrows without difficulty. There is no obvious lacerations or hematomas noted or ecchymosis noted. Patient is wearing a wig Eyes: Normal Pupils: PERRL Visual acuity- Right eye: 20/20 Visual acuity- Left eye: 20/20 both Visual acuity- Both eyes: By Snellen Sinus: Normal Nasal: Normal Mouth/Lips: Normal Mucous membranes: Normal Pharynx: Normal Neck: Normal - Respiratory Respiratory status: No respiratory distress Chest status: Nontender Breath sounds: Normal Chest palpation: Normal - Cardiovascular Rhythm: Regular Heart sounds: Normal auscultation Murmur: No - Abdominal Inspection: Normal Distension: No distension Bowel sounds: Normal Tenderness: Nontender Organomegaly: No organomegaly - Rectal Hemorrhoids: Other - deferred - Genitourinary [place] exam: Other - deferred - Back Back: Normal - Extremities General upper extremity: Normal inspection General lower extremity: Other - left patellar pain on p/p rom - Neurological Neuro grossly intact: Yes Cognition: Normal Orientation: AAOx4 [place]lysia Coma Scale Eye Opening: Spontaneous [place] Coma Scale Verbal: Oriented [place] Coma Scale Motor: Obeys Commands Alysia Coma Scale Total: 15 Speech: Normal Motor strength normal: LUE, RUE, LLE, RLE Sensory: Normal - Psychological Associated symptoms: Normal affect - Skin Skin Temperature: Warm Skin Moisture: Dry Course - Vital Signs Vital signs: Temp Pulse Resp BP Pulse Ox 22 H 198/80 H 99 04/28/20 23:00 04/28/20 22:49 04/28/20 23:12 - Diagnostic Test Radiology reviewed: Reports reviewed Radiology results interpreted by me: 04/28/20 23:40 X-rays and CTs were all negative. Discharge - Discharge Clinical Impression: Contusion of eyeball and orbital tissues, right eye, initial encounter Fall Qualifiers: Encounter type: initial encounter Qualified Code(s): W19.XXXA - Unspecified fall, initial encounter Contusion of knee, right Qualifiers: Encounter type: initial encounter Qualified Code(s): S80.01XA - Contusion of right knee, initial encounter Condition: Good Disposition: HOME, SELF-CARE Additional Instructions: Apply cool compresses to right lateral eye and to left knee as needed for pain and inflammation. Take pain medicine for right lateral orbit and left knee pain as needed. Prescriptions: Naproxen [Naprosyn 250 mg Tablet] 250 mg PO BID #10 tablet Referrals: ANA MARIA FRAGOSO MD [Primary Care Provider] - Follow up as needed
--- NOTE | 2020-04-28 23:01 | RADIOLOGY REPORT (SQ) ---
Left knee radiographs: 04/28/2020 9:59 PM CDT HISTORY: 75-year-old patient with left knee pain. TECHNIQUE: AP, oblique, and lateral images of the left knee were obtained. COMPARISON: None available FINDINGS: There are no findings to suggest an acute fracture or subluxation. No suprapatellar joint effusion is seen. The visualized soft tissues are grossly unremarkable. No gross erosions or abnormal soft tissue calcifications are seen. IMPRESSION: There are no findings to suggest an acute fracture or subluxation within the left knee.
--- NOTE | 2020-04-28 23:02 | RADIOLOGY REPORT (SQ) ---
CT CERVICAL SPINE: 04/28/2020 9:59 PM CDT TECHNIQUE: Axial contiguous images were obtained through the cervical spine without intravenous contrast. Sagittal and coronal reconstructions were also reviewed. This exam was performed according to our departmental dose-optimization program, which includes automated exposure control, adjustment of the mA and/or KV according to the patient's size and/or use of iterative reconstruction technique. COMPARISON: None available INDICATION: 75-year old patient with neck pain, fall. FINDINGS: Mild facet hypertrophy is noted. A few anterior degenerative osteophytes are also apparent. The vertebral bodies appear well aligned. The vertebral body heights appear well maintained. No significant pre-vertebral soft tissue swelling is noted. No definite fracture or subluxation is noted. Mild to moderate multilevel intervertebral disc space narrowing is seen associated with disc osteophyte. There is protuberant calcification seen posterior to the dens. The visualized brain parenchyma appears unremarkable. The craniocervical junction is unremarkable. There is moderate atherosclerotic calcification seen at the carotid bulbs. Pacemaker leads are seen. IMPRESSION: There are no findings to suggest an acute fracture or subluxation within the cervical spine.
--- NOTE | 2020-04-28 23:03 | RADIOLOGY REPORT (SQ) ---
CT of the head: 04/28/2020 10:00 PM CDT HISTORY: 75-year-old patient with fall, altered mental status. COMPARISON: 06/27/2019 TECHNIQUE: Multiple axial contiguous images were obtained through the head without intravenous contrast administered. This exam was performed according to our departmental dose-optimization program, which includes automated exposure control, adjustment of the mA and/or KV according to the patient's size and/or use of iterative reconstruction technique. FINDINGS: The ventricles and cerebral sulci demonstrate mild prominence, consistent with cerebral atrophy. There is a cavum septum lucidum et vergae noted. There are mild periventricular hypodensities, suggestive of periventricular white matter changes. The doyle-white matter differentiation is within normal limits. Both orbits appear unremarkable. The mastoid air cells appear clear. There is mild mucoperiosteal thickening of the ethmoid sinuses. The calvarium is intact. No extra-axial fluid collection is seen. No midline shift or mass effect is apparent. There are no findings to suggest acute intracranial hemorrhage. IMPRESSION: 1. No acute intracranial hemorrhage is seen. 2. Mild cerebral atrophy and periventricular white matter changes are seen.
--- NOTE | 2020-04-28 23:04 | RADIOLOGY REPORT (SQ) ---
PA and lateral chest radiograph: 04/28/2020 10:02 PM CDT History: 75-year old patient with fall. Comparison: Chest radiograph performed 01/25/2020 Findings: The cardiomediastinal silhouette is at the upper limits of normal in size. No pneumothorax is seen. No discrete pleural effusion is apparent. No acute airspace opacities are seen. A dual-lead left-sided pacemaker/AICD is seen. Atherosclerotic calcifications are seen at the aortic arch. Coronary artery stent is seen. Impression: No acute airspace opacities are seen.
[2020-04-28] MEDS ORDERED: IBUPROFEN SUSP 100 MG/5 ML ORAL SYRINGE PO ONE (23:38)
[2020-04-28 23:44] LABS: ABSOLUTE MONOCYTES (AUTO) 0.2 10^3/uL (0.1-1.4); ABSOLUTE NEUT (AUTO) 2.2 10^3/uL (1.7-8.2); BASOPHILS % (AUTO) 0.3 % (0-2); EOSINOPHILS % (AUTO) 0.3 % (0-6); HEMATOCRIT 36.5 % (36.0-47.0); LYMPHOCYTES % (AUTO) 29.4 % (13-45); MEAN CORPUSCULAR HEMOGLOBIN 31.5 pg (27.0-33.4); MEAN CORPUSCULAR HGB CONC 32.9 g/dL (32.0-36.0); MEAN CORPUSCULAR VOLUME 96 fl (80-97); MONOCYTES % (AUTO) 5.8 % (3-13); PLATELET COUNT 190 10^3/uL (150-450); RED BLOOD COUNT 3.81 10^6/uL (3.72-5.28); RED CELL DISTRIBUTION WIDTH 15.7 % (11.5-14.0); SEGMENTED NEUTROPHILS % (AUTO) 64.2 % (42-78); TOTAL CELLS COUNTED % (AUTO) 100 %; WHITE BLOOD COUNT 3.4 10^3/uL (4.0-10.5)
[2020-04-28 23:51] LABS: PARTIAL THROMBOPLASTIN TIME 27.2 SEC (23.5-35.8); PROTHROMBIN TIME 13.4 SEC (11.4-15.4)
[2020-04-29 00:16] LABS: ALBUMIN 4.3 g/dL (3.5-5.0); ALKALINE PHOSPHATASE 94 U/L (38-126); ANION GAP 8 (5-19); ASPARTATE AMINO TRANSFERASE 28 U/L (14-36); BILIRUBIN,TOTAL 0.7 mg/dL (0.2-1.3); BLOOD UREA NITROGEN 22 mg/dL (7-20); CALCIUM 9.6 mg/dL (8.4-10.2); CARBON DIOXIDE 30 mmol/L (22-30); CHLORIDE 104 mmol/L (98-107); GLUCOSE 103 mg/dL (75-110); POTASSIUM 3.6 mmol/L (3.6-5.0); TOTAL PROTEIN 7.6 g/dL (6.3-8.2)
[2020-04-29 01:05] VITALS: BP 165/71
--- NOTE | 2020-04-29 08:22 | EKG REPORT ---
SEVERITY:- ABNORMAL ECG - SINUS RHYTHM ATRIAL PREMATURE COMPLEX REPOL ABNRM SUGGESTS ISCHEMIA, ANT-LAT LEADS : Confirmed by: John Duncan MD 29-Apr-2020 08:22:06
== END 2020-04-29 00:59 | disposition home or self-care (01) ==
LOC: ER 21:52
DX: S05.11XA Contusion of eyeball and orbital tissues, right eye, initial encounter (principal); S80.01XA Contusion of right knee, initial encounter; M25.562 Pain in left knee; W18.09XA Striking against other object with subsequent fall, initial encounter; I25.10 Atherosclerotic heart disease of native coronary artery without angina pectoris; I10 Essential (primary) hypertension; I25.2 Old myocardial infarction; J44.9 Chronic obstructive pulmonary disease, unspecified; Z79.52 Long term (current) use of systemic steroids; Z95.810 Presence of automatic (implantable) cardiac defibrillator; Z95.5 Presence of coronary angioplasty implant and graft
CPT/HCPCS: 93005; 99284; 36415; 82962; 85025; 85610; 85730; 80053; 71046; 73564; 70450; 72125; 93010; A9270

== ENCOUNTER → 2020-06-02 | Outpatient (CLI) | payer MEDICARE, OTHER ==
--- NOTE | 2020-06-02 12:09 | RADIOLOGY REPORT (SQ) ---
EXAM DESCRIPTION: CT ORBIT/SELLA WITHOUT IMAGES COMPLETED DATE/TIME: 06/02/2020 10:17 am REASON FOR STUDY: Post Fall/Ocular Pain and Contusion RT Eye H57.11 OCULAR PAIN, RIGHT EYE S00.11XA CONTUSION OF RIGHT EYELID AND PERIOCULAR AREA, INIT G44.311 ACUTE POST-TRAUMATIC HEADACHE, INTRACT ABLE COMPARISON: None. TECHNIQUE: Noncontrasted images through the orbits windowed for bone and soft tissue. Additional co akhil and sagittal reconstructed images reviewed. All images stored on PACS. All CT scanners at this facility use dose modulation, iterative reconstruction, and/or weight based d osing when appropriate to reduce radiation dose to as low as reasonably achievable (ALARA). [facility]: Dose Right [facility]: CareDose [facility]: Dose Right [facility]: Teradose 4D [facility]: [employer] RADIATION DOSE: mGy. LIMITATIONS: None. FINDINGS: FACIAL BONES: No fracture or bone lesion. ORBITS: Intact. No fracture. Symmetric intact globes and retroorbital soft tissues. PARANASAL SINUSES: Clear. SOFT TISSUES: No mass or edema. INFERIOR BRAIN: See separate report same date. OTHER: No other significant finding. IMPRESSION: NO ACUTE FINDINGS. TECHNICAL DOCUMENTATION: JOB ID: [id number] Quality ID # [id number]: Final reports with documentation of one or more dose reduction techniques (e.g., Au tomated exposure control, adjustment of the mA and/or kV according to patient size, use of iterative reconstruction technique) 2010 [employer]- All Rights Reserved Reading location - IP/workstation name: [email or web address]
--- NOTE | 2020-06-02 12:10 | RADIOLOGY REPORT (SQ) ---
EXAM DESCRIPTION: CT HEAD WITHOUT IMAGES COMPLETED DATE/TIME: 06/02/2020 10:17 am REASON FOR STUDY: Post Fall/Headache/Plavix H57.11 OCULAR PAIN, RIGHT EYE S00.11XA CONTUSION OF RI GHT EYELID AND PERIOCULAR AREA, INIT G44.311 ACUTE POST-TRAUMATIC HEADACHE, INTRACTABLE COMPARISON: None. TECHNIQUE: Axial images acquired through the brain without intravenous contrast. Images reviewed wi th bone, brain and subdural windows. Additional sagittal and coronal reconstructions were generated. Images stored on PACS. All CT scanners at this facility use dose modulation, iterative reconstruction, and/or weight based d osing when appropriate to reduce radiation dose to as low as reasonably achievable (ALARA). [facility]: Dose Right [facility]: CareDose [facility]: Dose Right [facility]: Teradose 4D [facility]: [employer] RADIATION DOSE: CT Rad equipment meets quality standard of care and radiation dose reduction techniq ues were employed. CTDIvol: 48.5 mGy. DLP: 855 mGy-cm. mGy. LIMITATIONS: None. FINDINGS: VENTRICLES: Prominent. CEREBRUM: No masses. No hemorrhage. No midline shift. Areas of low density in the white matter mos t likely due to chronic micro-vascular ischemic change. No evidence for acute infarction. CEREBELLUM: No masses. No hemorrhage. No alteration of density. No evidence for acute infarction. EXTRAAXIAL SPACES: Mild age-related involutional change. No fluid collections. No masses. ORBITS AND GLOBE: No intra- or extraconal masses. Normal contour of globe without masses. CALVARIUM: No fracture. PARANASAL SINUSES: No fluid or mucosal thickening. SOFT TISSUES: No mass or hematoma. OTHER: No other significant finding. IMPRESSION: MILD CHRONIC CHANGES OF ATROPHY AND MICROVASCULAR ISCHEMIA. NO ACUTE PROCESS. EVIDENCE OF ACUTE STROKE: NO. TECHNICAL DOCUMENTATION: JOB ID: [id number] Quality ID # [id number]: Final reports with documentation of one or more dose reduction techniques (e.g., Au tomated exposure control, adjustment of the mA and/or kV according to patient size, use of iterative reconstruction technique) 2010 [employer]- All Rights Reserved Reading location - IP/workstation name: [email or web address]
== END ==
LOC: RAD 09:41
PROVIDERS: ATTEND Ophthalmology
DX: H57.11 Ocular pain, right eye (principal); S00.11XA Contusion of right eyelid and periocular area, initial encounter; X58.XXXA Exposure to other specified factors, initial encounter; Y93.9 Activity, unspecified; Y92.9 Unspecified place or not applicable; G44.311 Acute post-traumatic headache, intractable
CPT/HCPCS: 70450; 70480

== ENCOUNTER → 2020-06-25 | Outpatient (CLI) | payer MEDICARE, OTHER ==
--- NOTE | 2020-06-25 19:12 | RADIOLOGY REPORT (SQ) ---
EXAM DESCRIPTION: CHEST PA/LATERAL IMAGES COMPLETED DATE/TIME: 06/25/2020 3:39 pm REASON FOR STUDY: (R05) COUGH COMPARISON: 04/28/2020 EXAM PARAMETERS: NUMBER OF VIEWS: two views TECHNIQUE: Digital Frontal and Lateral radiographic views of the chest acquired. RADIATION DOSE: NA LIMITATIONS: none FINDINGS: LUNGS AND PLEURA: No opacities, masses or pneumothorax. No pleural effusion. MEDIASTINUM AND HILAR STRUCTURES: No masses or contour abnormalities. HEART AND VASCULAR STRUCTURES: Heart normal size. No evidence for failure. BONES: No acute findings. HARDWARE: Pacemaker/defibrillator. OTHER: No other significant finding. IMPRESSION: NO SIGNIFICANT RADIOGRAPHIC FINDING IN THE CHEST. TECHNICAL DOCUMENTATION: JOB ID: [id number] 2010 [employer]- All Rights Reserved Reading location - IP/workstation name: [email or web address]
== END ==
LOC: OD 15:18
PROVIDERS: ATTEND Physician Assistant
DX: R05 Cough (principal)
CPT/HCPCS: 71046

== ENCOUNTER 2020-07-25 12:38 | Observation (INO) | payer MEDICARE, OTHER ==
--- NOTE | 2020-07-25 13:40 | ER Document Report ---
ED Medical Screen (RME) - General Chief Complaint: Blood Pressure Problem Stated Complaint: BLOOD PRESSURE PROBLEM Time Seen by Provider: 07/25/20 13:29 Primary Care Provider: AVRIL LEVY PA [Primary Care Provider] - Follow up as needed Mode of Arrival: Wheelchair Information source: Patient Notes: Patient presents complaining of elevated blood pressure reading with multiple falls. Patient states she went to see her doctor today and her blood pressure was elevated. Her doctor advised her to come here for further evaluation. Patient states she is had multiple falls with the most recent yesterday. Patient complains of headache pain, neck pain and left shoulder pain. Patient states that the pain does go into the upper anterior chest area. Patient has underlying history of hypertension, dyslipidemia, [place], COPD and GERD. I have greeted and performed a rapid initial assessment of this patient. A comprehensive ED assessment and evaluation of the patient, analysis of test results and completion of the medical decision making process will be conducted by additional ED providers. TRAVEL OUTSIDE OF THE [place] IN LAST 30 DAYS: No - Related Data Allergies/Adverse Reactions: amoxicillin Allergy (Verified 07/17/19 11:32) Penicillins Allergy (Verified 07/17/19 11:32) Past Medical History - Past Medical History Cardiac Medical History: Reports: Hx Congestive Heart Failure, Hx Coronary Artery Disease, Hx Heart Attack - 1990, Hx Hypercholesterolemia, Hx Hypertension - ON MEDS Denies: Hx Atrial Fibrillation, Hx Peripheral Vascular Disease, Hx Pulmonary Embolism, Hx Heart Murmur Pulmonary Medical History: Reports: Hx Bronchitis, Hx COPD, Hx Pneumonia - YRS AGO Denies: Hx Asthma, Hx Respiratory Failure, Hx Sleep Apnea, Hx Tuberculosis Neurological Medical History: Denies: Hx Cerebrovascular Accident, Hx Seizures Endocrine Medical History: Denies: Hx Diabetes Mellitus Type 1, Hx Diabetes Mellitus Type 2 Renal/ Medical History: Reports: Hx Renal Insufficiency. Denies: Hx End Stage Renal Disease, Hx Kidney Stones, Hx Peritoneal Dialysis Malignancy Medical History: Denies: Hx Leukemia, Hx Lung Cancer GI Medical History: Reports: Hx Crohn's Disease - Patient has either Crohn's disease or ulcerative colitis, Hx Diverticulitis, Hx Gastroesophageal Reflux Disease. Denies: Hx Hepatitis, Hx Hiatal Hernia, Hx Irritable Bowel, Hx Liver Failure, Hx Pancreatitis, Hx Ulcer Musculoskeltal Medical History: Reports Hx Arthritis, Denies Hx Fibromyalgia, Denies Hx Muscular Dystrophy Psychiatric Medical History: Reports: Hx Depression Denies: Hx Bipolar Disorder, Hx Post Traumatic Stress Disorder, Hx Schizop hrenia Traumatic Medical History: Reports: Hx Fractures - right wrist, left foot Infectious Medical History: Denies: Hx Hepatitis, Hx HIV Past Surgical History: Reports: Hx Appendectomy, Hx Cardiac Catheterization, Hx Cardiac Surgery - AICD for ventricular fibrillation, Hx Section - x4, Hx Coronary Stent, Hx Hysterectomy, Hx Orthopedic Surgery - bilateral knee surgery, Hx Pacemaker, Hx Tonsillectomy. Denies: Hx Bowel Surgery, Hx Cholecystectomy, Hx Colostomy, Hx Coronary Artery Bypass Graft, Hx Gastric Bypass Surgery, Hx Herniorrhaphy, Hx Mastectomy, Hx Open Heart Surgery, Hx Tubal Ligation - Immunizations Immunizations up to date: Yes Hx Diphtheria, Pertussis, Tetanus Vaccination: Yes Physical Exam - Vital signs Vitals: Temp Pulse Resp BP Pulse Ox 98.6 F 70 16 201/92 H 98 07/25/20 13:31 07/25/20 13:31 07/25/20 13:31 07/25/20 13:31 07/25/20 13:31 - Respiratory Respiratory status: No respiratory distress Chest status: Tender - Left upper anterior chest wall tenderness - Neurological Neuro grossly intact: Yes Orientation: AAOx4 [place] Coma Scale Eye Opening: Spontaneous [place] Coma Scale Verbal: Oriented [place] Coma Scale Motor: Obeys Commands [place]lys[place] Coma Scale Total: 15 Course - Vital Signs Vital signs: Temp Pulse Resp BP Pulse Ox 98.6 F 70 16 201/92 H 98 07/25/20 13:31 07/25/20 13:31 07/25/20 13:31 07/25/20 13:31 07/25/20 13:31 Doctor's Discharge - Discharge Referrals: AVRIL LEVY PA [Primary Care Provider] - Follow up as needed
--- NOTE | 2020-07-25 15:42 | RADIOLOGY REPORT (SQ) ---
EXAM DESCRIPTION: CT HEAD WITHOUT IMAGES COMPLETED DATE/TIME: 07/25/2020 2:19 pm REASON FOR STUDY: HTN, HARRIS, fall COMPARISON: None. TECHNIQUE: Axial images acquired through the brain without intravenous contrast. Images reviewed wi th bone, brain and subdural windows. Additional sagittal and coronal reconstructions were generated. Images stored on PACS. All CT scanners at this facility use dose modulation, iterative reconstruction, and/or weight based d osing when appropriate to reduce radiation dose to as low as reasonably achievable (ALARA). [facility]: Dose Right [facility]: CareDose [facility]: Dose Right [facility]: Teradose 4D [facility]: [employer] RADIATION DOSE: mGy. LIMITATIONS: None. FINDINGS: VENTRICLES: Prominent. CEREBRUM: No masses. No hemorrhage. No midline shift. Areas of low density in the white matter mos t likely due to chronic micro-vascular ischemic change. No evidence for acute infarction. CEREBELLUM: No masses. No hemorrhage. No alteration of density. No evidence for acute infarction. EXTRAAXIAL SPACES: Mild age-related involutional change. No fluid collections. No masses. ORBITS AND GLOBE: No intra- or extraconal masses. Normal contour of globe without masses. CALVARIUM: No fracture. PARANASAL SINUSES: No fluid or mucosal thickening. SOFT TISSUES: No mass or hematoma. OTHER: No other significant finding. IMPRESSION: MILD CHRONIC CHANGES OF ATROPHY AND MICROVASCULAR ISCHEMIA. NO ACUTE PROCESS. EVIDENCE OF ACUTE STROKE: NO. TECHNICAL DOCUMENTATION: JOB ID: [id number] Quality ID # [id number]: Final reports with documentation of one or more dose reduction techniques (e.g., Au tomated exposure control, adjustment of the mA and/or kV according to patient size, use of iterative reconstruction technique) 2010 [employer] All Rights Reserved Reading location - IP/workstation name: [email or web address]
--- NOTE | 2020-07-25 15:43 | RADIOLOGY REPORT (SQ) ---
EXAM DESCRIPTION: CT CERVICAL SPINE WITHOUT IMAGES COMPLETED DATE/TIME: 07/25/2020 2:19 pm REASON FOR STUDY: fall, neck pain COMPARISON: None. TECHNIQUE: Axial images acquired through the cervical spine without intravenous contrast. Images re viewed with lung, soft tissue and bone windows. Reconstructed coronal and sagittal MPR images review ed. Images stored on PACS. All CT scanners at this facility use dose modulation, iterative reconstruction, and/or weight based d osing when appropriate to reduce radiation dose to as low as reasonably achievable (ALARA). [facility]: Dose Right [facility]: CareDose [facility]: Dose Right [facility]: Teradose 4D [facility]: [employer] RADIATION DOSE: mGy. LIMITATIONS: None. FINDINGS: ALIGNMENT: Anatomic. MINERALIZATION: Normal. VERTEBRAL BODIES: No fractures or dislocation. DISCS: Multilevel disc space narrowing with osteophytes. FACETS, LATERAL MASSES, POSTERIOR ELEMENTS: Facet arthropathy. No fractures. No dislocation. No ac mark findings. HARDWARE: None in the spine. VISUALIZED RIBS: No fractures. LUNG APICES AND SOFT TISSUES: No significant or acute findings. OTHER: No other significant finding. IMPRESSION: CHRONIC DEGENERATIVE CHANGES. NO ACUTE FINDINGS. TECHNICAL DOCUMENTATION: JOB ID: [id number] Quality ID # [id number]: Final reports with documentation of one or more dose reduction techniques (e.g., Au tomated exposure control, adjustment of the mA and/or kV according to patient size, use of iterative reconstruction technique) 2010 [employer]- All Rights Reserved Reading location - IP/workstation name: [email or web address]
[2020-07-25 15:51] LABS: ABSOLUTE LYMPHOCYTES (AUTO) 1.6 10^3/uL (0.5-4.7); ABSOLUTE MONOCYTES (AUTO) 0.1 10^3/uL (0.1-1.4); ABSOLUTE NEUT (AUTO) 2.6 10^3/uL (1.7-8.2); BASOPHILS % (AUTO) 0.2 % (0-2); EOSINOPHILS % (AUTO) 0.6 % (0-6); HEMATOCRIT 40.2 % (36.0-47.0); HEMOGLOBIN 13.2 g/dL (12.0-15.5); LYMPHOCYTES % (AUTO) 36.1 % (13-45); MEAN CORPUSCULAR HEMOGLOBIN 31.4 pg (27.0-33.4); MEAN CORPUSCULAR HGB CONC 32.8 g/dL (32.0-36.0); MEAN CORPUSCULAR VOLUME 96 fl (80-97); MONOCYTES % (AUTO) 3.2 % (3-13); PLATELET COUNT 173 10^3/uL (150-450); RED BLOOD COUNT 4.19 10^6/uL (3.72-5.28); RED CELL DISTRIBUTION WIDTH 16.5 % (11.5-14.0); SEGMENTED NEUTROPHILS % (AUTO) 59.9 % (42-78); TOTAL CELLS COUNTED % (AUTO) 100 %; WHITE BLOOD COUNT 4.3 10^3/uL (4.0-10.5)
[2020-07-25] MEDS ORDERED: CLONIDINE HCL 0.1 MG TABLET PO ONE (16:01)
--- NOTE | 2020-07-25 16:02 | RADIOLOGY REPORT (SQ) ---
EXAM DESCRIPTION: CHEST SINGLE VIEW IMAGES COMPLETED DATE/TIME: 07/25/2020 2:26 pm REASON FOR STUDY: cp, falls COMPARISON: 06/25/2020 EXAM PARAMETERS: NUMBER OF VIEWS: One view. TECHNIQUE: Single frontal radiographic view of the chest acquired. RADIATION DOSE: NA LIMITATIONS: None. FINDINGS: LUNGS AND PLEURA: No opacities, masses or pneumothorax. No pleural effusion. Stable linea r scarring in the left midlung field. MEDIASTINUM AND HILAR STRUCTURES: No masses. Contour normal. HEART AND VASCULAR STRUCTURES: Heart is slightly enlarged but stable in appearance. No failure. BONES: No acute findings. HARDWARE: Unchanged. OTHER: No other significant finding. IMPRESSION: NO ACUTE RADIOGRAPHIC FINDING IN THE CHEST. TECHNICAL DOCUMENTATION: JOB ID: [id number] 2010 [employer]- All Rights Reserved Reading location - IP/workstation name: [email or web address]
--- NOTE | 2020-07-25 16:03 | RADIOLOGY REPORT (SQ) ---
EXAM DESCRIPTION: SHOULDER LEFT 2 OR MORE VIEWS IMAGES COMPLETED DATE/TIME: 07/25/2020 2:26 pm REASON FOR STUDY: fall, L shoulder pain COMPARISON: None. NUMBER OF VIEWS: Three view. TECHNIQUE: Internal rotation, external rotation, and Y view images acquired of the left shoulder. LIMITATIONS: None. FINDINGS: MINERALIZATION: Normal. BONES: No acute fracture. No worrisome bone lesions. No significant osteophytes. GLENOHUMERAL JOINT: Humeral head sits high in position consistent with chronic rotator cuff injury. ACROMIOCLAVICULAR JOINT: No large osteophytes. SOFT TISSUES: No calcifications. VISUALIZED RIBS, SPINE, AND LUNG: No other significant finding. OTHER: No other significant finding. IMPRESSION: Degenerative changes most marked in the glenohumeral joint. Humeral head sits I am posi tion. This may represent a chronic rotator cuff injury. TECHNICAL DOCUMENTATION: JOB ID: [id number] 2010 [employer]- All Rights Reserved Reading location - IP/workstation name: [email or web address]
[2020-07-25 16:10] LABS: ALKALINE PHOSPHATASE 124 U/L (38-126); ANION GAP 13 (5-19); ASPARTATE AMINO TRANSFERASE 25 U/L (14-36); BILIRUBIN,DIRECT 0.1 mg/dL (0.0-0.4); BILIRUBIN,TOTAL 0.6 mg/dL (0.2-1.3); BLOOD UREA NITROGEN 19 mg/dL (7-20); CALCIUM 10.1 mg/dL (8.4-10.2); CARBON DIOXIDE 24 mmol/L (22-30); CHLORIDE 105 mmol/L (98-107); POTASSIUM 4.2 mmol/L (3.6-5.0); TOTAL PROTEIN 8.1 g/dL (6.3-8.2)
[2020-07-25 16:13] LABS: GLUCOSE 65 mg/dL (75-110)
--- NOTE | 2020-07-25 19:38 | EKG REPORT ---
SEVERITY:- ABNORMAL ECG - SINUS RHYTHM REPOL ABNRM, PROBABLE ISCHEMIA, ANT-LAT LEADS : Confirmed by: Guille Loyola MD 25-Jul-2020 19:37:50
[2020-07-25 20:01] LABS: APPEARANCE,URINE CLEAR; BILIRUBIN,URINE NEGATIVE (NEGATIVE); COLOR,URINE YELLOW; GLUCOSE, URINE NEGATIVE (NEGATIVE); KETONES,URINE NEGATIVE (NEGATIVE); LEUKOCYTE ESTERASE,URINE TRACE (NEGATIVE); NITRITE,URINE NEGATIVE (NEGATIVE); PROTEIN,URINE NEGATIVE (NEGATIVE); UROBILINOGEN,URINE NEGATIVE mg/dL (<2.0)
--- NOTE | 2020-07-25 22:07 | ER Document Report ---
ED General - General Chief Complaint: Fall Stated Complaint: BLOOD PRESSURE PROBLEM Time Seen by Provider: 07/25/20 13:29 Primary Care Provider: AVRIL LEVY PA [Primary Care Provider] - Follow up as needed Mode of Arrival: Wheelchair Notes: 75-year-old female history of hypertension, hyperlipidemia, COPD, [place] referred from PCPs office for frequent falls. Patient says that she has been having falls recently but cannot attribute them to any particular cause. Does not endorse tripping, dizziness, chest pain, shortness of breath, recent med changes otherwise she says that she thinks her medications make her follow-up. Patient took sleeping pill prior to arrival limiting history. Patient endorses chronic pain in her left shoulder and diffuse posterior neck pain that has been present for several months. Patient also complains of pain in her left thigh that she says started when she fell but unable to state exactly when, approximately 1 to few days. Patient endorses blurry vision in her left eye for a few days. Patient says she has had a diffuse headache for approximately 1 day but has been intermittent for the past month since her . Patient endorses tenderness to upper left chest. patient denies any shortness of breath, pleuritic chest pain, exertional chest pain, fever, vomiting, focal weakness or numbness, vertigo, abdominal pain, diarrhea, melena, bright red blood per rectum, urinary symptoms TRAVEL OUTSIDE OF THE [place] IN LAST 30 DAYS: No - Related Data Allergies/Adverse Reactions: amoxicillin Allergy (Verified 07/17/19 11:32) Penicillins Allergy (Verified 07/17/19 11:32) Past Medical History - General Information source: Patient - Social History Smoking Status: Unknown if Ever Smoked Family History: Reviewed & Not Pertinent, Hypertension - Past Medical History Cardiac Medical History: Reports: Hx Congestive Heart Failure, Hx Coronary Artery Disease, Hx Heart Attack - 1990, Hx Hypercholesterolemia, Hx Hypertension - ON MEDS Denies: Hx Atrial Fibrillation, Hx Peripheral Vascular Disease, Hx Pulmonary Embolism, Hx Heart Murmur Pulmonary Medical History: Reports: Hx Bronchitis, Hx COPD, Hx Pneumonia - YRS AGO Denies: Hx Asthma, Hx Respiratory Failure, Hx Sleep Apnea, Hx Tuberculosis Neurological Medical History: Denies: Hx Cerebrovascular Accident, Hx Seizures Endocrine Medical History: Denies: Hx Diabetes Mellitus Type 1, Hx Diabetes Mellitus Type 2 Renal/ Medical History: Reports: Hx Renal Insufficiency. Denies: Hx End Stage Renal Disease, Hx Kidney Stones, Hx Peritoneal Dialysis Malignancy Medical History: Denies: Hx Leukemia, Hx Lung Cancer GI Medical History: Reports: Hx Crohn's Disease - Patient has either Crohn's disease or ulcerative colitis, Hx Diverticulitis, Hx Gastroesophageal Reflux Disease. Denies: Hx Hepatitis, Hx Hiatal Hernia, Hx Irritable Bowel, Hx Liver Failure, Hx Pancreatitis, Hx Ulcer Musculoskeletal Medical History: Reports Hx Arthritis, Denies Hx Fibromyalgia, Denies Hx Muscular Dystrophy Psychiatric Medical History: Reports: Hx Depression Denies: Hx Bipolar Disorder, Hx Post Traumatic Stress Disorder, Hx Schizophrenia Traumatic Medical History: Reports: Hx Fractures - right wrist, left foot Infectious Medical History: Denies: Hx Hepatitis, Hx HIV Past Surgical History: Reports: Hx Appendectomy, Hx Cardiac Catheterization, Hx Cardiac Surgery - AICD for ventricular fibrillation, Hx Section - x4, Hx Coronary Stent, Hx Hysterectomy, Hx Orthopedic Surgery - bilateral knee surgery, Hx Pacemaker, Hx Tonsillectomy. Denies: Hx Bowel Surgery, Hx Cholecystectomy, Hx Colostomy, Hx Coronary Artery Bypass Graft, Hx Gastric Bypass Surgery, Hx Herniorrhaphy, Hx Mastectomy, Hx Open Heart Surgery, Hx Tubal Ligation - Immunizations Immunizations up to date: Yes Hx Diphtheria, Pertussis, Tetanus Vaccination: Yes Hx Pneumococcal Vaccination: 09/21/17 Review of Systems - Review of Systems -: Yes ROS unobtainable due to patient's medical condition - poor historian 2/2 sleep aid Physical Exam - Vital signs Vitals: Temp Pulse Resp BP Pulse Ox 98.6 F 70 16 201/92 H 98 07/25/20 13:31 07/25/20 13:31 07/25/20 13:31 07/25/20 13:31 07/25/20 13:31 - Notes Notes: PHYSICAL EXAMINATION: GENERAL: Elderly woman lying in stretcher mildly somnolent in no acute distress HEAD: Atraumatic, normocephalic. EYES: Pupils equal round and reactive, constricted bilaterally, no gross signs of trauma, no conjunctival injection, bilateral cataract surgery, funduscopic exam limited by constricted pupils, bilateral intraocular pressure with Ted-Pen measuring 25-30 ENT: nares patent, moist mucous membranes. NECK/BACK: Normal range of motion, supple without lymphadenopathy, no C/T/L/S- spine tenderness or deformity LUNGS: Breath sounds clear to auscultation bilaterally and equal. No wheezes rales or rhonchi. Normal respiratory rate and effort HEART: Regular rate and rhythm with faint systolic murmur ABDOMEN: Soft, nontender, no guarding, no masses, no CVAT EXTREMITIES: Normal range of motion, no pitting or edema. No cyanosis. NEUROLOGICAL: Awake, alert, conversing appropriately, moves all extremities spontaneously, 5-5 strength in all extremities, normal sensation in all extremities, normal [id number] bilaterally, cranial nerves II through XII grossly intact bilaterally by exam limited by patient participation SKIN: Warm, Dry - HEENT Visual acuity- Right eye: 2 Visual acuity- Left eye: 3 Visual acuity- Both eyes: 2 Corrective lenses worn: Yes Course - Re-evaluation Re-evalutation: 07/25/20 22:07 Patient with frequent recent falls possibly secondary to polypharmacy, possibly aggravated by use of sleep aids. Patient had headache earlier that has now improved, was seen in primary care's office and referred to ED apparently for blood pressure control. No signs of trauma on head to toe fully undressed trauma evaluation, chest pain atypical for ACS but obtain EKG which shows precordial T wave versions are not significantly dynamic from numerous prior EKGs and initial troponin negative. Obtained CT head and C spine without any emergent findings and x-rays of chest left shoulder also with no acute findings. Consulted fisher Dr. Thompson for eye pain with blurry vision, possible new onset glaucoma, no signs of acute angle-closure glaucoma, no signs of trauma. Will admit patient to Dr. Mendoza given patient is unsafe for discharge until falls are more thoroughly evaluated and chest pain is further investigated. No signs of PE at this time, will defer to inpatient team to reevaluate need to rule out with testing or imaging if clinical picture should change. 07/25/20 23:[address] Mendoza coordinate measuring equipment operator at 10 PM, no call back yet, asked the glass production machine operator to page him again. 07/25/20 23:[address] Mendoza, Dr. Mendoza agreed to take patient as I was concerned with patient being at risk for having a fall at home if I discharged her as patient will not currently even ambulate for me because she feels unsteady. Likely secondary to her sleep aid versus her other medications, will put her in telemetry observation under Dr. Mendoza's care at least overnight and she will have ophthalmology see her tomorrow and have her gait assessed in the morning. - Vital Signs Vital signs: Temp Pulse Resp BP Pulse Ox 98.8 F 67 20 127/70 H 100 07/25/20 18:21 07/25/20 18:21 07/25/20 20:01 07/25/20 20:01 07/25/20 20:01 - Laboratory Result Diagrams: 07/25/20 15:25 07/25/20 15:25 Laboratory results interpreted by me: 07/25/20 07/25/20 07/25/20 15:25 15:25 19:45 RDW 16.5 H Est GFR (MDRD) Non-Af 51 L Glucose 65 L Urine Blood SMALL H Ur Leukocyte Esterase TRACE H - EKG Interpretation by Me Additional EKG results interpreted by me: 07/25/20 22:11 Sinus rhythm, no significant ST elevations or depressions, marked precordial T wave inversions not significantly changed from prior EKGs, QTC 432 Discharge - Discharge Clinical Impression: Unsteady gait, Microscopic hematuria Hypertension Qualifiers: Hypertension type: essential hypertension Qualified Code(s): I10 - Essential (primary) hypertension Increased intraocular pressure Qualifiers: Laterality: bilateral Qualified Code(s): 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
[2020-07-25] MEDS ORDERED: ACETAMINOPHEN 325 MG TABLET PO PRN (23:23)
[2020-07-26] MEDS: CARVEDILOL 6.25 MG TABLET PO SCH ×2 (09:20→21:18)
[2020-07-26] MEDS: FAMOTIDINE 20 MG TABLET PO SCH ×2 (09:20→21:18)
[2020-07-26] MEDS: AMLODIPINE BESYLATE 5 MG TABLET PO SCH ×2 (09:20→17:08)
--- NOTE | 2020-07-26 12:11 | RADIOLOGY REPORT (SQ) ---
EXAM DESCRIPTION: CT CHEST WITHOUT IMAGES COMPLETED DATE/TIME: 07/26/2020 9:29 am REASON FOR STUDY: stage 2lung cancer COMPARISON: CT 04/13/2020 chest x-ray 07/25/2020 TECHNIQUE: CT scan performed of the chest without intravenous contrast. Images reviewed with lung, soft tissue and bone windows. Reconstructed coronal and sagittal MPR images reviewed. All images st ored on PACS. All CT scanners at this facility use dose modulation, iterative reconstruction, and/or weight based d osing when appropriate to reduce radiation dose to as low as reasonably achievable (ALARA). [facility]: Dose Right [facility]: CareDose [facility]: Dose Right [facility]: Teradose 4D [facility]: [employer] RADIATION DOSE: CT Rad equipment meets quality standard of care and radiation dose reduction techniq ues were employed. CTDIvol: 7.3 mGy. DLP: 262 mGy-cm. mGy. LIMITATIONS: No technical limitations. FINDINGS: LUNGS AND PLEURA: There is persistent scarring in the left upper lobe. The only interval change is that there is now a slight nodular thickening of the fissure on the left. A definable nodu le can be seen on image 42 measuring 6.4 x 10.1 mm. HILAR AND MEDIASTINAL STRUCTURES: No identified masses or abnormal nodes. No obvious aneurysm. HEART AND VASCULAR STRUCTURES: No aneurysm. No pericardial effusion. UPPER ABDOMEN: No significant findings. Limited exam. THYROID AND OTHER SOFT TISSUES: No masses. No adenopathy. BONES: No significant finding. HARDWARE: Pacemaker/defibrillator. Epicardial pacemaker. OTHER: No other significant findings. IMPRESSION: 1. Stable scarring in the left upper lobe. 2. There now appears to be a slight nodular thickening of the nearby fissure as described. Consider PET-CT. TECHNICAL DOCUMENTATION: JOB ID: [id number] Quality ID # [id number]: Final reports with documentation of one or more dose reduction techniques (e.g., Au tomated exposure control, adjustment of the mA and/or kV according to patient size, use of iterative reconstruction technique) 2010 [employer]- All Rights Reserved Reading location - IP/workstation name: [email or web address]
--- NOTE | 2020-07-26 13:18 | PDOC H&P ---
History of Present Illness Admission Date/PCP: 07/25/20 23:47 MARIE CASTAÑEDA Patient complains of: Uncontrolled blood pressures fall History of Present Illness: JESSICA Vaughn SILVIA is a 75 year old female Is a 75-year-old female's with a significant history of the hypertension hyperlipidemia chronic smoker COPD lung cancer status post CyberKnife history of the pacemaker coronary artery disease and a super noncomplianceRecently lost her in the last 3 weeks patient was not taking any single medications came to the office yesterday and patient's blood pressure was 230/120 and patient was sent to the emergency department In the ER patient was CT of the head was negative patient have a CT of the C- spine chest x-ray and blood work was all stable Received a 1 dose of clonidine and blood pressure is coming down to 150 range patient also received the amlodipine Today's when I saw the patient's denied any chest pain no short of breath no headache no weakness Again discussed with the patient's daughter regarding the patient's current conditions she knew that the patient is not follow nothing much she can offer if the patient do not want to do anything Discussed with the patient again myself and suggest that compliance of the medications Patient CT of the chest was done was all stable we consult the oncology We consult the cardiology for the pacemaker interrogations and further evaluate for this ongoing dizziness issue which patients follow cardiology at [place] [facility] patient also seen by neurology patient seen by the ENT and has several work-up done Past Medical History Cardiac Medical History: Reports: Congestive Heart Failure, Coronary Artery Disease, Myocardial Infarction - 1990, Hyperlipidema, Hypertension - ON MEDS Denies: Atrial Fibrillation, Peripheral Vascular Disease, Pulmonary Embolism, Heart Murmur Pulmonary Medical History: Reports: Bronchitis, Chronic Obstructive Pulmonary Disease (COPD), Pneumonia - YRS AGO Denies: Asthma, Respiratory Failure, Sleep Apnea, Tuberculosis Neurological Medical History: Denies: Seizures Endocrine Medical History: Denies: Diabetes Mellitus Type 1, Diabetes Mellitus Type 2 Renal/ Medical History: Denies: End Stage Renal Disease Malignancy Medical History: Reports: Lung Cancer Denies: Leukemia GI Medical History: Reports: Crohn's Disease - Patient has either Crohn's disease or ulcerative colitis, Diverticulitis, Gastroesophageal Reflux Disease Denies: Hepatitis, Hiatal Hernia Musculoskeltal Medical History: Reports: Arthritis Denies: Fibromyalgia Psychiatric Medical History: Reports: Depression Denies: Bipolar Disorder, Post Traumatic Stress Disorder Hematology: Denies: Anemia, Hemophilia, Sickle Cell Disease Infectious Medical History: Denies: HIV Past Surgical History Past Surgical History: Reports: Appendectomy, Cardiac Catheterization, Section - x4, Coronary Stent, Hysterectomy, Orthopedic Surgery - bilateral knee surgery, Pacemaker, Tonsillectomy Denies: Amputation, Cholecystectomy, Colostomy, Coronary Artery Bypass Graft, Gastric Bypass Surgery, Herniorrhaphy, Mastectomy, Tubal Ligation Social History Information Source: Patient Smoking Status: Current Every Day Smoker Cigarettes Packs Per Day: 1 Electronic Cigarette use?: No Number of Years Smokin Last Time Smoked: 2 days ago Frequency of Alcohol Use: None Hx Recreational Drug Use: No Drugs: None Hx Prescription Drug Abuse: No Family History Family History: Reviewed & Not Pertinent, Hypertension Parental Family History Reviewed: Yes Children Family History Reviewed: Yes Sibling(s) Family History Reviewed.: Yes Medication/Allergy Home Medications: Amlodipine Besylate [Norvasc 5 mg Tablet] 5 mg PO Q12 10/09/17 Aspirin [Aspirin EC] 81 mg PO DAILY 10/09/17 Atorvastatin Calcium [Lipitor 40 mg Tablet] 40 mg PO QHS 10/09/17 Escitalopram Oxalate [Lexapro 10 mg Tablet] 10 mg PO DAILY 10/09/17 Isosorbide Mononitrate [Imdur 60 mg Tablet.er] 60 mg PO QAM 10/09/17 Nitroglycerin [Nitrostat 0.4 mg (1/150 Gr) Tabs 25/Bottle] 1 tab SL Q5MP PRN 08/30/18 Clopidogrel Bisulfate [Plavix 75 mg Tablet] 75 mg PO DAILY 10/21/18 Carvedilol [Coreg 12.5 mg Tablet] 12.5 mg PO Q12 07/26/20 Cholecalciferol (Vitamin D3) [Vitamin D3 1000 Unit Tablet] 2,000 unit PO DAILY 07/26/20 Famotidine [Pepcid 20 mg Tablet] 20 mg PO QHS 07/26/20 Fluticasone/Umeclidin/Vilanter [Trelegy 100-62.5-25 Mcg Ellipta 14 Dose/Dpi] 1 puff IH DAILY 07/26/20 Latanoprost/Pf [Latanoprost 0.005% Eye Drop] 1 drop OU QHS 07/26/20 Pantoprazole Sodium [Protonix [address] Tablet] 40 mg PO DAILY 07/26/20 Allergies/Adverse Reactions: amoxicillin Allergy (Verified 07/26/20 09:13) Penicillins Allergy (Verified 07/26/20 09:13) Review of Systems Constitutional: ABSENT: chills, fever(s), headache(s), weight gain, weight loss Eyes: ABSENT: visual disturbances Ears: ABSENT: hearing changes Cardiovascular: ABSENT: chest pain, dyspnea on exertion, edema, orthropnea, palpitations Respiratory: ABSENT: cough, hemoptysis Gastrointestinal: ABSENT: abdominal pain, constipation, diarrhea, hematemesis, hematochezia, nausea, vomiting Genitourinary: ABSENT: dysuria, hematuria Musculoskeletal: ABSENT: joint swelling Integumentary: ABSENT: rash, wounds Neurological: ABSENT: abnormal gait, abnormal speech, confusion, dizziness, focal weakness, syncope Psychiatric: ABSENT: anxiety, depression, homidical ideation, suicidal ideation Endocrine: ABSENT: cold intolerance, heat intolerance, menstrual abnormalities, polydipsia, polyuria Hematologic/Lymphatic: ABSENT: easy bleeding, easy bruising, lymphadenopathy Physical Exam Vital Signs: Temp Pulse Resp BP Pulse Ox 98.0 F 62 15 142/66 H 100 07/26/20 11:26 07/26/20 11:26 07/26/20 11:26 07/26/20 11:26 07/26/20 11:26 Intake & Output 07/25/20 07/26/20 07/27/20 06:59 06:59 06:59 Intake Total 300 240 Balance 300 240 Weight 62.6 kg General appearance: PRESENT: no acute distress, well-developed, well-nourished Head exam: PRESENT: atraumatic, normocephalic Eye exam: PRESENT: conjunctiva pink, EOMI, PERRLA. ABSENT: scleral icterus Ear exam: PRESENT: normal external ear exam Mouth exam: PRESENT: moist, tongue midline Neck exam: PRESENT: full ROM. ABSENT: carotid bruit, JVD, lymphadenopathy, thyromegaly Respiratory exam: PRESENT: clear to auscultation david Cardiovascular exam: PRESENT: RRR. ABSENT: diastolic murmur, rubs, systolic murmur Pulses: PRESENT: normal dorsalis pedis pul, +2 pedal pulses bilateral Vascular exam: PRESENT: normal capillary refill GI/Abdominal exam: PRESENT: normal bowel sounds, soft. ABSENT: distended, guarding, mass, organolmegaly, rebound, tenderness Rectal exam: PRESENT: deferred Musculoskeletal exam: PRESENT: ambulatory Neurological exam: PRESENT: alert, awake, oriented to person, oriented to place, oriented to time, oriented to situation, CN II-XII grossly intact. ABSENT: motor sensory deficit Psychiatric exam: PRESENT: appropriate affect, normal mood. ABSENT: homicidal ideation, suicidal ideation Skin exam: PRESENT: dry, intact, warm. ABSENT: cyanosis, rash Results Laboratory Results: 07/25/20 15:25 07/25/20 15:25 07/25/20 07/25/20 07/25/20 15:25 15:25 19:45 WBC 4.3 RBC 4.19 Hgb 13.2 Hct 40.2 MCV 96 MCH 31.4 MCHC 32.8 RDW 16.5 H Plt Count 173 Seg Neutrophils % 59.9 Sodium 142.3 Potassium 4.2 Chloride 105 Carbon Dioxide 24 Anion Gap 13 BUN 19 Creatinine 1.05 Est GFR ( Amer) > 60 Glucose 65 L Calcium 10.1 Magnesium 2.2 Total Bilirubin 0.6 AST 25 Alkaline Phosphatase 124 Total Protein 8.1 Albumin 5.0 Urine Color YELLOW Urine Appearance CLEAR Urine pH 5.0 Ur Specific [place] 1.010 Urine Protein NEGATIVE Urine Glucose (UA) NEGATIVE Urine Ketones NEGATIVE Urine Blood SMALL H Urine Nitrite NEGATIVE Ur Leukocyte Esterase TRACE H Urine WBC (Auto) 2 Urine RBC (Auto) 1 07/25/20 07/25/20 07/26/20 15:25 20:39 05:29 Creatine Kinase 34 Troponin I < 0.012 0.022 07/26/20 05:29 Creatine Kinase Troponin I 0.012 Impressions: Cervical Spine CT 07/25/20 13:37 IMPRESSION: CHRONIC DEGENERATIVE CHANGES. NO ACUTE FINDINGS. Chest X-Ray 07/25/20 13:37 IMPRESSION: NO ACUTE RADIOGRAPHIC FINDING IN THE CHEST. Head CT 07/25/20 13:37 IMPRESSION: MILD CHRONIC CHANGES OF ATROPHY AND MICROVASCULAR ISCHEMIA. NO ACUTE PROCESS. EVIDENCE OF ACUTE STROKE: NO. Shoulder X-Ray 07/25/20 13:37 IMPRESSION: Degenerative changes most marked in the glenohumeral joint. Anastacia l head sits I am position. This may represent a chronic rotator cuff injury. Chest CT 07/26/20 00:00 IMPRESSION: 1. Stable scarring in the left upper lobe. 2. There now appears to be a slight nodular thickening of the nearby fissure as described. Consider PET-CT. Assessment & Plan - Diagnosis (1) Uncontrolled hypertension Is this a current diagnosis for this admission?: Yes Plan: Patient was a noncompliance not taking the medications for 3 weeks currently all stable getting improving (2) Headache Qualifiers: Headache type: unspecified Headache chronicity pattern: episodic headache Intractability: not intractable Qualified Code(s): R51.9 - Headache, unspecified Is this a current diagnosis for this admission?: Yes Plan: Patient CT of the head is negative's currently all resolved due to the uncontrolled hypertension's (3) HTN (hypertension) Qualifiers: Hypertension type: essential hypertension Qualified Code(s): I10 - Essential (primary) hypertension Is this a current diagnosis for this admission?: Yes (4) Coronary artery disease Qualifiers: Coronary Disease-Associated Artery/Lesion type: unspecified vessel or lesion type Associated angina: without angina Is this a current diagnosis for this admission?: Yes Plan: We consulted cardiology for further evaluations (5) AICD (automatic cardioverter/defibrillator) present Is this a current diagnosis for this admission?: Yes Plan: We will get the pacemaker interrogations consult the cardiology (6) COPD (chronic obstructive pulmonary disease) Qualifiers: COPD type: chronic bronchitis Qualified Code(s): J44.9 - Chronic obstructive pulmonary disease, unspecified Is this a current diagnosis for this admission?: Yes Plan: Continues on nebulizer treatments (7) HLD (hyperlipidemia) Qualifiers: Hyperlipidemia type: unspecified Qualified Code(s): E78.5 - Hyperlipidemia, unspecified Is this a current diagnosis for this admission?: Yes (8) Frequent falls Is this a current diagnosis for this admission?: Yes Plan: we will get the physical therapy evaluations Patient have extensive work-up done in the past including the cardiology and neurology ENT We will get the pacemaker check Orthostatic vital signs (9) Lung cancer Qualifiers: Laterality: unspecified laterality Is this a current diagnosis for this admission?: Yes Plan: Get the CT of the chest consult oncology patient is a very noncompliance did not follow the oncology regularly have a history of the CyberKnife to the [place] (10) CVA (cerebral vascular accident) Qualifiers: CVA mechanism: unspecified Qualified Code(s): I63.9 - Cerebral infarction, unspecified Is this a current diagnosis for this admission?: No Plan: Continues to aspirin statin (11) Smoker Is this a current diagnosis for this admission?: Yes Plan: So many times discussed with the patient and counseling about the smoking patients normally never follow advice still continues to smoke (12) Noncompliance Is this a current diagnosis for this admission?: Yes Plan: Again discussed with the patient about the compliance patient understand very well discussed with the patient's family including the daughter and the son (13) Major depression Qualifiers: Major depression recurrence: recurrent Major depression episode severity: moderate Is this a current diagnosis for this admission?: Yes Plan: Continues on Lexapro 10 mg p.o. daily - Time Time Spent: 50 to 70 Minutes Medications reviewed and adjusted accordingly: Yes Anticipated Discharge Disposition: Home with Home Health Anticipated Discharge Timeframe: within 48 hours - Inpatient Certification Based on my medical assessment, after consideration of the patient's comorbidities, presenting symptoms, or acuity I expect that the services needed warrant INPATIENT care.: Yes I certify that my determination is in accordance with my understanding of Medicare's requirements for reasonable and necessary INPATIENT services [42 CFR 412.3e].: Yes Medical Necessity: Failure to Improve With Outpatient Therapy, Significant Comorbidiites Make Outpatient Treatment Too Risky, Need For Continuous Telemetry Monitoring, Need for Nebulizer Therapy and Monitoring of Response 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
[2020-07-26] MEDS: IPRATROPIUM/ALBUTEROL 0.5-2.5 MG/3 ML AMPUL NEB PRN ×2 (16:27→22:00)
--- NOTE | 2020-07-26 17:54 | PDOC CONSULTATION ---
Consultation Consult Date: 07/26/20 Attending physician:: ANA MARIA FRAGOSO Provider Consulted: ENZO ABARCA Consult reason:: Frequent falls History of Present Illness Admission Date/PCP: 07/25/20 23:47 MARIE CASTAÑEDA Patient complains of: Frequent falls History of Present Illness: JESSICA VEGA is a 75 year old female With the following active problems 1. Coronary artery disease-PCI 01/08/2018 2. Systemic hypertension 3. Low hello dyslipidemia 4. Ventricular tachycardia 5. Left-sided [employer] ICD-02/12/2011 6. Lung cancer status post CyberKnife 7. Nicotine dependence Patient has been admitted to the hospital after being found in the primary care physician's office to be significantly hypertensive. It appears that she had s topped all her medications after recent loss of the family. At the time of my evaluation patient is talkative and seems like her usual self. She does not endorse any chest pain or dyspnea. She mentions that she has had repeated falls sometimes as many as 4 in the right. She does not report any loss of consciousness. There is no symptoms of dizziness but she feels weak and then she goes down to the floor. She does not recall any discharge from the ICD. Since admission she has done well and has been walking with a walker and there have been no mention of any falls. Her blood pressure is also been corrected. Initial evaluation and work-up in the ED including CT scans and imaging studies have been inconclusive. Chest CT did not show any pericardial effusion. Past Medical History Cardiac Medical History: Reports: Congestive Heart Failure, Coronary Artery Disease, Myocardial Infarction - 1990, Hyperlipidema, Hypertension - ON MEDS Denies: Atrial Fibrillation, Peripheral Vascular Disease, Pulmonary Embolism, Heart Murmur Pulmonary Medical History: Reports: Bronchitis, Chronic Obstructive Pulmonary Disease (COPD), Pneumonia - YRS AGO Denies: Asthma, Respiratory Failure, Sleep Apnea, Tuberculosis Neurological Medical History: Denies: Seizures Endocrine Medical History: Denies: Diabetes Mellitus Type 1, Diabetes Mellitus Type 2 Renal/ Medical History: Denies: End Stage Renal Disease Malignancy Medical History: Reports: Lung Cancer Denies: Leukemia GI Medical History: Reports: Crohn's Disease - Patient has either Crohn's disease or ulcerative colitis, Diverticulitis, Gastroesophageal Reflux Disease Denies: Hepatitis, Hiatal Hernia Musculoskeltal Medical History: Reports: Arthritis Denies: Fibromyalgia Psychiatric Medical History: Reports: Depression Denies: Bipolar Disorder, Post Traumatic Stress Disorder Hematology: Denies: Anemia, Hemophilia, Sickle Cell Disease Infectious Medical History: Denies: HIV Past Surgical History Past Surgical History: Reports: Appendectomy, Cardiac Catheterization, Section - x4, Coronary Stent, Hysterectomy, Orthopedic Surgery - bilateral knee surgery, Pacemaker, Tonsillectomy Denies: Amputation, Cholecystectomy, Colostomy, Coronary Artery Bypass Graft, Gastric Bypass Surgery, Herniorrhaphy, Mastectomy, Tubal Ligation Social History Smoking Status: Current Every Day Smoker Cigarettes Packs Per Day: 1 Electronic Cigarette use?: No Number of Years Smokin Last Time Smoked: 2 days ago Frequency of Alcohol Use: None Hx Recreational Drug Use: No Drugs: None Hx Prescription Drug Abuse: No Family History Family History: Reviewed & Not Pertinent, Hypertension Parental Family History Reviewed: Yes - No familial illnesses Children Family History Reviewed: NA Sibling(s) Family History Reviewed.: NA Medication/Allergy Home Medications: Amlodipine Besylate [Norvasc 5 mg Tablet] 5 mg PO Q12 10/09/17 Aspirin [Aspirin EC] 81 mg PO DAILY 10/09/17 Atorvastatin Calcium [Lipitor 40 mg Tablet] 40 mg PO QHS 10/09/17 Escitalopram Oxalate [Lexapro 10 mg Tablet] 10 mg PO DAILY 10/09/17 Isosorbide Mononitrate [Imdur 60 mg Tablet.er] 60 mg PO QAM 10/09/17 Nitroglycerin [Nitrostat 0.4 mg (1/150 Gr) Tabs 25/Bottle] 1 tab SL Q5MP PRN 08/30/18 Clopidogrel Bisulfate [Plavix 75 mg Tablet] 75 mg PO DAILY 10/21/18 Carvedilol [Coreg 12.5 mg Tablet] 12.5 mg PO Q12 07/26/20 Cholecalciferol (Vitamin D3) [Vitamin D3 1000 Unit Tablet] 2,000 unit PO DAILY 07/26/20 Famotidine [Pepcid 20 mg Tablet] 20 mg PO QHS 07/26/20 Fluticasone/Umeclidin/Vilanter [Trelegy 100-62.5-25 Mcg Ellipta 14 Dose/Dpi] 1 puff IH DAILY 07/26/20 Latanoprost/Pf [Latanoprost 0.005% Eye Drop] 1 drop OU QHS 11/05/20 Pantoprazole Sodium [Protonix [address] Tablet] 40 mg PO DAILY 07/26/20 Allergies/Adverse Reactions: amoxicillin Allergy (Verified 07/26/20 09:13) Penicillins Allergy (Verified 07/26/20 09:13) Review of Systems Constitutional: PRESENT: as per HPI Eyes: PRESENT: as per HPI Ears: PRESENT: as per HPI Respiratory: ABSENT: as per HPI, cough, dyspnea, hemoptysis, sputum, other Gastrointestinal: ABSENT: as per HPI, abdominal pain, bloating, coffee ground emesis, constipation, diarrhea, dysphagia, heartburn, hematemesis, hematochezia, melena, nausea, vomiting, other Neurological: PRESENT: other - Frequent falls Physical Exam Vital Signs: Temp Pulse Resp BP Pulse Ox 98.1 F 63 17 145/71 H 98 07/26/20 16:56 07/26/20 16:56 07/26/20 16:56 07/26/20 16:56 07/26/20 16:56 Intake & Output 07/25/20 07/26/20 07/27/20 06:59 06:59 06:59 Intake Total 300 240 Balance 300 240 Weight 62.6 kg General appearance: PRESENT: no acute distress, cooperative, well-developed, well-nourished Head exam: PRESENT: atraumatic, normocephalic Eye exam: PRESENT: conjunctiva pink, EOMI Mouth exam: PRESENT: moist Neck exam: PRESENT: full ROM Respiratory exam: PRESENT: clear to auscultation david, symmetrical, unlabored Cardiovascular exam: PRESENT: RRR, +S1, +S2, other - ICD implant site left chest wall is free from erythema, edema or excoriation. No edema is noted or hematoma Pulses: PRESENT: normal radial pulses GI/Abdominal exam: PRESENT: soft Rectal exam: PRESENT: deferred Neurological exam: PRESENT: alert, awake, oriented to person, oriented to place, oriented to time, oriented to situation Psychiatric exam: PRESENT: appropriate affect Skin exam: PRESENT: dry, intact, normal color Results Laboratory Results: 07/25/20 15:25 07/25/20 15:25 07/25/20 19:45 Urine Color YELLOW Urine Appearance CLEAR Urine pH 5.0 Ur Specific [place] 1.010 Urine Protein NEGATIVE Urine Glucose (UA) NEGATIVE Urine Ketones NEGATIVE Urine Blood SMALL H Urine Nitrite NEGATIVE Ur Leukocyte Esterase TRACE H Urine WBC (Auto) 2 Urine RBC (Auto) 1 07/25/20 07/25/20 07/26/20 15:25 20:39 05:29 Creatine Kinase 34 Troponin I < 0.012 0.022 07/26/20 05:29 Creatine Kinase Troponin I 0.012 EKG Comments: Transthoracic echocardiogram 10/03/2019 No pericardial effusion is noted Transthoracic echocardiogram 12/03/2017 tentatively ejection fraction 60 to 65% Mild aortic insufficiency. Mild mitral regurgitation Cardiac catheterization 12/23/2017 Successful PCI to the PDA Proximal LAD IFR equals 0.92 Implants [employer] [id number] 02/12/2011 implant date Model number taking [employer] 100 feet 1020 #[id number] Single-chamber ICD. Interrogated today. Presenting rhythm is ventricular sensed 58 bpm Underlying rhythm is sinus rhythm at 50 bpm Battery is good for 4 years Programmed parameters VVI 40 and VF and VT zones to zone VT programming. Note therapies and no clinical arrhythmia. Occasional nonsustained VT episodes. Sensed R waves 6.4 mV Pacing impedance 490 ohms Shock lead impedance 43 ohms Ventricular threshold 0.5 V at 0.5 ms No alerts. Telemetry presently shows sinus bradycardia at 58 bpm Twelve-lead EKG 07/26/2020. Independently reviewed by me. Sinus rhythm, PVC, 58 bpm, T inversion anterolateral leads Cervical spine CT chronic degenerative changes no acute findings Head CT mild chronic changes. No acute process no evidence of stroke Creatinine 1.05 Potassium 4.2 Troponin level indeterminate Less than 0.012 0.022 0.012 Impressions: Cervical Spine CT 07/25/20 13:37 IMPRESSION: CHRONIC DEGENERATIVE CHANGES. NO ACUTE FINDINGS. Chest X-Ray 07/25/20 13:37 IMPRESSION: NO ACUTE RADIOGRAPHIC FINDING IN THE CHEST. Head CT 07/25/20 13:37 IMPRESSION: MILD CHRONIC CHANGES OF ATROPHY AND MICROVASCULAR ISCHEMIA. NO ACUTE PROCESS. EVIDENCE OF ACUTE STROKE: NO. Shoulder X-Ray 07/25/20 13:37 IMPRESSION: Degenerative changes most marked in the glenohumeral joint. Humeral head sits I am position. This may represent a chronic rotator cuff injury. Chest CT 07/26/20 00:00 IMPRESSION: 1. Stable scarring in the left upper lobe. 2. There now appears to be a slight nodular thickening of the nearby fissure as described. Consider PET-CT. Assessment & Plan - Diagnosis (1) HTN (hypertension) Qualifiers: Hypertension type: essential hypertension Qualified Code(s): I10 - Essential (primary) hypertension Is this a current diagnosis for this admission?: Yes Plan: Hypertensive encephalopathy probably resulted in her presentation. Blood pressure was significantly elevated in the doctor's office and since admission it is much better controlled We will continue present regimen especially since noncompliance was responsible for increase in blood pressure. (2) AICD (automatic cardioverter/defibrillator) present Is this a current diagnosis for this admission?: Yes Plan: [employer] ICD was irrigated in the hospital and showed normal device function and no clinical arrhythmia Patient is not pacemaker dependent and there is no evidence to suggest bradycardia. Normal device function normal lead impedance normal threshold. Battery life is also good. Occasional episodes of nonsustained ventricular tachycardia which did not result in therapy and would unlikely result in the symptoms including frequent falls. In fact there is no report of syncope or ICD discharge. (3) CAD S/P percutaneous coronary angioplasty Is this a current diagnosis for this admission?: Yes Plan: Presentation is not consistent with myocardial ischemia Given coronary artery disease with intervention in the past would recommend continued guideline directed medical therapy for coronary disease including dual antiplatelet therapy if feasible. Patient has been on aspirin and clopidogrel in the past and this should be continued. (4) Frequent falls Is this a current diagnosis for this admission?: Yes Plan: Extremely poor historian Episodes of falls seem to be mechanical and probably ataxic. Although this is not very clear. Not sure if patient has any neuropathy following chemotherapy Adrenal insufficiency with hypotension is probably in the differential. Patient is having normal potassium levels. (5) Lung cancer Qualifiers: Laterality: unspecified laterality Is this a current diagnosis for this admission?: Yes Plan: Status post therapy. CT chest shows no pericardial effusion and only scarring - Notes Notes: Continue carvedilol 6.25 mg twice daily Continue amlodipine 5 mg twice daily Continue aspirin 81 mg daily Continue atorvastatin 20 mg daily
--- NOTE | 2020-07-26 18:00 | EKG REPORT ---
SEVERITY:- ABNORMAL ECG - SINUS RHYTHM VENTRICULAR PREMATURE COMPLEX ABNORMAL T, CONSIDER ISCHEMIA, ANT-LAT LEADS : Confirmed by: Guille Loyola MD 26-Jul-2020 17:59:48
[2020-07-26] MEDS ORDERED: ASPIRIN 81 MG TABLET, CHEWABLE PO SCH (22:00)
[2020-07-26] MEDS ORDERED: ATORVASTATIN CALCIUM 20 MG TABLET PO SCH (22:00)
[2020-07-26] MEDS ORDERED: LATANOPROST 0.005% OPH SOLN 2.5 ML OU SCH (22:00)
--- NOTE | 2020-07-27 07:47 | PDOC CONSULTATION ---
Consultation Consult Date: 07/27/20 Attending physician:: ANA MARIA FRAGOSO Provider Consulted: MAURIZIO BENOIT Consult reason:: None stage I lung cancer here with recent CT for restaging History of Present Illness Admission Date/PCP: 07/25/20 23:47 MARIE CASTAÑEDA Patient complains of: Weakness, shortness of breath History of Present Illness: JESSICA VEGA is a 75 year old female with longstanding history of noncompliance. Mostly as a dementia issue, she really does not remember to do much. Unfortunately recently her . Family is involved with her care to some extent. She apparently was found at home confused had not taken medications for months. She was brought to her PCP where she was found to be in hypertensive emergency. She has known history of stage I lung cancer, and with great difficulty in getting transportation we were able to diagnose her and treat her at [place] with [facility] radiation. Since that time she is remained in a complete response. On this admission she had restaging CT, which is good because she missed her appointment with us multiple times for restaging. The CT per my view shows stability of changes post radiation. No new areas of disease. Past Medical History Cardiac Medical History: Reports: Congestive Heart Failure, Coronary Artery Disease, Myocardial Infarction - 1990, Hyperlipidema, Hypertension - ON MEDS Denies: Atrial Fibrillation, Peripheral Vascular Disease, Pulmonary Embolism, Heart Murmur Pulmonary Medical History: Reports: Bronchitis, Chronic Obstructive Pulmonary Disease (COPD), Pneumonia - YRS AGO Denies: Asthma, Respiratory Failure, Sleep Apnea, Tuberculosis Neurological Medical History: Denies: Seizures Endocrine Medical History: Denies: Diabetes Mellitus Type 1, Diabetes Mellitus Type 2 Renal/ Medical History: Denies: End Stage Renal Disease Malignancy Medical History: Reports: Lung Cancer Denies: Leukemia GI Medical History: Reports: Crohn's Disease - Patient has either Crohn's disease or ulcerative colitis, Diverticulitis, Gastroesophageal Reflux Disease Denies: Hepatitis, Hiatal Hernia Musculoskeltal Medical History: Reports: Arthritis Denies: Fibromyalgia Psychiatric Medical History: Reports: Depression Denies: Bipolar Disorder, Post Traumatic Stress Disorder Hematology: Denies: Anemia, Hemophilia, Sickle Cell Disease Infectious Medical History: Denies: HIV Past Surgical History Past Surgical History: Reports: Appendectomy, Cardiac Catheterization, Section - x4, Coronary Stent, Hysterectomy, Orthopedic Surgery - bilateral knee surgery, Pacemaker, Tonsillectomy Denies: Amputation, Cholecystectomy, Colostomy, Coronary Artery Bypass Graft, Gastric Bypass Surgery, Herniorrhaphy, Mastectomy, Tubal Ligation Social History Information Source: Patient Smoking Status: Current Every Day Smoker Cigarettes Packs Per Day: 1 Electronic Cigarette use?: No Number of Years Smokin Last Time Smoked: 2 days ago Frequency of Alcohol Use: None Hx Recreational Drug Use: No Drugs: None Hx Prescription Drug Abuse: No - Advance Directive Resuscitation Status: Full Code Family History Family History: Reviewed & Not Pertinent, Hypertension Parental Family History Reviewed: Yes Children Family History Reviewed: Yes Sibling(s) Family History Reviewed.: Yes Medication/Allergy Home Medications: Amlodipine Besylate [Norvasc 5 mg Tablet] 5 mg PO Q12 10/09/17 Aspirin [Aspirin EC] 81 mg PO DAILY 10/09/17 Atorvastatin Calcium [Lipitor 40 mg Tablet] 40 mg PO QHS 10/09/17 Escitalopram Oxalate [Lexapro 10 mg Tablet] 10 mg PO DAILY 10/09/17 Isosorbide Mononitrate [Imdur 60 mg Tablet.er] 60 mg PO QAM 10/09/17 Nitroglycerin [Nitrostat 0.4 mg (1/150 Gr) Tabs 25/Bottle] 1 tab SL Q5MP PRN 08/30/18 Clopidogrel Bisulfate [Plavix 75 mg Tablet] 75 mg PO DAILY 10/21/18 Carvedilol [Coreg 12.5 mg Tablet] 12.5 mg PO Q12 07/26/20 Cholecalciferol (Vitamin D3) [Vitamin D3 1000 Unit Tablet] 2,000 unit PO DAILY 07/26/20 Famotidine [Pepcid 20 mg Tablet] 20 mg PO QHS 07/26/20 Fluticasone/Umeclidin/Vilanter [Trelegy 100-62.5-25 Mcg Ellipta 14 Dose/Dpi] 1 puff IH DAILY 07/26/20 Latanoprost/Pf [Latanoprost 0.005% Eye Drop] 1 drop OU QHS 07/26/20 Pantoprazole Sodium [Protonix [address] Tablet] 40 mg PO DAILY 07/26/20 Allergies/Adverse Reactions: amoxicillin Allergy (Verified 07/26/20 09:13) Penicillins Allergy (Verified 07/26/20 09:13) Review of Systems Constitutional: ABSENT: chills, fever(s), headache(s), weight gain, weight loss Eyes: ABSENT: visual disturbances Ears: ABSENT: hearing changes Cardiovascular: ABSENT: chest pain, dyspnea on exertion, edema, orthropnea, palpitations Respiratory: ABSENT: cough, hemoptysis Gastrointestinal: ABSENT: abdominal pain, constipation, diarrhea, hematemesis, hematochezia, nausea, vomiting Genitourinary: ABSENT: dysuria, hematuria Musculoskeletal: ABSENT: joint swelling Integumentary: ABSENT: rash, wounds Neurological: ABSENT: abnormal gait, abnormal speech, confusion, dizziness, focal weakness, syncope Psychiatric: ABSENT: anxiety, depression, homidical ideation, suicidal ideation Endocrine: ABSENT: cold intolerance, heat intolerance, polydipsia, polyuria Hematologic/Lymphatic: ABSENT: easy bleeding, easy bruising Physical Exam Vital Signs: Temp Pulse Resp BP Pulse Ox 98.0 F 74 16 140/58 H 94 07/26/20 23:33 07/27/20 02:00 07/26/20 23:33 07/26/20 23:33 07/26/20 23:33 Intake & Output 07/26/20 07/27/20 07/28/20 06:59 06:59 06:59 Intake Total 300 720 Balance 300 720 Weight 62.6 kg 62.6 kg General appearance: PRESENT: no acute distress, well-developed, well-nourished Head exam: PRESENT: atraumatic, normocephalic Eye exam: PRESENT: conjunctiva pink, EOMI, PERRLA. ABSENT: scleral icterus Ear exam: PRESENT: normal external ear exam Mouth exam: PRESENT: moist, tongue midline Neck exam: ABSENT: carotid bruit, JVD, lymphadenopathy, thyromegaly Respiratory exam: PRESENT: clear to auscultation david. ABSENT: rales, rhonchi, wheezes Cardiovascular exam: PRESENT: RRR. ABSENT: diastolic murmur, rubs, systolic murmur Pulses: PRESENT: normal dorsalis pedis pul Vascular exam: PRESENT: normal capillary refill GI/Abdominal exam: PRESENT: normal bowel sounds, soft. ABSENT: distended, guarding, mass, organolmegaly, rebound, tenderness Rectal exam: PRESENT: deferred Extremities exam: PRESENT: full ROM. ABSENT: calf tenderness, clubbing, pedal edema Neurological exam: PRESENT: alert, awake, oriented to person, oriented to place, oriented to time, oriented to situation, CN II-XII grossly intact. ABSENT: motor sensory deficit Psychiatric exam: PRESENT: appropriate affect, normal mood. ABSENT: homicidal ideation, suicidal ideation Skin exam: PRESENT: dry, intact, warm. ABSENT: cyanosis, rash Results Laboratory Results: 07/25/20 15:25 07/25/20 15:25 07/25/20 07/25/20 07/26/20 15:25 20:39 05:29 Creatine Kinase 34 Troponin I < 0.012 0.022 07/26/20 05:29 Creatine Kinase Troponin I 0.012 Impressions: Cervical Spine CT 07/25/20 13:37 IMPRESSION: CHRONIC DEGENERATIVE CHANGES. NO ACUTE FINDINGS. Chest X-Ray 07/25/20 13:37 IMPRESSION: NO ACUTE RADIOGRAPHIC FINDING IN THE CHEST. Head CT 07/25/20 13:37 IMPRESSION: MILD CHRONIC CHANGES OF ATROPHY AND MICROVASCULAR ISCHEMIA. NO ACUTE PROCESS. EVIDENCE OF ACUTE STROKE: NO. Shoulder X-Ray 07/25/20 13:37 IMPRESSION: Degenerative changes most marked in the glenohumeral joint. Humeral head sits I am position. This may represent a chronic rotator cuff injury. Chest CT 07/26/20 00:00 IMPRESSION: 1. Stable scarring in the left upper lobe. 2. There now appears to be a slight nodular thickening of the nearby fissure as described. Consider PET-CT. Status: Image reviewed by me Assessment & Plan - Diagnosis (1) Lung cancer Qualifiers: Laterality: left Lung location: upper lobe of lung Qualified Code(s): C34.12 - Malignant neoplasm of upper lobe, left bronchus or lung Is this a current diagnosis for this admission?: Yes Plan: Stage I left lung cancer status post primary CyberKnife radiation, complete response noted, stable changes on CT, next CT should be in 6 months. We will see her at that time. - Time Time Spent: Greater than 70 Minutes
[2020-07-27] MEDS: FAMOTIDINE 20 MG TABLET PO SCH (09:11)
[2020-07-27] MEDS: CARVEDILOL 6.25 MG TABLET PO SCH (09:11)
[2020-07-27] MEDS: AMLODIPINE BESYLATE 5 MG TABLET PO SCH (09:11)
--- NOTE | 2020-07-27 11:48 | PDOC DISCHARGE SUMMARY ---
Impression - Admit/DC Date/PCP Admission Date/Primary Care Provider: 07/25/20 23:47 MARIE CASTAÑEDA Discharge Date: 07/27/20 - Discharge Diagnosis (1) Uncontrolled hypertension Is this a current diagnosis for this admission?: Yes (2) Headache Is this a current diagnosis for this admission?: Yes (3) HTN (hypertension) Is this a current diagnosis for this admission?: Yes (4) Coronary artery disease Is this a current diagnosis for this admission?: Yes (5) AICD (automatic cardioverter/defibrillator) present Is this a current diagnosis for this admission?: Yes (6) COPD (chronic obstructive pulmonary disease) Is this a current diagnosis for this admission?: Yes (7) HLD (hyperlipidemia) Is this a current diagnosis for this admission?: Yes (8) Frequent falls Is this a current diagnosis for this admission?: Yes (9) Lung cancer Is this a current diagnosis for this admission?: Yes (10) CVA (cerebral vascular accident) Is this a current diagnosis for this admission?: No (11) Smoker Is this a current diagnosis for this admission?: Yes (12) Noncompliance Is this a current diagnosis for this admission?: Yes (13) Major depression Is this a current diagnosis for this admission?: Yes - Additional Information Resuscitation Status: Full Code Discharge Diet: Cardiac Discharge Activity: Activity As Tolerated Referrals: AVRIL LEVY PA [Primary Care Provider] - 07/30/20 9:15 am ENZO ABARCA MD [ACTIVE STAFF] - 08/06/20 12:45 pm MAURIZIO BENOIT MD [ACTIVE STAFF] - 01/14/21 2:00 pm Home Medications: Amlodipine Besylate [Norvasc 5 mg Tablet] 5 mg PO Q12 10/09/17 Aspirin [Aspirin EC] 81 mg PO DAILY 10/09/17 Atorvastatin Calcium [Lipitor 40 mg Tablet] 40 mg PO QHS 10/09/17 Isosorbide Mononitrate [Imdur 60 mg Tablet.er] 60 mg PO QAM 10/09/17 Nitroglycerin [Nitrostat 0.4 mg (1/150 Gr) Tabs 25/Bottle] 1 tab SL Q5MP PRN 08/30/18 Clopidogrel Bisulfate [Plavix 75 mg Tablet] 75 mg PO DAILY 10/21/18 Carvedilol [Coreg 12.5 mg Tablet] 12.5 mg PO Q12 07/26/20 Cholecalciferol (Vitamin D3) [Vitamin D3 1000 Unit Tablet] 2,000 unit PO DAILY 07/26/20 Famotidine [Pepcid 20 mg Tablet] 20 mg PO QHS 07/26/20 Fluticasone/Umeclidin/Vilanter [Trelegy 100-62.5-25 Mcg Ellipta 14 Dose/Dpi] 1 puff IH DAILY 07/26/20 Latanoprost/Pf [Latanoprost 0.005% Eye Drop] 1 drop OU QHS 07/26/20 Pantoprazole Sodium [Protonix [address] Tablet] 40 mg PO DAILY 07/26/20 History of Present Illiness History of Present Illness: JESSICA Vaughn SILVAI is a 75 year old female Is a 75-year-old female's with a significant history of the hypertension hyperlipidemia chronic smoker COPD lung cancer status post CyberKnife history of the pacemaker coronary artery disease and a super noncomplianceRecently lost her in the last 3 weeks patient was not taking any single medications came to the office yesterday and patient's blood pressure was 230/120 and patient was sent to the emergency department In the ER patient was CT of the head was negative patient have a CT of the C- spine chest x-ray and blood work was all stable Received a 1 dose of clonidine and blood pressure is coming down to 150 range patient also received the amlodipine Today's when I saw the patient's denied any chest pain no short of breath no headache no weakness Again discussed with the patient's daughter regarding the patient's current conditions she knew that the patient is not follow nothing much she can offer if the patient do not want to do anything Discussed with the patient again myself and suggest that compliance of the medications Patient CT of the chest was done was all stable we consult the oncology We consult the cardiology for the pacemaker interrogations and further evaluate for this ongoing dizziness issue which patients follow cardiology at [place] patient also seen by neurology patient seen by the ENT and has several work-up done Hospital Course Hospital Course: Is a 75-year-old female's basically presents in the office with the blood pressure was 230/130 Sent to the emergency department and all initial work-up including CT head CT of the C-spine cardiac enzymes blood work is all normal Patient stopped the medicines for 3 weeks by herself due to the her Always noncompliance start drinking alcohol start smoking again Patient at this point admitting in the hospital patient seen by the cardiology pacemaker was interrogated Have a CT of the chest done seen by oncology for lung cancer all stable Patient's walk with the physical therapy without any problem patient's blood pressures running 1 30-1 40 range Patient have orthostatic blood pressure was when he laid down is low when he stands up is high could be a reason symptom patient's fall Discussed with the patient about slowly stand up and continues to monitor the blood pressures readjust the medications in the office follow with the cardiology This with the patient about smoking counseling and alcohol counseling Patient's according to the cardiology no need for stress test and echocardiogram Oncology currently all stable following a 6-month Discussed with the patient and the family and about the compliance continues to follow Physical Exam Vital Signs: Temp Pulse Resp BP Pulse Ox 97.3 F 66 16 160/76 H 99 07/27/20 10:00 07/27/20 09:04 07/27/20 09:04 07/27/20 07:37 07/27/20 07:37 Intake & Output 07/26/20 07/27/20 07/28/20 06:59 06:59 06:59 Intake Total 300 720 Balance 300 720 Weight 62.6 kg 62.6 kg General appearance: PRESENT: no acute distress, well-developed, well-nourished Head exam: PRESENT: atraumatic, normocephalic Eye exam: PRESENT: conjunctiva pink, EOMI, PERRLA. ABSENT: scleral icterus Ear exam: PRESENT: normal external ear exam Mouth exam: PRESENT: moist, tongue midline Neck exam: ABSENT: carotid bruit, JVD, lymphadenopathy, thyromegaly Respiratory exam: PRESENT: clear to auscultation david. ABSENT: rales, rhonchi, wheezes Cardiovascular exam: PRESENT: RRR. ABSENT: diastolic murmur, rubs, systolic murmur Pulses: PRESENT: normal dorsalis pedis pul Vascular exam: PRESENT: normal capillary refill GI/Abdominal exam: PRESENT: normal bowel sounds, soft. ABSENT: distended, guarding, mass, organolmegaly, rebound, tenderness Rectal exam: PRESENT: deferred Extremities exam: PRESENT: full ROM. ABSENT: calf tenderness, clubbing, pedal edema Neurological exam: PRESENT: alert, awake, oriented to person, oriented to place, oriented to time, oriented to situation, CN II-XII grossly intact. ABSENT: motor sensory deficit Psychiatric exam: PRESENT: appropriate affect, normal mood. ABSENT: homicidal ideation, suicidal ideation Skin exam: PRESENT: dry, intact, warm. ABSENT: cyanosis, rash Results Laboratory Results: WBC 4.3 10^3/uL (4.0-10.5) 07/25/20 15:25 RBC 4.19 10^6/uL (3.72-5.28) 07/25/20 15:25 Hgb 13.2 g/dL (12.0-15.5) 07/25/20 15:25 Hct 40.2 % (36.0-47.0) 07/25/20 15:25 MCV 96 fl (80-97) 07/25/20 15:25 MCH 31.4 pg (27.0-33.4) 07/25/20 15:25 MCHC 32.8 g/dL (32.0-36.0) 07/25/20 15:25 RDW 16.5 % (11.5-14.0) H 07/25/20 15:25 Plt Count 173 10^3/uL (150-450) 07/25/20 15:25 Lymph % (Auto) 36.1 % (13-45) 07/25/20 15:25 [place] % (Auto) 3.2 % (3-13) 07/25/20 15:25 Eos % (Auto) 0.6 % (0-6) 07/25/20 15:25 Baso % (Auto) 0.2 % (0-2) 07/25/20 15:25 Absolute Neuts (auto) 2.6 10^3/uL (1.7-8.2) 07/25/20 15:25 Absolute Lymphs (auto) 1.6 10^3/uL (0.5-4.7) 07/25/20 15:25 Absolute Monos (auto) 0.1 10^3/uL (0.1-1.4) 07/25/20 15:25 Absolute Eos (auto) 0.0 10^3/uL (0.0-0.6) 07/25/20 15:25 Absolute Basos (auto) 0.0 10^3/uL (0.0-0.2) 07/25/20 15:25 Seg Neutrophils % 59.9 % (42-78) 07/25/20 15:25 Sodium 142.3 mmol/L (137-145) 07/25/20 15:25 Potassium 4.2 mmol/L (3.6-5.0) 07/25/20 15:25 Chloride 105 mmol/L (98-107) 07/25/20 15:25 Carbon Dioxide 24 mmol/L (22-30) 07/25/20 15:25 Anion Gap 13 (5-19) 07/25/20 15:25 BUN 19 mg/dL (7-20) 07/25/20 15:25 Creatinine 1.05 mg/dL (0.52-1.25) 07/25/20 15:25 Est GFR ( Amer) > 60 (>60) 07/25/20 15:25 Est GFR (MDRD) Non-Af 51 (>60) L 07/25/20 15:25 Glucose 65 mg/dL (75-110) L 07/25/20 15:25 POC Glucose 95 mg/dL (70-110) 07/25/20 16:48 Calcium 10.1 mg/dL (8.4-10.2) 07/25/20 15:25 Magnesium 2.2 mg/dL (1.6-2.3) 07/25/20 15:25 Total Bilirubin 0.6 mg/dL (0.2-1.3) 07/25/20 15:25 Direct Bilirubin 0.1 mg/dL (0.0-0.4) 07/25/20 15:25 Neonat Total Bilirubin Not Reportable 07/25/20 15:25 Neonat Direct Bilirubin Not Reportable 07/25/20 15:25 Neonat Indirect Bili Not Reportable 07/25/20 15:25 AST 25 U/L (14-36) 07/25/20 15:25 ALT 13 U/L (<35) 07/25/20 15:25 Alkaline Phosphatase 124 U/L (38-126) 07/25/20 15:25 Creatine Kinase 34 U/L (30-135) 07/26/20 05:29 Troponin I 0.012 ng/mL 07/26/20 05:29 Total Protein 8.1 g/dL (6.3-8.2) 07/25/20 15:25 Albumin 5.0 g/dL (3.5-5.0) 07/25/20 15:25 Urine Color YELLOW 07/25/20 19:45 Urine Appearance CLEAR 07/25/20 19:45 Urine pH 5.0 (5.0-9.0) 07/25/20 19:45 Ur Specific [place] 1.010 07/25/20 19:45 Urine Protein NEGATIVE mg/dL (NEGATIVE) 07/25/20 19:45 Urine Glucose (UA) NEGATIVE mg/dL (NEGATIVE) 07/25/20 19:45 Urine Ketones NEGATIVE mg/dL (NEGATIVE) 07/25/20 19:45 Urine Blood SMALL (NEGATIVE) H 07/25/20 19:45 Urine Nitrite NEGATIVE (NEGATIVE) 07/25/20 19:45 Urine Bilirubin NEGATIVE (NEGATIVE) 07/25/20 19:45 Urine Urobilinogen NEGATIVE mg/dL (<2.0) 07/25/20 19:45 Ur Leukocyte Esterase TRACE (NEGATIVE) H 07/25/20 19:45 Urine WBC (Auto) 2 /HPF 07/25/20 19:45 Urine RBC (Auto) 1 /HPF 07/25/20 19:45 Squamous Epi Cells Auto <1 /HPF 07/25/20 19:45 Urine Mucus (Auto) RARE /LPF 07/25/20 19:45 Urine Ascorbic Acid NEGATIVE (NEGATIVE) 07/25/20 19:45 07/25/20 07/25/20 07/26/20 15:25 20:39 05:29 Troponin I < 0.012 0.022 0.012 Impressions: Cervical Spine CT 07/25/20 13:37 IMPRESSION: CHRONIC DEGENERATIVE CHANGES. NO ACUTE FINDINGS. Chest X-Ray 07/25/20 13:37 IMPRESSION: NO ACUTE RADIOGRAPHIC FINDING IN THE CHEST. Head CT 07/25/20 13:37 IMPRESSION: MILD CHRONIC CHANGES OF ATROPHY AND MICROVASCULAR ISCHEMIA. NO ACUTE PROCESS. EVIDENCE OF ACUTE STROKE: NO. Shoulder X-Ray 07/25/20 13:37 IMPRESSION: Degenerative changes most marked in the glenohumeral joint. Humeral head sits I am position. This may represent a chronic rotator cuff injury. Chest CT 07/26/20 00:00 IMPRESSION: 1. Stable scarring in the left upper lobe. 2. There now appears to be a slight nodular thickening of the nearby fissure as described. Consider PET-CT. Plan Time Spent: Greater than 30 Minutes - Follow in office 1 week readjust the blood pressure medications check of blood pressure at home daily Arranged home health and physical therapy due to the noncompliance Stroke Is this a Stroke Patient?: No Acute Heart Failure Is this a Heart Failure Patient?: No
[2020-07-27 14:10] VITALS: BP 147/57
== END 2020-07-27 14:46 | disposition home health service (06) ==
LOC: ER 12:38 → EH 23:47 → OBSVTOIN 23:47 → INTOOBSV 23:47 → 4S 07-26 00:30
PROVIDERS: ADMIT Family Medicine; ATTEND Family Medicine
DX: I11.0 Hypertensive heart disease with heart failure (principal); I50.9 Heart failure, unspecified; R51.9 Headache, unspecified; I25.10 Atherosclerotic heart disease of native coronary artery without angina pectoris; Z95.810 Presence of automatic (implantable) cardiac defibrillator; R29.6 Repeated falls; C34.12 Malignant neoplasm of upper lobe, left bronchus or lung; J44.9 Chronic obstructive pulmonary disease, unspecified; E78.5 Hyperlipidemia, unspecified; F03.90 Unspecified dementia, unspecified severity, without behavioral disturbance, psychotic disturbance, mood disturbance, and anxiety; H57.10 Ocular pain, unspecified eye; F32.9 Major depressive disorder, single episode, unspecified; F17.200 Nicotine dependence, unspecified, uncomplicated; Z91.19 Patient's noncompliance with other medical treatment and regimen; F17.210 Nicotine dependence, cigarettes, uncomplicated; I25.2 Old myocardial infarction; I47.2 Ventricular tachycardia; R53.1 Weakness; R31.29 Other microscopic hematuria; H40.053 Ocular hypertension, bilateral; R26.81 Unsteadiness on feet; H53.8 Other visual disturbances; G89.29 Other chronic pain; M25.512 Pain in left shoulder; M54.2 Cervicalgia; Z63.4 Disappearance and death of family member; Z79.899 Other long term (current) drug therapy; Z79.82 Long term (current) use of aspirin; Z79.02 Long term (current) use of antithrombotics/antiplatelets; Z96.1 Presence of intraocular lens; Z92.3 Personal history of irradiation; Z95.5 Presence of coronary angioplasty implant and graft; Z82.49 Family history of ischemic heart disease and other diseases of the circulatory system
CPT/HCPCS: 93005 ×2; 99285; 36415 ×2; 82962; 82550; 83735; 85025; 80053; 81001; 84484 ×2; 71045; 73030; 70450; 71250; 72125; 93010 ×2; 94640 ×2; 97116; 97161; G0378 ×2; A9270 ×10; J3490